=== PATIENT | female | born 1940 | race Caucasian/White ===

== ENCOUNTER 2019-10-10 12:37 | Outpatient (CLI) | payer MEDICARE, OTHER, SELFPAY ==
[2019-10-10 13:31] LABS: Urine Color Yellow (Yellow)
[2019-10-10 13:32] LABS: Bilirubin Urine Neg (NEGATIVE); Blood Urine Neg (Negative); Glucose Urine UA Norm (Normal); Ketones Urine 1+ (Negative); Leukocyte Esterase Urine Negative (Negative); Nitrate Urine Negative (Negative); Protein Urine Neg (Negative); Specific Gravity, Urine 1.015 (1.005-1.030); Urine Appearance SL Hazy (CLEAR); Urobilinogen Urine Norm (Negative); pH Urine 5 (5-7)
[2019-10-10 14:06] LABS: Add Urine Culture? No; Bacteria Urine 1+; Mucus Urine TRACE; Squamous Epithelial Cell Urine 15-25 (0-5)
== END 2019-10-10 12:38 | disposition home or self-care (01) ==
LOC: LAB 12:42
PROVIDERS: Family Provider Family Medicine; PCP Family Medicine; Visit Provider Family Medicine
DX: N39.0 Urinary tract infection, site not specified (principal)
CPT/HCPCS: 81001; 87086

== ENCOUNTER 2019-10-19 14:53 | Outpatient (CLI) | payer MEDICARE, OTHER, SELFPAY ==
[2019-10-19 15:39] LABS: Anion Gap 19.4 (5-19); Blood Urea Nitrogen 17 mg/dL (8-23); Calcium 10.3 mg/Dl (8.8-10.2); Carbon Dioxide 24 mmol/L (22-29); Chloride 98 mmol/L (98-107); Glucose 127 mg/dL (74-106); Potassium 4.4 mmol/L (3.5-5.1); Sodium 137 mmol/L (136-145)
== END 2019-10-19 14:54 | disposition home or self-care (01) ==
LOC: LAB 14:59
PROVIDERS: Family Provider Family Medicine; PCP Family Medicine; Visit Provider Family Medicine
DX: N39.0 Urinary tract infection, site not specified (principal)
CPT/HCPCS: 36415; 80048

== ENCOUNTER 2019-10-25 06:00 | Outpatient (RCR) | payer MEDICARE, OTHER, SELFPAY | END 2019-11-04 23:59 | disposition home or self-care (01) | LOC: MPT 06:00 | PROVIDERS: Family Provider Family Medicine; PCP Family Medicine; Referring Provider Psychiatry & Neurology Neurology; Visit Provider Psychiatry & Neurology Neurology | DX: G20 Parkinson's disease (principal); R32 Unspecified urinary incontinence; R15.9 Full incontinence of feces | CPT/HCPCS: 81001; 87086; 97110; 97140; 97161 ==

== ENCOUNTER 2019-11-07 06:00 | Outpatient (RCR) | payer MEDICARE, OTHER, SELFPAY | END 2019-12-03 23:59 | disposition home or self-care (01) | LOC: MPT 06:00 | PROVIDERS: Family Provider Family Medicine; PCP Family Medicine; Referring Provider Psychiatry & Neurology Neurology; Visit Provider Psychiatry & Neurology Neurology | DX: G20 Parkinson's disease (principal); R32 Unspecified urinary incontinence; R15.9 Full incontinence of feces | CPT/HCPCS: 81001; 87086 ==

== ENCOUNTER 2019-11-11 12:43 | Outpatient (CLI) | payer MEDICARE, OTHER, SELFPAY ==
--- NOTE | 2019-11-11 12:48 | XR_ITS ---
WS: [id number] KUB, 11/11/2019 Clinical Data: RECURRENT UTI Comparison: Acute abdomen series, 11/23/2017. Findings: No abnormal intraabdominal masses or calcifications are seen. There is no dilatated small bowel or ev idence of obstruction. Fecal material obscures detail over both kidneys. There are clips in the right upper quadrant from a cholecystectomy. There is a large amount of fecal material present. XR/XR KUB [id number] Impression: 1. Fecal material obscures detail over the kidneys. 2. Large amount of fecal material throughout the colon.
== END 2019-11-11 12:44 | disposition home or self-care (01) ==
LOC: RAD 12:46
PROVIDERS: Family Provider Family Medicine; PCP Family Medicine; Visit Provider Urology
DX: N39.0 Urinary tract infection, site not specified (principal)
CPT/HCPCS: 74018

== ENCOUNTER 2019-11-11 12:46 | Outpatient (CLI) | payer MEDICARE, OTHER, SELFPAY ==
[2019-11-11 13:21] LABS: Basophils % 0.3 %; Eosinophils # 0.1 10^3/uL (0.0-0.8); Eosinophils % 1.4 %; Hematocrit 44.2 % (37.0-47.0); Hemoglobin 13.9 g/dL (11.5-15.3); Lymphocytes # 1.4 10^3/uL (0.8-4.8); Lymphocytes % 15.1 %; Mean Corpuscular HGB Conc 31.4 g/dL (30.0-36.0); Mean Corpuscular Hemoglobin 25.9 pg (28.0-34.0); Mean Corpuscular Volume 82.3 fL (81-99); Mean Platelet Volume 9.8 fL (7.4-10.4); Monocytes # 0.5 10^3/uL (0.2-0.9); Monocytes % 5.7 %; Neutrophils # 7.1 10^3/uL (1.8-7.7); Neutrophils % 77.1 %; Nucleated Red Blood Cells % 0 %; Platelet Count 248 10^3/cmm (130-400); Red Blood Count 5.37 10^6/uL (4.1-5.3); Red Cell Distribution Width 15.2 % (12.1-15.1); White Blood Count 9.3 10^3/uL (4.0-10.0)
[2019-11-11 13:44] LABS: Estmated Average Glucose 151; Hemoglobin A1C 6.9 % (4.0-6.0)
[2019-11-11 14:05] LABS: Alanine Aminotransferase 16 U/L (0-33); Albumin Level 4.2 g/dL (3.5-5.2); Alkaline Phosphatase 140 IU/L (35-105); Anion Gap 24.1 (5-19); Aspartate Amino Transferase 18 U/L (0-32); Blood Urea Nitrogen 18 mg/dL (8-23); Calcium 10.9 mg/dL (8.5-10.5); Carbon Dioxide 22 mmol/L (22-29); Chloride 90 mmol/L (98-107); Chol HDL Ratio 1.81 mg/dL (0.0-4.40); Cholesterol 105 mg/dL (0-200); Globulin 2.8 g/dL (1.3-4.6); Glucose 224 mg/dL (65-115); HDL Cholesterol 58 mg/dL (60-100); LDL Cholesterol Calculated 32 mg/dL (50-129); LDL HDL Ratio 0.55 RATIO (0.00-3.22); Potassium 4.1 mmol/L (3.5-5.1); Sodium 132 mmol/L (136-145); Total Bilirubin 0.4 mg/dL (0.15-1.2); Triglycerides 77 mg/dL (0-150)
== END 2019-11-11 12:47 | disposition home or self-care (01) ==
LOC: LAB 12:49
PROVIDERS: Family Provider Family Medicine; PCP Family Medicine; Visit Provider Family Medicine
DX: E11.9 Type 2 diabetes mellitus without complications (principal)
CPT/HCPCS: 80053; 80061; 83036; 85025

== ENCOUNTER 2019-11-14 14:44 | Emergency (ER) | payer MEDICARE, OTHER, SELFPAY ==
[2019-11-14 15:23] VITALS: BP 150/80; PULSE 73; RESP 16; TEMP 37.1; O2SAT 97; BMI 21.5
== END 2019-11-14 19:52 | disposition left against medical advice (07) ==
PROVIDERS: Emergency Provider Emergency Medicine; Family Provider Family Medicine; PCP Family Medicine
DX: Z53.21 Procedure and treatment not carried out due to patient leaving prior to being seen by health care provider (principal)
CPT/HCPCS: 99281

== ENCOUNTER → 2019-11-25 13:28 | Outpatient (BNVA) | payer MEDICARE, OTHER, SELFPAY | PROVIDERS: Family Provider Family Medicine; PCP Family Medicine; Visit Provider Family Medicine | DX: E11.9 Type 2 diabetes mellitus without complications (principal); N39.0 Urinary tract infection, site not specified; R44.1 Visual hallucinations | CPT/HCPCS: 80048; 81001; 83735 ==

== ENCOUNTER 2020-01-26 18:15 | Observation (INO) | payer MEDICARE, OTHER, SELFPAY ==
[2020-01-26] VITALS (9 sets, daily range): BP systolic 110–156; BP diastolic 48–81; PULSE 67–88; RESP 14–18; TEMP 36.2–36.5; O2SAT 94–100; BMI 20.7
--- NOTE | 2020-01-26 18:19 | XR_ITS ---
WS: [id number] CHEST XRAY TECHNIQUE: Portable chest. CLINICAL INFORMATION: syncope COMPARISON: September 12, 2019 FINDINGS: Heart: Normal cardiac silhouette.. Aortic calcification. Lungs: Moderate chronic emphysematous changes. No acute pulmonary infiltrates. Bones: Mild thoracic curve convex right. Cholecystectomy clips. Osteopenia. XR/XR chest 1V portable [id number] IMPRESSION: No acute chest findings
--- NOTE | 2020-01-26 18:20 | ECG_ITS ---
Measurements Intervals [place] Rate: 75 P: VA: 0 QRS: 4 QRSD: 88 T: 70 QT: 388 QTc: 435 SINUS RHYTHM WITH OCCASIONAL VENTRICULAR PREMATURE COMPLEXES NONSPECIFIC T-WAVE ABNORMALITY Compared to ECG 09/12/2019 12:31:18 Ventricular premature complex(es) now present T-wave abnormality now present Left ventricular hypertrophy no longer present ST (T wave) deviation no longer present Electronically Signed On 01-27-2020 14:58:46 CDT by Robin Blue M.D. [email or web address]
--- NOTE | 2020-01-26 18:20 | W.ED.SYNCOPE ---
HPI - Syncope General: Chief Complaint: Syncope Stated Complaint: syncopial episode/N/V Time Seen by Provider: 01/26/20 18:18 Source: patient Mode of arrival: ambulatory Limitations: no limitations History of Present Illness: HPI narrative: 79-year-old female who is here by EMS after having a syncopal event. She states she felt lightheaded and then passed out. She was passed out for roughly 30 seconds. Patient states she feels much improved and has no symptoms currently. Patient denies any chest pain or headache before or after. MD complaint: loss of consciousness Onset (ago): hour(s) Prodromal symptoms: lightheaded Witnessed: Yes - by Bystander Context: standing up Associated symptoms: Deny abdominal pain, chest pain, fever(s), headache(s) or nausea Review of Systems Const: Denies: fever, chills, body aches or change in appetite Eyes: Denies: blurry vision or eye discomfort ENMT: Denies: throat pain or dental pain Card: Denies: chest pain Resp: Denies: shortness of breath GI: Denies: abdominal pain, nausea, vomiting or diarrhea : Denies: painful urination Musc: Denies: neck pain or back pain Skin/Breast: Denies: rash Neuro: Denies: headache Psych: Denies: depression Abdiel/Lymph: Denies: easy bruising All/Imm: Denies: hives PFSH ED PFSH: Medical History Anxiety DDD (degenerative disc disease), lumbar Dyslipidemia (high LDL; low HDL) Encounter for counseling for care management of patient with chronic conditions and complex health needs using nurse-based model Essential (primary) hypertension Hx of traumatic brain injury Hyponatremia Lumbar stenosis Memory change Recurrent UTI Syncopal episodes Type 2 diabetes mellitus without complications Urge incontinence Ventricular arrhythmia Surgical History History of loop recorder History of release of tendon (~2010) trigger finger History of tonsillectomy and adenoidectomy younger than age 10 Hx laparoscopic cholecystectomy (~1993) Hx of bilateral cataract extraction (~2007) Hx of brain surgery Epidural Hematoma; emergency Hx of breast biopsy (~2002) right Hx of colonoscopy (~2010) polyps: Hyperplastic Hx of hysterectomy (~1973) Hx of tracheostomy Family History Father , age 58 from [place] CAD (coronary artery disease) Mother , age 76 Cancer melanoma Grandmother Diabetes maternal Social History Smoking and tobacco status: never smoked Alcohol intake: never Caregiver/support person: Yes Lives independently: No Household members: none Housing: House Marital status: / Number of children: 2 Number of grandchildren: 0 Current occupational status: retired History of recent travel: No Current gender identity: Female Physical Exam Const: COMMON NORMALS: no apparent distress, oriented x3 and healthy appearing HENMT: COMMON NORMALS: normocephalic and head/scalp atraumatic HEAD & SCALP: normocephalic and atraumatic Eye: COMMON NORMALS: PERRL and EOMs intact bilaterally PUPIL: Yes PERRL Neck/C-Spine: COMMON NORMALS: full ROM and supple Chest: COMMONS NORMALS: inspection of chest normal and palpation of chest normal Resp: COMMON NORMALS: normal respiratory effort, no retractions, no use of accessory muscles and clear to auscultation bilaterally AUSCULTATION: clear to auscultation bilaterally Cardio: COMMON NORMALS: regular rate, regular rhythm and no murmurs RATE: regular rate RHYTHM: regular rhythm GI: COMMON NORMALS: normal to inspection, nondistended, normoactive bowel sounds, soft to palpation, non-tender and no masses PALPATION: Yes soft Extremity: COMMON NORMALS: normal to inspection and full ROM Neuro: COMMON NORMALS: oriented x3, moves all extremities and no focal motor deficits Psych: COMMON NORMALS: mental status grossly normal, thought process normal and cooperative THOUGHT PROCESS: normal thought process Skin: COMMON NORMALS: no rashes or lesions noted and no wounds GENERAL SKIN EXAM: no rashes or lesions noted Course Vital Signs: Vital signs: Vital Signs Temperature 97.7 F 01/26/20 18:21 Pulse Rate 88 01/26/20 19:30 Respiratory Rate 16 01/26/20 19:30 Blood Pressure 156/56 01/26/20 19:30 Pulse Oximetry 94 01/26/20 19:30 MDM - Syncope MDM Narrative: Medical decision making narrative: Patient presents here with syncopal event. EKG shows either second-degree block or PVC. Looks more like a PVC causing drop beat to me. Patient has felt improved here. We will continue to monitor and get EKGs and spoke to Dr. Soliman who will admit. Patient did not hit her head. Lab Data: Labs: Lab Results 01/26/20 01/26/20 01/26/20 Range/Units 18:10 19:18 19:18 WBC 6.2 (4.0-10.0) 10^3/ uL RBC 5.10 (4.1-5.3) 10^6/u L Hgb 13.5 (11.5-15.3) g/dL Hct 43.2 (37.0-47.0) % MCV 84.7 (81-99) fL MCH 26.5 L (28.0-34.0) pg MCHC 31.3 (30.0-36.0) g/dL RDW 15.4 H (12.1-15.1) % Plt Count 285 (130-400) 10^3/c mm MPV 9.7 (7.4-10.4) fL Neut % (Auto) 50.9 % Lymph % (Auto) 33.5 % [place] % (Auto) 10.4 % Eos % (Auto) 4.2 % Baso % (Auto) 0.7 % Neut # (Auto) 3.1 (1.8-7.7) 10^3/u L Lymph # (Auto) 2.1 (0.8-4.8) 10^3/u L [place] # (Auto) 0.6 (0.2-0.9) 10^3/u L Eos # (Auto) 0.3 (0.0-0.8) 10^3/u L Baso # (Auto) 0.0 (0.0-0.1) 10^3/u L Nucleated RBC % (a uto) 0 % Nucleated RBCs # 0.0 /100WBC Sodium 134 L (136-145) mmol/L Potassium 4.7 (3.5-5.1) mmol/L Chloride 95 L (98-107) mmol/L Carbon Dioxide 23 (22-29) mmol/L Anion Gap 20.7 H (5-19) BUN 15 (8-23) mg/dL Creatinine 0.9 (0.5-0.9) mg/dL Glucose 213 H (65-115) mg/dL Calculated Osmolal ity 281 L (285-295) mOsm/k g Calcium 10.2 (8.5-10.5) mg/dL Total Bilirubin 0.3 (0.15-1.2) mg/dL AST 5 (0-32) U/L ALT < 5 (0-33) U/L Alkaline Phosphata se 106 H (35-105) IU/L Troponin T Baselin e 22 H (0-10) ng/mL Total Protein 6.2 L (6.6-8.7) g/dL Albumin 4.2 (3.5-5.2) g/dL Globulin 2.0 (1.3-4.6) g/dL Imaging Data^: CXR: Attestation: I personally reviewed and interpreted this imaging study as follows: My impression: no acute abnormallity EKG Data^: EKG 1: Attestation: I personally reviewed and interpreted this EKG as follows: EKG interpretation date: 01/26/20 EKG interpretation time: 18:57 Interpretation: sinus rhtythm hr [address] t ave abnormalitieis Discharge Plan Discharge Patient Disposition: Admitted As Inpatient Clinical Impression: Syncopal episodes Qualifiers: Syncope type: unspecified Qualified Code(s): R55 - Syncope and collapse Condition: Stable Referrals: Coral Quiros MD [Primary Care Provider] - Coding Level of Care Code ED Manufacturer'S Representative for Chg Fwd Exam Comprehensive
[2020-01-26 18:37] LABS: Basophils % 0.7 %; Eosinophils # 0.3 10^3/uL (0.0-0.8); Eosinophils % 4.2 %; Hematocrit 43.2 % (37.0-47.0); Hemoglobin 13.5 g/dL (11.5-15.3); Lymphocytes # 2.1 10^3/uL (0.8-4.8); Lymphocytes % 33.5 %; Mean Corpuscular HGB Conc 31.3 g/dL (30.0-36.0); Mean Corpuscular Hemoglobin 26.5 pg (28.0-34.0); Mean Corpuscular Volume 84.7 fL (81-99); Mean Platelet Volume 9.7 fL (7.4-10.4); Monocytes # 0.6 10^3/uL (0.2-0.9); Monocytes % 10.4 %; Neutrophils # 3.1 10^3/uL (1.8-7.7); Neutrophils % 50.9 %; Nucleated Red Blood Cells % 0 %; Platelet Count 285 10^3/cmm (130-400); Red Cell Distribution Width 15.4 % (12.1-15.1); White Blood Count 6.2 10^3/uL (4.0-10.0)
[2020-01-26] MEDS: sodium chloride 0.9% 1,000 ML 999 ML IV (19:04)
[2020-01-26 19:43] LABS: Alanine Aminotransferase < 5 U/L (0-33); Albumin Level 4.2 g/dL (3.5-5.2); Alkaline Phosphatase 106 IU/L (35-105); Anion Gap 20.7 (5-19); Aspartate Amino Transferase 5 U/L (0-32); Blood Urea Nitrogen 15 mg/dL (8-23); Calcium 10.2 mg/dL (8.5-10.5); Carbon Dioxide 23 mmol/L (22-29); Chloride 95 mmol/L (98-107); Glucose 213 mg/dL (65-115); Osmolality Calculated 281 mOsm/kg (285-295); Potassium 4.7 mmol/L (3.5-5.1); Sodium 134 mmol/L (136-145); Total Bilirubin 0.3 mg/dL (0.15-1.2); Total Protein 6.2 g/dL (6.6-8.7)
[2020-01-26 19:44] LABS: Troponin(5th) Baseline 22 ng/mL (0-10)
[2020-01-26 20:42] LABS: Magnesium 1.7 mg/dL (1.7-2.3)
--- NOTE | 2020-01-26 20:42 | PM.HP ---
Providers/Chief Complaint Admitting Physician: Kenna Esposito Primary Care Provider: Coral Quiros MD/Rosy Ponce cardiology Dr Andrea urology Chief Complaint: SYNCOPE History of Present Illness Cathi Nichols is a 79 year old female who presented to the emergency room with chief complaint of syncopal episode. History is obtained from her son Parish. She will share some of the information but is not a reliable historian due to history of traumatic brain injury. She has been having intermittent hallucinations lately. These had recurred this morning. She was a bit tired and slept most of the day. This evening she got up to go to dinner. Afterward a family member took her to the bathroom. While in the bathroom, after having a bowel movement, she leaned over to pick something up off of the floor and subsequently passed out. Her family was with her and she did not have any injury. They reported that she lost consciousness for maybe a minute at most. Ms. Winkler has a history of syncope but has not had an episode for 2 years. She follows with Dr. Ponce from cardiology. She has a history of a ventricular arrhythmia and has an implanted loop monitor. Episode today happened sometime between 5:50 and 6:10 PM according to the son. Patient reports that she may have had some chest discomfort and palpitations plus some nausea. There was no reported vomiting or diarrhea. No reported fevers. No recent change in urination. Will state that patient was treated for urinary tract infection approximately 1 month ago with a 10-day course of Cipro. Cultures were unremarkable. She follows regularly with Dr. Andrea for recurrent UTIs. No fever. No cough or respiratory symptoms otherwise. No known sick contacts. In the emergency room EKG was interpreted by computer as Mobitz type II initially. Looking at it further I think it is interpreting PVCs and do not see persistent type II block on telemetry monitoring. Patient does have a history of some Parkinson's as well as prior traumatic brain injury. She talks about living with her mom and dad and when she is stressed she is a bit more confused. She does not always do well outside of her usual environment. She is very calm and attempts to answer questions but again is not a reliable historian herself. I reviewed available history and medications with her son who confirmed that most recent updates are accurate. She is being admitted for further telemetry monitoring and observation as well as to give us a chance to evaluate her loop recorder given the syncopal episode today occurring for the first time in a couple of years. Of note patient will do better if she is reminded that her son and daughter, Michael will be around and know that she is here. I made arrangements for patient son to see her in the emergency room for reassurance. Review of Systems General: Reports: other (Review of systems is as noted in the history of present illness and unreliable at this time due to patient's chronic cognitive status) Const: Reports: change in sleep pattern (Not consistent lately); Denies: fever, change in appetite or change in weight ENMT: Denies: throat pain or nasal congestion Card: Reports: chest pain, palpitations, edema (Mild per patient) and syncope Resp: Denies: shortness of breath, productive cough or non-productive cough GI: Reports: abdominal pain (Lower per patient, son did not state any recent complaints of) and nausea; Denies: vomiting, diarrhea (Although patient reported) or constipation : Reports: other (Son reported no recent acute change in urine output though not certain) Musc: Denies: neck pain, back pain or extremity pain Skin/Breast: Denies: rash, itching or sores Neuro: Reports: weakness in extremities (General rather than focal, no obvious recent change), confusion (Baseline, maybe a little bit worse), involuntary movements (Chronic) and other (Patient reported a fall but son denied) Psych: Reports: memory loss, visual hallucinations and auditory hallucinations Abdiel/Lymph: Denies: easy bruising or easy bleeding Medications/Allergies Home Medications Medication Instructions Recorded Confirmed Last Taken Type Lacto.acidophilus-Bif.animalis 2.5 1 cap PO DAILY cap 10/11/19 01/26/20 01/26/20 History billion cell capsule amantadine HCl 100 mg tablet 100 mg PO BID 10/11/19 01/26/20 01/26/20 History ascorbate calcium (vitamin C) 500 1 gm PO BID tab 10/11/19 01/26/20 01/26/20 History mg tablet epinephrine 0.3 mg/0.3 mL 0.3 mg IM ONCE PRN 10/11/19 01/26/20 Unknown History injection, auto-injector lisinopril 20 mg tablet 20 mg PO BID 10/11/19 01/26/2001/25/20 History multivitamin 1 tab PO QAM 10/11/19 01/26/20 01/26/20 History aspirin 81 mg tablet,delayed 81 mg PO QDAY 10/25/19 01/26/20 01/26/20 History release cranberry 500 mg capsule 500 mg PO QDAY cap 10/25/19 01/26/20 01/26/20 History carbidopa 25 mg-levodopa 100 mg 1 tab PO TID tab 11/25/19 01/26/20 01/26/20 History tablet lancets 33 gauge #100 each 12/05/19 01/19/20 Unknown Rx metformin 500 mg tablet 1,000 mg PO BID #120 tab 12/05/19 01/26/20 01/26/20 Rx blood sugar diagnostic #10 each 01/10/20 01/19/20 Unknown Rx blood-glucose meter #1 each 01/10/20 01/19/20 Unknown Rx aripiprazole 2 mg tablet 2 mg PO TID tab 01/19/20 01/26/20 01/26/20 History carvedilol 25 mg tablet 12.5 mg PO BID tab 01/19/20 01/26/20 01/26/20 History methenamine hippurate 1 gram tablet 1 gm PO BID #60 tab 01/19/20 01/26/20 01/26/20 Rx atorvastatin 10 mg PO BEDTIME 01/26/20 01/26/20 01/25/20 History Allergies Allergy/AdvReac Type Severity Reaction Status Date / Time furosemide [From Lasix] Allergy Unknown UNKNOWN Verified 11/25/19 09:12 codeine Allergy Unknown Verified 11/25/19 09:12 PFSH Acute PFSH: Medical History Anxiety DDD (degenerative disc disease), lumbar Dyslipidemia (high LDL; low HDL) Essential (primary) hypertension Hx of traumatic brain injury associated with some degree of confusion, occasional hallucinations, states she lives with mom and dad at baseline when stressed Hyponatremia chronic mild in low mid 130s at baseline Lumbar stenosis Memory change Parkinsons On Sinemet Recurrent UTI follows with Dr Andrea Syncopal episodes Longstanding but last episode of actual syncope was approximately 2 years ago. Etiology uncertain at this point in time. Has implanted loop recorder. Type 2 diabetes mellitus without complications non insulin requiring, on metformin Urge incontinence Ventricular arrhythmia Surgical History History of loop recorder Follows with Dr. Ponce History of release of tendon (~2010) trigger finger History of tonsillectomy and adenoidectomy younger than age 10 Hx laparoscopic cholecystectomy (~1993) Hx of bilateral cataract extraction (~2007) Hx of brain surgery Epidural Hematoma; emergency Hx of breast biopsy (~2002) right Hx of colonoscopy (~2010) polyps: Hyperplastic Hx of hysterectomy (~1973) Hx of tracheostomy Family History Father , age 58 from [place] CAD (coronary artery disease) Mother , age 76 Cancer melanoma Grandmother Diabetes maternal Social History Smoking and tobacco status: never smoked Alcohol intake: never Caregiver/support person: Yes Lives independently: No Household members: none Housing: House Marital status: / Number of children: 2 Number of grandchildren: 0 Current occupational status: retired History of recent travel: No Current gender identity: Female Vitals/I&O/Wt Last Vital Signs Temp 97.7 F 01/26/20 18:21 Pulse 83 01/26/20 20:30 Resp 14 01/26/20 20:30 BP 121/59 01/26/20 20:30 Pulse Ox 100 01/26/20 20:30 Weight last 48 hrs Weight 49.895 kg Physical Exam Const: COMMON NORMALS: alert ORIENTATION/CONSCIOUSNESS: Yes oriented to person and Yes confused; not oriented to place, not oriented to time and not lethargic HENMT: COMMON NORMALS: normocephalic, head/scalp atraumatic and moist oral mucous membranes Eye: COMMON NORMALS: PERRL and EOMs intact bilaterally Neck/C-Spine: COMMON NORMALS: supple Resp: COMMON NORMALS: normal respiratory effort, no use of accessory muscles and clear to auscultation bilaterally Cardio: COMMON NORMALS: regular rate, regular rhythm, no gallops, no murmurs and no rub GI: COMMON NORMALS: normal to inspection, nondistended, normoactive bowel sounds, soft to palpation and non-tender AUSCULTATION: Yes normoactive bowel sounds PALPATION: Yes soft Extremity: COMMON NORMALS: normal capillary refill and no calf tenderness GENERAL: No clubbing, No cyanosis and Yes edema (trace) Neuro: COMMON NORMALS: moves all extremities SENSORIUM/ORIENTATION: Yes alert SPEECH: speech normal (though confused) GAIT: Yes unable to assess gait MOTOR EXAM: tremor other (pill rolling mild both hands) and other (Handgrip is equal bilaterally but has some muscle wasting noted) Psych: COMMON NORMALS: cooperative Skin: NARRATIVE SKIN EXAM: Patient has a couple of bruises on her hands and hands are both puffy but no acute sores or rashes otherwise noted. Data : 01/26/20 18:10 01/26/20 19:18 A&P Assessment and plan (1) Syncopal episodes: Event today sounds vasovagal given that patient had just had a bowel movement and was bending over at the time. That being said she does have a history of these types of episodes for a while. Additionally twelve-lead EKG done in the emergency room was interpreted by machine as type II Mobitz block. I do not see this myself on telemetry monitoring on review of the EKG looks like it may be interpreting PVCs as such. This would be new finding for her if true however. She appears slightly dry and is slightly more confused with increased frequency of hallucinations compared to what has been baseline lately. No evidence of an acute infection currently as a contributing calls. No known sick contacts. No acute ST segment changes. Chronically on beta-blockade due to ventricular arrhythmia history details of which I do not have. Status: Acute Qualifiers: Syncope type: unspecified Qualified Code(s): R55 - Syncope and collapse (2) History of loop recorder: Follows with Dr. Ponce. Loop recorder still in place. Was put in place because of a history of recurrent syncope Status: Chronic (3) Dehydration: Mild, evidenced by trace ketones, slightly decreased skin turgor on examination and review of labs. May be a contributing factor to his syncope. Status: Acute (4) Type 2 diabetes mellitus without complications: Chronically on metformin Status: Chronic Qualifiers: Diabetes mellitus fpc insulin use: without superintendent container terminal use Qualified Code(s): E11.9 - Type 2 diabetes mellitus without complications (5) Hx of traumatic brain injury: With some degree of baseline confusion and intermittent hallucinations Status: Chronic (6) Recurrent UTI: Followed closely by Dr. Andrea. Most recent course of antibiotics was approximately 1 month ago, a 10-day course of Cipro twice daily. Cultures showed mixed denisse in December and January as recently as 2 weeks ago. Urine today not indicative of active infection. On chronic methenamine and vitamin C along with cranberry for urinary symptoms. Status: Chronic (7) Essential (primary) hypertension: Currently controlled on lisinopril in addition to beta-blockade Status: Chronic (8) Dyslipidemia (high LDL; low HDL): Chronically on statin therapy Status: Chronic (9) Parkinsons: Chronically on Sinemet Status: Acute Additional A&P Information Observation admission Telemetry monitoring In the morning we will see if we can get in touch with Dr. Ponce and make arrangements to evaluate the loop recorder for the time frame from approximately 5:45 PM to 6:15 PM this evening to see if there was any arrhythmia behind the episode of syncope Initiate some IV fluids Monitor serial cardiac enzymes Continue home medications per usual dosing for now Add low-dose sliding scale insulin in case needed No evidence of acute urinary tract infection currently One-to-one sitter given high fall risk and baseline cognitive functioning Supportive care otherwise Currently low risk for VTE but if converts to inpatient will need to address further Anticipate discharge home back with family CODE STATUS was discussed with patient's son and she is presently full code Reviewed findings of no urinary tract infection, initial concern for possibility of a heart block that I think is probably misinterpreted in the setting of some PVCs at the moment and plans to watch patient overnight as well as try to get information from her loop recorder tomorrow. Patient's son was given an opportunity to ask questions which were answered. I also made arrangements for him to come in and talk with her briefly in the emergency room to reassure her that they were aware of the plans of care. She does get anxious when not in her usual environment. Attestations Medical Necessity Statement*: Currently anticipated stay less than 2 midnights in this patient presenting with a syncopal episode that actually sounds vasovagal in nature but with history as indicated. She has not had a syncopal episode in 2 years and lost consciousness with this event. Plans are as indicated. Coding Level of Care Code Acute Permit Technician for [facility] Fwd Exam Comprehensive Diagnoses Syncopal episodes R55 Syncope type: unspecified History of loop recorder Z98.890 Dehydration E86.0 Type 2 diabetes mellitus without complications E11.9 Diabetes mellitus superintendent container terminal insulin use: without fpc use Hx of traumatic brain injury Z87.820 Recurrent UTI N39.0 Essential (primary) hypertension I10 Dyslipidemia (high LDL; low HDL) E78.5 Parkinsons G20
[2020-01-26 21:34] LABS: Troponin 5 2HR 20.31 ng/mL (0-10)
[2020-01-26 21:36] LABS: Troponin 5 2HR Delta -1.69 ABS# (0-10)
--- NOTE | 2020-01-26 23:09 | CTR_ITS ---
PROCEDURE INFORMATION: Exam: CT Head Without Contrast Exam date and time: 01/26/2020 11:10 PM Age: 79 years old Clinical indication: Syncope and collapse TECHNIQUE: Imaging protocol: Computed tomography of the head without contrast. Total DLP: 813.6 mGy-cm Radiation optimization: All CT scans at this facility use at least one of these dose optimization techniques: automated exposure control; mA and/or kV adjustment per patient size (includes targeted exams where dose is matched to clinical indication); or iterative reconstruction. COMPARISON: CT head wo con* [id number] 09/07/2019 2:50 PM FINDINGS: Brain: There is diffuse cerebral atrophy and chronic microvascular white matter disease. Stable focal encephalomalacia in the superior right temporal lobe. There is no significant mass effect or midline shift. There is no acute intracranial hemorrhage. Ventricles: There is moderate ex vacuo dilation of the lateral ventricles. Basal cisterns are unremarkable. Bones/joints: There is subtle dural thickening underlying a healed right craniotomy. Stable right craniotomy with intact repair. Sinuses: The paranasal sinuses are clear. Mastoid air cells: The mastoid air cells are clear. Soft tissues: The visible extracranial soft tissues are unremarkable. CT/CT head wo con* [id number] IMPRESSION: 1. No acute findings. 2. Incidental findings above. Radiation Dose CTDIVOL = (mGy): DLP = 813.6 (mGy-cm)
[2020-01-27] VITALS: BP 151/81; PULSE 83; RESP 17; TEMP 36.2; O2SAT 95
[2020-01-27] MEDS: sodium chloride 0.9% 1,000 ML 75 ML IV (00:27)
[2020-01-27 01:17] LABS: Troponin 5 6HR 21.98 ng/mL (0-10)
[2020-01-27 01:26] LABS: Troponin 5 6HR Delta -0.02 ng/L (0-12)
[2020-01-27 04:00] VITALS: BP 151/81; BP 153/67; PULSE 79; PULSE 83; RESP 16; RESP 17; TEMP 36.2; TEMP 36.9; O2SAT 97
[2020-01-27 06:02] LABS: Blood Urea Nitrogen 13 mg/dL (8-23); Calcium 9.2 mg/dL (8.5-10.5); Carbon Dioxide 19 mmol/L (22-29); Chloride 101 mmol/L (98-107); Glucose 140 mg/dL (65-115); Osmolality Calculated 276 mOsm/kg (285-295); Sodium 134 mmol/L (136-145)
[2020-01-27 07:01] LABS: Glucose Point of Care 150 mg/dL (70-110)
[2020-01-27 08:05] VITALS: BP 117/70; PULSE 71; RESP 18; TEMP 36.3; O2SAT 97
[2020-01-27 10:47] LABS: Glucose Point of Care 149 mg/dL (70-110)
[2020-01-27 11:14] VITALS: BP 177/70; PULSE 81; RESP 20; TEMP 37; O2SAT 93
--- NOTE | 2020-01-27 11:16 | PC.CHAP ---
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 gun repairer visit [] Patient/Family/Request visit [] Outpatient visit [] Follow-up visit [] Physician referral [] Code/Alert [x] Routine visit [] Staff referral [] Actively dying [x] Patient sleeping [] Family support [] [] Out of room [] Palliative care [] [x] Receiving care in room [] Pre-surgical visit [] Trauma [] Long length of stay [] ICU visit [] Other: Relational/Emotional Strength [] Patient feels connected with others/family/visitors/staff [] Distress [] Loneliness/isolation [] Abandonment Spirituality of Patient [] Person of Agnieszka [] Attends Sikh of their Agnieszka [] Believes in Prayer [] Reads Bible or Hindu materials [] There are Spiritual issues to be addressed Stakeholder Manager Interventions [] Prayer [] Active listening [] Non-anxious presence [] Spiritual/emotional support [] Crisis/trauma care [] Spiritual counseling [] Bereavement support [] Provided bereavement packet [] Provided Bible/devotional materials [] Provided toy/stuffed animal, coloring book to patient or family member [] Provided Communion [] Anointing/[place] [] Salvation [x] Completed spiritual assessment [] Other: Impact on Illness or Injury [] Angry [] Fearful [] Anxious [] Often cries [] Exhaustion [] Unable to work [] Unable to attend confucianist [] Unable to walk/stand [] Unable to read [] Unable to drive [] Unable to eat/drink [] Unable to sleep [] Unable to be with family [] Patient intubated [] Other: Summary nurse setting in room Time spent with patient
--- NOTE | 2020-01-27 13:07 | PM.DCS ---
Discharge Providers Date of Admission: 01/26/20 20:24 Date of Discharge: January 27, 2020 Attending Provider at Admission: Kenna Esposito MD Attending Provider at Discharge: Brittni Coronado MD Primary Care Provider: Coral Quiros MD Diagnoses at Discharge Discharge Diagnosis (1) Syncopal episodes: Status: Acute Problem details: -Longstanding but last episode of actual syncope was approximately 2 years ago. Etiology uncertain at this point in time. Has implanted loop recorder. -from hx, appears to be vasovagal syncope -no events reported on review of implanted loop recorder -VSS, in fact has been hypertensive since oral antihypertensives held. Resumed this AM. -no events on telemetry review -has had extensive cardiac w/u done by cardiology including Echo (EF=60%, G1DD, mild pulmonary HTN) -continue to f/u with Dr. Ponce -troponins noted with no significant delta Qualifiers: Syncope type: unspecified Qualified Code(s): R55 - Syncope and collapse (2) History of loop recorder: Status: Chronic Problem details: -Follows with Dr. Ponce (3) Dehydration: Status: Acute Problem details: -received gentle IVF hydration -good oral intake this AM (4) Type 2 diabetes mellitus without complications: Status: Chronic Problem details: -non insulin requiring, on metformin -A1c-6.9 Qualifiers: Diabetes mellitus ferry terminal agent insulin use: without penitentiary use Qualified Code(s): E11.9 - Type 2 diabetes mellitus without complications (5) Hx of traumatic brain injury: Status: Chronic Problem details: -associated with some degree of confusion, occasional hallucinations, states she lives with mom and dad at baseline when stressed. Actually lives with her son and daughter who are with her 27/04 (6) Recurrent UTI: Status: Chronic Problem details: -follows up with Dr Andrea -UA here not indicative of infection (7) Essential (primary) hypertension: Status: Chronic Problem details: -hypertensive this AM, oral antihypertensives resumed (8) Dyslipidemia (high LDL; low HDL): Status: Chronic Problem details: -on statin (9) Parkinsons: Status: Acute Problem details: -On Sinemet Other Information Additional DC diagnoses/information: -Advanced age -Chronic diastolic CHF; no acute exacerbation, Echo noted above Reason for Visit Reason for Visit: Reason For Visit: SYNCOPE Hospital Course Hospital Course: Patient was admitted to the medical surgical floor and placed on telemetry monitoring. She had interrogation of her loop recorder which per my discussion with Dr. Ponce whom company called did not have any arrhythmia or remarkable events during the timeline associated with her syncopal episode. She has not had any incidents during her hospital stay. No indication of infection including UTI which she is prone to. She has required one-on-one monitoring secondary to underlying high fall risk and baseline cognitive deficit. She was noted to be hypertensive secondary to holding her oral antihypertensives due to presentation with syncope. I have resumed her oral antihypertensive regimen which she will continue on discharge. There was mention of possible arrhythmia, specifically Mobitz type II which is likely PVCs rather than true arrhythmia particularly with no correlating events on loop recorder. She will need to continue to follow-up with Dr. Ponce as well as her primary care provider and with Dr. Andrea secondary to a history of recurrent UTIs. Her symptoms are likely secondary to vasovagal syncope. I did call and speak to patient's daughter Charlene Nichols ([phone]) to make sure to address any concerns and any questions prior to d/c, and to ensure family can continue to provide full-time care which they are. Discharge Summary: -Patient to follow-up with primary care provider within 1 week -Patient to continue to follow-up with Dr. Ponce -Patient to continue to follow-up with Dr. Andrea Physical Exam Const: COMMON NORMALS: no apparent distress and oriented x3 GENERAL APPEARANCE: cooperative and comfortable NUTRITIONAL APPEARANCE: thin ORIENTATION/CONSCIOUSNESS: Yes awake HENMT: COMMON NORMALS: normocephalic, head/scalp atraumatic, hearing grossly normal bilaterally and moist oral mucous membranes HEAD & SCALP: normocephalic and atraumatic Eye: COMMON NORMALS: PERRL, EOMs intact bilaterally and conjunctivae normal CONJUNCTIVA: Yes conjunctivae normal PUPIL: Yes PERRL Neck/C-Spine: COMMON NORMALS: full ROM GENERAL: Yes normal visual inspection and Yes trachea midline Resp: COMMON NORMALS: normal respiratory effort, no retractions, no use of accessory muscles and clear to auscultation bilaterally EFFORT & INSPECTION: Yes able to speak in complete sentences, Yes symmetric chest movement and No tachypneic AUSCULTATION: clear to auscultation bilaterally Cardio: COMMON NORMALS: regular rate, regular rhythm, S1 normal heart sound, S2 normal heart sound and no murmurs RATE: regular rate RHYTHM: regular rhythm HEART SOUNDS: S1 normal and S2 normal GI: COMMON NORMALS: normal to inspection, nondistended, normoactive bowel sounds, soft to palpation and non-tender PALPATION: Yes soft Extremity: COMMON NORMALS: normal to inspection, full ROM, no clubbing, cyanosis or edema and no pedal edema Neuro: COMMON NORMALS: oriented x3, moves all extremities, no focal motor deficits and no sensory deficits noted OTHER: -bradykinesia, masked facies Psych: COMMON NORMALS: mental status grossly normal, thought process normal, cooperative and affect normal SPEECH: Yes slow THOUGHT PROCESS: normal thought process MEMORY/COGNITION: Yes cognition grossly impaired Skin: COMMON NORMALS: no rashes or lesions noted, no jaundice, no petechiae and no mottling GENERAL SKIN EXAM: no rashes or lesions noted Discharge Data Data Completed and Pending: Completed Studies During Hospitalization Category Date Time Status CT head wo con* 7 [id number] Urgent Cat Scan 01/26/20 23:09 Completed XR chest 1V marsha ble [id number] Urgent Exams 01/26/20 18:19 Completed Labs from last 24 hours 01/27/20 01/27/20 01/27/20 10:38 06:25 05:15 WBC RBC Hgb Hct MCV MCH MCHC RDW Plt Count MPV Neut % (Auto) Lymph % (Auto) [place] % (Auto) Eos % (Auto) Baso % (Auto) Neut # (Auto) Lymph # (Auto) [place] # (Auto) Eos # (Auto) Baso # (Auto) Nucleated RBC % (a uto) Nucleated RBCs # Sodium 134 L Potassium 4.0 Chloride 101 Carbon Dioxide 19 L Anion Gap 18.0 BUN 13 Creatinine 0.7 Glucose 140 H POC Glucose 149 150 Calculated Osmolal ity 276 L Calcium 9.2 Magnesium Total Bilirubin AST ALT Alkaline Phosphata se Troponin I 6 Hour Troponin I Hi Sens Del Troponin T Baselin e Troponin T 120 Min [place] Troponin T Total Protein Albumin Globulin 01/27/20 01/26/20 01/26/20 00:55 21:16 19:18 WBC RBC Hgb Hct MCV MCH MCHC RDW Plt Count MPV Neut % (Auto) Lymph % (Auto) [place] % (Auto) Eos % (Auto) Baso % (Auto) Neut # (Auto) Lymph # (Auto) [place] # (Auto) Eos # (Auto) Baso # (Auto) Nucleated RBC % (a uto) Nucleated RBCs # Sodium Potassium Chloride Carbon Dioxide Anion Gap BUN Creatinine Glucose POC Glucose Calculated Osmolal ity Calcium Magnesium 1.7 Total Bilirubin AST ALT Alkaline Phosphata se Troponin I 6 Hour 21.98 H Troponin I Hi Sens Del -0.02 L Troponin T Baselin e Troponin T 120 Min [place] 20.31 H Delta Troponin T -1.69 L Total Protein Albumin Globulin 01/26/20 01/26/20 01/26/20 19:18 19:18 18:10 WBC 6.2 RBC 5.10 Hgb 13.5 Hct 43.2 MCV 84.7 MCH 26.5 L MCHC 31.3 RDW 15.4 H Plt Count 285 MPV 9.7 Neut % (Auto) 50.9 Lymph % (Auto) 33.5 [place] % (Auto) 10.4 Eos % (Auto) 4.2 Baso % (Auto) 0.7 Neut # (Auto) 3.1 Lymph # (Auto) 2.1 [place] # (Auto) 0.6 Eos # (Auto) 0.3 Baso # (Auto) 0.0 Nucleated RBC % (a uto) 0 Nucleated RBCs # 0.0 Sodium 134 L Potassium 4.7 Chloride 95 L Carbon Dioxide 23 Anion Gap 20.7 H BUN 15 Creatinine 0.9 Glucose 213 H POC Glucose Calculated Osmolal ity 281 L Calcium 10.2 Magnesium Total Bilirubin 0.3 AST 5 ALT < 5 Alkaline Phosphata se 106 H Troponin I 6 Hour Troponin I Hi Sens Del Troponin T Baselin e 22 H Troponin T 120 Min [place] Troponin T Total Protein 6.2 L Albumin 4.2 Globulin 2.0 Vitals: Last Vital Signs Temp 98.6 F 01/27/20 11:14 Pulse 81 01/27/20 11:14 Resp 20 H 01/27/20 11:14 BP 177/70 01/27/20 11:14 Pulse Ox 93 01/27/20 11:14 Discharge Plan Discharge Patient Disposition: Home, Self-Care Condition: Stable Prescriptions: Continued cranberry 500 mg capsule 500 mg PO QDAY RF: 0 aspirin [Lo-Dose Aspirin] 81 mg tablet,delayed release (DR/EC) 81 mg PO QDAY RF: 0 carvedilol 25 mg tablet 12.5 mg PO BID RF: 0 methenamine hippurate 1 gram tablet 1 gm PO BID Qty: 60 RF: 12 epinephrine [EpiPen 2-Dickson] 0.3 mg/0.3 mL auto-injector 0.3 mg IM ONCE PRN (Reason: Anaphylaxis) RF: 0 lisinopril 20 mg tablet 20 mg PO BID RF: 0 amantadine HCl 100 mg tablet 100 mg PO BID RF: 0 Daily Probiotic 2.5 billion cell capsule 1 cap PO DAILY RF: 0 ascorbate calcium (vitamin C) 500 mg tablet 1 gm PO BID RF: 0 multivitamin [Daily Multi-Vitamin] Tablet 1 tab PO QAM RF: 0 carbidopa-levodopa 25-100 mg tablet 1 tab PO TID RF: 0 aripiprazole 2 mg tablet 2 mg PO TID RF: 0 metformin 500 mg tablet 1,000 mg PO BID Qty: 120 RF: 5 (DME) lancets [OneTouch Delica Lancets] 33 gauge misc See Rx Instructions .ROUTE .MEDSUPPLY Qty: 100 RF: 3 (DME) blood-glucose meter [Accu-Chek Zhanna Plus Meter] Misc See Rx Instructions .ROUTE .MEDSUPPLY Qty: 1 RF: 0 (DME) Accu-Chek Zhanna Plus test strp Strip See Rx Instructions .ROUTE .MEDSUPPLY Qty: 10 RF: 0 atorvastatin 10 mg tablet 10 mg PO BEDTIME RF: 0 Discharge Orders: Discharge Order (Routine); Ordered 01/27/20 Ordered By: Brittni Coronado Referrals: Mikayla Ponce MD [Physician] - 1 month (Please contact [facility] services to make an appointment to be seen within one month. ) Coral Quiros MD [Primary Care Provider] - 4-7 days (Post hospital discharge follow up) Scott Andrea MD [Physician] - 3 months (Continued follow up for recurrent UTI) Discharge Diet: Cardiac and Diabetic Discharge Activity: Resume usual activity Patient Instructions: Syncope Discharge Attestations Time Spent in Discharge Care*: greater than 30 min Specific Discharge Activities: Specific discharge activities: educating patient, educating and/or supporting family/caregiver, discussing with pillowcase maker/social workers/dc planners, documenting/other paperwork and evaluating patient/reviewing data Status at Discharge: Cognitive status at discharge: moderately impaired cognition (at baseline), Behavioral status at discharge: cooperative, Functional status at discharge: other assisted ambulation Overall status at discharge: patient is back to baseline Quality Metrics Clinical Quality Measures During this hospital stay, did patient experience: None Coding Level of Care Code Acute Regulatory Manager for Chg Fwd Diagnoses Syncopal episodes R55 Syncope type: unspecified History of loop recorder Z98.890 Dehydration E86.0 Type 2 diabetes mellitus without complications E11.9 Diabetes mellitus ferry terminal agent insulin use: without penitentiary use Hx of traumatic brain injury Z87.820 Recurrent UTI N39.0 Essential (primary) hypertension I10 Dyslipidemia (high LDL; low HDL) E78.5 Parkinsons G20
[2020-01-27] MEDS: lisinopril 20 mg Tablet PO (13:12)
[2020-01-27] MEDS: ARIPiprazole 2 mg Tablet PO (13:12)
[2020-01-27] MEDS: aspirin 81 mg EC Tablet PO (13:12)
[2020-01-27 13:24] VITALS: BP 177/70; PULSE 81; RESP 20; TEMP 37; O2SAT 93
== END 2020-01-27 14:45 | disposition home or self-care (01) ==
LOC: ER 20:33 → MEDSURG 21:18
PROVIDERS: Admitting Provider Hospitalist; Emergency Provider Emergency Medicine; Family Provider Family Medicine; PCP Family Medicine; Visit Provider Family Medicine
DX: R55 Syncope and collapse (principal); E86.0 Dehydration; E11.9 Type 2 diabetes mellitus without complications; Z87.820 Personal history of traumatic brain injury; N39.0 Urinary tract infection, site not specified; I10 Essential (primary) hypertension; E78.5 Hyperlipidemia, unspecified; G20 Parkinson's disease; Z98.890 Other specified postprocedural states
CPT/HCPCS: 12345; 36415; 36416; 70450; 71045; 80048; 80053; 82962; 83735; 84484; 85025; 93005; 96360; 96372; 99283; 99285; G0378; J1815; J7030

== ENCOUNTER 2020-03-16 12:54 | Outpatient (CLI) | payer MEDICARE, OTHER, SELFPAY ==
--- NOTE | 2020-03-16 13:06 | XR_ITS ---
WS: [id number] PROCEDURE: XR chest 2V* [id number] CLINICAL INFORMATION: HYPONTREMIA, MENTAL CONFUSION, LETHARGY COMPARISON: January 26, 2020 FINDINGS: Heart: Cardiomegaly. Aortic calcification. Lungs: Lungs are clear. No consolidation or pleural fluid. Mild chronic emphysematous changes. Bones: Mild lumbar curve convex right. Hypertrophic changes thoracic spine. Cholecystectomy clips. XR/XR chest 2V* [id number] IMPRESSION: Mild chronic emphysematous changes. No acute chest findings.
== END 2020-03-16 12:55 | disposition home or self-care (01) ==
LOC: RADWPI 13:00
PROVIDERS: Family Provider Family Medicine; PCP Nurse Practitioner Family; Visit Provider Nurse Practitioner Family
DX: E87.1 Hypo-osmolality and hyponatremia (principal); R41.0 Disorientation, unspecified; R53.83 Other fatigue
CPT/HCPCS: 71046

== ENCOUNTER 2020-04-20 14:42 | Outpatient (CLI) | payer MEDICARE, OTHER, SELFPAY ==
--- NOTE | 2020-04-20 14:49 | CT_ITS ---
WS: [id number] CT scan of the head, 04/20/2020 Clinical Data: [place] Comparison: CT head, 01/27/2020. DLP: 992.[address] scans at [facility] use at least one of these dose optimization techniques: automat ed exposure control; mA and/or kV adjustment per patient size (includes targeted exams where dose is matched to clinical indication); or iterative reconstruction. Findings: The ventricular system is enlarged without shift. No recent infarct or hemorrhage is seen. There are no abnormal intracerebral masses. The cerebellum and brainstem are not remarkable. Bony windows of the skull and skull base show the right frontal temporal parietal craniotomy.. The ma stoid air cells, internal auditory canals, sella turcica, intraorbital contents, and paranasal sinuse s are unremarkable. CT/CT head wo con* [id number] Impression: 1. No change in moderate cerebral atrophy. 2. No change in right craniotomy.
== END 2020-04-20 14:43 | disposition home or self-care (01) ==
LOC: RADWPI 14:45
PROVIDERS: Family Provider Nurse Practitioner Family; PCP Nurse Practitioner Family; Visit Provider Psychiatry & Neurology Neurology
DX: G20 Parkinson's disease (principal)
CPT/HCPCS: 70450

== ENCOUNTER → 2020-10-17 14:00 | Outpatient (BNVA) | payer MEDICARE, OTHER, SELFPAY | PROVIDERS: Family Provider Nurse Practitioner Family; PCP Nurse Practitioner Family; Visit Provider Urology | DX: N39.0 Urinary tract infection, site not specified (principal) | CPT/HCPCS: 81003 ==

== ENCOUNTER 2020-11-27 13:29 | Emergency (ER) | payer MEDICARE, OTHER, SELFPAY ==
[2020-11-27 13:37] VITALS: BP 169/84; PULSE 78; RESP 18; TEMP 36.7; O2SAT 98; BMI 21.5
[2020-11-27 13:39] VITALS: BP 169/84; PULSE 79; RESP 18; O2SAT 100
--- NOTE | 2020-11-27 13:39 | XR_ITS ---
WS: [id number] Exam: XR chest 1V portable [id number] Date/Time of Exam: 11/27/2020 1:45 PM Reason For Exam: chest pain Comparison 03/16/2020. The lungs are clear and fully inflated. Normal cardiomediastinal structures and bony elements. Small battery pack superimposes the left heart. Cholecystectomy clips in the upper right abdomen. Calcification of the mitral valve annulus. XR/XR chest 1V portable [id number] IMPRESSION: 1. No acute cardiopulmonary finding. No change.
--- NOTE | 2020-11-27 13:39 | ECG_ITS ---
[facility] Test Date: 2020-11-27 Pat Name: Cathi Nichols Department: Room: Gender: Female Electroencephalographic Technologist: : 1940 Requested By: Milena Cristobal Order Number: [id number] Ryan MD: Jerry Mauricio M.D. Measurements Intervals [place] Rate: 76 P: 56 VA: 191 QRS: 14 QRSD: 74 T: 58 QT: 376 QTc: 424 Interpretive Statements SINUS RHYTHM POSSIBLE ANTERIOR MYOCARDIAL INFARCTION , OF INDETERMINATE AGE [30 ms Q WAVE IN V3/V4, OR R < 0.2 mV IN V4] Compared to ECG 01/26/2020 19:19:55 Myocardial infarct finding now present Ventricular premature complex(es) no longer present T-wave abnormality no longer present Electronically Signed On 11-27-2020 17:32:30 FOREST OFFICER by Jerry Mauricio M.D. [email or web address]
--- NOTE | 2020-11-27 13:57 | ED_ITS ---
Documented by User: SWATHI Thakur 11/28/20 07:21 HPI - Chest Pain General: Chief Complaint: Chest Pain Stated Complaint: Chest pain Time Seen by Provider: 11/27/20 13:39 Source: patient and family Mode of arrival: wheelchair Limitations: no limitations History of Present Illness: HPI narrative: Patient is a very nice 80-year-old female who presents to ED today along with her son for an evaluation for chest pain. Patient herself tells me she does not have any physical complaints currently however patient's son tells me she has suffered a TBI and is often times not a good historian. Entire history is provided from the son. He tells me this morning patient began complaining of a ache in her chest. He asked patient how bad she was hurting on a scale from 1-10 and she answered an 8. Reported pain was intermittent. Son states patient has no known cardiac disease. He does states she has some type of arrhythmia. She currently has a loop recorder (placed 3 years ago per son). Her university demonstrator is Dr. Ponce. Son thinks patient has had a stress test and/or echocardiogram within the last year but is not certain (only one I can find in chart is from 02/2018 which showed EF at 60%). PMH is significant for TBI, HTN, hyperlipidemia, and DM. MD complaint: chest pain Onset (ago): hour(s) Timing of current episode: episodic Onset: during rest Pain location: substernal Pain radiation: none Severity: moderate Quality: aching Relieving factors: nothing Exacerbating factors: nothing Associated symptoms: Reports no associated symptoms; Deny abdominal pain, dyspnea, fever(s), nausea, palpitations, syncope or vomiting Treatment prior to arrival: none Review of Systems General: Reports: 10 or more systems reviewed and unremarkable except in HPI and below Const: Denies: fever(s), chills, body aches, change in appetite, change in weight, fatigue or malaise Eyes: Denies: change in vision, blurry vision, photophobia, floaters or seeing flashes Card: Reports: chest pain (pt does not currently complain of pain); Denies: palpitations, irregular heart rhythm, edema, swelling of feet/ankles, lightheadedness, syncope, pre-syncope, dyspnea on exertion or acrocyanosis Resp: Denies: dyspnea GI: Denies: abdominal pain, nausea, vomiting or diarrhea Musc: Denies: neck pain or back pain Neuro: Denies: headache(s), numbness in extremities, weakness in extremities or sensory changes PFSH ED PFSH: Medical History Anxiety DDD (degenerative disc disease), lumbar Dyslipidemia (high LDL; low HDL) -on statin Encounter for loop recorder check Essential (primary) hypertension Hx of traumatic brain injury -associated with some degree of confusion, occasional hallucinations, states she lives with mom and dad at baseline when stressed. Actually lives with her son and daughter who are with her 27/04 Hyponatremia chronic mild in low mid 130s at baseline Leg swelling Lumbar stenosis Memory change Parkinsons -On Sinemet Recurrent UTI Syncopal episodes Type 2 diabetes mellitus without complications -non insulin requiring, on metformin -A1c-6.9 Urge incontinence Ventricular arrhythmia Surgical History History of loop recorder -Follows with Dr. Ponce History of release of tendon (~2010) trigger finger History of tonsillectomy and adenoidectomy younger than age 10 Hx laparoscopic cholecystectomy (~1993) Hx of bilateral cataract extraction (~2007) Hx of brain surgery Epidural Hematoma; emergency Hx of breast biopsy (~2002) right Hx of colonoscopy (~2010) polyps: Hyperplastic Hx of hysterectomy (~1973) Hx of tracheostomy Family History Father , age 58 from [place] CAD (coronary artery disease) Mother , age 76 Cancer melanoma Grandmother Diabetes maternal Social History Smoking and tobacco status: never smoked Alcohol intake: never Caregiver/support person: Yes Lives independently: No Household members: none Housing: House Marital status: / Number of children: 2 Number of grandchildren: 0 Current occupational status: retired History of recent travel: No Current gender identity: Female Physical Exam Const: COMMON NORMALS: no acute distress, average body habitus, patient oriented x3, no limitations, healthy appearing, alert and well nourished GENERAL APPEARANCE: cooperative ORIENTATION/CONSCIOUSNESS: Yes awake, Yes oriented to person, Yes oriented to place and Yes oriented to time HENMT: COMMON NORMALS: normocephalic and atraumatic HEAD & SCALP: normocephalic and atraumatic Resp: COMMON NORMALS: normal respiratory effort and clear to auscultation bilaterally AUSCULTATION: clear to auscultation bilaterally Cardio: COMMON NORMALS: regular rate and regular rhythm RATE: regular rate RHYTHM: regular rhythm GI: COMMON NORMALS: Normal to inspection, nondistended, normoactive bowel sounds present, Soft to palpation, non-tender, No hepatosplenomegaly present and no masses PALPATION: Yes Soft to palpation and Yes No hepatosplenomegaly present Neuro: ROSA ISELA COMA SCALE: document GCS findings Rosa Isela coma scale eye opening: Spontaneous Zullinger coma scale verbal response: Orientated Zullinger coma scale motor response: Obey commands Rosa Isela coma scale total score: 15 COMMON NORMALS: patient oriented x3 SENSORIUM/ORIENTATION: Yes alert, Yes oriented to person, Yes oriented to place and Yes oriented to time Skin: COMMON NORMALS: no rashes or lesions noted GENERAL SKIN EXAM: no rashes or lesions noted Course Consultations: Consultation #1: Dr. Hernandez/hospitalist-seeing that troponins are declining she didn't feel patient needed to be admitted at this time; she requests that I speak to patient's university demonstrator Dr. Ponce and if he felt she needed to come in then she graciously would accept her and do whatever form of testing/work up he felt was indicated for her Consultation #2: Dr. Ponce/cardiology-stated that patient does need a repeat stress test however previously she has declined an angiogram; he stated there would be no need to bring patient into the hospital emergently to perform stress test if she was going to then decline an angiogram if it was needed; he stated if she is still declining then he recommends discharge and he will see in office this week Vital Signs: Vital signs: Vital Signs Temperature 97.9 F 11/27/20 17:14 Pulse Rate 82 11/27/20 17:14 Respiratory Rate 16 11/27/20 17:14 Blood Pressure 183/90 11/27/20 17:14 Pulse Oximetry 99 11/27/20 17:14 MDM - Chest Pain MDM Narrative: Medical decision making narrative: Patient is a nice 80-year-old female with a history of DM, TBI, HTN, hyperlipidemia, and ventricular arrhythmia here with her son for complaints of an episode of chest pain that began this morning. Upon arrival patient herself has absolutely no symptoms. She continued to be completely asymptomatic throughout her stay however the son tells me with her history of a TBI, she is not always the best historian. Patient's work-up here is benign. Her CXR is normal. Her baseline troponin was 36. This has been elevated previously. Repeat 2-hour troponin is 31. Initial EKG showing no ischemic findings. Repeat EKG shows no changes. Her vital signs have been stable throughout her stay. Son tells me she has chronic hypertension. Patient has a heart score of 7. Her last stress test was performed in 2018 which showed an EF of 60%. I spoke to hospitalist for admission however she feels patient most likely does not warrant admission at this time as her troponins are declining. She asked that I speak to patient's university demonstrator Dr. Ponce. He stated that patient had previously declined an angiogram procedure. He tells me there is no need to bring patient into the hospital emergently for repeat stress test if she is going to decline the angiogram if indicated. I spoke to the patient and son extensively regarding their options at this time and they both agree that they wish to go home and see Dr. Ponce this week. I think this is an acceptable plan for patient. Strict return to ED precautions given. Lab Data: Labs: Lab Results 11/27/20 11/27/20 11/27/20 Range/Units 14:05 14:05 14:05 WBC 7.7 (4.0-10.0) 10^3/ uL RBC 5.26 (4.1-5.3) 10^6/u L Hgb 14.7 (11.5-15.3) g/dL Hct 46.2 (37.0-47.0) % MCV 87.8 (81-99) fL MCH 27.9 L (28.0-34.0) pg MCHC 31.8 (30.0-36.0) g/dL RDW 14.1 (12.1-15.1) % Plt Count 261 (130-400) 10^3/c mm MPV 10.4 (7.4-10.4) fL Neut % (Auto) 63.8 % Lymph % (Auto) 20.8 % Bath % (Auto) 8.9 % Eos % (Auto) 5.6 % Baso % (Auto) 0.6 % Neut # (Auto) 4.92 (1.8-7.7) 10^3/u L Lymph # (Auto) 1.6 (0.8-4.8) 10^3/u L Bath # (Auto) 0.7 (0.2-0.9) 10^3/u L Eos # (Auto) 0.4 (0.0-0.8) 10^3/u L Baso # (Auto) 0.1 (0.0-0.1) 10^3/u L Nucleated RBC % (a uto) 0 % Nucleated RBCs # 0.0 /100WBC Sodium 143 (136-145) mmol/L Potassium 4.3 (3.5-5.1) mmol/L Chloride 104 (98-107) mmol/L Carbon Dioxide 25 (22-29) mmol/L Anion Gap 18.3 (5-19) BUN 18 (8-23) mg/dL Creatinine 0.8 (0.5-0.9) mg/dL GFR Calculation Not Reportable Glucose 119 H (65-115) mg/dL Calculated Osmolal ity 299 H (285-295) mOsm/k g Calcium 9.9 (8.5-10.5) mg/dL Total Bilirubin 0.4 (0.15-1.2) mg/dL AST 22 (0-32) U/L ALT 14 (0-33) U/L Alkaline Phosphata se 132 H (35-105) IU/L Troponin T Baselin e 36 H (0-10) ng/L Troponin T 120 Min [place] (0-10) ng/L Delta Troponin T (0-10) ABS# Total Protein 7.0 (6.6-8.7) g/dL Albumin 4.5 (3.5-5.2) g/dL Globulin 2.5 (1.3-4.6) g/dL 11/27/20 Range/Units 15:44 WBC (4.0-10.0) 10^3/ uL RBC (4.1-5.3) 10^6/u L Hgb (11.5-15.3) g/dL Hct (37.0-47.0) % MCV (81-99) fL MCH (28.0-34.0) pg MCHC (30.0-36.0) g/dL RDW (12.1-15.1) % Plt Count (130-400) 10^3/c mm MPV (7.4-10.4) fL Neut % (Auto) % Lymph % (Auto) % Bath % (Auto) % Eos % (Auto) % Baso % (Auto) % Neut # (Auto) (1.8-7.7) 10^3/u L Lymph # (Auto) (0.8-4.8) 10^3/u L Bath # (Auto) (0.2-0.9) 10^3/u L Eos # (Auto) (0.0-0.8) 10^3/u L Baso # (Auto) (0.0-0.1) 10^3/u L Nucleated RBC % (a uto) % Nucleated RBCs # /100WBC Sodium (136-145) mmol/L Potassium (3.5-5.1) mmol/L Chloride (98-107) mmol/L Carbon Dioxide (22-29) mmol/L Anion Gap (5-19) BUN (8-23) mg/dL Creatinine (0.5-0.9) mg/dL GFR Calculation Glucose (65-115) mg/dL Calculated Osmolal ity (285-295) mOsm/k g Calcium (8.5-10.5) mg/dL Total Bilirubin (0.15-1.2) mg/dL AST (0-32) U/L ALT (0-33) U/L Alkaline Phosphata se (35-105) IU/L Troponin T Baselin e (0-10) ng/L Troponin T 120 Min [place] 31.23 H (0-10) ng/L Delta Troponin T -4.77 L (0-10) ABS# Total Protein (6.6-8.7) g/dL Albumin (3.5-5.2) g/dL Globulin (1.3-4.6) g/dL Imaging Data^: CXR: Radiologist's impression: [address] [address] XRay Report Signed Patient: Cathi Nichols Unit #: [id number] : 1940 Age/Sex: 80 / F ADM Date: 11/27/20 Loc: ER Room/Bed: Attending Dr: Ordering Provider/Ordering MD: Milena Cristobal Date of Service: 11/27/20 Procedure(s): XR chest 1V portable [id number] Accession Number(s): [id number] Report Number: [id number] WS: [id number] Exam: XR chest 1V portable [id number] Date/Time of Exam: 11/27/2020 1:45 PM Reason For Exam: chest pain Comparison 03/16/2020. The lungs are clear and fully inflated. Normal cardiomediastinal structures and bony elements. Small battery pack superimposes the left heart. Cholecystectomy clips in the upper right abdomen. Calcification of the mitral valve annulus. XR/XR chest 1V portable [id number] IMPRESSION: 1. No acute cardiopulmonary finding. No change. Dictated By: Kris Mckeon DO Signed By: Kris Mckeon DO Signed Date/Time: 11/27/201416 DD/ 15 EKG Data^: EKG 1: EKG interpretation date: 11/27/20 EKG interpretation time: 13:48 Interpretation: Sinus rhythm Rate [address] elevation or depression changes noted Also reviewed with Dr. Barnett EKG 2: EKG interpretation date: 11/27/20 EKG interpretation time: 15:55 Prior EKG tracings: available for review (from this visit) Interpretation: Sinus rhythm Rate [address] elevation or depression changes noted No acute changes from EKG performed earlier on same visit Discharge Plan Discharge Patient Disposition: Home Clinical Impression: Chest pain Qualifiers: Chest pain type: unspecified Qualified Code(s): R07.9 - Chest pain, unspecified Condition: Stable Prescriptions: No Action cranberry 500 mg capsule 500 mg PO DAILY@0800 RF: 0 epinephrine [EpiPen 2-Dickson] 0.3 mg/0.3 mL auto-injector 0.3 mg IM ONCE PRN (Reason: Anaphylaxis) RF: 0 Daily Probiotic 2.5 billion cell capsule 1 cap PO DAILY@0800 RF: 0 multivitamin [Daily Multi-Vitamin] Tablet 1 tab PO DAILY@0800 RF: 0 carbidopa-levodopa 25-100 mg tablet 2 tab PO TID@0800,1200,1700 RF: 0 risperidone [Risperdal] 0.5 mg tablet 0.25 mg PO DAILY@0800 RF: 0 alprazolam 0.25 mg tablet 0.125 mg PO TID RF: 0 amantadine HCl 100 mg tablet 100 mg PO BID@0800,1700 RF: 0 (DME) lancets [OneTouch Delica Lancets] 33 gauge misc See Rx Instructions .ROUTE .MEDSUPPLY Qty: 100 RF: 3 (DME) blood-glucose meter [Accu-Chek Zhanna Plus Meter] Misc See Rx Instructions .ROUTE .MEDSUPPLY Qty: 1 RF: 0 (DME) Accu-Chek Zhanna Plus test strp Strip See Rx Instructions .ROUTE .MEDSUPPLY Qty: 10 RF: 0 metformin 500 mg tablet 500 mg PO BID@0800,1700 RF: 0 carvedilol 25 mg tablet 25 mg PO DAILY@0800,1700 RF: 0 lisinopril 20 mg tablet 20 mg PO BID@0800,1700 RF: 0 atorvastatin 10 mg tablet 10 mg PO BEDTIME@1700 RF: 0 Discharge Orders: Discharge ED (Routine); Ordered 11/27/20 Ordered By: Milena Cristobal Referrals: Rosy Montelongo FNP [Primary Care Provider] - Patient Instructions: Opioid Safety Activity Restrictions/Additional Instructions: [facility] is committed to fighting the nationwide opiate epidemic. We are providing ALL patients with information regarding opiate safety. If you received opiate pain medication during your stay or if you received a prescription for opiate pain medication-please review this handout. If not, you may disregard. Thank you. As we discussed case management should contact you tomorrow to set you up with your appointment with Dr. Ponce this week. Please return to the emergency department for worsening chest pain, shortness of breath, difficulty breathing, palpitations, or any other concerns you may have. Coding Level of Care Code ED Export Agent for Robin 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 Documented by User: Edin Barnett MD 11/28/20 11:08 HPI - Chest Pain General: Chief Complaint: Chest Pain Stated Complaint: Chest pain Time Seen by Provider: 11/27/20 13:39 PFS ED PFSH: Medical History Anxiety DDD (degenerative disc disease), lumbar Dyslipidemia (high LDL; low HDL) -on statin Encounter for loop recorder check Essential (primary) hypertension Hx of traumatic brain injury -associated with some degree of confusion, occasional hallucinations, states she lives with mom and dad at baseline when stressed. Actually lives with her son and daughter who are with her 27/04 Hyponatremia chronic mild in low mid 130s at baseline Leg swelling Lumbar stenosis Memory change Parkinsons -On Sinemet Recurrent UTI Syncopal episodes Type 2 diabetes mellitus without complications -non insulin requiring, on metformin -A1c-6.9 Urge incontinence Ventricular arrhythmia Surgical History History of loop recorder -Follows with Dr. Ponce History of release of tendon (~2010) trigger finger History of tonsillectomy and adenoidectomy younger than age 10 Hx laparoscopic cholecystectomy (~1993) Hx of bilateral cataract extraction (~2007) Hx of brain surgery Epidural Hematoma; emergency Hx of breast biopsy (~2002) right Hx of colonoscopy (~2010) polyps: Hyperplastic Hx of hysterectomy (~1973) Hx of tracheostomy Family History Father , age 58 from [place] CAD (coronary artery disease) Mother , age 76 Cancer melanoma Grandmother Diabetes maternal Social History Smoking and tobacco status: never smoked Alcohol intake: never Caregiver/support person: Yes Lives independently: No Household members: none Housing: House Marital status: / Number of children: 2 Number of grandchildren: 0 Current occupational status: retired History of recent travel: No Current gender identity: Female Course Vital Signs: Vital signs: Vital Signs Temperature 97.9 F 11/27/20 17:14 Pulse Rate 82 11/27/20 17:14 Respiratory Rate 16 11/27/20 17:14 Blood Pressure 183/90 11/27/20 17:14 Pulse Oximetry 99 11/27/20 17:14 MDM - Chest Pain Lab Data: Labs: Lab Results 11/27/20 11/27/20 11/27/20 Range/Units 14:05 14:05 14:05 WBC 7.7 (4.0-10.0) 10^3/ uL RBC 5.26 (4.1-5.3) 10^6/u L Hgb 14.7 (11.5-15.3) g/dL Hct 46.2 (37.0-47.0) % MCV 87.8 (81-99) fL MCH 27.9 L (28.0-34.0) pg MCHC 31.8 (30.0-36.0) g/dL RDW 14.1 (12.1-15.1) % Plt Count 261 (130-400) 10^3/c mm MPV 10.4 (7.4-10.4) fL Neut % (Auto) 63.8 % Lymph % (Auto) 20.8 % Bath % (Auto) 8.9 % Eos % (Auto) 5.6 % Baso % (Auto) 0.6 % Neut # (Auto) 4.92 (1.8-7.7) 10^3/u L Lymph # (Auto) 1.6 (0.8-4.8) 10^3/u L Bath # (Auto) 0.7 (0.2-0.9) 10^3/u L Eos # (Auto) 0.4 (0.0-0.8) 10^3/u L Baso # (Auto) 0.1 (0.0-0.1) 10^3/u L Nucleated RBC % (a uto) 0 % Nucleated RBCs # 0.0 /100WBC Sodium 143 (136-145) mmol/L Potassium 4.3 (3.5-5.1) mmol/L Chloride 104 (98-107) mmol/L Carbon Dioxide 25 (22-29) mmol/L Anion Gap 18.3 (5-19) BUN 18 (8-23) mg/dL Creatinine 0.8 (0.5-0.9) mg/dL GFR Calculation Not Reportable Glucose 119 H (65-115) mg/dL Calculated Osmolal ity 299 H (285-295) mOsm/k g Calcium 9.9 (8.5-10.5) mg/dL Total Bilirubin 0.4 (0.15-1.2) mg/dL AST 22 (0-32) U/L ALT 14 (0-33) U/L Alkaline Phosphata se 132 H (35-105) IU/L Troponin T Baselin e 36 H (0-10) ng/L Troponin T 120 Min [place] (0-10) ng/L Delta Troponin T (0-10) ABS# Total Protein 7.0 (6.6-8.7) g/dL Albumin 4.5 (3.5-5.2) g/dL Globulin 2.5 (1.3-4.6) g/dL 11/27/20 Range/Units 15:44 WBC (4.0-10.0) 10^3/ uL RBC (4.1-5.3) 10^6/u L Hgb (11.5-15.3) g/dL Hct (37.0-47.0) % MCV (81-99) fL MCH (28.0-34.0) pg MCHC (30.0-36.0) g/dL RDW (12.1-15.1) % Plt Count (130-400) 10^3/c mm MPV (7.4-10.4) fL Neut % (Auto) % Lymph % (Auto) % Bath % (Auto) % Eos % (Auto) % Baso % (Auto) % Neut # (Auto) (1.8-7.7) 10^3/u L Lymph # (Auto) (0.8-4.8) 10^3/u L Bath # (Auto) (0.2-0.9) 10^3/u L Eos # (Auto) (0.0-0.8) 10^3/u L Baso # (Auto) (0.0-0.1) 10^3/u L Nucleated RBC % (a uto) % Nucleated RBCs # /100WBC Sodium (136-145) mmol/L Potassium (3.5-5.1) mmol/L Chloride (98-107) mmol/L Carbon Dioxide (22-29) mmol/L Anion Gap (5-19) BUN (8-23) mg/dL Creatinine (0.5-0.9) mg/dL GFR Calculation Glucose (65-115) mg/dL Calculated Osmolal ity (285-295) mOsm/k g Calcium (8.5-10.5) mg/dL Total Bilirubin (0.15-1.2) mg/dL AST (0-32) U/L ALT (0-33) U/L Alkaline Phosphata se (35-105) IU/L Troponin T Baselin e (0-10) ng/L Troponin T 120 Min [place] 31.23 H (0-10) ng/L Delta Troponin T -4.77 L (0-10) ABS# Total Protein (6.6-8.7) g/dL Albumin (3.5-5.2) g/dL Globulin (1.3-4.6) g/dL Discharge Plan Discharge Patient Disposition: Home Clinical Impression: Chest pain Qualifiers: Chest pain type: unspecified Qualified Code(s): R07.9 - Chest pain, unspecified Condition: Stable Prescriptions: No Action cranberry 500 mg capsule 500 mg PO DAILY@0800 RF: 0 epinephrine [EpiPen 2-Dickson] 0.3 mg/0.3 mL auto-injector 0.3 mg IM ONCE PRN (Reason: Anaphylaxis) RF: 0 Daily Probiotic 2.5 billion cell capsule 1 cap PO DAILY@0800 RF: 0 multivitamin [Daily Multi-Vitamin] Tablet 1 tab PO DAILY@0800 RF: 0 carbidopa-levodopa 25-100 mg tablet 2 tab PO TID@0800,1200,1700 RF: 0 risperidone [Risperdal] 0.5 mg tablet 0.25 mg PO DAILY@0800 RF: 0 alprazolam 0.25 mg tablet 0.125 mg PO TID RF: 0 amantadine HCl 100 mg tablet 100 mg PO BID@0800,1700 RF: 0 (DME) lancets [OneTouch Delica Lancets] 33 gauge misc See Rx Instructions .ROUTE .MEDSUPPLY Qty: 100 RF: 3 (DME) blood-glucose meter [Accu-Chek Zhanna Plus Meter] Misc See Rx Instructions .ROUTE .MEDSUPPLY Qty: 1 RF: 0 (DME) Accu-Chek Zhanna Plus test strp Strip See Rx Instructions .ROUTE .MEDSUPPLY Qty: 10 RF: 0 metformin 500 mg tablet 500 mg PO BID@0800,1700 RF: 0 carvedilol 25 mg tablet 25 mg PO DAILY@0800,1700 RF: 0 lisinopril 20 mg tablet 20 mg PO BID@0800,1700 RF: 0 atorvastatin 10 mg tablet 10 mg PO BEDTIME@1700 RF: 0 Discharge Orders: Discharge ED (Routine); Ordered 11/27/20 Ordered By: Milena Cristobal Referrals: Rosy Montelongo FNP [Primary Care Provider] - Patient Instructions: Opioid Safety Activity Restrictions/Additional Instructions: [facility] is committed to fighting the nationwide opiate epidemic. We are providing ALL patients with information regarding opiate safety. If you received opiate pain medication during your stay or if you received a prescription for opiate pain medication-please review this handout. If not, you may disregard. Thank you. As we discussed case management should contact you tomorrow to set you up with your appointment with Dr. Ponce this week. Please return to the emergency department for worsening chest pain, shortness of breath, difficulty breathing, palpitations, or any other concerns you may have. Coding Level of Care Code ED Export Agent for Robin Mccauley Exam Detailed
[2020-11-27 14:07] VITALS: BP 179/84; PULSE 79; RESP 21; O2SAT 99
[2020-11-27 14:43] LABS: Basophils # 0.1 10^3/uL (0.0-0.1); Basophils % 0.6 %; Eosinophils # 0.4 10^3/uL (0.0-0.8); Eosinophils % 5.6 %; Hematocrit 46.2 % (37.0-47.0); Hemoglobin 14.7 g/dL (11.5-15.3); Lymphocytes # 1.6 10^3/uL (0.8-4.8); Lymphocytes % 20.8 %; Mean Corpuscular HGB Conc 31.8 g/dL (30.0-36.0); Mean Corpuscular Hemoglobin 27.9 pg (28.0-34.0); Mean Corpuscular Volume 87.8 fL (81-99); Mean Platelet Volume 10.4 fL (7.4-10.4); Monocytes # 0.7 10^3/uL (0.2-0.9); Monocytes % 8.9 %; Neutrophils # 4.92 10^3/uL (1.8-7.7); Neutrophils % 63.8 %; Nucleated Red Blood Cells % 0 %; Platelet Count 261 10^3/cmm (130-400); Red Blood Count 5.26 10^6/uL (4.1-5.3); Red Cell Distribution Width 14.1 % (12.1-15.1); White Blood Count 7.7 10^3/uL (4.0-10.0)
[2020-11-27 14:59] LABS: Troponin(5th) Baseline 36 ng/L (0-10)
[2020-11-27 15:01] LABS: Alanine Aminotransferase 14 U/L (0-33); Albumin Level 4.5 g/dL (3.5-5.2); Alkaline Phosphatase 132 IU/L (35-105); Aspartate Amino Transferase 22 U/L (0-32); Blood Urea Nitrogen 18 mg/dL (8-23); Calcium 9.9 mg/dL (8.5-10.5); Carbon Dioxide 25 mmol/L (22-29); Globulin 2.5 g/dL (1.3-4.6); Glucose 119 mg/dL (65-115); Total Bilirubin 0.4 mg/dL (0.15-1.2)
[2020-11-27 15:07] LABS: Anion Gap 18.3 (5-19); Chloride 104 mmol/L (98-107); Osmolality Calculated 299 mOsm/kg (285-295); Potassium 4.3 mmol/L (3.5-5.1); Sodium 143 mmol/L (136-145)
--- NOTE | 2020-11-27 15:39 | ECG_ITS ---
[facility] Test Date: 2020-11-27 Pat Name: Cathi Nichols Department: Room: Gender: Female Referral Specialist: : 1940 Requested By: Milena Cristobal Order Number: [id number] Ryan MD: Jerry Mauricio M.D. Measurements Intervals [place] Rate: 81 P: 47 AL: 191 QRS: 3 QRSD: 78 T: 54 QT: 375 QTc: 436 Interpretive Statements SINUS RHYTHM POSSIBLE LEFT ATRIAL ENLARGEMENT [-0.1mV P WAVE IN V1/V2] POSSIBLE LEFT VENTRICULAR HYPERTROPHY [VOLTAGE CRITERIA PLUS LAE OR QRS WIDENING] POSSIBLE ANTERIOR MYOCARDIAL INFARCTION , OF INDETERMINATE AGE [30 ms Q WAVE IN V3/V4, OR R < 0.2 mV IN V4] Compared to ECG 11/27/2020 13:48:05 No significant changes Electronically Signed On 11-27-2020 17:43:18 BLAST FURNACE BLOWER by Jerry Mauricio M.D. [id number]
[2020-11-27 16:07] VITALS: BP 186/85; PULSE 81; RESP 19; O2SAT 98
[2020-11-27 16:26] LABS: Troponin 5 2HR 31.23 ng/L (0-10)
[2020-11-27 16:28] LABS: Troponin 5 2HR Delta -4.77 ABS# (0-10)
[2020-11-27 17:14] VITALS: BP 183/90; PULSE 82; RESP 16; TEMP 36.6; O2SAT 99
--- NOTE | 2020-11-28 11:40 | DCPLANNER ---
quality improvement manager had message to schedule a follow up appointment for patient with [facility]. quality improvement manager called [facility], spoke with Deborah, gave clinic patients information. A follow up appointment was scheduled for , November 29, 2020 at- 3:[address] Ponce. quality improvement manager called patient at phone number [phone], spoke with patients son Parish, gave him the appointment information.
--- NOTE | 2020-12-26 11:26 | DCPLANNER ---
Patient had a follow up appointment scheduled for 11.29.[address] Ponce at [facility] - patient did attend appointment.
== END 2020-11-27 17:18 | disposition home or self-care (01) ==
PROVIDERS: Emergency Provider Physician Assistant; PCP Nurse Practitioner Family
DX: R07.9 Chest pain, unspecified (principal); Z79.84 Long term (current) use of oral hypoglycemic drugs; E78.5 Hyperlipidemia, unspecified; I10 Essential (primary) hypertension; G20 Parkinson's disease; E11.9 Type 2 diabetes mellitus without complications
CPT/HCPCS: 36415; 71045; 80053; 84484; 85025; 93005; 99283

== ENCOUNTER 2021-02-15 20:51 | Observation (INO) | payer MEDICARE, OTHER, SELFPAY ==
[2021-02-15 20:52] VITALS: BP 152/78; PULSE 73; RESP 13; TEMP 36.4; O2SAT 98; BMI 28.3
--- NOTE | 2021-02-15 21:07 | XRR_ITS ---
PROCEDURE INFORMATION: Exam: XR Chest Exam date and time: 02/15/2021 9:09 PM Age: 80 years old Clinical indication: Prior surgery; Surgery date: 6+ months; Surgery type: Brain surgery. Loop recorder; Patient HX: C/O weakness TECHNIQUE: Imaging protocol: XR of the chest. Views: 1 view. Total images: 1 COMPARISON: CR XR chest 1V portable [id number] 11/27/2020 1:44 PM FINDINGS: Tubes, catheters and devices: Cardiac loop recorder. Lungs: No visible active interstitial or alveolar airspace disease. Pleural spaces: Unremarkable. No pleural effusion. No pneumothorax. Heart/Mediastinum: Cardiac structures and configuration with arteriosclerosis. Bones/joints: Unremarkable for age. Organs: Status post cholecystectomy. XR/XR chest 1V portable [id number] IMPRESSION: Nonacute.
--- NOTE | 2021-02-15 21:19 | ECG_ITS ---
[facility] Test Date: 2021-02-15 Pat Name: Cathi Nichols Department: Room: Gender: Female Pai Gow Manager: : 1940 Requested By: Estiven Willis I Order Number: [id number] Ryan MD: Mikayla Ponce M.D. Measurements Intervals [place] Rate: 76 P: 63 ME: 194 QRS: -8 QRSD: 78 T: 54 QT: 379 QTc: 427 Interpretive Statements SINUS RHYTHM VOLTAGE CRITERIA FOR LVH [MEETS CRITERIA IN ONE OF: R(aVL), S(V1), R(V5), R(V5/V6)+S(V1)] POSSIBLE ANTERIOR MYOCARDIAL INFARCTION , PROBABLY OLD [30 ms Q WAVE IN V3/V4, OR R < 0.2 mV IN V4] INFERIOR MYOCARDIAL INFARCTION , PROBABLY OLD [40+ ms Q WAVE AND/OR ST/T ABNORMALITY IN II/aVF] Compared to ECG 11/27/2020 15:55:46 No significant changes Electronically Signed On 02-16-2021 14:47:21 CDT by Mikayla Ponce M.D. [id number]
[2021-02-15 21:41] LABS: Basophils # 0.1 10^3/uL (0.0-0.1); Basophils % 0.8 %; Eosinophils # 0.4 10^3/uL (0.0-0.8); Eosinophils % 4.7 %; Hematocrit 47.9 % (37.0-47.0); Hemoglobin 14.9 g/dL (11.5-15.3); Lymphocytes # 1.5 10^3/uL (0.8-4.8); Mean Corpuscular HGB Conc 31.1 g/dL (30.0-36.0); Mean Corpuscular Hemoglobin 27.3 pg (28.0-34.0); Mean Corpuscular Volume 87.7 fL (81-99); Mean Platelet Volume 10.3 fL (7.4-10.4); Monocytes # 0.8 10^3/uL (0.2-0.9); Monocytes % 9.5 %; Neutrophils # 5.69 10^3/uL (1.8-7.7); Neutrophils % 66.6 %; Nucleated Red Blood Cells % 0 %; Platelet Count 254 10^3/cmm (130-400); Red Blood Count 5.46 10^6/uL (4.1-5.3); Red Cell Distribution Width 15.3 % (12.1-15.1); White Blood Count 8.5 10^3/uL (4.0-10.0)
[2021-02-15 21:45] VITALS: BP 152/80; PULSE 78; RESP 16; TEMP 36.6; O2SAT 99
[2021-02-15 21:50] LABS: Add Urine Microscopic? NO; Charge for UA Resulting for Rev
[2021-02-15 21:52] LABS: Bilirubin Urine Neg (Negative); Blood Urine Neg (Negative); Glucose Urine UA Norm (Normal); Ketones Urine Negative (Negative); Leukocyte Esterase Urine Negative (Negative); Nitrate Urine Negative (Negative); Protein Urine Neg (Negative); Specific Gravity, Urine 1.015 (1.005-1.030); Urine Appearance Clear (CLEAR); Urine Color Yellow (Yellow); Urobilinogen Urine Norm (Negative); pH Urine 5 (5-7)
[2021-02-15 22:05] LABS: Troponin(5th) Baseline 39 ng/L (0-10)
[2021-02-15 22:08] LABS: Lactate (Lactic Acid level) 6.4 mmol/L (0.5-2.2)
[2021-02-15 22:14] LABS: Procalcitonin 0.06 ng/mL (0-0.5)
[2021-02-15 22:26] LABS: Alanine Aminotransferase 27 U/L (0-33); Albumin Level 4.4 g/dL (3.5-5.2); Alkaline Phosphatase 127 IU/L (35-105); Blood Urea Nitrogen 20 mg/dL (8-23); C Reactive Protein 0.3 mg/L (0.0-4.9); Calcium 9.4 mg/dL (8.5-10.5); Carbon Dioxide 20 mmol/L (22-29); Chloride 100 mmol/L (98-107); Globulin 2.2 g/dL (1.3-4.6); Glucose 193 mg/dL (65-115); Osmolality Calculated 300 mOsm/kg (285-295); Sodium 141 mmol/L (136-145); Total Bilirubin 0.3 mg/dL (0.15-1.2); Total Protein 6.6 g/dL (6.6-8.7)
[2021-02-15 22:27] LABS: Anion Gap 25.7 (5-19); Aspartate Amino Transferase 37 U/L (0-32); Potassium 4.7 mmol/L (3.5-5.1)
[2021-02-15 22:52] LABS: Lactate (Lactic Acid level) 5.7 mmol/L (0.5-2.2)
--- NOTE | 2021-02-15 22:55 | CTR_ITS ---
PROCEDURE INFORMATION: Exam: CT Abdomen And Pelvis Without Contrast Exam date and time: 02/15/2021 11:34 PM Age: 80 years old Clinical indication: Other: N/a; Prior surgery; Surgery type: Loop recorder. Gb. Hyst. ; Patient HX: General weakness. Septic. TECHNIQUE: Imaging protocol: Computed tomography of the abdomen and pelvis without contrast. Radiation optimization: All CT scans at this facility use at least one of these dose optimization techniques: automated exposure control; mA and/or kV adjustment per patient size (includes targeted exams where dose is matched to clinical indication); or iterative reconstruction. COMPARISON: No relevant prior studies available. RADIATION DOSE METRICS: Total DLP (mGy-cm): 1274.02 FINDINGS: Liver: Normal. No mass. Gallbladder and bile ducts: See Stomach and bowel finding. Pancreas: Normal. No ductal dilation. Spleen: Normal. No splenomegaly. Adrenal glands: Normal. No mass. Kidneys and ureters: Normal. No hydronephrosis. Stomach and bowel: Moderate stool is present within the colon and rectal vault. Diverticula are present on the sigmoid colon. There are no inflammatory changes seen to suggest cholecystitis. Appendix: No evidence of appendicitis. Intraperitoneal space: Unremarkable. No free air. No significant fluid collection. Vasculature: Calcifications are seen within the abdominal aorta, iliac arteries bilaterally. Lymph nodes: Unremarkable. No enlarged lymph nodes. Urinary bladder: Unremarkable as visualized. Reproductive: Status post hysterectomy. Bones/joints: Severe loss of disc height and vacuum disc phenomenon is seen L4-S1. There is mild anterior wedge deformity of the superior endplate of L1 vertebral body. Soft tissues: Unremarkable. CT/CT chest abd pel wo con IMPRESSION: 1. There are no acute abdominal findings. 2. Moderate stool present within the colon and rectal vault. 3. Diverticulosis of the sigmoid colon Radiation Dose CTDIVOL = (mGy): DLP = 1274.02 (mGy-cm)
--- NOTE | 2021-02-15 23:01 | ED_ITS ---
HPI - Syncope General: Chief Complaint: Syncope Stated Complaint: WEAKNESS Time Seen by Provider: 02/15/21 20:59 Source: patient and family (son) Mode of arrival: EMS Limitations: no limitations History of Present Illness: HPI narrative: Patient is an 80-year-old female was brought in by EMS after a pre-syncopal episode. Patient is a poor historian due to dementia but according to her son she was brushing her teeth when she felt like she was going on pass out. She says she needed to sit down and they were able to get her to see them. She did not have a syncopal episode. She has been treated for UTI in the last week. They have not noticed any fever, no nausea or vomiting. Patient's son thinks she may be dehydrated as she has not been drinking much. complaint: almost passed out Prodromal symptoms: none Witnessed: Yes - by Bystander (son) Context: standing up Injuries sustained associated with event: none Associated symptoms: Deny abdominal pain, chest pain, fever(s), headache(s), lightheadedness, nausea, short of breath, vertigo or weakness Treatments prior to arrival: none Review of Systems General: Reports: 10 or more systems reviewed and unremarkable except in HPI and below Const: Denies: fever(s) Card: Denies: chest pain or lightheadedness GI: Denies: abdominal pain or nausea Neuro: Denies: headache(s) or vertigo PENDING SALE TO [facility] ED PFSH: Medical History (Reviewed 02/15/21 @ 23:07 by Estiven Willis MD, [facility]) Anxiety DDD (degenerative disc disease), lumbar Dyslipidemia (high LDL; low HDL) -on statin Encounter for loop recorder check Essential (primary) hypertension Hx of traumatic brain injury -associated with some degree of confusion, occasional hallucinations, states she lives with mom and dad at baseline when stressed. Actually lives with her son and daughter who are with her 27/04 Hyponatremia chronic mild in low mid 130s at baseline Leg swelling Lumbar stenosis Memory change Parkinsons -On Sinemet Recurrent UTI Syncopal episodes Type 2 diabetes mellitus without complications -non insulin requiring, on metformin -A1c-6.9 Urge incontinence Ventricular arrhythmia Surgical History (Reviewed 02/15/21 @ 23:07 by Estiven Willis MD, [facility] [place]) History of loop recorder -Follows with Dr. Ponce History of release of tendon (~2010) trigger finger History of tonsillectomy and adenoidectomy younger than age 10 Hx laparoscopic cholecystectomy (~1993) Hx of bilateral cataract extraction (~2007) Hx of brain surgery Epidural Hematoma; emergency Hx of breast biopsy (~2002) right Hx of colonoscopy (~2010) polyps: Hyperplastic Hx of hysterectomy (~1973) Hx of tracheostomy Family History Father , age 58 from [place] CAD (coronary artery disease) Mother , age 76 Cancer melanoma Grandmother Diabetes maternal Social History Smoking and tobacco status: never smoked Alcohol intake: never Caregiver/support person: Yes Lives independently: No Household members: none Housing: House Marital status: / Number of children: 2 Number of grandchildren: 0 Current occupational status: retired History of recent travel: No Current gender identity: Female Physical Exam Const: COMMON NORMALS: no acute distress, average body habitus, patient oriented x3, no limitations, healthy appearing, alert and well nourished HENMT: COMMON NORMALS: normocephalic, atraumatic and moist oral mucous membranes HEAD & SCALP: normocephalic and atraumatic Neck/C-Spine: COMMON NORMALS: no meningeal signs and no JVD Resp: COMMON NORMALS: normal respiratory effort, No retractions, No use of accessory muscles, clear to auscultation bilaterally and percussion normal AUSCULTATION: clear to auscultation bilaterally PERCUSSION: percussion normal Cardio: COMMON NORMALS: no JVD, regular rate, regular rhythm, S1 normal heart sound present, S2 normal heart sound present, No gallops present (Cardio), No clicks present (Cardio), No murmurs present (Cardio), No rub (Cardio) and Peripheral pulses 2+ throughout RATE: regular rate RHYTHM: regular rhythm HEART SOUNDS: S1 normal heart sound present and S2 normal heart sound present PERIPHERAL PULSES: Peripheral pulses 2+ throughout GI: COMMON NORMALS: Normal to inspection, nondistended, normoactive bowel sounds present, Soft to palpation, non-tender, No hepatosplenomegaly present, no masses and no bruits PALPATION: Yes Soft to palpation and Yes No hepatos plenomegaly present Extremity: COMMON NORMALS: normal to inspection, full ROM, capillary refill normal, no calf tenderness and no pedal edema Neuro: COMMON NORMALS: patient oriented x3 SENSORIUM/ORIENTATION: Yes alert MENINGEAL SIGNS: Yes no meningeal signs Skin: COMMON NORMALS: no rashes or lesions noted, no wounds, turgor normal, no jaundice, no petechiae and no mottling GENERAL SKIN EXAM: no rashes or lesions noted and turgor normal Course Reevaluation(s): Reevaluation #1: Discussed her lab and imaging findings with the patient and her son. Advised that her lactic acid was significantly el evated but cannot find a focus of infection. Lactic acidosis is likely secondary to dehydration and she will be admitted overnight for fluid hydration. Son voiced understanding and is in agreement with the plan. Time: 00:49 Consultations: Consultation #1: Discussed the patient with charles Rajanpitalsami and he kindly accepted the patient to his service for an overnight admission for fluid hydration. Time: 00:43 Vital Signs: Vital signs: Vital Signs Temperature 98 F 02/15/21 21:45 Pulse Rate 78 02/15/21 21:45 Respiratory Rate 16 02/15/21 21:45 Blood Pressure 152/80 02/15/21 21:45 Pulse Oximetry 99 02/15/21 21:45 MDM - Syncope MDM Narrative: Medical decision making narrative: 80-year-old female patient who presented to the emergency department with a presyncopal event. Evaluation in the emergency department showed lactic acidosis but no signs of infection. White cell count is normal, hemoglobin is however elevated which also suggest dehydration. BUN/creatinine ratio is 20 also leaning towards dehydration. CT scan of her chest abdomen and pelvis did not show any infection. UA was negative for infection. She will be admitted overnight for fluid hydration and further management. Medical Records: Attestation: I reviewed the patient's medical records. Lab Data: Attestation: I reviewed the patient's lab results. Labs: Lab Results 02/15/21 02/15/21 02/15/21 Range/Units 21:35 21:35 21:35 WBC 8.5 (4.0-10.0) 10^3/ uL RBC 5.46 H (4.1-5.3) 10^6/u L Hgb 14.9 (11.5-15.3) g/dL Hct 47.9 H (37.0-47.0) % MCV 87.7 (81-99) fL MCH 27.3 L (28.0-34.0) pg MCHC 31.1 (30.0-36.0) g/dL RDW 15.3 H (12.1-15.1) % Plt Count 254 (130-400) 10^3/c mm MPV 10.3 (7.4-10.4) fL Neut % (Auto) 66.6 % Lymph % (Auto) 18.0 % [place] % (Auto) 9.5 % Eos % (Auto) 4.7 % Baso % (Auto) 0.8 % Neut # (Auto) 5.69 (1.8-7.7) 10^3/u L Lymph # (Auto) 1.5 (0.8-4.8) 10^3/u L [place] # (Auto) 0.8 (0.2-0.9) 10^3/u L Eos # (Auto) 0.4 (0.0-0.8) 10^3/u L Baso # (Auto) 0.1 (0.0-0.1) 10^3/u L Nucleated RBC % (a uto) 0 % Nucleated RBCs # 0.0 /100WBC Sodium 141 (136-145) mmol/L Potassium 4.7 (3.5-5.1) mmol/L Chloride 100 (98-107) mmol/L Carbon Dioxide 20 L (22-29) mmol/L Anion Gap 25.7 H (5-19) BUN 20 (8-23) mg/dL Creatinine 1.0 H (0.5-0.9) mg/dL GFR Calculation Not Reportable Glucose 193 H (65-115) mg/dL Calculated Osmolal ity 300 H (285-295) mOsm/k g Lactate 6.4 H* (0.5-2.2) mmol/L Calcium 9.4 (8.5-10.5) mg/dL Total Bilirubin 0.3 (0.15-1.2) mg/dL AST 37 H (0-32) U/L ALT 27 (0-33) U/L Alkaline Phosphata se 127 H (35-105) IU/L Troponin T Baselin e (0-10) ng/L Troponin T 120 Min [place] (0-10) ng/L Delta Troponin T (0-10) ABS# C-Reactive Protein 0.3 (0.0-4.9) mg/L Total Protein 6.6 (6.6-8.7) g/dL Albumin 4.4 (3.5-5.2) g/dL Globulin 2.2 (1.3-4.6) g/dL Procalcitonin 0.06 (0-0.5) ng/mL Urine Color (Yellow) Urine Appearance (CLEAR) Urine pH (5-7) Ur Specific Gravit y (1.005-1.030) Urine Protein (Negative) Urine Glucose (UA) (Normal) Urine Ketones (Negative) Urine Blood (Negative) Urine Nitrate (Negative) Urine Bilirubin (Negative) Urine Urobilinogen (Negative) mg/dL Ur Leukocyte Polly ase (Negative) 02/15/21 02/15/21 02/15/21 Range/Units 21:35 21:35 22:25 WBC (4.0-10.0) 10^3/ uL RBC (4.1-5.3) 10^6/u L Hgb (11.5-15.3) g/dL Hct (37.0-47.0) % MCV (81-99) fL MCH (28.0-34.0) pg MCHC (30.0-36.0) g/dL RDW (12.1-15.1) % Plt Count (130-400) 10^3/c mm MPV (7.4-10.4) fL Neut % (Auto) % Lymph % (Auto) % [place] % (Auto) % Eos % (Auto) % Baso % (Auto) % Neut # (Auto) (1.8-7.7) 10^3/u L Lymph # (Auto) (0.8-4.8) 10^3/u L [place] # (Auto) (0.2-0.9) 10^3/u L Eos # (Auto) (0.0-0.8) 10^3/u L Baso # (Auto) (0.0-0.1) 10^3/u L Nucleated RBC % (a uto) % Nucleated RBCs # /100WBC Sodium (136-145) mmol/L Potassium (3.5-5.1) mmol/L Chloride (98-107) mmol/L Carbon Dioxide (22-29) mmol/L Anion Gap (5-19) BUN (8-23) mg/dL Creatinine (0.5-0.9) mg/dL GFR Calculation Glucose (65-115) mg/dL Calculated Osmolal ity (285-295) mOsm/k g Lactate 5.7 H* (0.5-2.2) mmol/L Calcium (8.5-10.5) mg/dL Total Bilirubin (0.15-1.2) mg/dL AST (0-32) U/L ALT (0-33) U/L Alkaline Phosphata se (35-105) IU/L Troponin T Baselin e 39 H (0-10) ng/L Troponin T 120 Min [place] (0-10) ng/L Delta Troponin T (0-10) ABS# C-Reactive Protein (0.0-4.9) mg/L Total Protein (6.6-8.7) g/dL Albumin (3.5-5.2) g/dL Globulin (1.3-4.6) g/dL Procalcitonin (0-0.5) ng/mL Urine Color Yellow (Yellow) Urine Appearance Clear (CLEAR) Urine pH 5 (5-7) Ur Specific Gravit y 1.015 (1.005-1.030) Urine Protein Neg (Negative) Urine Glucose (UA) Norm (Normal) Urine Ketones Negative (Negative) Urine Blood Neg (Negative) Urine Nitrate Negative (Negative) Urine Bilirubin Neg (Negative) Urine Urobilinogen Norm (Negative) mg/dL Ur Leukocyte Polly ase Negative (Negative) 02/15/21 Range/Units 23:55 WBC (4.0-10.0) 10^3/ uL RBC (4.1-5.3) 10^6/u L Hgb (11.5-15.3) g/dL Hct (37.0-47.0) % MCV (81-99) fL MCH (28.0-34.0) pg MCHC (30.0-36.0) g/dL RDW (12.1-15.1) % Plt Count (130-400) 10^3/c mm MPV (7.4-10.4) fL Neut % (Auto) % Lymph % (Auto) % [place] % (Auto) % Eos % (Auto) % Baso % (Auto) % Neut # (Auto) (1.8-7.7) 10^3/u L Lymph # (Auto) (0.8-4.8) 10^3/u L [place] # (Auto) (0.2-0.9) 10^3/u L Eos # (Auto) (0.0-0.8) 10^3/u L Baso # (Auto) (0.0-0.1) 10^3/u L Nucleated RBC % (a uto) % Nucleated RBCs # /100WBC Sodium (136-145) mmol/L Potassium (3.5-5.1) mmol/L Chloride (98-107) mmol/L Carbon Dioxide (22-29) mmol/L Anion Gap (5-19) BUN (8-23) mg/dL Creatinine (0.5-0.9) mg/dL GFR Calculation Glucose (65-115) mg/dL Calculated Osmolal ity (285-295) mOsm/k g Lactate (0.5-2.2) mmol/L Calcium (8.5-10.5) mg/dL Total Bilirubin (0.15-1.2) mg/dL AST (0-32) U/L ALT (0-33) U/L Alkaline Phosphata se (35-105) IU/L Troponin T Baselin e (0-10) ng/L Troponin T 120 Min [place] 33.57 H (0-10) ng/L Delta Troponin T -5.43 L (0-10) ABS# C-Reactive Protein (0.0-4.9) mg/L Total Protein (6.6-8.7) g/dL Albumin (3.5-5.2) g/dL Globulin (1.3-4.6) g/dL Procalcitonin (0-0.5) ng/mL Urine Color (Yellow) Urine Appearance (CLEAR) Urine pH (5-7) Ur Specific Gravit y (1.005-1.030) Urine Protein (Negative) Urine Glucose (UA) (Normal) Urine Ketones (Negative) Urine Blood (Negative) Urine Nitrate (Negative) Urine Bilirubin (Negative) Urine Urobilinogen (Negative) mg/dL Ur Leukocyte Polly ase (Negative) Imaging Data^: CXR: Attestation: I personally reviewed and interpreted this imaging study as follows: Radiologist's impression: [place] [address], [place] [address]SOln ReportSigned Patient: Cathi Nichols #: [id number]: 1940cct#:[id number]/Sex: 80 / FADM Date: 02/15/21Loc: ERRoom/Bed:Attending Dr: Ordering Provider/Ordering MD: Estiven Willis MD, [facility] [place] Date of Service: 02/15/21 Procedure(s): XR chest 1V portable [id number] Accession Number(s): [id number] Report Number: [id number] PROCEDURE INFORMATION: Exam: XR Chest Exam date and time: 02/15/2021 9:09 PM Age: 80 years old Clinical indication: Prior surgery; Surgery date: 6+ months; Surgery type: Brain surgery. Loop recorder; Patient HX: C/O weakness TECHNIQUE: Imaging protocol: XR of the chest. Views: 1 view. Total images: 1 COMPARISON: CR XR chest 1V portable [id number] 11/27/2020 1:44 PM FINDINGS: Tubes, catheters and devices: Cardiac loop recorder. Lungs: No visible active interstitial or alveolar airspace disease. Pleural spaces: Unremarkable. No pleural effusion. No pneumothorax. Heart/Mediastinum: Cardiac structures and configuration with arteriosclerosis. Bones/joints: Unremarkable for age. Organs: Status post cholecystectomy. XR/XR chest 1V portable [id number] IMPRESSION: Nonacute. Dictated By:Jose Manuel Spencer By:Jose Manuel Spencer Date/Time:02/15/21D/ [address]: Attestation: I personally reviewed and interpreted this imaging study as follows: Radiologist's impression: [place] [id number] [facility] Hospitalgenna [place], [place] [address]NI Scan ReportSigned Patient: Cathi Nichols #: [id number]: 1940cct#:[id number]/Sex: 80 / FADM Date: 02/15/21Loc: ERRoom/Bed:Attending Dr: Ordering Provider/Ordering MD: Estiven Willis MD, NINA Date of Service: 02/15/21 Procedure(s): CT chest abd pel wo con Accession Number(s): [id number] Report Number: [id number] PROCEDURE INFORMATION: Exam: CT Abdomen And Pelvis Without Contrast Exam date and time: 02/15/2021 11:34 PM Age: 80 years old Clinical indication: Other: N/a; Prior surgery; Surgery type: Loop recorder. Gb. Hyst. ; Patient HX: General weakness. Septic. TECHNIQUE: Imaging protocol: Computed tomography of the abdomen and pelvis without contrast. Radiation optimization: All CT scans at this facility use at least one of these dose optimization techniques: automated exposure control; mA and/or kV adjustment per patient size (includes targeted exams where dose is matched to clinical indication); or iterative reconstruction. COMPARISON: No relevant prior studies available. RADIATION DOSE METRICS: Total DLP (mGy-cm): 1274.02 FINDINGS: Liver: Normal. No mass. Gallbladder and bile ducts: See Stomach and bowel finding. Pancreas: Normal. No ductal dilation. Spleen: Normal. No splenomegaly. Adrenal glands: Normal. No mass. Kidneys and ureters: Normal. No hydronephrosis. Stomach and bowel: Moderate stool is present within the colon and rectal vault. Diverticula are present on the sigmoid colon. There are no inflammatory changes seen to suggest cholecystitis. Appendix: No evidence of appendicitis. Intraperitoneal space: Unremarkable. No free air. No significant fluid collection. Vasculature: Calcifications are seen within the abdominal aorta, iliac arteries bilaterally. Lymph nodes: Unremarkable. No enlarged lymph nodes. Urinary bladder: Unremarkable as visualized. Reproductive: Status post hysterectomy. Bones/joints: Severe loss of disc height and vacuum disc phenomenon is seen L4-S1. There is mild anterior wedge deformity of the superior endplate of L1 vertebral body. Soft tissues: Unremarkable. CT/CT chest abd pel wo con IMPRESSION: 1. There are no acute abdominal findings. 2. Moderate stool present within the colon and rectal vault. 3. Diverticulosis of the sigmoid colon Radiation Dose CTDIVOL = (mGy): DLP = 1274.02 (mGy-cm) Dictated By:Sean Aguilera MDSigned By:Sean Aguilera MDSigned Date/Time:02/16/21 0042DD/ EKG Data^: EKG 1: Attestation: I personally reviewed and interpreted this EKG as follows: EKG interpretation date: 02/15/21 EKG interpretation time: 21:25 Prior EKG tracings: not available for review Interpretation: Sinus rhythm. Heart rate 74 bpm. LVH. Q wave in leads III and aVF. No ST changes. Discharge Plan Discharge Patient Disposition: Placed in Observation Clinical Impression: Acidosis, lactic, Acute dehydration Constipation Qualifiers: Constipation type: unspecified constipation type Qualified Code(s): K59.00 - Constipation, unspecified Coding Level of Care Code ED Therapeutic Recreation Assistant for g Parisa
[2021-02-15] MEDS: sodium chloride 0.9% 1,000 ML 999 ML IV (23:23)
[2021-02-16] VITALS (8 sets, daily range): BP systolic 132–167; BP diastolic 70–83; PULSE 78–88; RESP 16–20; TEMP 36.1–36.8; O2SAT 95–99
[2021-02-16 00:39] LABS: Troponin 5 2HR 33.57 ng/L (0-10)
[2021-02-16 00:41] LABS: Troponin 5 2HR Delta -5.43 ABS# (0-10)
--- NOTE | 2021-02-16 02:05 | PM.HP ---
Providers/Chief Complaint Admitting Physician: Sarah Kelly MD Primary Care Provider: BRAN Tavarez Chief Complaint: WEAKNESS History of Present Illness Cathi Nichols is a 80 year old female with pmh of dementia, htn presented to ER with a presyncopal episode this evening while she was brushing her teeth. reports that she recently has not been drinking as much fluids as she should . She took cipro for suspected UTI. also has issues with constipation at times. in the last month she has started Amlodipine and Buspirone. Review of Systems Const: Denies: fever(s) or chills Eyes: Denies: change in vision ENMT: Denies: throat pain Card: Denies: chest pain or palpitations Resp: Denies: dyspnea or productive cough GI: Denies: abdominal pain or nausea : Denies: flank pain or difficulty voiding Musc: Denies: back pain or extremity pain Skin/Breast: Denies: rash or pruritus Medications/Allergies Home Medications Medication Instructions Recorded Confirmed Last Taken Type Lactobacillus 1 cap PO DAILY@0800 cap 10/11/19 02/12/21 11/27/20 History acidophilus-Bifidobac.animalis 2.5 billion cell capsule epinephrine 0.3 mg/0.3 mL 0.3 mg IM ONCE PRN 10/11/19 02/12/21 Unknown History injection, auto-injector multivitamin 1 tab PO DAILY@0800 10/11/19 02/12/21 11/27/20 History cranberry 500 mg capsule 500 mg PO DAILY@0800 cap 10/25/19 02/12/21 11/27/20 History lancets 33 gauge #100 each 12/05/19 02/13/21 Unknown Rx blood sugar diagnostic #10 each 01/10/20 02/13/21 Unknown Rx blood-glucose meter #1 each 01/10/20 02/13/21 Unknown Rx atorvastatin 10 mg PO BEDTIME@1700 01/26/20 02/12/21 11/26/20 History amantadine HCl 100 mg tablet 100 mg PO BID@0800,1700 10/29/20 02/12/21 11/27/20 History carvedilol 25 mg PO DAILY@0800,1700 11/27/20 02/12/21 11/27/20 History lisinopril 20 mg PO BID@0800,1700 11/27/20 02/12/21 11/27/20 History amlodipine 2.5 mg tablet 2.5 mg PO DAILY 30 Days #30 tab 11/29/20 02/12/21 Unknown Rx buspirone 5 mg tablet 2.5 mg PO BID tab 02/12/21 02/12/21 Unknown History carbidopa 25 mg-levodopa 100 mg 1 tab PO TID@0800,1200,1700 tab 02/12/21 02/12/21 Unknown History tablet metformin 500 mg tablet 1,000 mg PO BID@0800,1700 tab 02/12/21 02/12/21 Unknown History risperidone 0.5 mg tablet 0.25 mg PO .bedtime tab 02/12/21 02/12/21 Unknown History Allergies Allergy/AdvReac Type Severity Reaction Status Date / Time furosemide [From Lasix] Allergy Unknown UNKNOWN Verified 02/12/21 08:25 codeine Allergy Unknown Verified 02/12/21 08:25 PFSH Acute PFSH: Medical History (Reviewed 02/15/21 @ 23:07 by Estiven Willis MD, [facility] [place]) Anxiety DDD (degenerative disc disease), lumbar Dyslipidemia (high LDL; low HDL) -on statin Encounter for loop recorder check Essential (primary) hypertension Hx of traumatic brain injury -associated with some degree of confusion, occasional hallucinations, states she lives with mom and dad at baseline when stressed. Actually lives with her son and daughter who are with her 27/04 Hyponatremia chronic mild in low mid 130s at baseline Leg swelling Lumbar stenosis Memory change Parkinsons -On Sinemet Recurrent UTI Syncopal episodes Type 2 diabetes mellitus without complications -non insulin requiring, on metformin -A1c-6.9 Urge incontinence Ventricular arrhythmia Surgical History (Reviewed 02/15/21 @ 23:07 by Estiven Willis MD, [facility] [place]) History of loop recorder -Follows with Dr. Ponce History of release of tendon (~2010) trigger finger History of tonsillectomy and adenoidectomy younger than age 10 Hx laparoscopic cholecystectomy (~1993) Hx of bilateral cataract extraction (~2007) Hx of brain surgery Epidural Hematoma; emergency Hx of breast biopsy (~2002) right Hx of colonoscopy (~2010) polyps: Hyperplastic Hx of hysterectomy (~1973) Hx of tracheostomy Family History (Reviewed 02/15/21 @ 23:07 by Estiven Willis MD, [facility] [place]) Father , age 58 from [place] CAD (coronary artery disease) Mother , age 76 Cancer melanoma Grandmother Diabetes maternal Social History (Reviewed 02/15/21 @ 23:07 by Estiven Willis MD, [facility] [place]) Smoking and tobacco status: never smoked Alcohol intake: never Caregiver/support person: Yes Lives independently: No Household members: none Housing: House Marital status: / Number of children: 2 Number of grandchildren: 0 Current occupational status: retired History of recent travel: No Current gender identity: Female Vitals/I&O/Wt Last Vital Signs Temp 98 F 02/15/21 21:45 Pulse 78 02/15/21 21:45 Resp 16 02/15/21 21:45 BP 152/80 02/15/21 21:45 Pulse Ox 99 02/15/21 21:45 Weight last 48 hrs Weight 150 lb Physical Exam Const: COMMON NORMALS: no acute distress Chest: COMMONS NORMALS: normal inspection of the chest Resp: COMMON NORMALS: normal respiratory effort and No retractions Cardio: COMMON NORMALS: no JVD, regular rate and regular rhythm GI: COMMON NORMALS: Soft to palpation and non-tender Extremity: COMMON NORMALS: normal to inspection and full ROM Neuro: RAMON COMA SCALE: document GCS findings Data : 02/15/21 21:35 02/15/21 21:35 A&P Assessment and plan (1) Acute dehydration: IVF recheck labs Status: Acute (2) Constipation: add Colace Status: Acute Qualifiers: Constipation type: unspecified constipation type Qualified Code(s): K59.00 - Constipation, unspecified (3) Syncopal episodes: could 2/2 dehydration telemetry IVF PT check ECHO, carotid US Status: Acute Qualifiers: Syncope type: unspecified Qualified Code(s): R55 - Syncope and collapse (4) Essential (primary) hypertension: hold antihypertensive for now Status: Acute (5) Recurrent UTI: hold cipro Status: Chronic Attestations Medical Necessity Statement*: Cathi Nichols is being changed to inpatient status as stay will now exceed 2 midnights. Ongoing hospital care is necessary for syncope Coding Level of Care Code Acute Piano Technician for [facility] Fwd Diagnoses Acute dehydration E86.0 Constipation K59.00 Constipation type: unspecified constipation type Syncopal episodes R55 Syncope type: unspecified Essential (primary) hypertension I10 Recurrent UTI N39.0
--- NOTE | 2021-02-16 02:42 | USCV_ITS ---
Cathi Nichols Age: 80 Gender: F : 1940 Exam Date: 02/16/2021 14:59 Ordering Phys: Sarah Kelly MD Technologist: Betzy Tineo Exam Location: [facility] [place] Indication: Syncope BP: 153 / 79 HR: 73 Rhythm: Sinus Technical Quality: Adequate MEASUREMENTS (Male / Female) Normal Values 2D ECHO LV Diastolic Diameter PLAX 3.0 cm 4.2 - 5.9 / 3.9 - 5.3 cm LV Systolic Diameter PLAX 2.1 cm LV Chamber Size 3.5 cm IVS Diastolic Thickness 1.8 cm 0.6 - 1.0 / 0.6 - 0.9 cm IVS Systolic Thickness 1.9 cm LVPW Diastolic Thickness 0.9 cm 0.6 - 1.0 / 0.6 - 0.9 cm LVPW Systolic Thickness 1.2 cm RV Chamber Size 2.5 cm LVOT Diameter 1.8 cm LV Ejection Fraction 2D Teich 60.8 % LV Ejection Fraction MOD 2C 70.8 % LV Ejection Fraction 2C AL 74.8 % LA Diameter 3.0 cm LA Width 2.7 cm LA Height 3.9 cm RA Width 1.8 cm RA Height 3.3 cm Aorta at Sinotubular Diameter 2.0 cm M-MODE LV Diastolic Diameter MM 4.1 cm 4.2 - 5.9 / 3.9 - 5.3 cm LV Systolic Diameter MM 2.6 cm LV Ejection Fraction MM Teich 67.2 % IVS Diastolic Thickness MM 1.3 cm 0.6 - 1.0 / 0.6 - 0.9 cm IVS Systolic Thickness MM 1.3 cm LVPW Diastolic Thickness MM 1.3 cm 0.6 - 1.0 / 0.6 - 0.9 cm LVPW Systolic Thickness MM 1.2 cm Aortic Annulus Diameter 2.4 cm LA Ao Ratio MM 1.5 MV E Point Septal Separation 0.4 cm DOPPLER AV Peak Velocity 118.0 cm/s LVOT Peak Velocity 78.0 cm/s AV Area Cont Eq vti 1.7 cm squared AV Area Cont Eq pk 1.7 cm squared MV Area PHT 4.6 cm squared Mitral E to A Ratio 0.6 MV E' Velocity 45.0 cm/s Mitral E to MV E' Ratio 12.4 Mitral E to LV E' Lateral Ratio 12.4 Mitral E to LV E' Septal Ratio 12.6 TR Peak Velocity 239.3 cm/s TR Peak Gradient 22.9 mmHg TR Mean Velocity 201.2 cm/s TR Mean Gradient 16.5 mmHg TR Velocity Time Integral 72.1 cm TV Peak E Velocity 37.0 cm/s Right Atrial Pressure 3.0 mmHg Pulmonary Artery Systolic Pressu 25.9 mmHg PV Peak Velocity 78.0 cm/s RV Acceleration Time 0.1 s RV Ejection Time 0.3 s RV AcT/ET 0.4 FINDINGS Left Ventricle Normal left ventricular size and systolic function, EF 68 %. Mild left ventricular hypertrophy. No regional wall motion abnormalities. Grade I/IV diastolic dysfunction (abnormal relaxation filling pattern), normal to mildly elevated filling pressures. Right Ventricle Normal right ventricular size and systolic function. Right Atrium The right atrium is normal in size. Left Atrium The left atrium is normal in size. Mitral Valve Thickened mitral valve. Moderate mitral annular calcification. Mild mitral valve regurgitation. Aortic Valve Thickened aortic valve. Tricuspid Valve Trace tricuspid valve regurgitation. Estimated pulmonary artery peak systolic pressure 26 mmHg Pulmonic Valve Structurally normal pulmonic valve without significant stenosis. Pericardium Normal pericardium without effusion. Aorta Normal ascending aorta dimension. CONCLUSIONS Normal left ventricular size and systolic function, EF 68 %. Mild left ventricular hypertrophy. No regional wall motion abnormalities. Grade 1 left ventricular diastolic dysfunction Thickened mitral valve. Moderate mitral annular calcification. Mild mitral valve regurgitation. Trace tricuspid valve regurgitation. Estimated pulmonary artery peak systolic pressure 26 mmHg. There is no pericardial effusion. There are no intracardiac masses. Compared to the previous study from 02/07/2018, there may not be a significant change. The pulmonary artery pressure appears to be in the normal range in the current study Dr Mikayla Ponce MD [facility] (Electronically Signed) Final Date: 17 Feb 2021 09:38 S
[2021-02-16] MEDS: dextrose 5%-sod chloride 0.45% 1,000 ML 100 ML IV ×2 (02:50→15:29)
--- NOTE | 2021-02-16 03:14 | PC.NURSE ---
ADMIT NOTE Pt received to room from ER at 0240 via wheelchair. Son with pt and will be staying with rest of the night. Pt with history of TBI and has some confusion and tries to get up. Son reports a history of sycopy and thought that is what happened this time. Says she stayed in bed all day yesterday and did not eat or drink much. Is alert. Answers most questions appropriately. Incont of large amt urine on admission. Brief changed. [place] applied to ted redness. Son says incont is ususal for pt. IV to left ac leaking with flush prior to start of fluids. Was loose but [facility] and changing Venagard having a difficult time with positional IV. Unable to keep fluids running. VS check done and RN completing admission assessment
--- NOTE | 2021-02-16 03:19 | ECG_ITS ---
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 Measurements Intervals [place] Rate: 79 P: 41 FL: 184 QRS: -14 QRSD: 85 T: 46 QT: 378 QTc: 433 Interpretive Statements SINUS RHYTHM VOLTAGE CRITERIA FOR LVH INFERIOR MYOCARDIAL INFARCTION, PROBABLY OLD Compared to ECG 02/16/2021 03:26:27 Left ventricular hypertrophy now present Myocardial infarct finding now present Sinus bradycardia no longer present T-wave abnormality no longer present Possible ischemia no longer present Electronically Signed On 02-20-2021 7:10:52 CDT by Sophia Dent M.D. [id number]
[2021-02-16 05:24] LABS: Troponin 5 6HR 28.24 ng/L (0-10)
[2021-02-16 05:31] LABS: Troponin 5 6HR Delta -10.76 ng/L (0-12)
[2021-02-16 15:16] LABS: Lactate (Lactic Acid level) 2.9 mmol/L (0.5-2.2)
[2021-02-16] MEDS: atorvastatin 40 mg Tablet 20 MG PO (18:22)
[2021-02-16] MEDS: carbidopa-levodopa 25-100mg Tablet 1 EACH PO (18:23)
[2021-02-16] MEDS: carvedilol 12.5 mg Tablet PO (18:23)
[2021-02-16] MEDS: lisinopril 10 mg Tablet PO (18:23)
--- NOTE | 2021-02-16 19:17 | PM.PN ---
Subjective Subjective: Interval history: Patient without further events during the day today. She is tolerated IV fluids. She is not been taking as much by mouth. Her hypertensives and multiple other medications were held. Has been done but results are pending. Mrs. Nichols herself think she is at the hospital to have a baby. Vitals/I&O/Wt Last Vital Signs Temp 97.8 F 02/16/21 16:00 Pulse 88 02/16/21 12:00 Resp 18 02/16/21 16:00 BP 138/78 02/16/21 16:00 Pulse Ox 97 02/16/21 12:00 02/16/21 02/16/21 02/16/21 06:59 14:59 22:59 Intake Total 1050 / 1050 1350 / 1350 240 / 1590 Balance 1050 / 1050 1350 / 1350 240 / 1590 Weight last 48 hrs Weight 68.039 kg Physical Exam Narrative: EXAM NARRATIVE: Constitutional: Pleasant, oriented to person and to the fact that she is in the hospital but thinks she is here to have a baby HEENT: Extraocular movements intact Respiratory: Clear bilaterally Cardiovascular: Regular rhythm Abdomen: Soft, nontender Extremities: No edema Neuro: Strength equal at both hands and both feet Data : 02/15/21 21:35 02/15/21 21:35 Other Labs: Laboratory Tests 02/16/21 14:46 Lactate 2.9 H A&P Assessment and plan (1) Syncopal episodes: Status: Acute Qualifiers: Syncope type: unspecified Qualified Code(s): R55 - Syncope and collapse (2) Acidosis, lactic: Status: Acute (3) Acute dehydration: Status: Acute (4) Constipation: Status: Acute Qualifiers: Constipation type: unspecified constipation type Qualified Code(s): K59.00 - Constipation, unspecified (5) Essential (primary) hypertension: Status: Chronic (6) Type 2 diabetes mellitus without complications: Status: Chronic Qualifiers: Diabetes mellitus terminal make up operator insulin use: without fpc use Qualified Code(s): E11.9 - Type 2 diabetes mellitus without complications (7) Recurrent UTI: Status: Chronic (8) Hx of traumatic brain injury: Status: Chronic Additional A&P Information Decrease IV fluids Recheck electrolytes in the morning Resume a lower dose of carvedilol and lisinopril Continue to hold amlodipine Follow-up pending echo report Resume other home medications including Sinemet, BuSpar, Risperdal I have continued simvastatin Amantadine is nonformulary Sliding scale insulin currently for diabetes, Metformin is held Laxative therapy Resume cipro which patient is on for UTI, recurrent, but decrease to 250 bid UA is unremarkable but need to finish course of treatment previously prescribed, urine could be contaminated specimen Family to stay with patient for safety Supportive care otherwise Anticipate DC home in morning if no changes Low risk presently for VTE Discussed with patient daughter in the room Attestations Medical Necessity Statement*: Requires observation stay for continued fluids and reintroduction of usual antihypertensive and other medications that might contribute to a presyncopal state Coding Level of Care Code Acute Manager In Home for [facility] Fwd Diagnoses Syncopal episodes R55 Syncope type: unspecified Acidosis, lactic E87.2 Acute dehydration E86.0 Constipation K59.00 Constipation type: unspecified constipation type Essential (primary) hypertension I10 Type 2 diabetes mellitus without complications E11.9 Diabetes mellitus fpc insulin use: without fpc use Recurrent UTI N39.0 Hx of traumatic brain injury Z87.820
[2021-02-16 20:17] LABS: Glucose Point of Care 345 mg/dL (70-110)
[2021-02-16] MEDS: ciprofloxacin 500 mg Tablet 250 MG PO (21:25)
[2021-02-16] MEDS: risperiDONE 0.25 mg Tablet PO (21:25)
[2021-02-17] VITALS: BP 135/77; PULSE 85; RESP 16; TEMP 36.8; O2SAT 96
[2021-02-17] MEDS: dextrose 5%-sod chloride 0.45% 1,000 ML 50 ML IV (01:29)
[2021-02-17 04:00] VITALS: BP 167/82; PULSE 69; RESP 16; TEMP 36.8; O2SAT 94
[2021-02-17 04:56] LABS: Basophils # 0.1 10^3/uL (0.0-0.1); Basophils % 0.9 %; Eosinophils # 0.5 10^3/uL (0.0-0.8); Eosinophils % 9.2 %; Hematocrit 44.7 % (37.0-47.0); Hemoglobin 14.1 g/dL (11.5-15.3); Lymphocytes # 1.6 10^3/uL (0.8-4.8); Lymphocytes % 26.9 %; Mean Corpuscular HGB Conc 31.5 g/dL (30.0-36.0); Mean Corpuscular Hemoglobin 27.2 pg (28.0-34.0); Mean Corpuscular Volume 86.3 fL (81-99); Mean Platelet Volume 10.1 fL (7.4-10.4); Monocytes # 0.7 10^3/uL (0.2-0.9); Monocytes % 11.7 %; Neutrophils # 2.95 10^3/uL (1.8-7.7); Nucleated Red Blood Cells % 0 %; Platelet Count 220 10^3/cmm (130-400); Red Blood Count 5.18 10^6/uL (4.1-5.3); Red Cell Distribution Width 14.8 % (12.1-15.1); White Blood Count 5.8 10^3/uL (4.0-10.0)
[2021-02-17 05:12] LABS: Alanine Aminotransferase 10 U/L (0-33); Albumin Level 4.1 g/dL (3.5-5.2); Alkaline Phosphatase 184 IU/L (35-105); Anion Gap 16.6 (5-19); Aspartate Amino Transferase 23 U/L (0-32); Blood Urea Nitrogen 21 mg/dL (8-23); Calcium 8.7 mg/dL (8.5-10.5); Carbon Dioxide 23 mmol/L (22-29); Chloride 103 mmol/L (98-107); Globulin 2.4 g/dL (1.3-4.6); Glucose 213 mg/dL (65-115); Osmolality Calculated 297 mOsm/kg (285-295); Potassium 3.6 mmol/L (3.5-5.1); Sodium 139 mmol/L (136-145); Total Bilirubin 0.4 mg/dL (0.15-1.2); Total Protein 6.5 g/dL (6.6-8.7)
[2021-02-17 05:57] LABS: Lactate (Lactic Acid level) 1.9 mmol/L (0.5-2.2)
[2021-02-17 06:50] LABS: Glucose Point of Care 225 mg/dL (70-110)
[2021-02-17 08:00] VITALS: BP 123/72; PULSE 71; RESP 18; TEMP 36.8
[2021-02-17] MEDS: sennosides-docusate Tablet 1 TAB PO (08:24)
[2021-02-17] MEDS: carvedilol 12.5 mg Tablet PO (08:24)
[2021-02-17] MEDS: BuSPIRONE 10 mg Tablet 5 MG PO (08:24)
[2021-02-17] MEDS: carbidopa-levodopa 25-100mg Tablet 1 EACH PO ×2 (08:25→11:39)
[2021-02-17] MEDS: lisinopril 10 mg Tablet PO (08:25)
[2021-02-17] MEDS: ciprofloxacin 500 mg Tablet 250 MG PO (08:25)
[2021-02-17 11:33] LABS: Glucose Point of Care 315 mg/dL (70-110)
--- NOTE | 2021-02-17 11:35 | PM.DCS ---
Discharge Providers Date of Admission: 02/16/21 00:47 Date of Discharge: February 17, 2021 Attending Provider at Admission: Sarah Kelly MD Attending Provider at Discharge: Kenna Esposito MD Primary Care Provider: BRAN Tavarez Diagnoses at Discharge Discharge Diagnosis (1) Syncopal episodes: Status: Acute Qualifiers: Syncope type: unspecified Qualified Code(s): R55 - Syncope and collapse (2) Acidosis, lactic: Status: Acute (3) Acute dehydration: Status: Acute (4) Constipation: Status: Acute Qualifiers: Constipation type: unspecified constipation type Qualified Code(s): K59.00 - Constipation, unspecified (5) Essential (primary) hypertension: Status: Chronic (6) Type 2 diabetes mellitus without complications: Status: Chronic Permanent problem details: non insulin requiring, on metformin, A1c-6.9 Qualifiers: Diabetes mellitus intermediate card tender insulin use: without intermediate card tender use Qualified Code(s): E11.9 - Type 2 diabetes mellitus without complications (7) Recurrent UTI: Status: Chronic (8) Hx of traumatic brain injury: Status: Chronic Permanent problem details: associated with some degree of confusion, occasional hallucinations, states she lives with mom and dad at baseline when stressed. Actually lives with her son and daughter who are with her 27/04 Reason for Visit Reason for Visit: WEAKNESS Hospital Course Hospital Course Ms. Nichols presented with syncopal or rather presyncopal episode at home. Work-up in the emergency room revealed lactic acidosis at 5.7. Serial cardiac enzymes were done. Baseline troponin was 39. 6-hour troponin was 28. Both values are within range previous troponins. There were no acute S T-segment changes noted on EKG. An echocardiogram was done that did not show significant change from 2018. Urinalysis was negative. There was some thought that she may be developing a urinary tract infection which she is quite prone to in the outpatient setting and she had had 1 dose of Cipro. White count was normal. Cannot completely rule out an infection partially treated and recommended completion of a short course. Patient's usual antihypertensive agents consisting of carvedilol, lisinopril and amlodipine were held at admission. Carvedilol and lisinopril were resumed at half dose the following day. I think she will be able to go back up to full dose in the next day or so. It was reported that amlodipine was most recently initiated medication. She is taking it at 2.5 mg p.o. daily. I have gone on and held this until follow-up with primary care provider/cardiology. BuSpar was resumed and she seemed to tolerate this. With hydration, laboratory studies normalized. Patient did have recent blood sugars while here but she had been treated with fluids with dextrose. Expect sugars were normalized without this. She will be discharged on her usual Metformin in that regard. On the day of discharge patient was without complaint. She was tolerating diet. She stated she felt better. Lungs were clear. She had a regular rhythm. She had some edema in her lower extremities given the hydration she received. Discussed plan of care with patient's son. He was given an opportunity to ask questions. She will be discharged home today. Can follow-up with primary care provider for blood pressure check in the next couple of days, cardiology in a couple of weeks and urology as previously scheduled unless further symptoms develop. Discharge Data Data Completed and Pending: Completed Studies During Hospitalization Category Date Time Status CT chest abd pel wo con Urgent Cat Scan 02/15/21 22:55 Completed XR chest 1V marsha ble [id number] Urgent Exams 02/15/21 21:07 Completed CV echo complete* [id number] Routine Ultrasound 02/16/21 02:42 Completed Laboratory Results WBC 5.8 10^3/uL (4.0- 10.0) 02/17/21 04:46 RBC 5.18 10^6/uL (4.1 -5.3) 02/17/21 04:46 Hgb 14.1 g/dL (11.5-1 5.3) 02/17/21 04:46 Hct 44.7 % (37.0-47.0 ) 02/17/21 04:46 MCV 86.3 fL (81-99) 02/17/21 04:46 MCH 27.2 pg (28.0-34. 0) L 02/17/21 04:46 MCHC 31.5 g/dL (30.0-3 6.0) 02/17/21 04:46 RDW 14.8 % (12.1-15.1 ) 02/17/21 04:46 Plt Count 220 10^3/cmm (130 -400) 02/17/21 04:46 MPV 10.1 fL (7.4-10.4 ) 02/17/21 04:46 Neut % (Auto) 51.0 % 02/17/21 04:46 Lymph % (Auto) 26.9 % 02/17/21 04:46 [place] % (Auto) 11.7 % 02/17/21 04:46 Eos % (Auto) 9.2 % 02/17/21 04:46 Baso % (Auto) 0.9 % 02/17/21 04:46 Neut # (Auto) 2.95 10^3/uL (1.8 -7.7) 02/17/21 04:46 Lymph # (Auto) 1.6 10^3/uL (0.8- 4.8) 02/17/21 04:46 [place] # (Auto) 0.7 10^3/uL (0.2- 0.9) 02/17/21 04:46 Eos # (Auto) 0.5 10^3/uL (0.0- 0.8) 02/17/21 04:46 Baso # (Auto) 0.1 10^3/uL (0.0- 0.1) 02/17/21 04:46 Nucleated RBC % (a uto) 0 % 02/17/21 04:46 Nucleated RBCs # 0.0 /100WBC 02/17/21 04:46 Sodium 139 mmol/L (136-1 45) 02/17/21 04:46 Potassium 3.6 mmol/L (3.5-5 .1) 02/17/21 04:46 Chloride 103 mmol/L (98-10 7) 02/17/21 04:46 Carbon Dioxide 23 mmol/L (22-29) 02/17/21 04:46 Anion Gap 16.6 (5-19) 02/17/21 04:46 BUN 21 mg/dL (8-23) 02/17/21 04:46 Creatinine 0.9 mg/dL (0.5-0. 9) 02/17/21 04:46 GFR Calculation Not Reportable 02/17/21 04:46 Glucose 213 mg/dL (65-115 ) H 02/17/21 04:46 POC Glucose 315 mg/dL (70-110 ) H 02/17/21 11:29 Calculated Osmolal ity 297 mOsm/kg (285- 295) H 02/17/21 04:46 Lactate 1.9 mmol/L (0.5-2 .2) 02/17/21 04:46 Calcium 8.7 mg/dL (8.5-10 .5) 02/17/21 04:46 Magnesium 2.0 mg/dL (1.7-2. 3) 02/17/21 04:46 Total Bilirubin 0.4 mg/dL (0.15-1 .2) 02/17/21 04:46 AST 23 U/L (0-32) 02/17/21 04:46 ALT 10 U/L (0-33) 02/17/21 04:46 Alkaline Phosphata se 184 IU/L (35-105) H 02/17/21 04:46 Troponin T Baselin e 39 ng/L (0-10) H 02/15/21 21:35 Troponin T 120 Min ewiiaapaayp 33.57 ng/L (0-10) H 02/15/21 23:55 Delta Troponin T -5.43 ABS# (0-10) L 02/15/21 23:55 Troponin T Hi Sens 6Hr 28.24 ng/L (0-10) H 02/16/21 04:10 Troponin T Hi Sens 6Hr Delta -10.76 ng/L (0-12 ) L 02/16/21 04:10 C-Reactive Protein 0.3 mg/L (0.0-4.9 ) 02/15/21 21:35 Total Protein 6.5 g/dL (6.6-8.7 ) L 02/17/21 04:46 Albumin 4.1 g/dL (3.5-5.2 ) 02/17/21 04:46 Globulin 2.4 g/dL (1.3-4.6 ) 02/17/21 04:46 Procalcitonin 0.06 ng/mL (0-0.5 ) 02/15/21 21:35 Urine Color Yellow (Yellow) 02/15/21 21:35 Urine Appearance Clear (CLEAR) 02/15/21 21:35 Urine pH 5 (5-7) 02/15/21 21:35 Ur Specific Gravit y 1.015 (1.005-1.0 30) 02/15/21 21:35 Urine Protein Neg (Negative) 02/15/21 21:35 Urine Glucose (UA) Norm (Normal) 02/15/21 21:35 Urine Ketones Negative (Negati ve) 02/15/21 21:35 Urine Blood Neg (Negative) 02/15/21 21:35 Urine Nitrate Negative (Negati ve) 02/15/21 21:35 Urine Bilirubin Neg (Negative) 02/15/21 21:35 Urine Urobilinogen Norm mg/dL (Negat thierry) 02/15/21 21:35 Ur Leukocyte Polly ase Negative (Negati ve) 02/15/21 21:35 Impressions Chest X-Ray 02/15/21 21:07 IMPRESSION: Nonacute. Chest/Abdomen/Pelvis CT 02/15/21 22:55 IMPRESSION: 1. There are no acute abdominal findings. 2. Moderate stool present within the colon and rectal vault. 3. Diverticulosis of the sigmoid colon Radiation Dose CTDIVOL = (mGy): DLP = 1274.02 (mGy-cm) Vitals: Last Vital Signs Temp 98.2 F 02/17/21 08:00 Pulse 71 02/17/21 08:00 Resp 18 02/17/21 08:00 BP 123/72 02/17/21 08:00 Pulse Ox 94 02/17/21 04:00 Discharge Plan Discharge Patient Disposition: Home Condition: Stable Prescriptions: New sennosides-docusate sodium [Stool Softener-Laxative] 8.6-50 mg Tablet 1 tab PO BID Qty: 0 RF: 0 Continued cranberry 500 mg capsule 500 mg PO DAILY@0800 RF: 0 buspirone 5 mg tablet 5 mg PO BID RF: 0 epinephrine [EpiPen 2-Dickson] 0.3 mg/0.3 mL auto-injector 0.3 mg IM ONCE PRN (Reason: Anaphylaxis) RF: 0 Daily Probiotic 2.5 billion cell capsule 1 cap PO DAILY@0800 RF: 0 multivitamin [Daily Multi-Vitamin] Tablet 1 tab PO DAILY@0800 RF: 0 carbidopa-levodopa 25-100 mg tablet 1 tab PO TID@0800,1200,1700 RF: 0 risperidone [Risperdal] 0.5 mg tablet 0.25 mg PO .bedtime RF: 0 amantadine HCl 100 mg tablet 100 mg PO BID@0800,1700 RF: 0 (DME) lancets [OneTouch Delica Lancets] 33 gauge misc See Rx Instructions .ROUTE .MEDSUPPLY Qty: 100 RF: 3 (DME) blood-glucose meter [Accu-Chek Zhanna Plus Meter] Misc See Rx Instructions .ROUTE .MEDSUPPLY Qty: 1 RF: 0 (DME) Accu-Chek Zhanna Plus test strp Strip See Rx Instructions .ROUTE .MEDSUPPLY Qty: 10 RF: 0 metformin 500 mg tablet 1,000 mg PO BID@0800,1700 RF: 0 atorvastatin 10 mg tablet 10 mg PO BEDTIME@1700 RF: 0 carvedilol 25 mg tablet 25 mg PO DAILY@0800,1700 Qty: 0 RF: 0 lisinopril 20 mg tablet 20 mg PO BID@0800,1700 Qty: 0 RF: 0 ciprofloxacin HCl 500 mg Tablet 500 mg PO BID 3 Days Qty: 0 RF: 0 Discontinued amlodipine 2.5 mg tablet 2.5 mg PO DAILY 30 Days Qty: 30 RF: 5 Discharge Orders: Discharge Order (Routine); Ordered 02/17/21 Ordered By: Kenna Esposito Referrals: Mikayla Ponce MD [Physician] - 2 weeks (hospital follow up) Rosy Montelongo FNP [Primary Care Provider] - 1-3 days (blood pressure check, hospital follow up) Discharge Diet: Advance as tolerated Discharge Activity: Resume usual activity Patient Instructions: Opioid Safety Activity Restrictions/Additional Instructions: You presented to the emergency room with the presyncopal episode, feeling dizzy while you were brushing her teeth. Your son and your daughter thought that you might be dehydrated or getting a urinary tract infection. You had started Cipro at home. Work-up in the emergency room here did show clinical findings suspicious for dehydration. Also identified was an elevated lactic acid. Blood pressures were lower range of normal. Initially your antihypertensive medications were held as was BuSpar which it was reported you had recently started. You were given IV fluids. CT of the abdomen and pelvis did not show any acute abnormalities, beyond evidence of constipation. Chest x-ray was unremarkable. An echocardiogram was done and did not show significant change from prior study in 2018. Half of your usual carvedilol and lisinopril were resumed with your blood pressures maintaining in an acceptable range. You were also restarted on BuSpar and monitored. Your laboratory studies normalized. Blood pressure was running 120-150/70-80 on the half dose regimens. Tonight, the evening of February 17 take 12.5 mg of carvedilol or half of the 25 mg tablet. You can increase carvedilol back to 25 mg twice a day starting the morning of February 18 as long as her blood pressure is greater than 110/60 and your heart rate is not less than 60. For your lisinopril, take 10 mg or half of your 20 mg tablet the evening of February 17 and twice on February 18. If your blood pressures remain greater than 120/80 resume 20 mg twice a day on February 19. If your blood pressure when checked is greater than 160/90, you can resume both medications at previous doses. I have currently held the low-dose amlodipine that was most recently initiated. Your urinalysis here was clear but that is after you had started antibiotics. Recommend continuing 3-day course of Cipro. See your primary care provider in the next few days to recheck blood pressure and facilitate medication management. Also recommend seeing Dr. Ponce or Janice Jacobs in the next couple of weeks, particularly if you have any recurrent issues with blood pressures and presyncopal symptoms. Discharge Attestations Time Spent in Discharge Care*: greater than 30 min Specific Discharge Activities: educating and/or supporting family/caregiver, documenting/other paperwork and evaluating patient/reviewing data Status at Discharge: Cognitive status at discharge: moderately impaired cognition (at baseline), Behavioral status at discharge: cooperative, Quality Metrics Clinical Quality Measures During this hospital stay, did patient experience: None Coding Level of Care Code Acute g [facility] note Diagnoses Syncopal episodes R55 Syncope type: unspecified Acidosis, lactic E87.2 Acute dehydration E86.0 Constipation K59.00 Constipation type: unspecified constipation type Essential (primary) hypertension I10 Type 2 diabetes mellitus without complications E11.9 Diabetes mellitus usp insulin use: without intermediate card tender use Recurrent UTI N39.0 Hx of traumatic brain injury Z87.820
[2021-02-17 12:00] VITALS: BP 130/73; PULSE 82; RESP 18; TEMP 36.9
--- NOTE | 2021-02-17 14:33 | PC.NURSE ---
Discharge instructions went over with Patient and son at bedside. Discharge medications and appointments went over as well. Patient's son stated he understood the new dosing of the blood pressure medications and understood to call tomorrow to make follow up appointments. Instructed patient and son to monitor blood pressures and write them down to take to her primary care provider at their follow up. Both verbalized understanding.
[2021-02-17 14:36] VITALS: BP 130/73; PULSE 82; RESP 18; TEMP 36.9
== END 2021-02-17 14:37 | disposition home or self-care (01) ==
LOC: ER 02-16 00:52 → MEDSURG 02-16 01:11
PROVIDERS: Admitting Provider Internal Medicine; Emergency Provider Family Medicine; PCP Nurse Practitioner Family; Visit Provider Hospitalist
DX: E86.0 Dehydration (principal); R55 Syncope and collapse; E87.2 Acidosis; K59.00 Constipation, unspecified; I10 Essential (primary) hypertension; E11.9 Type 2 diabetes mellitus without complications; N39.0 Urinary tract infection, site not specified; Z87.820 Personal history of traumatic brain injury; F41.9 Anxiety disorder, unspecified; Z79.4 Long term (current) use of insulin; G20 Parkinson's disease; Z82.49 Family history of ischemic heart disease and other diseases of the circulatory system
CPT/HCPCS: 36415; 36416; 71045; 71250; 74176; 80053; 81003; 82962; 83605; 83735; 84145; 84484; 85025; 86140; 93005; 93306; 96360; 96361; 96372; 97161; 99285; G0378; J1815; J7030; J7799

== ENCOUNTER 2021-03-18 11:57 | Outpatient (RCR) | payer MEDICARE, OTHER, SELFPAY | END 2021-04-03 23:59 | disposition home or self-care (01) | LOC: SPT 11:57 | PROVIDERS: PCP Nurse Practitioner Family; Referring Provider Psychiatry & Neurology Neurology; Visit Provider Psychiatry & Neurology Neurology | DX: G20 Parkinson's disease (principal); R53.1 Weakness; R26.9 Unspecified abnormalities of gait and mobility | CPT/HCPCS: 97162 ==

== ENCOUNTER 2021-04-04 06:00 | Outpatient (RCR) | payer MEDICARE, OTHER, SELFPAY | END 2021-05-04 23:59 | disposition home or self-care (01) | LOC: SPT 06:00 | PROVIDERS: PCP Nurse Practitioner Family; Referring Provider Psychiatry & Neurology Neurology; Visit Provider Psychiatry & Neurology Neurology | DX: G20 Parkinson's disease (principal); R53.1 Weakness; R26.9 Unspecified abnormalities of gait and mobility | CPT/HCPCS: 97110; 97116 ==

== ENCOUNTER 2021-05-27 19:01 | Emergency (ER) | payer MEDICARE, OTHER, SELFPAY ==
[2021-05-27 19:04] VITALS: BP 142/42; PULSE 70; RESP 18; TEMP 36.7; O2SAT 95; BMI 19.8
--- NOTE | 2021-05-27 19:09 | ECG_ITS ---
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 Measurements Intervals Freedom Rate: 74 P: 71 AR: 176 QRS: 4 QRSD: 85 T: 71 QT: 395 QTc: 440 Interpretive Statements SINUS RHYTHM POSSIBLE INFERIOR MYOCARDIAL INFARCTION , PROBABLY OLD [30 ms Q WAVE IN II/aVF] Compared to ECG 02/16/2021 04:06:03 Left ventricular hypertrophy no longer present Myocardial infarct finding still present Electronically Signed On 05-27-2021 20:00:23 CDT by Sophia Dent M.D. [email or web address] [id number]
--- NOTE | 2021-05-27 19:09 | XRR_ITS ---
PROCEDURE INFORMATION: Exam: XR Chest Exam date and time: 05/27/2021 7:09 PM Age: 80 years old Clinical indication: Other: Syncope; Prior surgery; Surgery type: Loop recorder TECHNIQUE: Imaging protocol: XR of the chest. Views: 1 view. Total images: 1 COMPARISON: CT chest abd pel wo con 02/15/2021 11:34 PM FINDINGS: Tubes, catheters and devices: Cardiac loop recorder. Lungs: No visible active interstitial or alveolar airspace disease. Pleural spaces: Unremarkable. No pleural effusion. No pneumothorax. Heart/Mediastinum: Cardiac structures and configuration with arteriosclerosis. Calcified mitral annulus. Coronary artery disease. Bones/joints: Unremarkable for age. Organs: Status post cholecystectomy. XR/XR chest 1V portable [id number] IMPRESSION: Nonacute.
[2021-05-27 19:26] LABS: Basophils # 0.1 10^3/uL (0.0-0.1); Basophils % 1.2 %; Eosinophils # 0.6 10^3/uL (0.0-0.8); Eosinophils % 8.2 %; Hematocrit 42.8 % (37.0-47.0); Hemoglobin 13.5 g/dL (11.5-15.3); Lymphocytes # 1.3 10^3/uL (0.8-4.8); Lymphocytes % 17.6 %; Mean Corpuscular HGB Conc 31.5 g/dL (30.0-36.0); Mean Corpuscular Hemoglobin 27.7 pg (28.0-34.0); Mean Corpuscular Volume 87.9 fl (81-99); Mean Platelet Volume 10.2 fL (7.4-10.4); Monocytes # 0.7 10^3/uL (0.2-0.9); Neutrophils % 63.6 %; Nucleated Red Blood Cells % 0 %; Platelet Count 235 10^3/cmm (130-400); Red Blood Count 4.87 10^6/uL (4.1-5.3); Red Cell Distribution Width 14.9 % (12.1-15.1); White Blood Count 7.6 10^3/uL (4.0-10.0)
--- NOTE | 2021-05-27 19:32 | W.ED.SYNCOPE ---
HPI - Syncope General: Chief Complaint: Syncope Stated Complaint: SYNCOPAL EPISODE Time Seen by Provider: 05/27/21 19:25 Source: patient and EMS Mode of arrival: EMS Limitations: altered mental status History of Present Illness: HPI narrative: Patient is an 80-year-old female who presents to ED today via EMS with a report of a syncopal episode while having a bowel movement. Patient herself has chronic dementia and is a very poor historian. I have seen patient previously and she seems to be at her baseline. She tells me she lives with her parents who are in their 80s and age of herself is 40 something . When I have seen her previously she usually has her son accompanying her who provides further history. Patient does not have any physical complaints currently. Looking at previous records has seen Dr. Ponce for syncopal episodes. She currently has an implantable loop recorder. On her last visit with him her loop recorder was interrogated and did not show any significant tacky or bradyarrhythmias. MD complaint: loss of consciousness Onset (ago): minute(s) Duration of episode: 5 Context: other (while having BM) Treatments prior to arrival: none Review of Systems General: Reports: ROS unobtainable due to mental status [facility] ED PFSH: Medical History Anxiety DDD (degenerative disc disease), lumbar Dyslipidemia (high LDL; low HDL) Encounter for loop recorder check Essential (primary) hypertension 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 Actually lives with her son and daughter who are with her 27/04 Hyponatremia chronic mild in low mid 130s at baseline Leg swelling Lumbar stenosis Memory change Parkinsons On Sinemet Recurrent UTI Syncopal episodes Type 2 diabetes mellitus without complications non insulin requiring, on metformin, A1c-6.9 Urge incontinence Ventricular arrhythmia Surgical History History of loop recorder -Follows with Dr. Ponce History of release of tendon (~2010) trigger finger History of tonsillectomy and adenoidectomy younger than age 10 Hx laparoscopic cholecystectomy (~1993) Hx of bilateral cataract extraction (~2007) Hx of brain surgery Epidural Hematoma; emergency Hx of breast biopsy (~2002) right Hx of colonoscopy (~2010) polyps: Hyperplastic Hx of hysterectomy (~1973) Hx of tracheostomy Family History Father , age 58 from [place] CAD (coronary artery disease) Mother , age 76 Cancer melanoma Grandmother Diabetes maternal Social History Smoking and tobacco status: never smoked Alcohol intake: never Caregiver/support person: Yes Lives independently: No Household members: none Housing: House Marital status: / Number of children: 2 Number of grandchildren: 0 Current occupational status: retired History of recent travel: No Current gender identity: Female Physical Exam Const: COMMON NORMALS: no acute distress, average body habitus, alert and well nourished EXAM LIMITATIONS: altered mental status GENERAL APPEARANCE: cooperative ORIENTATION/CONSCIOUSNESS: Yes awake and Yes oriented to person OTHER: patient tells me she lives with her parents who are in their 80s and her age is 38 something HENMT: COMMON NORMALS: normocephalic and atraumatic HEAD & SCALP: normocephalic and atraumatic Resp: COMMON NORMALS: normal respiratory effort and clear to auscultation bilaterally AUSCULTATION: clear to auscultation bilaterally Cardio: COMMON NORMALS: regular rate and regular rhythm RATE: regular rate RHYTHM: regular rhythm GI: COMMON NORMALS: Normal to inspection, nondistended, normoactive bowel sounds present, Soft to palpation, non-tender, No hepatosplenomegaly present and no masses PALPATION: Yes Soft to palpation and Yes No hepatosplenomegaly present Back/Pelvis: COMMON NORMALS: thoracic and lumbar spine normal to inspection, no thoracic nor lumbar tenderness and thoraco-lumbar ROM normal Extremity: COMMON NORMALS: normal to inspection, full ROM, capillary refill normal, no clubbing, cyanosis or edema, no calf tenderness and no pedal edema Neuro: ROSA ISELA COMA SCALE: document GCS findings Rosa Isela coma scale eye opening: Spontaneous [place] coma scale verbal response: Orientated [place] coma scale motor response: Obey commands Rosa Isela coma scale total score: 15 COMMON NORMALS: CN's II-XII intact bilaterally, moves all extremities, no focal motor deficits and no sensory deficits noted SENSORIUM/ORIENTATION: Yes alert and Yes oriented to person OTHER: chronic dementia Skin: COMMON NORMALS: no rashes or lesions noted GENERAL SKIN EXAM: no rashes or lesions noted TRAUMA: no lacerations or abrasions Course ED course: Son now present in the room to provide better history. Son states he resides with his mother. He states she ate dinner and then subsequently needed to have a bowel movement so went to the bathroom. He states about 5 minutes later he checked on her and she was passed out on the toilet. Patient did not fall from the toilet (CT head/neck was initially ordered as son was not here to provide history and I was under the impression she had fallen off the toilet). Son states he gently aroused her and she was able to wake up . Patient has been at her mental baseline since. Consultations: Consultation #1: Dr. Cat-recommends follow up with cardiology this week and hold her carvedilol at this time Vital Signs: Vital signs: Vital Signs Temperature 98.0 F 05/27/21 19:04 Pulse Rate 79 05/27/21 21:37 Respiratory Rate 18 05/27/21 19:04 Blood Pressure 126/61 05/27/21 21:37 Pulse Oximetry 95 05/27/21 19:04 MDM - Syncope MDM Narrative: Medical decision making narrative: Patient here along with her son for complaints of a syncopal episode that occurred while she was having a bowel movement this evening. Patient has been normal sinus rhythm with stable vital signs throughout her stay. She does not complain of lightheadedness or dizziness. Her EKG is normal. Her loop recorder was interrogated which showed 6 episodes of bradycardia from the time of 7715-7185 which son states correlates with the time she was on the toilet. Patient became bradycardic in the 30s-40s. I spoke to cardiology Dr. Cat [place] coroner. He felt because bradycardia was only present over those 4 minutes and corresponded to her most likely bearing-down/vasovagal and the fact that she has been normal sinus here-he felt like she was stable to go home with cardiology follow up this week. Trop was mildly elevated here at 34 which is close to her previous. Delta was non-significant. Dr. Cat recommended holding her beta damien until seen by cardiology. Strict return to ED precautions given. Lab Data: Labs: Lab Results 05/27/21 05/27/21 05/27/21 Range/Units 19:15 19:18 19:18 WBC 7.6 (4.0-10.0) 10^3/ uL RBC 4.87 (4.1-5.3) 10^6/u L Hgb 13.5 (11.5-15.3) g/dL Hct 42.8 (37.0-47.0) % MCV 87.9 (81-99) fl MCH 27.7 L (28.0-34.0) pg MCHC 31.5 (30.0-36.0) g/dL RDW 14.9 (12.1-15.1) % Plt Count 235 (130-400) 10^3/c mm MPV 10.2 (7.4-10.4) fL Neut % (Auto) 63.6 % Lymph % (Auto) 17.6 % Roosevelt % (Auto) 9.0 % Eos % (Auto) 8.2 % Baso % (Auto) 1.2 % Neut # (Auto) 4.80 (1.8-7.7) 10^3/u L Lymph # (Auto) 1.3 (0.8-4.8) 10^3/u L Roosevelt # (Auto) 0.7 (0.2-0.9) 10^3/u L Eos # (Auto) 0.6 (0.0-0.8) 10^3/u L Baso # (Auto) 0.1 (0.0-0.1) 10^3/u L Nucleated RBC % (a uto) 0 % Nucleated RBCs # 0.0 /100WBC Sodium 144 (136-145) mmol/L Potassium 4.1 (3.5-5.1) mmol/L Chloride 106 (98-107) mmol/L Carbon Dioxide 20 L (22-29) mmol/L Anion Gap 22.1 H (5-19) BUN 19 (8-23) mg/dL Creatinine 0.9 (0.5-0.9) mg/dL GFR Calculation Not Reportable Glucose 236 H (65-115) mg/dL Calculated Osmolal ity 308 H (285-295) mOsm/k g Calcium 8.8 (8.5-10.5) mg/dL Total Bilirubin 0.4 (0.15-1.2) mg/dL AST 27 (0-32) U/L ALT 18 (0-33) U/L Alkaline Phosphata se 119 H (35-105) IU/L Creatine Kinase 33 (26-192) U/L Troponin T Baselin e 34 H (0-10) ng/L Troponin T 120 Min match-e-be-nash-she[place]wish band (0-10) ng/L Delta Troponin T (0-10) ABS# Total Protein 6.4 L (6.6-8.7) g/dL Albumin 4.2 (3.5-5.2) g/dL Globulin 2.2 (1.3-4.6) g/dL Urine Color (Yellow) Urine Appearance (CLEAR) Urine pH (5-7) Ur Specific Gravit y (1.005-1.030) Urine Protein (Negative) Urine Glucose (UA) (Normal) Urine Ketones (Negative) Urine Blood (Negative) Urine Nitrate (Negative) Urine Bilirubin (Negative) Urine Urobilinogen (Negative) mg/dL Ur Leukocyte Polly ase (Negative) 05/27/21 05/27/21 Range/Units 20:30 21:10 WBC (4.0-10.0) 10^3/ uL RBC (4.1-5.3) 10^6/u L Hgb (11.5-15.3) g/dL Hct (37.0-47.0) % MCV (81-99) fl MCH (28.0-34.0) pg MCHC (30.0-36.0) g/dL RDW (12.1-15.1) % Plt Count (130-400) 10^3/c mm MPV (7.4-10.4) fL Neut % (Auto) % Lymph % (Auto) % Roosevelt % (Auto) % Eos % (Auto) % Baso % (Auto) % Neut # (Auto) (1.8-7.7) 10^3/u L Lymph # (Auto) (0.8-4.8) 10^3/u L Roosevelt # (Auto) (0.2-0.9) 10^3/u L Eos # (Auto) (0.0-0.8) 10^3/u L Baso # (Auto) (0.0-0.1) 10^3/u L Nucleated RBC % (a uto) % Nucleated RBCs # /100WBC Sodium (136-145) mmol/L Potassium (3.5-5.1) mmol/L Chloride (98-107) mmol/L Carbon Dioxide (22-29) mmol/L Anion Gap (5-19) BUN (8-23) mg/dL Creatinine (0.5-0.9) mg/dL GFR Calculation Glucose (65-115) mg/dL Calculated Osmolal ity (285-295) mOsm/k g Calcium (8.5-10.5) mg/dL Total Bilirubin (0.15-1.2) mg/dL AST (0-32) U/L ALT (0-33) U/L Alkaline Phosphata se (35-105) IU/L Creatine Kinase (26-192) U/L Troponin T Baselin e (0-10) ng/L Troponin T 120 Min match-[place] 34.61 H (0-10) ng/L Delta Troponin T 0.61 (0-10) ABS# Total Protein (6.6-8.7) g/dL Albumin (3.5-5.2) g/dL Globulin (1.3-4.6) g/dL Urine Color Yellow (Yellow) Urine Appearance Clear (CLEAR) Urine pH 7 (5-7) Ur Specific Gravit y 1.010 (1.005-1.030) Urine Protein Neg (Negative) Urine Glucose (UA) Norm (Normal) Urine Ketones Negative (Negative) Urine Blood Neg (Negative) Urine Nitrate Negative (Negative) Urine Bilirubin Neg (Negative) Urine Urobilinogen Norm (Negative) mg/dL Ur Leukocyte Polly ase Negative (Negative) Imaging Data^: CXR: Radiologist's impression: [address] [id number] ReportSigned Patient: Cathi Nichols #: [id number]: [id number]#:[id number]/Sex: 80 / FADM Date: 05/27/21Loc: ERRoom/Bed:Attending Dr: Ordering Provider/Ordering MD: Milena Cristobal Date of Service: 05/27/21 Procedure(s): XR chest 1V portable [id number] Accession Number(s): [id number] Report Number: [id number] PROCEDURE INFORMATION: Exam: XR Chest Exam date and time: 05/27/2021 7:09 PM Age: 80 years old Clinical indication: Other: Syncope; Prior surgery; Surgery type: Loop recorder TECHNIQUE: Imaging protocol: XR of the chest. Views: 1 view. Total images: 1 COMPARISON: CT chest abd pel wo con 02/15/2021 11:34 PM FINDINGS: Tubes, catheters and devices: Cardiac loop recorder. Lungs: No visible active interstitial or alveolar airspace disease. Pleural spaces: Unremarkable. No pleural effusion. No pneumothorax. Heart/Mediastinum: Cardiac structures and configuration with arteriosclerosis. Calcified mitral annulus. Coronary artery disease. Bones/joints: Unremarkable for age. Organs: Status post cholecystectomy. XR/XR chest 1V portable [id number] IMPRESSION: Nonacute. Dictated By:Jose Manuel Spencer By:Jose Manuel Spencer Date/Time:05/27/21D/ 48 CT cervical: Radiologist's impression: [address] [id number] Scan ReportSigned Patient: Cathi Nichols #: [id number]: 1938cct#:[id number]/Sex: 80 / FADM Date: 05/27/21Loc: ERRoom/Bed:Attending Dr: Ordering Provider/Ordering MD: Milena Cristobal Date of Service: 05/27/21 Procedure(s): CT cervical spin wo con* [id number] Accession Number(s): [id number] Report Number: [id number] PROCEDURE INFORMATION: Exam: CT Cervical Spine Without Contrast Exam date and time: 05/27/2021 7:31 PM Age: 80 years old Clinical indication: Injury or trauma; Blunt trauma; 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 Denies any pain; Additional info: Fall, trauma TECHNIQUE: Imaging protocol: Computed tomography images of the cervical spine without contrast. Total images: 295 Radiation optimization: All CT scans at this facility use at least one of these dose optimization techniques: automated exposure control; mA and/or kV adjustment per patient size (includes targeted exams where dose is matched to clinical indication); or iterative reconstruction. COMPARISON: CT head wo con* [id number] 05/27/2021 7:36 PM RADIATION DOSE METRICS: Total DLP (mGy-cm): 724 FINDINGS: Bones/joints: No acute fracture. Normal alignment. Degenerative disease with moderate spondylosis deformans C5 and C6. Mild left-sided facet arthrosis. Mild degenerative disease of the joints of [place] primarily C5/C6 on the left. Discs/Spinal canal/Neural foramina: No visible significant disc protrusion. No visible severe spinal canal stenosis. No significant neural foraminal narrowing. Lungs: Lung apices are normal. Soft tissues: Unremarkable. CT/CT cervical spin wo con* [id number] IMPRESSION: No acute findings. Radiation Dose CTDIVOL = (mGy): DLP = 724 (mGy-cm) Dictated By:Jose Manuel Spencer By:Jose Manuel Spencer Date/Time:05/27/212008DD/ 06 CT Head: Radiologist's impression: [address] [id number] Scan ReportSigned Patient: Cathi Nichols #: [id number]: [id number]#:[id number]/Sex: 80 / FADM Date: 05/27/21Loc: ERRoom/Bed:Attending Dr: Ordering Provider/Ordering MD: Milena Cristobal Date of Service: 05/27/21 Procedure(s): CT head wo con* [id number] Accession Number(s): [id number] Report Number: [id number] PROCEDURE INFORMATION: Exam: CT Head Without Contrast Exam date and time: 05/27/2021 7:31 PM Age: 80 years old Clinical indication: Injury or trauma; Blunt trauma (contusions or hematomas); Injury details: Fall denies pain; Additional info: Syncope/fall TECHNIQUE: Imaging protocol: Computed tomography of the head without contrast. Total images: 186 Radiation optimization: All CT scans at this facility use at least one of these dose optimization techniques: automated exposure control; mA and/or kV adjustment per patient size (includes targeted exams where dose is matched to clinical indication); or iterative reconstruction. COMPARISON: CT head wo con* [id number] 04/20/2020 2:56 PM RADIATION DOSE METRICS: Total DLP (mGy-cm): 242.09 FINDINGS: Brain: No evidence of active or acute intracranial pathologic process, hemorrhage, or trauma. Advanced small vessel ischemic disease with senile periventricular leukomalacia. No mass effect. No midline shift. No hyperdense MCA or insular ribbon sign. Cerebral and cerebellar atrophy with ventricular dilatation greater than that anticipated for patient's chronological age. Focal right temporoparietal encephalomalacia and gliosis stable. Cerebral ventricles: No ventriculomegaly. Paranasal sinuses: Visualized sinuses are unremarkable. No fluid levels. Mastoid air cells: Visualized mastoid air cells are well aerated. Bones/joints: Old large right craniotomy defect Soft tissues: Unremarkable. CT/CT head wo con* [id number] IMPRESSION: No evidence of active or acute intracranial pathologic process, hemorrhage, or trauma. Radiation Dose CTDIVOL = (mGy): DLP = 242.09 (mGy-cm) Dictated By:Jose Manuel Spencer By:Jose Manuel Spencer Date/Time:05/27/212012DD/ 10 EKG Data^: EKG 1: EKG interpretation date: 05/27/21 EKG interpretation time: 19:54 Interpretation: Sinus rhythm Rate [address] elevation or depression changes noted No significant changes when compared to EKG performed on 02/15/2021 Discharge Plan Discharge Patient Disposition: Home Clinical Impression: Vasovagal syncope, Bradycardia Condition: Stable Prescriptions: Held carvedilol 25 mg tablet 25 mg PO DAILY@0800,1700 Qty: 0 RF: 0 Hold Instructions: until seen by cardiology No Action cranberry 500 mg capsule 500 mg PO DAILY@0800 RF: 0 carbidopa-levodopa 50-200 mg tablet extended release 1 tab PO TID@08,12,17 RF: 0 buspirone 5 mg tablet 2.5 mg PO BID@0800,1700 RF: 0 epinephrine [EpiPen 2-Dickson] 0.3 mg/0.3 mL auto-injector 0.3 mg IM ONCE PRN (Reason: Anaphylaxis) RF: 0 Daily Probiotic 2.5 billion cell capsule 1 cap PO DAILY@0800 RF: 0 multivitamin [Daily Multi-Vitamin] Tablet 1 tab PO DAILY@0800 RF: 0 risperidone [Risperdal] 0.5 mg tablet 0.25 mg PO BEDTIME RF: 0 amantadine HCl 100 mg tablet 100 mg PO BID@0800,1700 RF: 0 (DME) lancets [OneTouch Delica Lancets] 33 gauge misc See Rx Instructions .ROUTE .MEDSUPPLY Qty: 100 RF: 3 (DME) blood-glucose meter [Accu-Chek Zhanna Plus Meter] Misc See Rx Instructions .ROUTE .MEDSUPPLY Qty: 1 RF: 0 (DME) Accu-Chek Zhanna Plus test strp Strip See Rx Instructions .ROUTE .MEDSUPPLY Qty: 10 RF: 0 metformin 500 mg tablet 1,000 mg PO BID@0800,1700 RF: 0 atorvastatin 10 mg tablet 10 mg PO BEDTIME@1700 RF: 0 lisinopril 20 mg tablet 20 mg PO BID@0800,1700 Qty: 0 RF: 0 Metamucil Fiber Thin 2 gram Wafer 1 - 2 wafer PO DAILY RF: 0 amlodipine 2.5 mg tablet 2.5 mg PO DAILY RF: 0 Discharge Orders: Discharge ED (Routine); Ordered 05/27/21 Ordered By: Milena Cristobal Referrals: Mikayla Ponce MD [Physician] - Rosy Montelongo FNP [Primary Care Provider] - Activity Restrictions/Additional Instructions: As we discussed case management will work on getting her a cardiology appointment this week for further follow-up. You need to return to the emergency department for any further passing out episodes, lightheadedness, dizziness, chest pain, shortness of breath, difficulty breathing, or any other concerns you may have. Coding Level of Care Code ED Hardboard Press Operator for Chg Fwd Exam Comprehensive
[2021-05-27 20:52] LABS: Troponin(5th) Baseline 34 ng/L (0-10)
[2021-05-27 20:54] LABS: Alanine Aminotransferase 18 U/L (0-33); Albumin Level 4.2 g/dL (3.5-5.2); Alkaline Phosphatase 119 IU/L (35-105); Anion Gap 22.1 (5-19); Aspartate Amino Transferase 27 U/L (0-32); Blood Urea Nitrogen 19 mg/dL (8-23); Calcium 8.8 mg/dL (8.5-10.5); Carbon Dioxide 20 mmol/L (22-29); Chloride 106 mmol/L (98-107); Creatine Phosphokinase 33 U/L (26-192); Globulin 2.2 g/dL (1.3-4.6); Glucose 236 mg/dL (65-115); Osmolality Calculated 308 mOsm/kg (285-295); Potassium 4.1 mmol/L (3.5-5.1); Sodium 144 mmol/L (136-145); Total Bilirubin 0.4 mg/dL (0.15-1.2); Total Protein 6.4 g/dL (6.6-8.7)
[2021-05-27 21:09] LABS: Troponin 5 2HR 34.61 ng/L (0-10); Troponin 5 2HR Delta 0.61 ABS# (0-10)
[2021-05-27 21:16] LABS: Add Urine Microscopic? NO; Charge for UA Resulting for Rev
[2021-05-27 21:19] LABS: Bilirubin Urine Neg (Negative); Blood Urine Neg (Negative); Glucose Urine UA Norm (Normal); Ketones Urine Negative (Negative); Leukocyte Esterase Urine Negative (Negative); Nitrate Urine Negative (Negative); Protein Urine Neg (Negative); Urine Appearance Clear (CLEAR); Urine Color Yellow (Yellow); Urobilinogen Urine Norm (Negative); pH Urine 7 (5-7)
[2021-05-27 21:37] VITALS: BP 126/61; PULSE 79
[2021-05-27] MEDS: sodium chloride 0.9% 1,000 ML 999 ML IV (22:18)
[2021-05-27 22:50] VITALS: BP 159/65; PULSE 78; RESP 20; O2SAT 99
--- NOTE | 2021-05-28 14:06 | DCPLANNER ---
diversity manager had message to schedule a follow up appointment for patient with [facility]. diversity manager called [facility], spoke with Annika, gave clinic patients information. A follow up appointment was scheduled for Thursday, May 29, 2021 at 1:15 with QUALITY TECHNICIAN [employer], Janice. diversity manager called patients son, and gave him the appointment information.
--- NOTE | 2021-05-30 14:05 | DCPLANNER ---
Patient had a follow up appointment scheduled for 05.29.21 with [facility] - patient did attend appointment.
== END 2021-05-27 22:52 | disposition home or self-care (01) ==
PROVIDERS: Emergency Provider Physician Assistant; PCP Nurse Practitioner Family
DX: R55 Syncope and collapse (principal); R00.1 Bradycardia, unspecified; E11.9 Type 2 diabetes mellitus without complications; I10 Essential (primary) hypertension; E78.5 Hyperlipidemia, unspecified; G20 Parkinson's disease; F02.80 Dementia in other diseases classified elsewhere, unspecified severity, without behavioral disturbance, psychotic disturbance, mood disturbance, and anxiety; Z79.84 Long term (current) use of oral hypoglycemic drugs
CPT/HCPCS: 70450; 71045; 72125; 80053; 81003; 82550; 84484; 85025; 93005; 96360; 99284; J7030

== ENCOUNTER 2021-09-12 09:07 | Outpatient (CLI) | payer MEDICARE, OTHER, SELFPAY ==
--- NOTE | 2021-09-12 09:13 | XR_ITS ---
WS: [id number] PROCEDURE: XR chest 2V* [id number] CLINICAL INFORMATION: COUGH COMPARISON: May 27, 2021 FINDINGS: Heart: Cardiomegaly. Prominent left ventricle. Aortic calcification. Lungs: Hyperinflation. Mild chronic emphysematous changes. No acute pulmonary infiltrates. Bones: Normal visualized bony structures. Cholecystectomy clips. XR/XR chest 2V* [id number] IMPRESSION: 1. No acute chest findings 2. Stable cardiomegaly.
== END 2021-09-12 09:08 | disposition home or self-care (01) ==
PROVIDERS: PCP Nurse Practitioner Family; Visit Provider Clinical Nurse Specialist Adult Health
DX: R05.9 Cough, unspecified (principal); I51.7 Cardiomegaly
CPT/HCPCS: 71046

== ENCOUNTER → 2021-10-17 14:40 | Outpatient (BNVA) | payer MEDICARE, OTHER, SELFPAY | PROVIDERS: PCP Nurse Practitioner Family; Visit Provider Nurse Practitioner Family | DX: N39.0 Urinary tract infection, site not specified (principal) | CPT/HCPCS: 81003; 87086 ==

== ENCOUNTER → 2021-10-31 11:26 | Outpatient (BNVA) | payer MEDICARE, OTHER, SELFPAY | PROVIDERS: PCP Nurse Practitioner Family; Visit Provider Urology | DX: N39.0 Urinary tract infection, site not specified (principal) | CPT/HCPCS: 81003; 87077; 87086; 87184 ==

== ENCOUNTER → 2021-11-25 14:34 | Outpatient (BNVA) | payer MEDICARE, OTHER, SELFPAY | PROVIDERS: PCP Nurse Practitioner Family; Visit Provider Urology | DX: N39.0 Urinary tract infection, site not specified (principal) | CPT/HCPCS: 81003; 87086 ==

== ENCOUNTER 2022-01-03 06:00 | Outpatient (RCR) | payer MEDICARE, OTHER, SELFPAY | END 2022-02-01 23:59 | disposition home or self-care (01) | LOC: SPT 06:00 | PROVIDERS: PCP Nurse Practitioner Family; Referring Provider Nurse Practitioner Family; Visit Provider Nurse Practitioner Family | DX: M54.50 Low back pain, unspecified (principal); R53.1 Weakness; Z91.81 History of falling | CPT/HCPCS: 97162 ==

== ENCOUNTER 2022-01-14 13:34 | Emergency (ER) | payer MEDICARE, OTHER, SELFPAY ==
[2022-01-14 13:35] VITALS: BP 132/79; PULSE 76; RESP 14; O2SAT 100
--- NOTE | 2022-01-14 13:41 | CT_ITS ---
WS: [email or web address] CT LUMBAR SPINE, noncontrast. HISTORY: fall TECHNIQUE: Contiguous 2.5 mm axial imaging are performed. Sagittal and coronal reformats are submitte d and reviewed. All CT scans at [facility] use at least one of these dose optimization techni ques: automated exposure control; mA and/or kV adjustment per patient size (includes targeted exams w here dose is matched to clinical indication); or iterative reconstruction. IV contrast: None DLP: 862.69 mGy.cm COMPARISON: 02/15/2021 Osteopenia. Posterior lumbar alignment is normal. Vacuum disc phenomenon and severe disc space narrow ing at L4-5 and L5-S1. Anterior wedging of L1 is similar to the prior study of 02/15/2021. No vertebra l body acute fracture or spinous process or transverse process fractures are identified. The visualiz ed sacrum is negative for fracture. Degenerative changes at the SI joints. Moderate atherosclerotic changes within the abdominal aorta. Calcifications continue into the renal a rteries. L1-2: Normal. L2-3: Asymmetric disc bulging without stenosis. L3-4: Moderate asymmetric disc bulging with ligamentum flavum hypertrophy. Mild central and subarticu lar recess stenosis. L4-5: Marked annular disc bulging with severe facet and ligamentum flavum arthritis. Severe central, bilateral subarticular recess and proximal foraminal stenosis. L5-S1: Annular disc bulging and osteophytic ridging and facet arthritis. Moderate to severe central a nd bilateral subarticular recess stenosis, RIGHT greater than LEFT. Mild foraminal stenosis. CT/CT lumbar spine wo con* [id number] IMPRESSION: 1. No acute lumbar spine fracture. 2. Remote L1 anterior compression fracture with no change. 3. Severe central, bilateral subarticular recess and foraminal stenosis at L4- 5. 4. Moderate to severe central and bilateral subarticular recess stenosis at L5 -S1.
--- NOTE | 2022-01-14 13:41 | CT_ITS ---
WS: [email or web address] CT THORACIC SPINE HISTORY: fall TECHNIQUE: Contiguous 2.5 mm axial images are reviewed to thoracic spine. Images are reformatted in s agittal and coronal planes. All CT scans at [facility] use at least one of these dose optimiz ation techniques: automated exposure control; mA and/or kV adjustment per patient size (includes targ eted exams where dose is matched to clinical indication); or iterative reconstruction. DLP: 866.67 mGy.cm COMPARISON: None available. Diffuse osteopenia. Posterior thoracic alignment is normal. No acute thoracic spine fracture is ident ified. No transverse process fracture appreciated. No adjacent rib fracture. Lungs are clear. Atheros clerotic plaque continues throughout the thoracic aorta. Heart is enlarged. CT/CT thoracic spin wo con* [id number] IMPRESSION: 1. No acute thoracic spine fracture. 2. Moderate calcification and ectasia thoracic aorta.
--- NOTE | 2022-01-14 13:41 | CT_ITS ---
WS: [email or web address] CT CERVICAL SPINE HISTORY: fall TECHNIQUE: Contiguous 2.5 mm axial imaging performed through the entire cervical spine. Sagittal and coronal reformats also performed. All CT scans at [facility] use at least one of these dose o ptimization techniques: automated exposure control; mA and/or kV adjustment per patient size (include s targeted exams where dose is matched to clinical indication); or iterative reconstruction. DLP: 230.02 mGy.cm COMPARISON: 05/27/2021 Patient's head is markedly tilted to the LEFT. RIGHT curvature of the cervical spine. Posterior align ment is normal. Disc spaces are mildly narrowed with small osteophytes. Facet joints are normally ali gned. Craniocervical junction is normal. The odontoid is intact. No acute cervical spine fractures. L gil apices are clear. CT/CT cervical spin wo con* [id number] IMPRESSION: No cervical spine fracture. Significant tilting of the patient's head to the LE FT similar to the prior study.
--- NOTE | 2022-01-14 13:41 | CT_ITS ---
WS: [email or web address] CT FACIAL BONES HISTORY: fall TECHNIQUE: Images obtained from the supraorbital location through the mandible. Soft tissue and bone windows are reviewed. Coronal and sagittal reformats have also been submitted. DLP: 663.[address] scans at [facility] use at least one of these dose optimization techniques: automated e xposure control; mA and/or kV adjustment per patient size (includes targeted exams where dose is matc hed to clinical indication); or iterative reconstruction. COMPARISON: 06/20/2019 No acute facial bone fractures. Patient is significantly rotated but this is probably due to cervical scoliosis. Artifact from the patient's dental amalgam obscuring soft tissue and bone detail. Postope rative craniotomy site in the RIGHT temporal bone is identified. Nasal bones are intact. No blood flu id levels in the sinuses. No fracture or of the orbits. CT/CT facial bones wo con* [id number] IMPRESSION: No facial bone fracture.
--- NOTE | 2022-01-14 13:41 | CT_ITS ---
WS: [id number] CT HEAD NONCONTRAST HISTORY: fall TECHNIQUE: Contiguous axial imaging performed through the brain in 2.5 mm imaging. Bone and soft tiss ue windows. Sagittal and coronal reformats reviewed. All CT scans at [facility] use at least one of these dose optimization techniques: automated exposure control; mA and/or kV adjustment per pa tient size (includes targeted exams where dose is matched to clinical indication); or iterative recon struction. DLP: 770.59 mGy.cm COMPARISON: 05/27/2021 Mild thickening and increased density along the RIGHT temporoparietal lobes. This was also present on prior examinations from 04/20/2020 and 05/27/2021. Not acute blood products. Corresponds to the area o f a prior craniotomy. This may be mesh from the craniotomy. No new subdural densities are identified. Extensive atrophy and severe chronic microvascular ischemic changes. 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 Ventricles: Ventricles are mildly prominent on the basis of atrophy. No inferior displacement of cerebellar tonsils. Paranasal sinuses: As visualized are clear. Mastoid air cells: Well pneumatized. Calvarium and scalp: Prior large RIGHT frontotemporal and parietal craniotomy sites. Small scalp hematoma centered over the RIGHT frontal bone.0 CT/CT head wo con* [id number] IMPRESSION: 1. No acute intracranial hemorrhage. Prior RIGHT frontal, temporal and parieta l craniotomy sites. 2. Increased subdural density adjacent to the RIGHT parietal lobe has been pre sent on prior studies probably related to the surgery or mass effect placement. 3. Atrophy and ventriculomegaly on the basis of the atrophy.
--- NOTE | 2022-01-14 13:44 | ED_ITS ---
HPI - General Adult General: Chief complaint: Fall Stated complaint: FALL,NECK PAIN Time Seen by Provider: 01/14/22 13:40 History of Present Illness: Patient is an 81-year-old female with a history of anxiety, Parkinson's disease presenting to the emergency room for episode of fall. Patient was walking near the [address] when she had an unwitnessed episode of fall. Patient fell forward. Patient complains of headache and neck pain. Patient does not remember whether she passed out. Patient does not remember whether she had any sensation of chest pain, shortness of palpitation, and lightheadedness prior to the episode of fall. Patient denies any anticoagulation use. No other complaints of pain elsewhere. Onset: 30 minutes ago Duration:once Location:home Severity:moderate Associated symptoms: Reports headache(s); Deny chest pain, dyspnea, nausea, rash, palpitations or vomiting Review of Systems Const: Denies: fever(s) or chills Eyes: Denies: change in vision ENMT: Denies: mouth pain Card: Denies: chest pain or palpitations Resp: Denies: dyspnea or non-productive cough GI: Denies: abdominal pain, nausea, vomiting or diarrhea : Denies: dysuria Musc: Reports: neck pain; Denies: extremity pain Skin/Breast: Denies: rash or new lesions Neuro: Reports: headache(s); Denies: weakness in extremities Psych: Reports: other (Normal mood) Abdiel/Lymph: Denies: easy bruising PFS ED PFSH: Medical History Anxiety DDD (degenerative disc disease), lumbar Dyslipidemia (high LDL; low HDL) Encounter for loop recorder check Essential (primary) hypertension 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 Actually lives with her son and daughter who are with her / Hyponatremia chronic mild in low mid 130s at baseline Leg swelling Lumbar stenosis Memory change Parkinsons On Sinemet Recurrent UTI Syncopal episodes Type 2 diabetes mellitus without complications non insulin requiring, on metformin, A1c-6.9 Urge incontinence Ventricular arrhythmia Surgical History History of loop recorder -Follows with Dr. Ponce History of release of tendon (~2010) trigger finger History of tonsillectomy and adenoidectomy younger than age 10 Hx laparoscopic cholecystectomy (~1993) Hx of bilateral cataract extraction (~2007) Hx of brain surgery Epidural Hematoma; emergency Hx of breast biopsy (~2002) right Hx of colonoscopy (~2010) polyps: Hyperplastic Hx of hysterectomy (~1973) Hx of tracheostomy Family History Father , age 58 from [place] CAD (coronary artery disease) Mother , age 76 Cancer melanoma Grandmother Diabetes maternal Social History Smoking and tobacco status: never smoked Alcohol intake: never Caregiver/support person: Yes Lives independently: No Household members: none Housing: House Marital status: / Number of children: 2 Number of grandchildren: 0 Current occupational status: retired History of recent travel: No Current gender identity: Female Physical Exam Const: COMMON NORMALS: alert HENMT: COMMON NORMALS: atraumatic HEAD & SCALP: atraumatic MOUTH: moist mucous membranes not abnormal Eye: COMMON NORMALS: EOMs intact bilaterally and conjunctivae normal CONJ UNCTIVA: Yes conjunctivae normal Neck/C-Spine: COMMON NORMALS: full ROM and supple OTHER: +parasinal cervical tenderness Resp: COMMON NORMALS: normal respiratory effort and clear to auscultation bilaterally AUSCULTATION: clear to auscultation bilaterally Cardio: COMMON NORMALS: regular rate RATE: regular rate GI: COMMON NORMALS: Soft to palpation and non-tender PALPATION: Yes Soft to palpation Back/Pelvis: OTHER: +mild paraspinal lumbar and thoracic spine tenderness to palpation Extremity: COMMON NORMALS: full ROM Neuro: SENSORIUM/ORIENTATION: Yes alert MOTOR EXAM: No Abnormal motor strength present and Other motor observations present (no focal motor deficits) Psych: COMMON NORMALS: speech normal SPEECH: Yes normal speech MOOD & AFFECT: Yes euthymic mood Skin: NARRATIVE SKIN EXAM: +R frontal scalp hematoma Course Vital Signs: Vital signs: Vital Signs Temperature 98.1 F 01/14/22 14:52 Pulse Rate 80 01/14/22 16:21 Respiratory Rate 18 01/14/22 16:21 Blood Pressure 166/69 01/14/22 16:21 Pulse Oximetry 99 01/14/22 16:21 MDM - General Adult Medical Decision Making 81-year-old female with a history of Parkinson's disease presenting to the emergency after some fall. Unclear if this is mechanical versus other causes for the fall. Patient complains of paraspinal neck pain back pain as well as headache. Patient has a right frontal hematoma. CT images negative for any acute findings. C-collar was removed. Patient received Tylenol and lidocaine patch with significant provement in pain. Work- up included troponin x2 with delta less than 5, EKG is nonischemic. Do not suspect other causes of fall including ACS Rx: Tylenol, lidocaine patch, and menthol PRN pain Disposition: Discharge. Patient counseled regarding diagnostic impression, treatment plan. Patient given ED strict return precautions to return for continuation, worsening, or development of new symptoms. Instructed to f/u w/ PCP regarding symptoms today. Patient verbalized understanding. Lab Data : 01/14/22 14:00 01/14/22 14:00 Radiology Impressions Cervical Spine CT 01/14/22 13:41 IMPRESSION: No cervical spine fracture. Significant tilting of the patient's head to the LEFT similar to the prior study. Face CT 01/14/22 13:41 IMPRESSION: No facial bone fracture. Head CT 01/14/22 13:41 IMPRESSION: 1. No acute intracranial hemorrhage. Prior RIGHT frontal, temporal and parietal craniotomy sites. 2. Increased subdural density adjacent to the RIGHT parietal lobe has been present on prior studies probably related to the surgery or mass effect placement. 3. Atrophy and ventriculomegaly on the basis of the atrophy. Lumbar Spine CT 01/14/22 13:41 IMPRESSION: 1. No acute lumbar spine fracture. 2. Remote L1 anterior compression fracture with no change. 3. Severe central, bilateral subarticular recess and foraminal stenosis at L4- 5. 4. Moderate to severe central and bilateral subarticular recess stenosis at L5- S1. Thoracic Spine CT 01/14/22 13:41 IMPRESSION: 1. No acute thoracic spine fracture. 2. Moderate calcification and ectasia thoracic aorta. Laboratory Results WBC 7.5 10^3/uL (4.0-10.0) 01/14/22 14:00 RBC 4.93 10^6/uL (4.1-5.3) 01/14/22 14:00 Hgb 14.0 g/dL (11.5-15.3) 01/14/22 14:00 Hct 44.6 % (37.0-47.0) 01/14/22 14:00 MCV 90.5 fl (81-99) 01/14/22 14:00 MCH 28.4 pg (28.0-34.0) 01/14/22 14:00 MCHC 31.4 g/dL (30.0-36.0) 01/14/22 14:00 RDW 17.6 % (12.1-15.1) H 01/14/22 14:00 Plt Count 210 10^3/cmm (130-400) 01/14/22 14:00 MPV 11.7 fL (7.4-10.4) H 01/14/22 14:00 Neut % (Auto) 63.6 % 01/14/22 14:00 Lymph % (Auto) 21.8 % 01/14/22 14:00 Harris % (Auto) 7.8 % 01/14/22 14:00 Eos % (Auto) 5.9 % 01/14/22 14:00 Baso % (Auto) 0.5 % 01/14/22 14:00 Neut # (Auto) 4.75 10^3/uL (1.8-7.7) 01/14/22 14:00 Lymph # (Auto) 1.6 10^3/uL (0.8-4.8) 01/14/22 14:00 Harris # (Auto) 0.6 10^3/uL (0.2-0.9) 01/14/22 14:00 Eos # (Auto) 0.4 10^3/uL (0.0-0.8) 01/14/22 14:00 Baso # (Auto) 0.0 10^3/uL (0.0-0.1) 01/14/22 14:00 Nucleated RBC % (auto) 0 % 01/14/22 14:00 Nucleated RBCs # 0.0 /100WBC 01/14/22 14:00 Sodium 139 mmol/L (136-145) 01/14/22 14:00 Potassium 5.0 mmol/L (3.5-5.1) 01/14/22 14:00 Chloride 101 mmol/L (98-107) 01/14/22 14:00 Carbon Dioxide 20 mmol/L (22-29) L 01/14/22 14:00 Anion Gap 23.0 (5-19) H 01/14/22 14:00 BUN 22 mg/dL (8-23) 01/14/22 14:00 Creatinine 0.7 mg/dL (0.5-0.9) 01/14/22 14:00 GFR Calculation Not Reportable 01/14/22 14:00 Glucose 176 mg/dL (65-115) H 01/14/22 14:00 Calculated Osmolality 296 mOsm/kg (285-295) H 01/14/22 14:00 Calcium 11.1 mg/dL (8.5-10.5) H 01/14/22 14:00 Troponin T Baseline 35 ng/L (0-10) H 01/14/22 14:00 Troponin T 120 Minute 30.35 ng/L (0-10) H 01/14/22 15:55 Delta Troponin T -4.65 ABS# (0-10) L 01/14/22 15:55 Imaging Data Other Imaging: Radiologist's impression: [employer] [address] [address] Scan Report Signed Patient: Cathi Nichols Unit #: [id number] : 1940 Age/Sex: 81 / F ADM Date: 01/14/22 Loc: ER Room/Bed: Attending Dr: Ordering Provider/Ordering MD: Fang Lechuga MD Date of Service: 01/14/22 Procedure(s): CT thoracic spin wo con* [id number] Accession Number(s): [id number] Report Number: [id number] WS: [id number] CT THORACIC SPINE HISTORY: fall TECHNIQUE: Contiguous 2.5 mm axial images are reviewed to thoracic spine. Images are reformatted in sagittal and coronal planes.? [facility] one of these dose optimization techniques: automated exposure control; mA and/or kV adjustment per patient size (includes targeted exams where dose is matched to clinical indication); or iterative reconstruction. DLP: 866.67 mGy.cm COMPARISON: None available. Diffuse osteopenia. Posterior thoracic alignment is normal. No acute thoracic spine fracture is identified. No transverse process fracture appreciated. No adjacent rib fracture. Lungs are clear. Atherosclerotic plaque continues throughout the thoracic aorta. Heart is enlarged. CT/CT thoracic spin wo con* [id number] IMPRESSION: ? 1.? No acute thoracic spine fracture. 2.? Moderate calcification and ectasia thoracic aorta. ? ? ? Dictated By: Kathi Cadet DO Signed By: Kathi Cadet DO Signed Date/Time: 01/14/221442 DD/ 144 [facility] [address] [place] [address] CT Scan Report Signed Patient: Cathi Nichols Unit #: [id number] : 1940 Age/Sex: 81 / F ADM Date: 01/14/22 Loc: ER Room/Bed: Attending Dr: Ordering Provider/Ordering MD: Fang Lechuga MD Date of Service: 01/14/22 Procedure(s): CT lumbar spine wo con* [id number] Accession Number(s): [id number] Report Number: [id number] WS: [email or web address] CT LUMBAR SPINE, noncontrast. HISTORY: fall TECHNIQUE: Contiguous 2.5 mm axial imaging are performed. Sagittal and coronal reformats are submitted and reviewed.? All CT scans at [facility] use at least one of these dose optimization techniques: automated exposure control; mA and/or kV adjustment per patient size (includes targeted exams where dose is matched to clinical indication); or iterative reconstruction. IV contrast: None DLP: 862.69 mGy.cm COMPARISON: 02/15/2021 Osteopenia. Posterior lumbar alignment is normal. Vacuum disc phenomenon and severe disc space narrowing at L4-5 and L5-S1. Anterior wedging of L1 is similar to the prior study of 02/15/2021. No vertebral body acute fracture or spinous process or transverse process fractures are identified. The visualized sacrum is negative for fracture. Degenerative changes at the SI joints. Moderate atherosclerotic changes within the abdominal aorta. Calcifications continue into the renal arteries. L1-2: Normal. L2-3: Asymmetric disc bulging without stenosis. L3-4: Moderate asymmetric disc bulging with ligamentum flavum hypertrophy. Mild central and subarticular recess stenosis. L4-5: Marked annular disc bulging with severe facet and ligamentum flavum arthritis. Severe central, bilateral subarticular recess and proximal foraminal stenosis. L5-S1: Annular disc bulging and osteophytic ridging and facet arthritis. Moderate to severe central and bilateral subarticular recess stenosis, RIGHT greater than LEFT. Mild foraminal stenosis. CT/CT lumbar spine wo con* [id number] IMPRESSION: ? 1.? No acute lumbar spine fracture. 2.? Remote L1 anterior compression fracture with no change. 3.? Severe central, bilateral subarticular recess and foraminal stenosis at L4- 5. 4.? Moderate to severe central and bilateral subarticular recess stenosis at L5- S1. ? Dictated By: Kathi Cadet DO Signed By: Kathi Cadet DO Signed Date/Time: 01/14/22 1441 DD/ [address] [address] [address] Scan Report Signed Patient: Cathi Nichols Unit #: [id number] : 1940 Age/Sex: 81 / F ADM Date: 01/14/22 Loc: ER Room/Bed: Attending Dr: Ordering Provider/Ordering MD: Fang Lechuga MD Date of Service: 01/14/22 Procedure(s): CT head wo con* [id number] Accession Number(s): [id number] Report Number: [id number] WS: [id number] CT HEAD NONCONTRAST HISTORY: fall TECHNIQUE: Contiguous axial imaging performed through the brain in 2.5 mm imagi ng. Bone and soft tissue windows. Sagittal and coronal reformats reviewed.? All CT scans at [facility] use at least one of these dose optimization techniques: automated exposure control; mA and/or kV adjustment per patient size (includes targeted exams where dose is matched to clinical indication); or iterative reconstruction. DLP: 770.59 mGy.cm COMPARISON: 05/27/2021 Mild thickening and increased density along the RIGHT temporoparietal lobes. This was also present on prior examinations from 04/20/2020 and 05/27/2021. Not acute blood products. Corresponds to the area of a prior craniotomy. This may be mesh from the craniotomy. No new subdural densities are identified. Extensive atrophy and severe chronic microvascular ischemic changes. 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 Ventricles:? Ventricles are mildly prominent on the basis of atrophy. No inferior displacement of cerebellar tonsils. Paranasal sinuses: As visualized are clear. Mastoid air cells: Well pneumatized. Calvarium and scalp: Prior large RIGHT frontotemporal and parietal craniotomy sites. Small scalp hematoma centered over the RIGHT frontal bone.0 CT/CT head wo con* [id number] IMPRESSION: ? 1.? No acute intracranial hemorrhage. Prior RIGHT frontal, temporal and parietal craniotomy sites. 2.? Increased subdural density adjacent to the RIGHT parietal lobe has been pres ent on prior studies probably related to the surgery or mass effect placement. 3.? Atrophy and ventriculomegaly on the basis of the atrophy. ? Dictated By: Kathi Cadet DO Signed By: Kathi Cadet DO Signed Date/Time: 01/14/221427 DD/ [address] [address] [address] Scan Report Signed Patient: Cathi Nichols Unit #: [id number] : 1940 Age/Sex: 81 / F ADM Date: 01/14/22 Loc: ER Room/Bed: Attending Dr: Ordering Provider/Ordering MD: Fang Lechuga MD Date of Service: 01/14/22 Procedure(s): CT head wo con* [id number] Accession Number(s): [id number] Report Number: [id number] WS: [email or web address] CT HEAD NONCONTRAST HISTORY: fall TECHNIQUE: Contiguous axial imaging performed through the brain in 2.5 mm imaging. Bone and soft tissue windows. Sagittal and coronal reformats reviewed.? All CT scans at [facility] use at least one of these dose optimization techniques: automated exposure control; mA and/or kV adjustment per patient size (includes targeted exams where dose is matched to clinical indication); or iterative reconstruction. DLP: 770.59 mGy.cm COMPARISON: 05/27/2021 Mild thickening and increased density along the RIGHT temporoparietal lobes. This was also present on prior examinations from 04/20/2020 and 05/27/2021. Not acute blood products. Corresponds to the area of a prior craniotomy. This may be mesh from the craniotomy. No new subdural densities are identified. Extensive atrophy and severe chronic microvascular ischemic changes. 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 Ventricles:? Ventricles are mildly prominent on the basis of atrophy. No inferior displacement of cerebellar tonsils. Paranasal sinuses: As visualized are clear. Mastoid air cells: Well pneumatized. Calvarium and scalp: Prior large RIGHT frontotemporal and parietal craniotomy sites. Small scalp hematoma centered over the RIGHT frontal bone.0 CT/CT head wo con* [id number] IMPRESSION: ? 1.? No acute intracranial hemorrhage. Prior RIGHT frontal, temporal and parietal craniotomy sites. 2.? Increased subdural density adjacent to the RIGHT parietal lobe has been present on prior studies probably related to the surgery or mass effect placement. 3.? Atrophy and ventriculomegaly on the basis of the atrophy. ? Dictated By: Kathi Cadet DO Signed By: Kathi Cadet DO Signed Date/Time: 01/14/221427 DD/ [address] [place] [address] CT Scan Report Signed Patient: Cathi Nichols Unit #: [id number] : 1940 Age/Sex: 81 / F ADM Date: 01/14/22 Loc: ER Room/Bed: Attending Dr: Ordering Provider/Ordering MD: Fang Lechuga MD Date of Service: 01/14/22 Procedure(s): CT cervical spin wo con* [id number] Accession Number(s): [id number] Report Number: [id number] WS: [email or web address] CT CERVICAL SPINE HISTORY: fall TECHNIQUE: Contiguous 2.5 mm axial imaging performed through the entire cervical spine. Sagittal and coronal reformats also performed.? All CT scans at [facility] use at least one of these dose optimization techniques: automated exposure control; mA and/or kV adjustment per patient size (includes targeted exams where dose is matched to clinical indication); or iterative reconstruction. DLP: 230.02 mGy.cm COMPARISON: 05/27/2021 Patient's head is markedly tilted to the LEFT. RIGHT curvature of the cervical spine. Posterior alignment is normal. Disc spaces are mildly narrowed with small osteophytes. Facet joints are normally aligned. Craniocervical junction is normal. The odontoid is intact. No acute cervical spine fractures. Lung apices are clear. CT/CT cervical spin wo con* [id number] IMPRESSION: ? No cervical spine fracture. Significant tilting of the patient's head to the LEFT similar to the prior study. ? Dictated By: Kathi Cadet DO Signed By: Kathi Cadet DO Signed Date/Time: 01/14/22 143 DD/ 143 Discharge Plan Discharge Patient Disposition: Home Clinical Impression: Fall, Facial hematoma, Neck pain Condition: Stable Prescriptions: New acetaminophen 500 mg tablet 500 mg PO Q6H PRN (Reason: pain) 5 Days Qty: 20 0RF lidocaine 5 % adhesive patch,medicated 1 patch topical DAILY PRN (Reason: pain) 30 Days Qty: 30 0RF Rx Instructions: leave on most painful area for up to 12 hrs Biofreeze (menthol) 5 % gel 1 ea topical BID PRN (Reason: pain) 10 Days Qty: 1 0RF No Action cranberry 500 mg capsule 500 mg PO DAILY@0800 0RF REIMMUNE See Rx Instructions .ROUTE .COMPLEX 0RF Rx Instructions: as directed every other day carbidopa-levodopa 50-200 mg tablet extended release 1 tab PO TID@08,12,17 0RF buspirone 5 mg tablet See Rx Instructions .ROUTE .COMPLEX 0RF Rx Instructions: 2.5 mg by mouth daily and 5 mg by mouth evening epinephrine [EpiPen 2-Dickson] 0.3 mg/0.3 mL auto-injector 0.3 mg IM ONCE PRN (Reason: Anaphylaxis) 0RF multivitamin [Daily Multi-Vitamin] Tablet 1 tab PO DAILY@0800 0RF Daily Probiotic 2.5 billion cell capsule 1 cap PO BID 0RF risperidone [Risperdal] 0.5 mg tablet 1 mg PO BEDTIME 0RF amantadine HCl 100 mg tablet 100 mg PO BID@0800,1700 0RF (DME) lancets [OneTouch Delica Lancets] 33 gauge misc See Rx Instructions .ROUTE .MEDSUPPLY Qty: 100 3RF Rx Instructions: one daily for blood sugar (DME) blood-glucose meter [Accu-Chek Zhanna Plus Meter] Misc See Rx Instructions .ROUTE .MEDSUPPLY Qty: 1 0RF Rx Instructions: check blood sugar daily (DME) Accu-Chek Zhanna Plus test strp Strip See Rx Instructions .ROUTE .MEDSUPPLY Qty: 10 0RF Rx Instructions: check blood sugar 1 time daily metoprolol tartrate 25 mg tablet 25 mg PO BID Qty: 180 3RF lisinopril 20 mg tablet 20 mg PO BID@0800,1700 Qty: 180 3RF metformin 500 mg tablet 1,000 mg PO BID@0800,1700 0RF atorvastatin 10 mg tablet 10 mg PO BEDTIME@1700 0RF amlodipine 2.5 mg tablet 2.5 mg PO DAILY 0RF Discharge Orders: Discharge ED (Routine); Ordered 01/14/22 Ordered By: Fang Lechuga Referrals: Rosy Montelongo, [employer] [Primary Care Provider] - Discharge Diet: Advance as tolerated Discharge Activity: Increase activity as tolerated Patient Instructions: Concussion (ED), Fall Prevention (ED) Activity Restrictions/Additional Instructions: Come back to the emergency room have any new or concerning complaints. Please follow-up with your primary care provider to be cleared from a concussion standpoint. Coding Level of Care Code ED Needlemaker for Robin Mccauley Exam Comprehensive
[2022-01-14] MEDS: acetaminophen 500 mg Tablet PO (14:32)
[2022-01-14] MEDS: lidocaine 5% Patch 1 PATCH TOPICAL (14:33)
[2022-01-14 14:52] VITALS: BP 132/79; PULSE 80; RESP 18; TEMP 36.7; O2SAT 96
--- NOTE | 2022-01-14 15:13 | ECG_ITS ---
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 Measurements Intervals [place] Rate: 77 P: 74 IL: 182 QRS: 43 QRSD: 79 T: 72 QT: 360 QTc: 408 Interpretive Statements SINUS RHYTHM SEPTAL MYOCARDIAL INFARCTION , PROBABLY OLD [40+ ms Q WAVE IN V1/V2] Compared to ECG 05/27/2021 19:54:39 No significant changes Electronically Signed On 01-14-2022 18:37:03 CDT by Sophia Dent M.D. [id number]
[2022-01-14 15:25] LABS: Basophils % 0.5 %; Eosinophils # 0.4 10^3/uL (0.0-0.8); Eosinophils % 5.9 %; Hematocrit 44.6 % (37.0-47.0); Lymphocytes # 1.6 10^3/uL (0.8-4.8); Lymphocytes % 21.8 %; Mean Corpuscular HGB Conc 31.4 g/dL (30.0-36.0); Mean Corpuscular Hemoglobin 28.4 pg (28.0-34.0); Mean Corpuscular Volume 90.5 fl (81-99); Mean Platelet Volume 11.7 fL (7.4-10.4); Monocytes # 0.6 10^3/uL (0.2-0.9); Monocytes % 7.8 %; Neutrophils # 4.75 10^3/uL (1.8-7.7); Neutrophils % 63.6 %; Nucleated Red Blood Cells % 0 %; Platelet Count 210 10^3/cmm (130-400); Red Blood Count 4.93 10^6/uL (4.1-5.3); Red Cell Distribution Width 17.6 % (12.1-15.1); White Blood Count 7.5 10^3/uL (4.0-10.0)
[2022-01-14 15:57] LABS: Troponin(5th) Baseline 35 ng/L (0-10)
[2022-01-14 15:59] LABS: Blood Urea Nitrogen 22 mg/dL (8-23); Calcium 11.1 mg/dL (8.5-10.5); Carbon Dioxide 20 mmol/L (22-29); Chloride 101 mmol/L (98-107); Glucose 176 mg/dL (65-115); Osmolality Calculated 296 mOsm/kg (285-295); Sodium 139 mmol/L (136-145)
[2022-01-14 16:21] VITALS: BP 166/69; PULSE 80; RESP 18; O2SAT 99
[2022-01-14 16:25] LABS: Troponin 5 2HR 30.35 ng/L (0-10)
[2022-01-14 16:26] LABS: Troponin 5 2HR Delta -4.65 ABS# (0-10)
--- NOTE | 2022-01-14 17:13 | ECG_ITS ---
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 Measurements Intervals [place] Rate: 74 P: 79 MA: 176 QRS: 38 QRSD: 79 T: 69 QT: 370 QTc: 411 Interpretive Statements SINUS RHYTHM Compared to ECG 01/14/2022 15:42:20 Myocardial infarct finding no longer present Electronically Signed On 01-14-2022 18:39:16 CDT by Sophia Dent M.D. [id number]
== END 2022-01-14 17:43 | disposition home or self-care (01) ==
PROVIDERS: Emergency Provider Emergency Medicine; PCP Nurse Practitioner Family
DX: S00.03XA Contusion of scalp, initial encounter (principal); W19.XXXA Unspecified fall, initial encounter; M54.2 Cervicalgia; E11.9 Type 2 diabetes mellitus without complications; I10 Essential (primary) hypertension; E78.5 Hyperlipidemia, unspecified
CPT/HCPCS: 70450; 70486; 72125; 72128; 72131; 80048; 84484; 85025; 93005; 99283

== ENCOUNTER → 2022-01-17 11:19 | Outpatient (BNVA) | payer MEDICARE, OTHER, SELFPAY | PROVIDERS: PCP Nurse Practitioner Family; Visit Provider Internal Medicine Cardiovascular Disease | DX: Z53.9 Procedure and treatment not carried out, unspecified reason (principal) ==

== ENCOUNTER 2022-02-02 06:00 | Outpatient (RCR) | payer MEDICARE, OTHER, SELFPAY | END 2022-02-21 15:41 | disposition home or self-care (01) | LOC: SPT 06:00 | PROVIDERS: PCP Nurse Practitioner Family; Referring Provider Nurse Practitioner Family; Visit Provider Nurse Practitioner Family | DX: M54.50 Low back pain, unspecified (principal); R53.1 Weakness; Z91.81 History of falling | CPT/HCPCS: 97110; 97530 ==

== ENCOUNTER → 2022-02-24 13:34 | Outpatient (BNVA) | payer MEDICARE, OTHER, SELFPAY | PROVIDERS: PCP Nurse Practitioner Family; Visit Provider Internal Medicine Cardiovascular Disease | DX: I10 Essential (primary) hypertension (principal); I49.8 Other specified cardiac arrhythmias; E78.5 Hyperlipidemia, unspecified; E11.9 Type 2 diabetes mellitus without complications; R55 Syncope and collapse; Z79.84 Long term (current) use of oral hypoglycemic drugs | CPT/HCPCS: 99214 ==

== ENCOUNTER → 2022-04-11 10:17 | Outpatient (BNVA) | payer MEDICARE, OTHER, SELFPAY | PROVIDERS: PCP Nurse Practitioner Family; Visit Provider Nurse Practitioner Family | DX: N39.0 Urinary tract infection, site not specified (principal); K52.9 Noninfective gastroenteritis and colitis, unspecified | CPT/HCPCS: 99213 ==

== ENCOUNTER → 2022-04-21 09:58 | Outpatient (BNVA) | payer MEDICARE, OTHER, SELFPAY | PROVIDERS: PCP Nurse Practitioner Family; Visit Provider Clinical Nurse Specialist Adult Health | DX: K52.9 Noninfective gastroenteritis and colitis, unspecified (principal) | CPT/HCPCS: 83630; 87177; 87209; 87493; 87506 ==

== ENCOUNTER → 2022-06-11 14:03 | Outpatient (BNVA) | payer MEDICARE, OTHER, SELFPAY | PROVIDERS: PCP Nurse Practitioner Family; Visit Provider Nurse Practitioner Family | DX: K52.9 Noninfective gastroenteritis and colitis, unspecified (principal) | CPT/HCPCS: 87177; 87209 ==

== ENCOUNTER → 2022-06-20 10:20 | Outpatient (BNVA) | payer MEDICARE, OTHER, SELFPAY | PROVIDERS: PCP Nurse Practitioner Family; Visit Provider Family Medicine | DX: N39.0 Urinary tract infection, site not specified (principal); R19.7 Diarrhea, unspecified | CPT/HCPCS: 81000; 87077; 87086; 87184; 87493 ==

== ENCOUNTER → 2022-07-07 10:51 | Outpatient (BNVA) | payer MEDICARE, OTHER, SELFPAY | PROVIDERS: PCP Nurse Practitioner Family; Visit Provider Nurse Practitioner Family | DX: N39.0 Urinary tract infection, site not specified (principal) | CPT/HCPCS: 81000; 87086 ==

== ENCOUNTER → 2022-08-06 15:11 | Outpatient (BNVA) | payer MEDICARE, OTHER, SELFPAY | PROVIDERS: PCP Nurse Practitioner Family; Visit Provider Clinical Nurse Specialist Adult Health | DX: N39.0 Urinary tract infection, site not specified (principal); E11.9 Type 2 diabetes mellitus without complications; R41.82 Altered mental status, unspecified; F03.90 Unspecified dementia, unspecified severity, without behavioral disturbance, psychotic disturbance, mood disturbance, and anxiety | CPT/HCPCS: 80053; 81000; 85025; 87086 ==

== ENCOUNTER 2022-09-20 15:05 | Outpatient (CLI) | payer MEDICARE, OTHER, SELFPAY ==
[2022-09-20 15:49] LABS: Add Urine Microscopic? YES; Bilirubin Urine Neg (Negative); Blood Urine Neg (Negative); Glucose Urine UA Norm (Normal); Ketones Urine Negative (Negative); Leukocyte Esterase Urine Trace (Negative); Nitrate Urine Negative (Negative); Protein Urine Neg (Negative); Specific Gravity, Urine 1.005 (1.005-1.030); Urine Appearance SL Hazy (CLEAR); Urine Color Yellow (Yellow); Urobilinogen Urine Norm (Negative); pH Urine 7 (5-7)
[2022-09-20 15:50] LABS: Add Urine Culture? No; Amorphous Sediment Urine 1+ /hpf; Bacteria Urine 1+ /hpf
== END 2022-09-20 15:06 | disposition home or self-care (01) ==
PROVIDERS: PCP Nurse Practitioner Family; Visit Provider Nurse Practitioner Family
DX: N39.0 Urinary tract infection, site not specified (principal)
CPT/HCPCS: 81001; 87086

== ENCOUNTER 2022-09-22 13:36 | Inpatient (IN) | payer MEDICARE, OTHER, SELFPAY ==
[2022-09-22] VITALS (25 sets, daily range): BP systolic 151–191; BP diastolic 67–97; PULSE 83–99; RESP 13–29; TEMP 36.6–36.7; O2SAT 95–100
--- NOTE | 2022-09-22 | CTR_ITS ---
PROCEDURE INFORMATION: Exam: CTA Head With Contrast, Arteriography Exam date and time: 09/22/2022 1:41 PM Age: 81 years old Clinical indication: Weakness; Prior surgery; Additional info: Stroke like symptoms, RT arm weakness TECHNIQUE: Imaging protocol: Computed tomographic angiography of the head with contrast. Exam focused on the arteries. 3D rendering (Not supervised by radiologist): MIP and/or 3D reconstructed images were created by the technologist. Radiation optimization: All CT scans at this facility use at least one of these dose optimization techniques: automated exposure control; mA and/or kV adjustment per patient size (includes targeted exams where dose is matched to clinical indication); or iterative reconstruction. Contrast material: OMNI 350; Contrast volume: 100 ml; Contrast route: INTRAVENOUS (IV); COMPARISON: CT head thrombolytic [id number] 09/22/2022 1:37 PM RADIATION DOSE METRICS: Total DLP (mGy-cm): 360.54 FINDINGS: ANTERIOR CIRCULATION: Right internal carotid artery: Intracranial segment is patent with no significant stenosis. No aneurysm. Right middle cerebral artery: No occlusion or significant stenosis. No aneurysm. Right anterior cerebral artery: No occlusion or significant stenosis. No aneurysm. Left internal carotid artery: The left carotid siphon is calcified with mild stenosis. Left middle cerebral artery: No occlusion or significant stenosis. No aneurysm. Left anterior cerebral artery: No occlusion or significant stenosis. No aneurysm. POSTERIOR CIRCULATION: Right vertebral artery: No occlusion or significant stenosis. No aneurysm. Left vertebral artery: No occlusion or significant stenosis. No aneurysm. Basilar artery: No occlusion or significant stenosis. No aneurysm. Right posterior cerebral artery: No occlusion or significant stenosis. No aneurysm. Left posterior cerebral artery: No occlusion or significant stenosis. No aneurysm. Brain: No definite mass, mass effect, or midline shift. Cerebral ventricles: No ventriculomegaly. Bones/joints: Status post old right craniotomy. Soft tissues: Unremarkable. PROCEDURE INFORMATION: Exam: CTA Neck With Contrast Exam date and time: 09/22/2022 1:41 PM Age: 81 years old Clinical indication: Weakness; Prior surgery; Additional info: Stroke like symptoms, RT arm weakness TECHNIQUE: Imaging protocol: Computed tomographic angiography of the neck with contrast. 3D rendering (Not supervised by radiologist): MIP and/or 3D reconstructed images were created by the technologist. Radiation optimization: All CT scans at this facility use at least one of these dose optimization techniques: automated exposure control; mA and/or kV adjustment per patient size (includes targeted exams where dose is matched to clinical indication); or iterative reconstruction. Contrast material: OMNI 350; Contrast volume: 100 ml; Contrast route: INTRAVENOUS (IV); COMPARISON: CT cervical spin wo con* [id number] 05/27/2021 7:38 PM RADIATION DOSE METRICS: Total DLP (mGy-cm): 360.54 FINDINGS: Right common carotid artery: No stenosis. No dissection or occlusion. Right internal carotid artery: The origin of the right internal carotid artery is calcified with no significant stenosis. Right external carotid artery: No occlusion or stenosis of the origin. Left common carotid artery: No stenosis. No dissection or occlusion. Left internal carotid artery: The origin of the left internal carotid artery is calcified with mild stenosis. Left external carotid artery: No occlusion or stenosis of the origin. Right vertebral artery: No stenosis. No dissection or occlusion. Left vertebral artery: No stenosis. No dissection or occlusion. Soft tissues: Normal. No significant soft tissue swelling. Bones/joints: No acute fracture. CT/CT angio headneck* [id number] IMPRESSION: No significant intracranial stenosis or occlusion. IMPRESSION: Mild stenosis at the origin of the left internal carotid artery. No hemodynamically significant stenoses are seen in the neck. REFERENCES: NASCET CRITERIA. The degree of stenosis in the cervical segment of the internal carotid artery is based on NASCET criteria. Normal is no stenosis. Mild is less than 50% stenosis. Moderate is 50-69% stenosis. Severe is 70% to 99% stenosis. Total occlusion is no detectable patent lumen.
--- NOTE | 2022-09-22 | CTR_ITS ---
PROCEDURE INFORMATION: Exam: CT Head Without Contrast Exam date and time: 09/22/2022 1:37 PM Age: 81 years old Clinical indication: Stroke-like symptoms; Left facial droop; RT upper extremity weakness; Additional info: Stroke symptoms TECHNIQUE: Imaging protocol: Computed tomography of the head without contrast. Radiation optimization: All CT scans at this facility use at least one of these dose optimization techniques: automated exposure control; mA and/or kV adjustment per patient size (includes targeted exams where dose is matched to clinical indication); or iterative reconstruction. Other technique: STROKE PROTOCOL was implemented. COMPARISON: CT head wo con* [id number] 01/14/2022 2:08 PM RADIATION DOSE METRICS: Total DLP (mGy-cm): 996.89 FINDINGS: Brain: No intracranial hemorrhage, edema or other acute abnormality is seen in the brain. There is generalized chronic atrophy with prominence of the ventricles and sulci. There is decreased white matter density which is consistent with chronic small vessel white matter ischemia. There is no mass effect or midline shift. Cerebral ventricles: The ventricles are prominent consistent with chronic atrophy. Paranasal sinuses: Visualized sinuses are unremarkable. No fluid levels. Mastoid air cells: Visualized mastoid air cells are well aerated. Bones/joints: Unremarkable. No acute fracture. Soft tissues: Unremarkable. CT/CT head thrombolytic [id number] IMPRESSION: No acute intracranial abnormality. ASSESSMENT: ASPECTS (Kelly Stroke Program Early CT Score) is 10.
--- NOTE | 2022-09-22 13:48 | ECG_ITS ---
[facility] Test Date: 2022-09-22 Pat Name: Cathi Nichols Department: Room: Gender: Female Weathercaster: : 1940 Requested By: Yoandy Dove Order Number: [id number] Ryan MD: Jerry Mauricio M.D. Measurements Intervals [place] Rate: 91 P: 89 LA: 195 QRS: 64 QRSD: 88 T: 75 QT: 370 QTc: 455 Interpretive Statements SINUS RHYTHM Compared to ECG 01/14/2022 17:25:51 No significant changes Electronically Signed On 09-22-2022 19:46:59 HATCHERY HELPER by Jerry Mauricio M.D. [id number]
[2022-09-22] MEDS: iohexol 350 mg/mL 500 mL Btl (per mL) IV (13:50)
--- NOTE | 2022-09-22 13:51 | W.ED.NEUROSD ---
HPI - Neuro Symptoms/Deficit General: Chief Complaint: Neuro Symptoms/Deficit Stated Complaint: STROKE ALERT Time Seen by Provider: 09/22/22 13:48 Source: patient Mode of arrival: ambulatory History of Present Illness: 81-year-old female presents emergency room 4 hours and 15 minutes after last known well. His last known well at 9 AM she presents here at 1350. She has slurring of her speech and weakness. They had thought she had some right-sided weakness earlier as well as some right-sided facial droop that is mostly resolved by the time she arrived here but she does now have persistent slurring of her speech per the family. She has known history of Parkinson's when she gets very tired she gets confused sometimes a little bit argumentative and she has been known to slur her speech with that. There is been no recent changes in her Sinemet. No recent illness fever sweats or chills. No previous history of stroke. Family also mention she has not been sleeping well lately additionally they thought she might of had a bladder infection and had a UA done yesterday, they have not heard results Onset (ago): hour(s) (4.5) Time: 13:50 Last Observed Normal: 09:00 Timing confirmed by: family member Location: speech, right face, right arm and right leg History of same: No Severity: moderate Quality: weak Relieving factors: none Exacerbating factors: none Associated symptoms: Deny chest pain, cough, diaphoresis, fevers/chills, headache(s), anorexia, malaise, nausea, seizures, short of breath, syncope, tingling, vertigo, vomiting or weakness Review of Systems Const: Denies: fever(s), chills, fatigue, malaise or diaphoresis ENMT: Denies: throat pain, ear or mastoid pain, nasal discharge or nasal congestion Card: Denies: chest pain or syncope Resp: Denies: dyspnea, productive cough or non-productive cough GI: Denies: abdominal pain, nausea or vomiting : Denies: flank pain, difficulty voiding, dysuria, urinary frequency or urinary urgency Skin/Breast: Denies: rash or pruritus Neuro: Denies: headache(s) or vertigo PFS ED PFSH: Medical History Anxiety DDD (degenerative disc disease), lumbar Dementia Dyslipidemia (high LDL; low HDL) Encounter for loop recorder check Essential (primary) hypertension 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 Actually lives with her son and daughter who are with her 27/04 Hyponatremia chronic mild in low mid 130s at baseline Leg swelling Lumbar stenosis Memory change Parkinsons On Sinemet Recurrent UTI Syncopal episodes Type 2 diabetes mellitus without complications non insulin requiring, on metformin, A1c-6.9 Urge incontinence Ventricular arrhythmia Surgical History History of loop recorder -Follows with Dr. Ponce History of release of tendon (~2010) trigger finger History of tonsillectomy and adenoidectomy younger than age 10 Hx laparoscopic cholecystectomy (~1993) Hx of bilateral cataract extraction (~2007) Hx of brain surgery Epidural Hematoma; emergency Hx of breast biopsy (~2002) right Hx of colonoscopy (~2010) polyps: Hyperplastic Hx of hysterectomy (~1973) Hx of tracheostomy Family History Father , age 58 from [place] CAD (coronary artery disease) Mother , age 76 Cancer melanoma Grandmother Diabetes maternal Social History Smoking and tobacco status: never smoked Alcohol intake: never Caregiver/support person: Yes Lives independently: No Household members: none Housing: House Marital status: / Number of children: 2 Number of grandchildren: 0 Current occupational status: retired History of recent travel: No Current gender identity: Female NIH stroke score NIHSS: Level Of Consciousness - 1a: 1 Level Of Consciousness Questions - 1b: Both Correct Level Of Consciousness Commands - 1c: Both Correct Best Gaze - 2: Normal Visual Santos - 3: No Visual Loss Facial Palsy - 4: Minor Paralysis Motor Arm Right - 5: No Drift Motor Arm Left - 5: No Drift Motor Leg Right - 6: No Drift Motor Leg Left - 6: No Drift Limb Ataxia - 7: Absent Sensory - 8: Normal Best Language - 9: No Aphasia Dysarthia - 10: Mild/Moderate Dysarthia Extinction And Inattention - 11: 0 Score: Total Score: 3 Physical Exam Const: GENERAL APPEARANCE: cooperative and comfortable ORIENTATION/CONSCIOUSNESS: Yes awake, Yes oriented to person, Yes oriented to place and Yes oriented to time HENMT: COMMON NORMALS: normocephalic, atraumatic and hearing grossly normal bilaterally HEAD & SCALP: normocephalic and atraumatic Resp: COMMON NORMALS: normal respiratory effort, No retractions, No use of accessory muscles and clear to auscultation bilaterally AUSCULTATION: clear to auscultation bilaterally Cardio: COMMON NORMALS: regular rate, regular rhythm and No murmurs present (Cardio) RATE: regular rate RHYTHM: regular rhythm GI: COMMON NORMALS: Soft to palpation and No hepatosplenomegaly present AUSCULTATION: Yes normoactive bowel sounds PALPATION: Yes Soft to palpation, No Tenderness to palpation present (GI), No Guarding due to palpation present (GI) and Yes No hepatosplenomegaly present Extremity: COMMON NORMALS: normal to inspection, capillary refill normal, no clubbing, cyanosis or edema, no calf tenderness and no pedal edema Neuro: SENSORIUM/ORIENTATION: Yes oriented to person, Yes oriented to place and Yes oriented to time Skin: COMMON NORMALS: no rashes or lesions noted GENERAL SKIN EXAM: no rashes or lesions noted Course Vital Signs: Vital signs: Vital Signs Temperature 97.8 F 09/22/22 13:50 Pulse Rate 95 09/22/22 16:45 Respiratory Rate 17 09/22/22 16:45 Blood Pressure 178/77 09/22/22 16:45 Pulse Oximetry 99 09/22/22 16:45 Oxygen Delivery Me thod 09/22/22 15:00 MDM - Neuro Symptoms/Deficit Medical Decision Making Family is concerned that some of this may be from lack of sleep and worsening of her Parkinson's. When EMS describes her symptoms and the feel that she would have gotten about a 6 or a 7 on a stroke scale she is approximately 3 when she arrived here she is outside the timeframe window for thrombolytic intervention. Her stroke score is not high enough to warrant embolectomy and her CTA of her head and neck are negative. Family is also concerned she might have a bladder infection although the UA done here today does not appear to be the case. They had done one as an outpatient they had not heard the results. Given the concern of a new CVA when she still has some evidence of an complicating appearance of her potential worsening of her Parkinson's we will put her on observation discussed with hospitalist orders. Medical Records I reviewed the patient's medical records. Lab Data I reviewed the patient's lab results. 09/22/22 13:18 09/22/22 13:[address] 09/22/22 00:00 IMPRESSION: No acute intracranial abnormality. ASSESSMENT: ASPECTS (Kelly Stroke Program Early CT Score) is 10. Head/Neck CTA 09/22/22 00:00 IMPRESSION: No significant intracranial stenosis or occlusion. IMPRESSION: Mild stenosis at the origin of the left internal carotid artery. No hemodynamically significant stenoses are seen in the neck. REFERENCES: NASCET CRITERIA. The degree of stenosis in the cervical segment of the internal carotid artery is based on NASCET criteria. Normal is no stenosis. Mild is less than 50% stenosis. Moderate is 50-69% stenosis. Severe is 70% to 99% stenosis. Total occlusion is no detectable patent lumen. Laboratory Results WBC 7.4 10^3/uL (4.0-10.0) 09/22/22 13:18 RBC 4.93 10^6/uL (4.1-5.3) 09/22/22 13:18 Hgb 13.7 g/dL (11.5-15.3) 09/22/22 13:18 Hct 42.6 % (37.0-47.0) 09/22/22 13:18 MCV 86.4 fl (81-99) 09/22/22 13:18 MCH 27.8 pg (28.0-34.0) L 09/22/22 13:18 MCHC 32.2 g/dL (30.0-36.0) 09/22/22 13:18 RDW 15.4 % (12.1-15.1) H 09/22/22 13:18 Plt Count 248 10^3/cmm (130-400) 09/22/22 13:18 MPV 10.1 fL (7.4-10.4) 09/22/22 13:18 Neut % (Auto) 64.6 % 09/22/22 13:18 Lymph % (Auto) 24.2 % 09/22/22 13:18 Butler % (Auto) 7.8 % 09/22/22 13:18 Eos % (Auto) 2.7 % 09/22/22 13:18 Baso % (Auto) 0.3 % 09/22/22 13:18 Neut # (Auto) 4.77 10^3/uL (1.8-7.7) 09/22/22 13:18 Lymph # (Auto) 1.8 10^3/uL (0.8-4.8) 09/22/22 13:18 Butler # (Auto) 0.6 10^3/uL (0.2-0.9) 09/22/22 13:18 Eos # (Auto) 0.2 10^3/uL (0.0-0.8) 09/22/22 13:18 Baso # (Auto) 0.0 10^3/uL (0.0-0.1) 09/22/22 13:18 Nucleated RBC % (auto) 0 % 09/22/22 13:18 Nucleated RBCs # 0.0 /100WBC 09/22/22 13:18 PT 13.60 SECONDS (12.1-14.9) 09/22/22 13:18 INR 1.01 (0.8-1.2) 09/22/22 13:18 APTT 25.8 SECONDS (23.9-36.7) 09/22/22 13:18 Sodium 139 mmol/L (136-145) 09/22/22 13:18 Potassium 4.2 mmol/L (3.5-5.1) 09/22/22 13:18 Chloride 99 mmol/L (98-107) 09/22/22 13:18 Carbon Dioxide 21 mmol/L (22-29) L 09/22/22 13:18 Anion Gap 23.2 (5-19) H 09/22/22 13:18 BUN 26 mg/dL (8-23) H 09/22/22 13:18 Creatinine 0.9 mg/dL (0.5-0.9) 09/22/22 13:18 GFR Calculation Not Reportable 09/22/22 13:18 Glucose 206 mg/dL (65-115) H 09/22/22 13:18 Calculated Osmolality 299 mOsm/kg (285-295) H 09/22/22 13:18 Calcium 10.5 mg/dL (8.5-10.5) 09/22/22 13:18 Total Bilirubin 0.4 mg/dL (0.15-1.2) 09/22/22 13:18 AST 24 U/L (0-32) 09/22/22 13:18 ALT 8 U/L (0-33) 09/22/22 13:18 Alkaline Phosphatase 196 U/L (35-105) H 09/22/22 13:18 Total Protein 7.4 g/dL (6.6-8.7) 09/22/22 13:18 Albumin 4.3 g/dL (3.5-5.2) 09/22/22 13:18 Globulin 3.1 g/dL (1.3-4.6) 09/22/22 13:18 Discharge Plan Discharge Patient Disposition: Placed in Observation Admit Provider: Aditya Palomino Clinical Impression: Acute cerebrovascular accident (CVA), Dementia Coding Level of Care Code 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
[2022-09-22 14:02] LABS: Basophils % 0.3 %; Eosinophils # 0.2 10^3/uL (0.0-0.8); Eosinophils % 2.7 %; Hematocrit 42.6 % (37.0-47.0); Hemoglobin 13.7 g/dL (11.5-15.3); Lymphocytes # 1.8 10^3/uL (0.8-4.8); Lymphocytes % 24.2 %; Mean Corpuscular HGB Conc 32.2 g/dL (30.0-36.0); Mean Corpuscular Hemoglobin 27.8 pg (28.0-34.0); Mean Corpuscular Volume 86.4 fl (81-99); Mean Platelet Volume 10.1 fL (7.4-10.4); Monocytes # 0.6 10^3/uL (0.2-0.9); Monocytes % 7.8 %; Neutrophils # 4.77 10^3/uL (1.8-7.7); Neutrophils % 64.6 %; Nucleated Red Blood Cells % 0 %; Platelet Count 248 10^3/cmm (130-400); Red Blood Count 4.93 10^6/uL (4.1-5.3); Red Cell Distribution Width 15.4 % (12.1-15.1); White Blood Count 7.4 10^3/uL (4.0-10.0)
[2022-09-22 14:22] LABS: Alanine Aminotransferase 8 U/L (0-33); Albumin Level 4.3 g/dL (3.5-5.2); Alkaline Phosphatase 196 U/L (35-105); Anion Gap 23.2 (5-19); Aspartate Amino Transferase 24 U/L (0-32); Blood Urea Nitrogen 26 mg/dL (8-23); Calcium 10.5 mg/dL (8.5-10.5); Carbon Dioxide 21 mmol/L (22-29); Chloride 99 mmol/L (98-107); Creatinine Clr Calc Pharmacy 35.1451; Globulin 3.1 g/dL (1.3-4.6); Glucose 206 mg/dL (65-115); Osmolality Calculated 299 mOsm/kg (285-295); Potassium 4.2 mmol/L (3.5-5.1); Sodium 139 mmol/L (136-145); Total Bilirubin 0.4 mg/dL (0.15-1.2); Total Protein 7.4 g/dL (6.6-8.7)
[2022-09-22 14:31] LABS: INR 1.01 (0.8-1.2)
[2022-09-22 14:32] LABS: Partial Thromboplastin Time 25.8 SECONDS (23.9-36.7)
--- NOTE | 2022-09-22 17:40 | P.HP_ITS ---
Providers/Chief Complaint Admitting Physician: Aditya Palomino MD Primary Care Provider: BRAN Tavarez Chief Complaint: STROKE ALERT History of Present Illness Cathi Nichols is a 81 year old female with past medical history of diabetes hypertension, dementia, TBI, Parkinson's, was brought in today by the family with chief complaint of acute onset of slurred speech, right-sided weakness, right-sided facial droop, last known well was at 9 AM, arrived at ER at around 1:50 PM, by the time she had arrived in the ER right-sided weakness facial droop as well as speech was improved, she was out of tPA window, not a candidate for thrombectomy. CT head without contrast done in the ER showed: No acute intracranial pathology. CTA head and neck: No flow-limiting stenosis. EKG: Sinus rhythm, heart rate 91, Pertinent labs: WBC 7.4, H&H 13/42 , PLT : 248 , serum sodium 139, serum potassium 4.2, BUN serum creatinine: Review of Systems General: Reports: 10 or more systems reviewed and unremarkable except in HPI and below Const: Denies: fever(s) or chills Card: Denies: palpitations Resp: Denies: dyspnea or productive cough GI: Denies: abdominal pain or nausea Neuro: Denies: headache(s) Medications/Allergies Home Medications Medication Instructions Recorded Confirmed Last Taken Type epinephrine 0.3 mg/0.3 mL 0.3 mg IM ONCE PRN Anaphylaxis 10/11/19 09/22/22 Unknown History injection, auto-injector (EpiPen 2-Dickson) multivitamin (Daily Multi-Vitamin 1 tab PO DAILY@0800 10/11/19 09/22/22 09/21/22 History tablet) cranberry 500 mg capsule 500 mg PO DAILY@0800 10/25/19 09/22/22 09/21/22 History lancets 33 gauge (OneTouch Delica #100 ea 12/05/19 09/22/22 Unknown Rx Lancets) blood sugar diagnostic (Accu-Chek #10 ea 01/10/20 09/22/22 Unknown Rx Zhanna Plus test strips) blood-glucose meter (Accu-Chek #1 ea 01/10/20 09/22/22 Unknown Rx Zhanna Plus Meter) atorvastatin 10 mg tablet 10 mg PO BEDTIME@1700 01/26/20 09/22/2222 History amantadine HCl 100 mg tablet 100 mg PO BID@0800,1700 10/29/20 09/22/22 09/21/22 History buspirone 5 mg tablet See Rx Instructions .Route .COMPLEX 02/12/21 09/22/22 01/14/22 History carbidopa ER 50 mg-levodopa 200 mg 1 tab PO TID@08,12,17 03/20/21 09/22/22 09/21/22 History tablet,extended release metoprolol tartrate 25 mg tablet 25 mg PO BID #180 tabs 07/11/21 09/22/22 09/21/22 Rx risperidone 0.5 mg tablet 1 mg PO BEDTIME 08/15/21 09/22/22 09/21/22 History (Risperdal) Lactobacillus 1 cap PO BID 10/17/21 09/22/22 09/21/22 History acidophilus-Bifidobac.animalis 2.5 billion cell capsule (Daily Probiotic) REIMMUNE 1 tab PO EVERY OTHER DAY 10/17/21 09/22/22 01/14/22 History amlodipine 2.5 mg tablet 2.5 mg PO DAILY #90 tabs 05/12/22 09/22/22 09/21/22 Rx lisinopril 20 mg tablet 20 mg PO BID@0800,1700 #180 tabs 07/01/22 09/22/22 09/21/22 Rx levofloxacin 250 mg tablet 250 mg PO DAILY 3 days #3 tabs 09/19/22 09/22/22 09/21/22 Rx final dose complete metformin 500 mg tablet 1,000 mg PO BID 09/22/22 09/22/22 09/21/22 History Allergies Allergy/AdvReac Type Severity Reaction Status Date / Time furosemide [From Lasix] Allergy Unknown UNKNOWN Verified 08/06/22 13:11 codeine Allergy Unknown Verified 08/06/22 13:11 Sulfa (Sulfonamide Allergy Unknown Verified 08/06/22 13:11 Antibiotics) PFSH Acute PFSH: Medical History Anxiety DDD (degenerative disc disease), lumbar Dementia Dyslipidemia (high LDL; low HDL) Encounter for loop recorder check Essential (primary) hypertension 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 Actually lives with her son and daughter who are with her 27/04 Hyponatremia chronic mild in low mid 130s at baseline Leg swelling Lumbar stenosis Memory change Parkinsons On Sinemet Recurrent UTI Syncopal episodes Type 2 diabetes mellitus without complications non insulin requiring, on metformin, A1c-6.9 Urge incontinence Ventricular arrhythmia Surgical History History of loop recorder -Follows with Dr. Ponce History of release of tendon (~2010) trigger finger History of tonsillectomy and adenoidectomy younger than age 10 Hx laparoscopic cholecystectomy (~1993) Hx of bilateral cataract extraction (~2007) Hx of brain surgery Epidural Hematoma; emergency Hx of breast biopsy (~2002) right Hx of colonoscopy (~2010) polyps: Hyperplastic Hx of hysterectomy (~1973) Hx of tracheostomy Family History Father , age 58 from [place] CAD (coronary artery disease) Mother , age 76 Cancer melanoma Grandmother Diabetes maternal Social History Smoking and tobacco status: never smoked Alcohol intake: never Caregiver/support person: Yes Lives independently: No Household members: none Housing: House Marital status: / Number of children: 2 Number of grandchildren: 0 Current occupational status: retired History of recent travel: No Current gender identity: Female Vitals/I&O/Wt Last Vital Signs Temp 97.8 F 09/22/22 13:50 Pulse 95 09/22/22 16:45 Resp 17 09/22/22 16:45 BP 178/77 09/22/22 16:45 Pulse Ox 99 09/22/22 16:45 O2 Del Method 09/22/22 15:00 Weight last 48 hrs Weight 68.039 kg Weight 45.813 kg Physical Exam Narrative: Alert,awake ,not in acute distress Resp: COMMON NORMALS: clear to auscultation bilaterally EFFORT & INSPECTION: Yes symmetric chest movement AUSCULTATION: clear to auscultation bilaterally Cardio: COMMON NORMALS: regular rate, regular rhythm, S1 normal heart sound present, S2 normal heart sound present, No gallops present (Cardio), No murmurs present (Cardio), No rub (Cardio) and Peripheral pulses 2+ throughout RATE: regular rate RHYTHM: regular rhythm HEART SOUNDS: S1 normal heart sound present and S2 normal heart sound present PERIPHERAL PULSES: Peripheral pulses 2+ throughout GI: COMMON NORMALS: Normal to inspection, nondistended, normoactive bowel sounds present, Soft to palpation, non-tender, No hepatosplenomegaly present and no masses AUSCULTATION: Yes normoactive bowel sounds PALPATION: Yes Soft to palpation and Yes No hepatosplenomegaly present RECTAL EXAM: deferred Extremity: NARRATIVE EXTREMITY EXAM: 1+ B/L PITTING EDEMA Data 09/22/22 13:18 09/22/22 13:18 A&P Assessment and plan (1) Acute cerebrovascular accident (CVA): (2) Dementia: (3) Type 2 diabetes mellitus without complications: Qualifiers: Diabetes mellitus residential insulin use: without residential use Qualified Code(s): E11.9 - Type 2 diabetes mellitus without complications (4) Essential (primary) hypertension: (5) Urge incontinence: (6) Hx of traumatic brain injury: Plan Cathi Nichols is a 81 year old female with past medical history of diabetes hypertension, dementia, TBI, Parkinson's, was brought in today by the family with chief complaint of acute onset of slurred speech, right-sided weakness, right-sided facial droop, last known well was at 9 AM, arrived at ER at around 1:50 PM, by the time she had arrived in the ER right-sided weakness facial droop as well as speech was improved, she was out of tPA window, not a candidate for thrombectomy. Assessment: Acute CVA, with right-sided weakness History of hypertension History of diabetes History of parkinsonism History of recurrent UTI History of dementia Plan: CT head without contrast done in the ER showed: No acute intracranial pathology. CTA head and neck: No flow-limiting stenosis. Most recent UA: Done on 09/20: Is clean Will give aspirin 300 prerectal one-time dose. Continue telemetry monitoring Permissive hypertension for next 24 hours We will resume aspirin and statin SSI, monitor fingerstick glucose Currently n.p.o. PT OT evaluation Speech evaluation CODE STATUS: Full code DVT prophylaxis: On SCD Attestations Medical Necessity Statement*: Patient is to be in hospital for management of acute CVA. 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
--- NOTE | 2022-09-22 18:48 | USCV_ITS ---
Cathi Nichols Age: 81 Gender: F : 1940 Exam Date: 09/22/2022 21:50 Ordering Phys: Aditya Palomino MD Technologist: ERMELINDA Exam Location: [facility] – [place] Indication: cva; prior echo 02/16/21. patient is unresponsive BP: 187 / 95 HR: 107 Rhythm: Sinus Technical Quality: Adequate MEASUREMENTS (Male / Female) Normal Values 2D ECHO LV Diastolic Diameter PLAX 3.4 cm 4.2 - 5.9 / 3.9 - 5.3 cm LV Systolic Diameter PLAX 2.1 cm IVS Diastolic Thickness 1.3 cm 0.6 - 1.0 / 0.6 - 0.9 cm IVS Systolic Thickness 2.1 cm LVPW Diastolic Thickness 1.1 cm 0.6 - 1.0 / 0.6 - 0.9 cm LVPW Systolic Thickness 1.2 cm LVOT Diameter 1.8 cm LV Ejection Fraction 2D Teich 68.2 % LV Ejection Fraction MOD 2C 61.0 % LV Ejection Fraction 2C AL 65.0 % LA Diameter 2.7 cm LA Width 3.4 cm LA Height 4.2 cm RA Width 2.8 cm RA Height 3.2 cm Aorta at Sinotubular Diameter 2.4 cm IVC Diameter 1.0 cm M-MODE Aortic Annulus Diameter 2.2 cm LA Ao Ratio MM 1.1 MV E Point Septal Separation 0.2 cm DOPPLER AV Peak Velocity 127.0 cm/s LVOT Peak Velocity 84.0 cm/s AV Area Cont Eq vti 1.8 cm squared AV Area Cont Eq pk 1.8 cm squared MV Peak Velocity 179.0 cm/s MV Area PHT 5.0 cm squared Mitral E to A Ratio 0.7 MV E' Velocity 50.0 cm/s Mitral E to MV E' Ratio 10.0 Mitral E to LV E' Lateral Ratio 8.8 Mitral E to LV E' Septal Ratio 11.5 TR Peak Velocity 189.7 cm/s TR Peak Gradient 14.4 mmHg TV Peak E Velocity 43.0 cm/s Right Atrial Pressure 5.0 mmHg Pulmonary Artery Systolic Pressu 19.4 mmHg PV Peak Velocity 198.0 cm/s RV Acceleration Time 0.1 s RV Ejection Time 0.3 s RV AcT/ET 0.4 FINDINGS Left Ventricle Left ventricle is normal in size. LV systolic function is normal with EF of 55 to 60%. No regional wall motion abnormalities are seen. Grade 1 diastolic dysfunction. Right Ventricle Normal in size and function Right Atrium Normal in size Left Atrium Normal in size Mitral Valve Moderate mitral annular calcification is seen. Mild mitral regurgitation. Aortic Valve Grossly normal. No significant stenosis or regurgitation. Tricuspid Valve Mild tricuspid regurgitation. Pulmonary artery systolic pressure is normal. Pulmonic Valve Not well visualized Pericardium Normal Aorta Normal in size IVC Appears to be normal CONCLUSIONS LV systolic function is normal with EF of 55-60% Grade 1 diastolic dysfunction Moderate mitral annular calcification. Mild mitral regurgitation Mild tricuspid regurgitation Compared to prior echocardiogram from 02/16/2021, no changes are seen Jerry Mauricio MD (Electronically Signed) Final Date: 23 September 2022 11:20 S
[2022-09-22] MEDS: aspirin 300 mg Supp PR (19:49)
[2022-09-22 22:11] LABS: Glucose Point of Care 190 mg/dL (70-110)
[2022-09-23] VITALS (9 sets, daily range): BP systolic 132–196; BP diastolic 69–93; PULSE 100–133; RESP 14–17; TEMP 36.5–37.3; O2SAT 96–97
--- NOTE | 2022-09-23 01:17 | PC.NURSE ---
patient resting quietly, turned and repositoned, incont of urine, cleaned and dried. patient is alert to person, speech is mumbled, but when asked a yes or no question, easily understood, when informing patient of turning, changing, etc, patient responds with a slight nod and uh huh, this last change, patient responded with a clear okay when funeral director informed her of checking her bp.
[2022-09-23 05:22] LABS: Basophils % 0.4 %; Eosinophils # 0.2 10^3/uL (0.0-0.8); Eosinophils % 2.8 %; Hematocrit 39.7 % (37.0-47.0); Lymphocytes # 1.6 10^3/uL (0.8-4.8); Mean Corpuscular HGB Conc 32.7 g/dL (30.0-36.0); Mean Corpuscular Hemoglobin 27.9 pg (28.0-34.0); Mean Corpuscular Volume 85.2 fl (81-99); Mean Platelet Volume 10.4 fL (7.4-10.4); Monocytes # 0.8 10^3/uL (0.2-0.9); Monocytes % 10.3 %; Neutrophils # 4.87 10^3/uL (1.8-7.7); Neutrophils % 65.1 %; Nucleated Red Blood Cells % 0 %; Platelet Count 255 10^3/cmm (130-400); Red Blood Count 4.66 10^6/uL (4.1-5.3); Red Cell Distribution Width 15.7 % (12.1-15.1); White Blood Count 7.5 10^3/uL (4.0-10.0)
--- NOTE | 2022-09-23 05:49 | PC.NURSE ---
patient heartrate in mid 120's to 132, Dr. Santamaria notified, new order recieved for lab-D Dimer.
[2022-09-23 05:51] LABS: Chol HDL Ratio 1.85 mg/dL (0.0-4.40); Cholesterol 109 mg/dL (0-200); HDL Cholesterol 59 mg/dL (60-100); LDL Cholesterol Calculated 38 mg/dL (50-129); LDL HDL Ratio 0.64 RATIO (0.00-3.22); Triglycerides 61 mg/dL (0-150)
[2022-09-23 05:52] LABS: Anion Gap 18.4 (5-19); Blood Urea Nitrogen 26 mg/dL (8-23); Calcium 10.2 mg/dL (8.5-10.5); Carbon Dioxide 24 mmol/L (22-29); Chloride 103 mmol/L (98-107); Glucose 196 mg/dL (65-115); Osmolality Calculated 302 mOsm/kg (285-295); Potassium 4.4 mmol/L (3.5-5.1); Sodium 141 mmol/L (136-145); Thyroid Stimulating Hormone 1.71 uIU/mL (0.27-4.20)
[2022-09-23 06:43] LABS: D Dimer 0.28 ug/mIFEU (0-0.59)
[2022-09-23 07:45] LABS: Glucose Point of Care 265 mg/dL (70-110)
[2022-09-23] MEDS: insulin lispro 100 unit/1 mL SUBCUT ×2 (08:16→18:27)
--- NOTE | 2022-09-23 09:07 | PC.NURSE ---
PT FAILED SWALLOW TEST, AM PO MEDS HELD, DR BARBOSA NOTIFIED AND OKAYED.
--- NOTE | 2022-09-23 09:58 | PC.CHAP ---
Pastoral Care Encounter/Spiritual Assessment Type of Contact [] Declined dial buffer visit [] Patient/Family/Request visit [] Outpatient visit [] Follow-up visit [] Physician referral [] Code/Alert [x] Routine visit [] Staff referral [] Actively dying [] Patient sleeping [] Family support [] [] Out of room [] Palliative care [] [] Receiving care in room [] Pre-surgical visit [] Trauma [] Long length of stay [] ICU visit [] Other: Relational/Emotional Strength [] Patient feels connected with others/family/visitors/staff [] Distress [] Loneliness/isolation [] Abandonment Spirituality of Patient [] Person of Agnieszka [] Attends Restorationist of their Agnieszka [x] Believes in Prayer [] Reads Bible or Holiness materials [] There are Spiritual issues to be addressed Multimedia Specialist Interventions [xx] Prayer [x] Active listening [] Non-anxious presence [] Spiritual/emotional support [] Crisis/trauma care [] Spiritual counseling [] Bereavement support [] Provided bereavement packet [] Provided Bible/devotional materials [] Provided toy/stuffed animal, coloring book to patient or family member [] Provided Communion [] Anointing/Ivins [] Salvation [x] Completed spiritual assessment [] Other: Impact on Illness or Injury [] Angry [] Fearful [] Anxious [] Often cries [] Exhaustion [] Unable to work [] Unable to attend hinduism [] Unable to walk/stand [] Unable to read [] Unable to drive [] Unable to eat/drink [] Unable to sleep [] Unable to be with family [] Patient intubated [] Other: Summary Time spent with patient 10 min
[2022-09-23 12:03] LABS: Glucose Point of Care 106 mg/dL (70-110)
[2022-09-23] MEDS: cefTRIAXone 1,000 MG in sodium chloride 0.9% (plus) 50 ML 100 MG IV (14:58)
--- NOTE | 2022-09-23 15:16 | XR_ITS ---
WS: [id number] Exam: XR chest 1V portable [id number] Date/Time of Exam: 09/23/2022 3:39 PM Reason For Exam: AMS Comparison 09/12/2021. The lungs are fully expanded and clear. Normal cardiomediastinal silhouette. Calcification of the madi ral valve annulus. No pleural effusions. Regional bony elements are intact. Monitoring leads superimp ose the chest. XR/XR chest 1V portable [id number] IMPRESSION: 1. No acute cardiopulmonary finding.
[2022-09-23] MEDS: labetalol 5 mg/mL SDV 20mL IVP (15:48)
[2022-09-23 17:34] LABS: Glucose Point of Care 223 mg/dL (70-110)
--- NOTE | 2022-09-23 21:37 | PM.PN ---
Subjective Subjective: was seen this morning, extremely drowsy, not good currently to take any po medications.She has been in Sinus tachy[place]ia Medications: Medication Review Details: Generic Name Dose Route Start Last Admin Trade Name Parisa PRN Reason Stop Dose Admin Amlodipine Besylat e 2.5 mg 09/23/22 09:00 09/23/22 09:07 Amlodipine 5 Mg Tablet PO Not Given DAILY [facility] Aspirin 162 mg 09/22/22 18:00 09/23/22 09:07 Aspirin 81 Mg Ec Tablet PO Not Given DAILY [facility] Aspirin 300 mg 09/23/22 11:30 09/23/22 17:24 Aspirin 300 Mg S upp TN Not Given DAILY [facility] Atorvastatin Calci um 40 mg 09/22/22 21:00 09/22/22 20:28 Atorvastatin 40 Mg Tablet PO Not Given BEDTIME [facility] Ceftriaxone Sodium 1,000 mg/ 50 mls @ 100 mls/ hr 09/23/22 11:00 09/23/22 15:39 Sodium Chloride IV Infused Q24H [facility] Infusion Protocol Insulin Human Lisp ro 0 unit 09/23/22 08:00 09/23/22 18:27 Insulin Lispro 1 00 Unit/1 Ml SUBCUT 6 unit TIDWM [facility] Administration Protocol Risperidone 1 mg 09/22/22 21:00 09/22/22 20:28 Risperidone 1 Mg Tablet PO Not Given BEDTIME [facility] Vitals/I&O/Wt Last Vital Signs Temp 98.2 F 09/23/22 15:12 Pulse 118 H 09/23/22 15:12 Resp 14 09/23/22 15:12 BP 182/93 09/23/22 15:12 Pulse Ox 96 09/23/22 15:12 O2 Del Method 09/23/22 15:12 09/23/22 09/23/22 09/23/22 06:59 14:59 22:59 Intake Total 170 / 170 Balance 170 / 170 Weight last 48 hrs Weight 47.99 kg Weight 68.039 kg Weight 45.813 kg Physical Exam Narrative: NAD Resp: COMMON NORMALS: clear to auscultation bilaterally EFFORT & INSPECTION: Yes symmetric chest movement AUSCULTATION: clear to auscultation bilaterally Cardio: COMMON NORMALS: regular rate, regular rhythm, S1 normal heart sound present, S2 normal heart sound present, No gallops present (Cardio), No murmurs present (Cardio), No rub (Cardio) and Peripheral pulses 2+ throughout RATE: regular rate RHYTHM: regular rhythm HEART SOUNDS: S1 normal heart sound present and S2 normal heart sound present PERIPHERAL PULSES: Peripheral pulses 2+ throughout GI: COMMON NORMALS: Normal to inspection, nondistended, normoactive bowel sounds present, Soft to palpation, non-tender, No hepatosplenomegaly present and no masses AUSCULTATION: Yes normoactive bowel sounds PALPATION: Yes Soft to palpation and Yes No hepatosplenomegaly present RECTAL EXAM: deferred Extremity: NARRATIVE EXTREMITY EXAM: 1+ B/L PITTING EDEMA Data 09/23/22 04:32 09/23/22 04:32 A&P Assessment and plan (1) Acute cerebrovascular accident (CVA): (2) Dementia: (3) Type 2 diabetes mellitus without complications: Qualifiers: Diabetes mellitus terminal operations supervisor insulin use: without terminal operations supervisor use Qualified Code(s): E11.9 - Type 2 diabetes mellitus without complications (4) Essential (primary) hypertension: (5) Urge incontinence: (6) Hx of traumatic brain injury: (7) Altered mental status: Plan Ctahi Nichols is a 81 year old female with past medical history of diabetes hypertension, dementia, TBI, Parkinson's, was brought in today by the family with chief complaint of acute onset of slurred speech, right-sided weakness, right-sided facial droop, last known well was at 9 AM, arrived at ER at around 1:50 PM, by the time she had arrived in the ER right-sided weakness facial droop as well as speech was improved, she was out of tPA window, not a candidate for thrombectomy. Assessment: Acute CVA, with right-sided weakness AMS lIKELY 2/2 CVA. History of hypertension History of diabetes History of parkinsonism History of recurrent UTI History of dementia Plan: CT head without contrast done in the ER showed: No acute intracranial pathology. CTA head and neck: No flow-limiting stenosis. MRI Brain without contrast : 2D Echo: LV systolic function is normal with EF of 55-60% Grade 1 diastolic dysfunction Moderate mitral annular calcification. Mild mitral regurgitation Mild tricuspid regurgitation.No significant change from prior echo Xray chest : WNL Most recent UA: Done on 09/20: Is clean D- DIMER : Normal Will give aspirin 300 prerectal daily, continue statin. Continue telemetry monitoring Permissive hypertension for next 24 hours We will resume aspirin and statin SSI, monitor fingerstick glucose Empirically on rocephin, Currently n.p.o. PT OT evaluation Speech evaluation CODE STATUS: Full code DVT prophylaxis: On SCD Attestations Medical Necessity Statement*: patient needs to be in hospital for the management of cva. Coding Level of Care Code Acute Groundskeeping Maintenance for [facility] Fwd Diagnoses Acute cerebrovascular accident (CVA) I63.9 Dementia F03.90 Type 2 diabetes mellitus without complications E11.9 Diabetes mellitus terminal operations supervisor insulin use: without intermediate use Essential (primary) hypertension I10 Urge incontinence N39.41 Hx of traumatic brain injury Z87.820 Altered mental status R41.82
[2022-09-23 22:56] LABS: Glucose Point of Care 132 mg/dL (70-110)
[2022-09-24] VITALS (7 sets, daily range): BP systolic 132–173; BP diastolic 54–78; PULSE 98–133; RESP 16–23; TEMP 36.5–37.3; O2SAT 94–98
[2022-09-24 04:25] LABS: Basophils # 0.1 10^3/uL (0.0-0.1); Basophils % 0.8 %; Eosinophils # 0.4 10^3/uL (0.0-0.8); Eosinophils % 5.3 %; Hematocrit 38.5 % (37.0-47.0); Hemoglobin 12.5 g/dL (11.5-15.3); Lymphocytes # 1.9 10^3/uL (0.8-4.8); Lymphocytes % 29.1 %; Mean Corpuscular HGB Conc 32.5 g/dL (30.0-36.0); Mean Corpuscular Hemoglobin 27.6 pg (28.0-34.0); Mean Platelet Volume 10.3 fL (7.4-10.4); Monocytes # 0.8 10^3/uL (0.2-0.9); Neutrophils # 3.45 10^3/uL (1.8-7.7); Neutrophils % 52.5 %; Nucleated Red Blood Cells % 0 %; Platelet Count 235 10^3/cmm (130-400); Red Blood Count 4.53 10^6/uL (4.1-5.3); Red Cell Distribution Width 15.8 % (12.1-15.1); White Blood Count 6.6 10^3/uL (4.0-10.0)
[2022-09-24 04:29] LABS: D Dimer 0.45 ug/mIFEU (0-0.59)
[2022-09-24 04:42] LABS: Anion Gap 18.4 (5-19); Blood Urea Nitrogen 34 mg/dL (8-23); Calcium 9.7 mg/dL (8.5-10.5); Carbon Dioxide 23 mmol/L (22-29); Chloride 101 mmol/L (98-107); Glucose 181 mg/dL (65-115); Osmolality Calculated 298 mOsm/kg (285-295); Potassium 4.4 mmol/L (3.5-5.1); Sodium 138 mmol/L (136-145)
[2022-09-24 04:49] LABS: Procalcitonin 0.08 ng/mL (0-0.5)
[2022-09-24 06:57] LABS: Glucose Point of Care 193 mg/dL (70-110)
[2022-09-24] MEDS: insulin lispro 100 unit/1 mL SUBCUT ×3 (08:57→17:47)
--- NOTE | 2022-09-24 10:55 | MR_ITS ---
WS: [id number] MRI HEAD WITHOUT CONTRAST TECHNIQUE: Sagittal T1, T2 axial, T2 axial FLAIR, axial and coronal T1 images, axial susceptibility w eighted imaging, axial diffusion weighted images, and coronal T2 images were obtained. CLINICAL INFORMATION: CVA COMPARISON: CT head and CTA 09.22.22 FINDINGS: No evidence of restricted diffusion to suggest acute ischemia. Ventricular system and basal cisterns are patent. Moderate to advanced small vessel changes. Moderate parenchymal volume loss. Chronic ence phalomalacia and gliosis in the RIGHT superior temporal and frontal parietal junction. This likely du e to prior TBI with craniotomy. Additional small areas of encephalomalacia and gliosis in the LEFT an terior temporal lobe and LEFT frontal parietal junction likely due to prior infarct or trauma. Small vessel changes in the adam. Chronic lacunar infarcts in the LEFT cerebellum. Normal vascular flow voids at the skull base. No ext ra-axial fluid collections. No evidence of mass or mass effect. Paranasal sinuses and mastoid air carol ls are well aerated. Normal posterior nasopharynx. Normal parapharyngeal fat. A few scattered foci of hemosiderin on susceptibly weighted images. Normal optic chiasm and pituitary infundibulum. Advanced symmetric atrophy temporal lobes and hippocampal formations. Normal cavernous sinuses and Meckel's cave. MR/MR head wo con* [id number] IMPRESSION: 1. No evidence of restricted diffusion to suggest acute ischemia. 2. Prior postoperative changes RIGHT frontal parietal craniotomy with underlyi ng encephalomalacia in the RIGHT frontal parietal junction/superior temporal lo be. 3. Moderate to advanced small vessel changes with moderate parenchymal volume loss. Small vessel changes in the adam. 4. Advanced symmetric atrophy temporal lobes and hippocampal formations. 5. Small scattered foci of hemosiderin on susceptibly weighted images. 6. A few tiny chronic lacunar infarcts LEFT cerebellum. 7. No other acute findings.
[2022-09-24 11:36] LABS: Glucose Point of Care 279 mg/dL (70-110)
[2022-09-24] MEDS: cefTRIAXone 1,000 MG in sodium chloride 0.9% (plus) 50 ML 100 MG IV (12:13)
[2022-09-24] MEDS: sodium chloride 0.9% 1,000 ML 50 ML IV (12:21)
--- NOTE | 2022-09-24 14:31 | P.PN_ITS ---
Subjective Subjective: was seen this morning, much more alert awake oriented today, she had had breakfast, MRI head awaited, working with physical therapy. Medications: Medication Review Details: Generic Name Dose Route Start Last Admin Trade Name Parisa PRN Reason Stop Dose Admin Ceftriaxone Sodium 1,000 mg/ 50 mls @ 100 mls/ hr 09/23/22 11:00 09/24/22 12:13 Sodium Chloride IV 100 mls/hr Q24H GURU Administration Protocol Sodium Chloride 1,000 mls @ 50 ml s/hr 09/24/22 08:15 09/24/22 12:21 Sodium Chloride 0.9% IV 50 mls/hr .Q20H GURU Administration Insulin Human Lisp ro 0 unit 09/23/22 08:00 09/24/22 12:21 Insulin Lispro 1 00 Unit/1 Ml SUBCUT 8 unit TIDWM GURU Administration Protocol Risperidone 1 mg 09/22/22 21:00 09/22/22 20:28 Risperidone 1 Mg Tablet PO Not Given BEDTIME GURU Vitals/I&O/Wt Last Vital Signs Temp 97.7 F 09/24/22 12:00 Pulse 116 H 09/24/22 12:00 Resp 16 09/24/22 12:00 BP 132/78 09/24/22 12:00 Pulse Ox 98 09/24/22 12:00 O2 Del Method 09/24/22 04:00 09/23/22 09/24/22 09/24/22 22:59 06:59 14:59 Intake Total 170 / 170 0 / 170 360 / 360 Balance 170 / 170 0 / 170 360 / 360 Weight last 48 hrs Weight 47.99 kg Physical Exam Narrative: NAD Resp: COMMON NORMALS: clear to auscultation bilaterally EFFORT & INSPECTION: Yes symmetric chest movement AUSCULTATION: clear to auscultation bilaterally Cardio: COMMON NORMALS: regular rate, regular rhythm, S1 normal heart sound present, S2 normal heart sound present, No gallops present (Cardio), No murmurs present (Cardio), No rub (Cardio) and Peripheral pulses 2+ throughout RATE: regular rate RHYTHM: regular rhythm HEART SOUNDS: S1 normal heart sound present and S2 normal heart sound present PERIPHERAL PULSES: Peripheral pulses 2+ throughout GI: COMMON NORMALS: Normal to inspection, nondistended, normoactive bowel sounds present, Soft to palpation, non-tender, No hepatosplenomegaly present and no masses AUSCULTATION: Yes normoactive bowel sounds PALPATION: Yes Soft to palpation and Yes No hepatosplenomegaly present RECTAL EXAM: deferred Extremity: NARRATIVE EXTREMITY EXAM: 1+ B/L PITTING EDEMA Data 09/24/22 03:37 09/24/22 03:37 Micro: Microbiology 09/24/22 03:37 Blood Culture - Preliminary Blood SPECIMEN COLLECTED 09/24/22 03:37 Blood Culture - Preliminary Blood SPECIMEN COLLECTED A&P Assessment and plan (1) Acute cerebrovascular accident (CVA): (2) Dementia: (3) Type 2 diabetes mellitus without complications: Qualifiers: Diabetes mellitus exterminator helper termite insulin use: without longterm use Qualified Code(s): E11.9 - Type 2 diabetes mellitus without complications (4) Essential (primary) hypertension: (5) Urge incontinence: (6) Hx of traumatic brain injury: (7) Altered mental status: Plan Cathi Nichols is a 81 year old female with past medical history of diabetes hypertension, dementia, TBI, Parkinson's, was brought in today by the family with chief complaint of acute onset of slurred speech, right-sided weakness, right-sided facial droop, last known well was at 9 AM, arrived at ER at around 1:50 PM, by the time she had arrived in the ER right-sided weakness facial droop as well as speech was improved, she was out of tPA window, not a candidate for thrombectomy. Assessment: Acute CVA, with right-sided weakness AMS lIKELY 2/2 CVA. History of hypertension History of diabetes History of parkinsonism History of recurrent UTI History of dementia Plan: CT head without contrast done in the ER showed: No acute intracranial pathology. CTA head and neck: No flow-limiting stenosis. MRI Brain without contrast : 2D Echo: LV systolic function is normal with EF of 55-60% Grade 1 diastolic dysfunction Moderate mitral annular calcification. Mild mitral regurgitation Mild tricuspid regurgitation.No significant change from prior echo Xray chest : WNL Most recent UA: Done on 09/20: Is clean D- DIMER : Normal Blood culture: On aspirin and statin Resume amlodipine We will initiate gentle IV hydration as serum creatinine is slightly trended up. 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
[2022-09-24] MEDS: amlodipine 5 mg Tablet 2.5 MG PO (14:41)
[2022-09-24 17:16] LABS: Glucose Point of Care 374 mg/dL (70-110)
[2022-09-24] MEDS: enoxaparin 30 mg/0.3 mL Syringe SUBCUT (17:51)
[2022-09-24] MEDS: labetalol 5 mg/mL SDV 20mL 10 MG IVP (20:08)
[2022-09-24] MEDS: atorvastatin 40 mg Tablet PO (20:08)
[2022-09-24] MEDS: BuSPIRONE 10 mg Tablet 5 MG PO (21:09)
[2022-09-24 21:39] LABS: Glucose Point of Care 255 mg/dL (70-110)
[2022-09-25] VITALS (12 sets, daily range): BP systolic 134–193; BP diastolic 48–83; PULSE 92–110; RESP 16–20; TEMP 36.6–37.1; O2SAT 94–98
[2022-09-25] MEDS: labetalol 5 mg/mL SDV 20mL 10 MG IVP ×2 (03:47→20:03)
[2022-09-25 06:05] LABS: Basophils % 0.7 %; Eosinophils # 0.4 10^3/uL (0.0-0.8); Eosinophils % 8.1 %; Hematocrit 37.4 % (37.0-47.0); Hemoglobin 11.9 g/dL (11.5-15.3); Lymphocytes # 1.6 10^3/uL (0.8-4.8); Mean Corpuscular HGB Conc 31.8 g/dL (30.0-36.0); Mean Corpuscular Hemoglobin 27.3 pg (28.0-34.0); Mean Corpuscular Volume 85.8 fl (81-99); Mean Platelet Volume 9.8 fL (7.4-10.4); Monocytes # 0.7 10^3/uL (0.2-0.9); Monocytes % 12.5 %; Neutrophils # 2.64 10^3/uL (1.8-7.7); Neutrophils % 48.3 %; Nucleated Red Blood Cells % 0 %; Platelet Count 215 10^3/cmm (130-400); Red Blood Count 4.36 10^6/uL (4.1-5.3); Red Cell Distribution Width 15.5 % (12.1-15.1); White Blood Count 5.5 10^3/uL (4.0-10.0)
[2022-09-25 06:30] LABS: Glucose Point of Care 233 mg/dL (70-110)
[2022-09-25 06:33] LABS: Blood Urea Nitrogen 37 mg/dL (8-23); Calcium 9.5 mg/dL (8.5-10.5); Carbon Dioxide 23 mmol/L (22-29); Chloride 104 mmol/L (98-107); Glucose 266 mg/dL (65-115); Osmolality Calculated 304 mOsm/kg (285-295); Sodium 138 mmol/L (136-145)
[2022-09-25] MEDS: aspirin 81 mg EC Tablet 162 MG PO (08:23)
[2022-09-25] MEDS: amlodipine 5 mg Tablet 2.5 MG PO (08:24)
[2022-09-25] MEDS: insulin lispro 100 unit/1 mL SUBCUT ×3 (08:26→18:34)
--- NOTE | 2022-09-25 09:24 | PC.NURSE ---
Dr. Palomino gave vebal order to discontinue fluids
[2022-09-25] MEDS: cefTRIAXone 1,000 MG in sodium chloride 0.9% (plus) 50 ML 100 MG IV (11:41)
[2022-09-25 12:31] LABS: Glucose Point of Care 274 mg/dL (70-110)
--- NOTE | 2022-09-25 14:51 | PC.OT ---
OT tx attempted - Patient asleep at time of contact, unable to perform tx on this day.
--- NOTE | 2022-09-25 15:00 | P.PN_ITS ---
Subjective Subjective: was seen this morning.no acute events overnight, working with P/T. Medications: Medication Review Details: Generic Name Dose Route Start Last Admin Trade Name Parisa PRN Reason Stop Dose Admin Ceftriaxone Sodium 1,000 mg/ 50 mls @ 100 mls/ hr 09/23/22 11:00 09/24/22 12:13 Sodium Chloride IV 100 mls/hr Q24H GURU Administration Protocol Sodium Chloride 1,000 mls @ 50 ml s/hr 09/24/22 08:15 09/24/22 12:21 Sodium Chloride 0.9% IV 50 mls/hr .Q20H GURU Administration Insulin Human Lisp ro 0 unit 09/23/22 08:00 09/24/22 12:21 Insulin Lispro 1 00 Unit/1 Ml SUBCUT 8 unit TIDWM GURU Administration Protocol Risperidone 1 mg 09/22/22 21:00 09/22/22 20:28 Risperidone 1 Mg Tablet PO Not Given BEDTIME GURU Vitals/I&O/Wt Last Vital Signs Temp 98 F 09/25/22 14:00 Pulse 94 09/25/22 14:00 Resp 17 09/25/22 14:00 BP 165/72 09/25/22 14:00 Pulse Ox 95 09/25/22 12:00 O2 Del Method 09/25/22 03:31 09/25/22 09/25/22 09/25/22 06:59 14:59 22:59 Intake Total 0 / 970 200 / 200 Balance 0 / 970 200 / 200 Physical Exam Narrative: NAD Resp: COMMON NORMALS: clear to auscultation bilaterally EFFORT & INSPECTION: Yes symmetric chest movement AUSCULTATION: clear to auscultation bilaterally Cardio: COMMON NORMALS: regular rate, regular rhythm, S1 normal heart sound present, S2 normal heart sound present, No gallops present (Cardio), No murmurs present (Cardio), No rub (Cardio) and Peripheral pulses 2+ throughout RATE: regular rate RHYTHM: regular rhythm HEART SOUNDS: S1 normal heart sound present and S2 normal heart sound present PERIPHERAL PULSES: Peripheral pulses 2+ throughout GI: COMMON NORMALS: Normal to inspection, nondistended, normoactive bowel sounds present, Soft to palpation, non-tender, No hepatosplenomegaly present and no masses AUSCULTATION: Yes normoactive bowel sounds PALPATION: Yes Soft to palpation and Yes No hepatosplenomegaly present RECTAL EXAM: deferred Extremity: NARRATIVE EXTREMITY EXAM: 1+ B/L PITTING EDEMA Data 09/25/22 05:46 09/25/22 05:46 Micro: Microbiology 09/24/22 03:37 Blood Culture - Preliminary Blood NEGATIVE TO DATE 09/24/22 03:37 Blood Culture - Preliminary Blood NEGATIVE TO DATE A&P Assessment and plan (1) Acute cerebrovascular accident (CVA): (2) Dementia: (3) Type 2 diabetes mellitus without complications: Qualifiers: Diabetes mellitus care home insulin use: without care home use Qualified Code(s): E11.9 - Type 2 diabetes mellitus without complications (4) Essential (primary) hypertension: (5) Urge incontinence: (6) Hx of traumatic brain injury: (7) Altered mental status: Plan Cathi Nichols is a 81 year old female with past medical history of diabetes hypertension, dementia, TBI, Parkinson's, was brought in today by the family with chief complaint of acute onset of slurred speech, right-sided weakness, right-sided facial droop, last known well was at 9 AM, arrived at ER at around 1:50 PM, by the time she had arrived in the ER right-sided weakness facial droop as well as speech was improved, she was out of tPA window, not a candidate for thrombectomy. Assessment: Acute CVA, with right-sided weakness AMS lIKELY 2/2 CVA. History of hypertension History of diabetes History of parkinsonism History of recurrent UTI History of dementia Plan: CT head without contrast done in the ER showed: No acute intracranial pathology. CTA head and neck: No flow-limiting stenosis. MRI Brain without contrast : No significant acute abnormality noted. 2D Echo: LV systolic function is normal with EF of 55-60% Grade 1 diastolic dysfunction Moderate mitral annular calcification. Mild mitral regurgitation Mild tricuspid regurgitation.No significant change from prior echo Xray chest : WNL Most recent UA: Done on 09/20: Is clean D- DIMER : Normal Blood culture:NTD On aspirin and statin On Amlodipine Was on gentle IV hydration for poor oral intake and uptrending SCR has been discontinued. Currently adequate oral intake. Continue telemetry monitoring SSI, monitor fingerstick glucose Empirically on rocephin, PT OT evaluation Speech evaluation CODE STATUS: Full code DVT prophylaxis: On Lovenox Disposition :Currently awaiting penitentiary placement for rehab. Attestations Medical Necessity Statement*: Awaiting penitentiary placement for rehab Coding Level of Care Code Acute Bobbin Marker for Chg Fwd Exam Expanded Problem Focused Diagnoses Acute cerebrovascular accident (CVA) I63.9 Dementia F03.90 Type 2 diabetes mellitus without complications E11.9 Diabetes mellitus care home insulin use: without care home use Essential (primary) hypertension I10 Urge incontinence N39.41 Hx of traumatic brain injury Z87.820 Altered mental status R41.82
[2022-09-25 17:06] LABS: Glucose Point of Care 176 mg/dL (70-110)
[2022-09-25] MEDS: enoxaparin 30 mg/0.3 mL Syringe SUBCUT (18:34)
[2022-09-25] MEDS: atorvastatin 40 mg Tablet PO (20:03)
[2022-09-25 21:27] LABS: Glucose Point of Care 271 mg/dL (70-110)
[2022-09-26] VITALS (18 sets, daily range): BP systolic 146–221; BP diastolic 53–98; PULSE 87–127; RESP 15–23; TEMP 36.4–37.3; O2SAT 95–98
[2022-09-26] MEDS: labetalol 5 mg/mL SDV 20mL 10 MG IVP ×2 (00:50→03:52)
[2022-09-26] MEDS: hyDRALAzine 20 mg/mL INJ 1 mL 10 MG IVP (05:01)
[2022-09-26 06:43] LABS: Glucose Point of Care 266 mg/dL (70-110)
[2022-09-26] MEDS: aspirin 81 mg EC Tablet 162 MG PO (09:02)
[2022-09-26] MEDS: insulin lispro 100 unit/1 mL SUBCUT ×3 (09:03→18:10)
[2022-09-26] MEDS: amlodipine 5 mg Tablet 2.5 MG PO (09:03)
[2022-09-26] MEDS: cefTRIAXone 1,000 MG in sodium chloride 0.9% (plus) 50 ML 100 MG IV (11:52)
[2022-09-26] MEDS: lisinopril 20 mg Tablet PO ×2 (11:52→18:10)
[2022-09-26 12:40] LABS: Glucose Point of Care 220 mg/dL (70-110)
--- NOTE | 2022-09-26 15:45 | PC.OT ---
OT tx attempted - Treatment attempted 3x on this day, 1x this morning and 2x this afternoon. Patient asleep all times, son asked for patient not to be woken up secondary to her not sleeping well at night.
--- NOTE | 2022-09-26 17:13 | P.PN_ITS ---
Subjective Subjective: was seen this morning. hypertensive overnight, received labetalol as well as hydralazine. Will resume home lisinopril 20 p.o. twice daily from today. Medications: Medication Review Details: Generic Name Dose Route Start Last Admin Trade Name Freq PRN Reason Stop Dose Admin Amlodipine Besylat e 2.5 mg 09/24/22 12:05 09/26/22 09:03 Amlodipine 5 Mg Tablet PO 2.5 mg DAILY GURU Administration Aspirin 162 mg 09/25/22 09:00 09/26/22 09:02 Aspirin 81 Mg Ec Tablet PO 162 mg DAILY GURU Administration Atorvastatin Calci um 40 mg 09/24/22 21:00 09/25/22 20:03 Atorvastatin 40 Mg Tablet PO 40 mg BEDTIME GURU Administration Enoxaparin Sodium 30 mg 09/24/22 18:00 09/25/22 18:34 Enoxaparin 30 Mg /0.3 Ml Syringe SUBCUT 30 mg Q24H GURU Administration Ceftriaxone Sodium 1,000 mg/ 50 mls @ 100 mls/ hr 09/23/22 11:00 09/26/22 11:52 Sodium Chloride IV 100 mls/hr Q24H GURU Administration Protocol Insulin Human Lisp ro 0 unit 09/23/22 08:00 09/26/22 13:14 Insulin Lispro 1 00 Unit/1 Ml SUBCUT 4 unit TIDWM GURU Administration Protocol Labetalol HCl 10 mg 09/23/22 19:00 09/26/22 00:50 Labetalol 5 Mg/M l Sdv 20ml IVP 10 mg Q4H PRN Administration HYPERTENSION Lisinopril 20 mg 09/26/22 10:35 09/26/22 11:52 Lisinopril 20 Mg Tablet PO 20 mg BID@0800,1700 GURU Administration Risperidone 1 mg 09/22/22 21:00 09/22/22 20:28 Risperidone 1 Mg Tablet PO Not Given BEDTIME GURU Vitals/I&O/Wt Last Vital Signs Temp 98 F 09/26/22 14:00 Pulse 88 09/26/22 14:00 Resp 18 09/26/22 14:00 BP 146/73 09/26/22 14:00 Pulse Ox 96 09/26/22 12:00 O2 Del Method 09/26/22 04:30 09/26/22 09/26/22 09/26/22 06:59 14:59 22:59 Intake Total 100 / 840 390 / 390 Balance 100 / 840 390 / 390 Physical Exam Narrative: NAD Resp: COMMON NORMALS: clear to auscultation bilaterally EFFORT & INS PECTION: Yes symmetric chest movement AUSCULTATION: clear to auscultation bilaterally Cardio: COMMON NORMALS: regular rate, regular rhythm, S1 normal heart sound present, S2 normal heart sound present, No gallops present (Cardio), No murmurs present (Cardio), No rub (Cardio) and Peripheral pulses 2+ throughout RATE: regular rate RHYTHM: regular rhythm HEART SOUNDS: S1 normal heart sound present and S2 normal heart sound present PERIPHERAL PULSES: Peripheral pulses 2+ throughout GI: COMMON NORMALS: Normal to inspection, nondistended, normoactive bowel sounds present, Soft to palpation, non-tender, No hepatosplenomegaly present and no masses AUSCULTATION: Yes normoactive bowel sounds PALPATION: Yes Soft to palpation and Yes No hepatosplenomegaly present RECTAL EXAM: deferred Extremity: NARRATIVE EXTREMITY EXAM: 1+ B/L PITTING EDEMA Data 09/25/22 05:46 09/25/22 05:46 A&P Assessment and plan (1) Acute cerebrovascular accident (CVA): (2) Dementia: (3) Type 2 diabetes mellitus without complications: Qualifiers: Diabetes mellitus continuous churn buttermaker insulin use: without continuous churn buttermaker use Qualified Code(s): E11.9 - Type 2 diabetes mellitus without complications (4) Essential (primary) hypertension: (5) Urge incontinence: (6) Hx of traumatic brain injury: (7) Altered mental status: Plan Cathi Nichols is a 81 year old female with past medical history of diabetes hypertension, dementia, TBI, Parkinson's, was brought in today by the family with chief complaint of acute onset of slurred speech, right-sided weakness, right-sided facial droop, last known well was at 9 AM, arrived at ER at around 1:50 PM, by the time she had arrived in the ER right-sided weakness facial droop as well as speech was improved, she was out of tPA window, not a candidate for thrombectomy. Assessment: Likely acute CVA/TIA, with right-sided weakness AMS lIKELY 2/2 CVA. History of hypertension History of diabetes History of parkinsonism History of recurrent UTI History of dementia Plan: CT head without contrast done in the ER showed: No acute intracranial pathology. CTA head and neck: No flow-limiting stenosis. MRI Brain without contrast : No significant acute abnormality noted. 2D Echo: LV systolic function is normal with EF of 55-60% Grade 1 diastolic dysfunction Moderate mitral annular calcification. Mild mitral regurgitation Mild tricuspid regurgitation.No significant change from prior echo Xray chest : WNL Most recent UA: Done on 09/20: Is clean D- DIMER : Normal Blood culture:NTD On aspirin and statin On Amlodipine Was on gentle IV hydration for poor oral intake and uptrending SCR has been discontinued. Currently adequate oral intake. Continue telemetry monitoring SSI, monitor fingerstick glucose Empirically on rocephin, PT OT evaluation Speech evaluation CODE STATUS: Full code DVT prophylaxis: On Lovenox Disposition :Currently awaiting group home placement for rehab. Attestations Medical Necessity Statement*: Patient is currently awaiting group home placement. Coding Level of Care Code Acute Privacy Compliance Manager for [facility] Diagnoses Acute cerebrovascular accident (CVA) I63.9 Dementia F03.90 Type 2 diabetes mellitus without complications E11.9 Diabetes mellitus detention insulin use: without detention use Essential (primary) hypertension I10 Urge incontinence N39.41 Hx of traumatic brain injury Z87.820 Altered mental status R41.82
[2022-09-26 17:41] LABS: Glucose Point of Care 227 mg/dL (70-110)
[2022-09-26] MEDS: enoxaparin 30 mg/0.3 mL Syringe SUBCUT (18:10)
[2022-09-26 21:38] LABS: Glucose Point of Care 174 mg/dL (70-110)
[2022-09-26] MEDS: atorvastatin 40 mg Tablet PO (22:57)
[2022-09-27] VITALS (9 sets, daily range): BP systolic 139–195; BP diastolic 64–89; PULSE 93–133; RESP 16; TEMP 36.7–37.4; O2SAT 96–98
[2022-09-27 07:31] LABS: Glucose Point of Care 240 mg/dL (70-110)
[2022-09-27] MEDS: aspirin 81 mg EC Tablet 162 MG PO (08:00)
[2022-09-27] MEDS: amlodipine 5 mg Tablet 2.5 MG PO (08:00)
[2022-09-27] MEDS: lisinopril 20 mg Tablet PO ×2 (08:01→17:41)
[2022-09-27] MEDS: insulin lispro 100 unit/1 mL SUBCUT ×3 (08:01→17:41)
--- NOTE | 2022-09-27 09:03 | PC.SOCIAL ---
IMM update Imm updated at bedside with patient and son. Copy of page 2 provided. Patient and son verbalized understanding. Copy in chart initialed, dated and timed.
[2022-09-27 11:01] LABS: Glucose Point of Care 274 mg/dL (70-110)
[2022-09-27] MEDS: cefTRIAXone 1,000 MG in sodium chloride 0.9% (plus) 50 ML 100 MG IV (11:53)
--- NOTE | 2022-09-27 13:48 | PC.PT ---
Attempted to see for 4th attempt today. Patient was not cognitivelya ctive enough to participate adn then they requested afternoon visit. I came to see patient but patients refused therapy. He states that his has some naseua and he doesnt think she needs to be doing therapy. He asked that therapy staff come back by late afternoon after 5. I educated that staff will likely not be there and since this is [facility] 4th refusal that she may not be seen. He stated that he would rather the doctor get to the bottom of her newly devloped naseua, that she had a good therapy session on 09/26/2022, and she wasnt doing therapy until late afternoon.
--- NOTE | 2022-09-27 16:35 | PM.PN ---
Subjective Subjective: was seen this morning. Blood pressure control has improved after addition of home lisinopril. Medications: Medication Review Details: Generic Name Dose Route Start Last Admin Trade Name Parisa PRN Reason Stop Dose Admin Amlodipine Besylat e 2.5 mg 09/24/22 12:05 09/27/22 08:00 Amlodipine 5 Mg Tablet PO 2.5 mg DAILY GURU Administration Aspirin 162 mg 09/25/22 09:00 09/27/22 08:00 Aspirin 81 Mg Ec Tablet PO 162 mg DAILY GURU Administration Atorvastatin Calci um 40 mg 09/24/22 21:00 09/26/22 22:57 Atorvastatin 40 Mg Tablet PO 40 mg BEDTIME GURU Administration Enoxaparin Sodium 30 mg 09/24/22 18:00 09/26/22 18:10 Enoxaparin 30 Mg /0.3 Ml Syringe SUBCUT 30 mg Q24H GURU Administration Ceftriaxone Sodium 1,000 mg/ 50 mls @ 100 mls/ hr 09/23/22 11:00 09/27/22 13:50 Sodium Chloride IV Infused Q24H GURU Infusion Protocol Insulin Human Lisp ro 0 unit 09/23/22 08:00 09/27/22 11:53 Insulin Lispro 1 00 Unit/1 Ml SUBCUT 8 unit TIDWM GURU Administration Protocol Labetalol HCl 10 mg 09/23/22 19:00 09/26/22 00:50 Labetalol 5 Mg/M l Sdv 20ml IVP 10 mg Q4H PRN Administration HYPERTENSION Lisinopril 20 mg 09/26/22 10:35 09/27/22 08:01 Lisinopril 20 Mg Tablet PO 20 mg BID@0800,1700 GURU Administration Risperidone 1 mg 09/22/22 21:00 09/22/22 20:28 Risperidone 1 Mg Tablet PO Not Given BEDTIME [facility] Vitals/I&O/Wt Last Vital Signs Temp 98.5 F 09/27/22 15:21 Pulse 115 H 09/27/22 15:21 Resp 16 09/27/22 15:21 BP 158/64 09/27/22 15:21 Pulse Ox 96 09/27/22 15:21 O2 Del Method 09/27/22 15:21 09/27/22 09/27/22 09/27/22 06:59 14:59 22:59 Intake Total 40 / 720 1530 / 1530 Balance 40 / 720 1530 / 1530 Physical Exam Narrative: NAD Resp: COMMON NORMALS: clear to auscultation bilaterally EFFORT & INSPECTION: Yes symmetric chest movement AUSCULTATION: clear to auscultation bilaterally Cardio: COMMON NORMALS: regular rate, regular rhythm, S1 normal heart sound present, S2 normal heart sound present, No gallops present (Cardio), No murmurs present (Cardio), No rub (Cardio) and Peripheral pulses 2+ throughout RATE: regular rate RHYTHM: regular rhythm HEART SOUNDS: S1 normal heart sound present and S2 normal heart sound present PERIPHERAL PULSES: Peripheral pulses 2+ throughout GI: COMMON NORMALS: Normal to inspection, nondistended, normoactive bowel sounds present, Soft to palpation, non-tender, No hepatosplenomegaly present and no masses AUSCULTATION: Yes normoactive bowel sounds PALPATION: Yes Soft to palpation and Yes No hepatosplenomegaly present RECTAL EXAM: deferred Extremity: NARRATIVE EXTREMITY EXAM: 1+ B/L PITTING EDEMA Data 09/25/22 05:46 09/25/22 05:46 A&P Assessment and plan (1) Acute cerebrovascular accident (CVA): (2) Dementia: (3) Type 2 diabetes mellitus without complications: Qualifiers: Diabetes mellitus mcfp insulin use: without mcfp use Qualified Code(s): E11.9 - Type 2 diabetes mellitus without complications (4) Essential (primary) hypertension: (5) Urge incontinence: (6) Hx of traumatic brain injury: (7) Altered mental status: Plan Cathi Nichols is a 81 year old female with past medical history of diabetes hypertension, dementia, TBI, Parkinson's, was brought in today by the family with chief complaint of acute onset of slurred speech, right-sided weakness, right-sided facial droop, last known well was at 9 AM, arrived at ER at around 1:50 PM, by the time she had arrived in the ER right-sided weakness facial droop as well as speech was improved, she was out of tPA window, not a candidate for thrombectomy. Assessment: Likely acute CVA/TIA, with right-sided weakness AMS lIKELY 2/2 CVA. History of hypertension History of diabetes History of parkinsonism History of recurrent UTI History of dementia Plan: CT head without contrast done in the ER showed: No acute intracranial pathology. CTA head and neck: No flow-limiting stenosis. MRI Brain without contrast : No significant acute abnormality noted. 2D Echo: LV systolic function is normal with EF of 55-60% Grade 1 diastolic dysfunction Moderate mitral annular calcification. Mild mitral regurgitation Mild tricuspid regurgitation.No significant change from prior echo Xray chest : WNL Most recent UA: Done on 09/20: Is clean D- DIMER : Normal Blood culture:NTD On aspirin and statin On Amlodipine Was on gentle IV hydration for poor oral intake and uptrending SCR has been discontinued. Currently adequate oral intake. Continue telemetry monitoring SSI, monitor fingerstick glucose Was Empirically on rocephin, PT OT evaluation Speech evaluation CODE STATUS: Full code DVT prophylaxis: On Lovenox Disposition :Currently awaiting residential placement for rehab. Attestations Medical Necessity Statement*: Awaiting residential placement. 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
[2022-09-27 17:05] LABS: Glucose Point of Care 215 mg/dL (70-110)
[2022-09-27] MEDS: enoxaparin 30 mg/0.3 mL Syringe SUBCUT (17:40)
[2022-09-27] MEDS: labetalol 5 mg/mL SDV 20mL 10 MG IVP (20:14)
[2022-09-27] MEDS: atorvastatin 40 mg Tablet PO (20:50)
[2022-09-27 22:40] LABS: Glucose Point of Care 296 mg/dL (70-110)
[2022-09-28] VITALS (9 sets, daily range): BP systolic 135–216; BP diastolic 68–82; PULSE 86–127; RESP 15–20; TEMP 36.6–37.6; O2SAT 92–98
[2022-09-28] MEDS: labetalol 5 mg/mL SDV 20mL 10 MG IVP ×2 (02:19→21:31)
[2022-09-28 07:45] LABS: Glucose Point of Care 289 mg/dL (70-110)
[2022-09-28] MEDS: aspirin 81 mg EC Tablet 162 MG PO (08:16)
[2022-09-28] MEDS: insulin lispro 100 unit/1 mL SUBCUT ×3 (08:16→17:26)
[2022-09-28] MEDS: amlodipine 5 mg Tablet 2.5 MG PO (08:17)
[2022-09-28] MEDS: lisinopril 20 mg Tablet PO ×2 (08:17→17:26)
[2022-09-28 11:04] LABS: Glucose Point of Care 265 mg/dL (70-110)
--- NOTE | 2022-09-28 15:16 | PM.PN ---
Subjective Subjective: was seen this morning. No acute events. Medications: Medication Review Details: Generic Name Dose Route Start Last Admin Trade Name Freq PRN Reason Stop Dose Admin Amlodipine Besylat e 2.5 mg 09/24/22 12:05 09/28/22 08:17 Amlodipine 5 Mg Tablet PO 2.5 mg DAILY GURU Administration Aspirin 162 mg 09/25/22 09:00 09/28/22 08:16 Aspirin 81 Mg Ec Tablet PO 162 mg DAILY GURU Administration Atorvastatin Calci um 40 mg 09/24/22 21:00 09/27/22 20:50 Atorvastatin 40 Mg Tablet PO 40 mg BEDTIME GURU Administration Enoxaparin Sodium 30 mg 09/24/22 18:00 09/27/22 17:40 Enoxaparin 30 Mg /0.3 Ml Syringe SUBCUT 30 mg Q24H GURU Administration Insulin Human Lisp ro 0 unit 09/23/22 08:00 09/28/22 12:02 Insulin Lispro 1 00 Unit/1 Ml SUBCUT 8 unit TIDWM GURU Administration Protocol Labetalol HCl 10 mg 09/23/22 19:00 09/28/22 02:19 Labetalol 5 Mg/M l Sdv 20ml IVP 10 mg Q4H PRN Administration HYPERTENSION Lisinopril 20 mg 09/26/22 10:35 09/28/22 08:17 Lisinopril 20 Mg Tablet PO 20 mg BID@0800,1700 GURU Administration Risperidone 1 mg 09/22/22 21:00 09/22/22 20:28 Risperidone 1 Mg Tablet PO Not Given BEDTIME [facility] Vitals/I&O/Wt Last Vital Signs Temp 98.5 F 09/28/22 12:00 Pulse 91 09/28/22 12:00 Resp 15 09/28/22 12:00 BP 135/68 09/28/22 12:00 Pulse Ox 97 09/28/22 12:00 O2 Del Method 09/28/22 12:00 09/28/22 09/28/22 09/28/22 06:59 14:59 22:59 Intake Total 120 / 2130 640 / 640 Balance 120 / 2130 640 / 640 Physical Exam Narrative: NAD Resp: COMMON NORMALS: clear to auscultation bilaterally EFFORT & INSPECTION: Yes symmetric chest movement AUSCULTATION: clear to auscultation bilaterally Cardio: COMMON NORMALS: regular rate, regular rhythm, S1 normal heart sound present, S2 normal heart sound present, No gallops present (Cardio), No murmurs present (Cardio), No rub (Cardio) and Peripheral pulses 2+ throughout RATE: regular rate RHYTHM: regular rhythm HEART SOUNDS: S1 normal heart sound present and S2 normal heart sound present PERIPHERAL PULSES: Peripheral pulses 2+ throughout GI: COMMON NORMALS: Normal to inspection, nondistended, normoactive bowel sounds present, Soft to palpation, non-tender, No hepatosplenomegaly present and no masses AUSCULTATION: Yes normoactive bowel sounds PALPATION: Yes Soft to palpation and Yes No hepatosplenomegaly present RECTAL EXAM: deferred Extremity: NARRATIVE EXTREMITY EXAM: 1+ B/L PITTING EDEMA Data 09/25/22 05:46 09/25/22 05:46 A&P Assessment and plan (1) Acute cerebrovascular accident (CVA): (2) Dementia: (3) Type 2 diabetes mellitus without complications: Qualifiers: Diabetes mellitus adjunct faculty for medical terminology insulin use: without fci use Qualified Code(s): E11.9 - Type 2 diabetes mellitus without complications (4) Essential (primary) hypertension: (5) Urge incontinence: (6) Hx of traumatic brain injury: (7) Altered mental status: Plan Cathi Nichols is a 81 year old female with past medical history of diabetes hypertension, dementia, TBI, Parkinson's, was brought in today by the family with chief complaint of acute onset of slurred speech, right-sided weakness, right-sided facial droop, last known well was at 9 AM, arrived at ER at around 1:50 PM, by the time she had arrived in the ER right-sided weakness facial droop as well as speech was improved, she was out of tPA window, not a candidate for thrombectomy. Assessment: Likely acute CVA/TIA, with right-sided weakness AMS lIKELY 2/2 CVA. History of hypertension History of diabetes History of parkinsonism History of recurrent UTI History of dementia Plan: CT head without contrast done in the ER showed: No acute intracranial pathology. CTA head and neck: No flow-limiting stenosis. MRI Brain without contrast : No significant acute abnormality noted. 2D Echo: LV systolic function is normal with EF of 55-60% Grade 1 diastolic dysfunction Moderate mitral annular calcification. Mild mitral regurgitation Mild tricuspid regurgitation.No significant change from prior echo Xray chest : WNL Most recent UA: Done on 09/20: Is clean D- DIMER : Normal Blood culture:NTD On aspirin and statin On Amlodipine Was on gentle IV hydration for poor oral intake and uptrending SCR has been discontinued. Currently adequate oral intake. Continue telemetry monitoring SSI, monitor fingerstick glucose Was Empirically on rocephin, PT OT evaluation Speech evaluation CODE STATUS: Full code DVT prophylaxis: On Lovenox Disposition :Currently [facility]. Attestations Medical Necessity Statement*: Awaiting placement to rehab Coding Level of Care Code Acute Dietary Services Director for g Fwd Diagnoses Acute cerebrovascular accident (CVA) I63.9 Dementia F03.90 Type 2 diabetes mellitus without complications E11.9 Diabetes mellitus adjunct faculty for medical terminology insulin use: without adjunct faculty for medical terminology use Essential (primary) hypertension I10 Urge incontinence N39.41 Hx of traumatic brain injury Z87.820 Altered mental status R41.82
[2022-09-28 16:59] LABS: Glucose Point of Care 287 mg/dL (70-110)
[2022-09-28] MEDS: enoxaparin 30 mg/0.3 mL Syringe SUBCUT (17:26)
[2022-09-28] MEDS: atorvastatin 40 mg Tablet PO (19:53)
[2022-09-28] MEDS: carbidopa-levodopa ER 50-200mg Tablet 1 EACH PO (20:23)
[2022-09-28 21:23] LABS: Glucose Point of Care 285 mg/dL (70-110)
[2022-09-29] VITALS: BP 178/70; PULSE 98; RESP 21; TEMP 37; O2SAT 95
[2022-09-29 04:00] VITALS: BP 201/78; PULSE 97; RESP 26; TEMP 36.7; O2SAT 97
[2022-09-29] MEDS: labetalol 5 mg/mL SDV 20mL 10 MG IVP (04:40)
[2022-09-29 05:44] VITALS: PULSE 81
[2022-09-29 06:30] LABS: Glucose Point of Care 282 mg/dL (70-110)
[2022-09-29 08:00] VITALS: BP 196/78; PULSE 86; RESP 15; TEMP 36.8; O2SAT 97
[2022-09-29] MEDS: amlodipine 5 mg Tablet 2.5 MG PO (08:56)
[2022-09-29] MEDS: carbidopa-levodopa ER 50-200mg Tablet 1 EACH PO (08:56)
[2022-09-29] MEDS: aspirin 81 mg EC Tablet 162 MG PO (08:57)
[2022-09-29] MEDS: lisinopril 20 mg Tablet PO (08:57)
[2022-09-29] MEDS: insulin lispro 100 unit/1 mL SUBCUT ×2 (08:57→13:12)
--- NOTE | 2022-09-29 10:39 | P.DS_ITS ---
Discharge Providers Date of Admission: 09/24/22 14:42 Date of Discharge: September 29, 2022 Attending Provider at Admission: Aditya Palomino MD Attending Provider at Discharge: Leila Lambert MD Primary Care Provider: BRAN Tavarez Diagnoses at Discharge Discharge Diagnosis (1) Acute cerebrovascular accident (CVA): Status: Acute (2) Dementia: Status: Acute (3) Type 2 diabetes mellitus without complications: Status: Chronic Qualifiers: Diabetes mellitus assisted insulin use: without assisted use Qualified Code(s): E11.9 - Type 2 diabetes mellitus without complications Permanent problem details: non insulin requiring, on metformin, A1c-6.9 (4) Essential (primary) hypertension: Status: Chronic (5) Urge incontinence: Status: Chronic (6) Hx of traumatic brain injury: Status: Chronic Permanent problem details: associated with some degree of confusion, occasional hallucinations, states she lives with mom and dad at baseline when stressed. Actually lives with her son and daughter who are with her 27/04 (7) Altered mental status: Status: Acute Reason for Visit Reason for Visit: STROKE ALERT Hospital Course Hospital Course Cathi Nichols is a 81 year old female with past medical history of diabetes hypertension, dementia, TBI, Parkinson's, was brought in today by the family with chief complaint of acute onset of slurred speech, right-sided weakness, right-sided facial droop, last known well was at 9 AM, arrived at ER at around 1:50 PM, by the time she had arrived in the ER right-sided weakness facial droop as well as speech was improved, she was out of tPA window, not a candidate for thrombectomy.?CT head without contrast done in the ER showed: No acute intracranial pathology. CTA head and neck: No flow-limiting stenosis. MRI Brain without contrast : No significant acute abnormality noted. 2D Echo:?LV systolic function is normal with EF of 55-60% Grade 1 diastolic dysfunction Moderate mitral annular calcification. Mild mitral regurgitation Mild tricuspid regurgitation.No significant change from prior echo. No recorded events on telemetry. She underwent PT/OT and speech evaluation in the hospital. Currently tolerating a regular diet, adequate po intake, Mod to max assist with PT, will likely benefit from SNF where she is being discharged. BP raning 190-200 systolic, allowed for permissive HTN in the hospital, now being discharged with increased dsoe of amlosipine 5mg. recommended to keep monitoring during course of the week and titrate up further if needed Physical Exam Narrative: General: No acute distress, AO x3 HEENT: PERRLA, pupils bilaterally equal and reactive, pallors not present Chest: Normal vesicular breath sounds, no added sounds, equal good air entry bilaterally CVS: S1-S2 regular, no murmurs, no tachycardia, no gallops, no rubs Abdomen: Soft, nontender, no organomegaly, bowel sounds present Neuro: rigth sided weakness when compared to left Discharge Data Studies Completed and Pending Completed Studies During Hospitalization Category Date Time Status CT angio headneck* [id number] Stat Cat Scan 09/22/[address] head thrombolytic [id number] Stat Cat Scan 09/22/22 Completed XR chest 1V portable [id number] Routine Exams 09/23/22 15:16 Completed MR head wo con* [id number] Routine MRI 09/24/22 10:55 Completed CV. echo complete* [id number] Routine Ultrasound 09/22/22 18:48 Completed Pending at discharge Category Date Time Status COVID [SARS Covid-2 Antigen] Routine Lab 09/29/22 10:28 Ordered Drug Screen, Urine Stat Lab 09/22/22 13:48 Uncollected Urinalysis Routine Lab 09/22/22 19:00 Uncollected Urinalysis Stat Lab 09/22/22 13:48 Uncollected Radiology Impressions Head CT 09/22/22 00:00 IMPRESSION: No acute intracranial abnormality. ASSESSMENT: ASPECTS ([place] Stroke Program Early CT Score) is 10. Head/Neck CTA 09/22/22 00:00 IMPRESSION: No significant intracranial stenosis or occlusion. IMPRESSION: Mild stenosis at the origin of the left internal carotid artery. No hemodynamically significant stenoses are seen in the neck. REFERENCES: NASCET CRITERIA. The degree of stenosis in the cervical segment of the internal carotid artery is based on NASCET criteria. Normal is no stenosis. Mild is less than 50% stenosis. Moderate is 50-69% stenosis. Severe is 70% to 99% stenosis. Total occlusion is no detectable patent lumen. Chest X-Ray 09/23/22 15:16 IMPRESSION: 1. No acute cardiopulmonary finding. Head MRI 09/24/22 10:55 IMPRESSION: 1. No evidence of restricted diffusion to suggest acute ischemia. 2. Prior postoperative changes RIGHT frontal parietal craniotomy with underlying encephalomalacia in the RIGHT frontal parietal junction/superior temporal lobe. 3. Moderate to advanced small vessel changes with moderate parenchymal volume loss. Small vessel changes in the adam. 4. Advanced symmetric atrophy temporal lobes and hippocampal formations. 5. Small scattered foci of hemosiderin on susceptibly weighted images. 6. A few tiny chronic lacunar infarcts LEFT cerebellum. 7. No other acute findings. Laboratory Results WBC 5.5 10^3/uL (4.0-10.0) 09/25/22 05:46 RBC 4.36 10^6/uL (4.1-5.3) 09/25/22 05:46 Hgb 11.9 g/dL (11.5-15.3) 09/25/22 05:46 Hct 37.4 % (37.0-47.0) 09/25/22 05:46 MCV 85.8 fl (81-99) 09/25/22 05:46 MCH 27.3 pg (28.0-34.0) L 09/25/22 05:46 MCHC 31.8 g/dL (30.0-36.0) 09/25/22 05:46 RDW 15.5 % (12.1-15.1) H 09/25/22 05:46 Plt Count 215 10^3/cmm (130-400) 09/25/22 05:46 MPV 9.8 fL (7.4-10.4) 09/25/22 05:46 Neut % (Auto) 48.3 % 09/25/22 05:46 Lymph % (Auto) 30.0 % 09/25/22 05:46 [place] % (Auto) 12.5 % 09/25/22 05:46 Eos % (Auto) 8.1 % 09/25/22 05:46 Baso % (Auto) 0.7 % 09/25/22 05:46 Neut # (Auto) 2.64 10^3/uL (1.8-7.7) 09/25/22 05:46 Lymph # (Auto) 1.6 10^3/uL (0.8-4.8) 09/25/22 05:46 [place] # (Auto) 0.7 10^3/uL (0.2-0.9) 09/25/22 05:46 Eos # (Auto) 0.4 10^3/uL (0.0-0.8) 09/25/22 05:46 Baso # (Auto) 0.0 10^3/uL (0.0-0.1) 09/25/22 05:46 Nucleated RBC % (auto) 0 % 09/25/22 05:46 Nucleated RBCs # 0.0 /100WBC 09/25/22 05:46 PT 13.60 SECONDS (12.1-14.9) 09/22/22 13:18 INR 1.01 (0.8-1.2) 09/22/22 13:18 APTT 25.8 SECONDS (23.9-36.7) 09/22/22 13:18 D-Dimer 0.45 ug/mIFEU (0-0.59) 09/24/22 03:37 Sodium 138 mmol/L (136-145) 09/25/22 05:46 Potassium 4.0 mmol/L (3.5-5.1) 09/25/22 05:46 Chloride 104 mmol/L (98-107) 09/25/22 05:46 Carbon Dioxide 23 mmol/L (22-29) 09/25/22 05:46 Anion Gap 15.0 (5-19) 09/25/22 05:46 BUN 37 mg/dL (8-23) H 09/25/22 05:46 Creatinine 1.1 mg/dL (0.5-0.9) H 09/25/22 05:46 GFR Calculation Not Reportable 09/25/22 05:46 Glucose 266 mg/dL (65-115) H 09/25/22 05:46 POC Glucose 282 mg/dL (70-110) H 09/29/22 06:09 Calculated Osmolality 304 mOsm/kg (285-295) H 09/25/22 05:46 Lactate 1.0 mmol/L (0.5-2.2) 09/24/22 03:37 Calcium 9.5 mg/dL (8.5-10.5) 09/25/22 05:46 Total Bilirubin 0.4 mg/dL (0.15-1.2) 09/22/22 13:18 AST 24 U/L (0-32) 09/22/22 13:18 ALT 8 U/L (0-33) 09/22/22 13:18 Alkaline Phosphatase 196 U/L (35-105) H 09/22/22 13:18 Total Protein 7.4 g/dL (6.6-8.7) 09/22/22 13:18 Albumin 4.3 g/dL (3.5-5.2) 09/22/22 13:18 Globulin 3.1 g/dL (1.3-4.6) 09/22/22 13:18 Triglycerides 61 mg/dL (0-150) 09/23/22 04:32 Cholesterol 109 mg/dL (0-200) 09/23/22 04:32 LDL Cholesterol, Calc 38 mg/dL (50-129) L 09/23/22 04:32 HDL Cholesterol 59 mg/dL (60-100) L 09/23/22 04:32 LDL/HDL Ratio 0.64 RATIO (0.00-3.22) 09/23/22 04:32 Cholesterol/HDL Ratio 1.85 mg/dL (0.0-4.40) 09/23/22 04:32 Procalcitonin 0.08 ng/mL (0-0.5) 09/24/22 03:37 TSH 1.71 uIU/mL (0.27-4.20) 09/23/22 04:32 Vitals Last Vital Signs Temp 98.3 F 09/29/22 08:00 Pulse 86 09/29/22 08:00 Resp 15 09/29/22 08:00 BP 196/78 09/29/22 08:00 Pulse Ox 97 09/29/22 08:00 O2 Del Method 09/28/22 16:09 Discharge Plan Discharge Patient Disposition: Xfer SNF Condition: Stable Prescriptions: New aspirin 81 mg Tablet,Delayed Release (Dr/Ec) 162 mg PO DAILY 30 Days Qty: 30 0RF Continued cranberry 500 mg capsule 500 mg PO DAILY@0800 REIMMUNE 1 tab PO EVERY OTHER DAY carbidopa-levodopa 50-200 mg tablet extended release 1 tab PO TID@08,12,17 buspirone 5 mg tablet See Rx Instructions .ROUTE .COMPLEX Rx Instructions: 2.5 mg by mouth daily and 5 mg by mouth evening epinephrine [EpiPen 2-Dickson] 0.3 mg/0.3 mL auto-injector 0.3 mg IM ONCE PRN (Reason: Anaphylaxis) multivitamin [Daily Multi-Vitamin] Tablet 1 tab PO DAILY@0800 Daily Probiotic 2.5 billion cell capsule 1 cap PO BID risperidone [Risperdal] 0.5 mg tablet 1 mg PO BEDTIME amantadine HCl 100 mg tablet 100 mg PO BID@0800,1700 (DME) lancets [OneTouch Delica Lancets] 33 gauge misc See Rx Instructions .ROUTE .MEDSUPPLY Qty: 100 3RF Rx Instructions: one daily for blood sugar (DME) blood-glucose meter [Accu-Chek Zhanna Plus Meter] Misc See Rx Instructions .ROUTE .MEDSUPPLY Qty: 1 0RF Rx Instructions: check blood sugar daily (DME) Accu-Chek Zhanna Plus test strp Strip See Rx Instructions .ROUTE .MEDSUPPLY Qty: 10 0RF Rx Instructions: check blood sugar 1 time daily metoprolol tartrate 25 mg tablet 25 mg PO BID Qty: 180 3RF lisinopril 20 mg tablet 20 mg PO BID@0800,1700 Qty: 180 3RF metformin 500 mg tablet 1,000 mg PO BID Changed amlodipine 2.5 mg tablet 5 mg PO DAILY Qty: 90 3RF atorvastatin 10 mg tablet 40 mg PO BEDTIME@1700 Qty: 90 2RF Discontinued levofloxacin 250 mg tablet 250 mg PO DAILY 3 Days Qty: 3 0RF Discharge Orders: Discharge Order (Routine); Ordered 09/29/22 Ordered By: Leila Lambert Referrals: [facility] [Outside] Rosy Montelongo FINANCIAL SERVICES AUDITOR [Primary Care Provider] - Discharge Diet: Usual diet, Cardiac, Low Cholesterol and Low Fat Discharge Activity: As per PT/OT instructions Discharge Attestations Time Spent in Discharge Care*: greater than 30 min Status at Discharge: Cognitive status at discharge: moderately impaired cognition (at baseline) , Behavioral status at discharge: cooperative , Quality Metrics Clinical Quality Measures [ Cerebrovascular Accident { Contraindication to Antithrombotic: None; antithrombotic prescribed; Contraindication to Anticoagulation: Overlap treatment not indicated; Contraindication to Statin: None; Statin prescribed;}] Coding Level of Care Code Acute g [facility] note Diagnoses Acute cerebrovascular accident (CVA) I63.9 Dementia F03.90 Type 2 diabetes mellitus without complications E11.9 Diabetes mellitus assisted insulin use: without assisted use Essential (primary) hypertension I10 Urge incontinence N39.41 Hx of traumatic brain injury Z87.820 Altered mental status R41.82
--- NOTE | 2022-09-29 10:53 | PC.SOCIAL ---
IMM Update pg 2 of IMM updated and reviewed w/ patient's son Parish who is @ bedside. Copy provided and Copy in chart dated and initialed.
[2022-09-29 11:00] VITALS: BP 196/78; PULSE 86; RESP 15; TEMP 36.8
[2022-09-29 11:11] LABS: SARS Covid-2 Antigen negative (Negative)
[2022-09-29 11:48] VITALS: BP 174/71; PULSE 101; RESP 15; TEMP 36.6; O2SAT 97
[2022-09-29 12:44] LABS: Glucose Point of Care 192 mg/dL (70-110)
== END 2022-09-29 14:55 | disposition skilled nursing facility (03) | DRG 65 ==
LOC: ER 17:27 → MEDSURG 17:28
PROVIDERS: Internal Medicine; Admitting Provider Internal Medicine; Emergency Provider Family Medicine; PCP Nurse Practitioner Family; Visit Provider Student in an Organized Health Care Education/Training Program
DX: I63.9 Cerebral infarction, unspecified (principal); G81.91 Hemiplegia, unspecified affecting right dominant side; R47.81 Slurred speech; R29.810 Facial weakness; R41.82 Altered mental status, unspecified; R00.0 Tachycardia, unspecified; R29.703 NIHSS score 3; E11.9 Type 2 diabetes mellitus without complications; N39.41 Urge incontinence; I10 Essential (primary) hypertension; G20 Parkinson's disease; F02.80 Dementia in other diseases classified elsewhere, unspecified severity, without behavioral disturbance, psychotic disturbance, mood disturbance, and anxiety; Z87.820 Personal history of traumatic brain injury; Z79.84 Long term (current) use of oral hypoglycemic drugs; Z87.440 Personal history of urinary (tract) infections; Z75.1 Person awaiting admission to adequate facility elsewhere
CPT/HCPCS: 36415; 36416; 70450; 70496; 70498; 70551; 71045; 80048; 80053; 80061; 82962; 83605; 84145; 84443; 85025; 85378; 85610; 85730; 87040; 87426; 92507; 92523; 92526; 92610; 93005; 93306; 96372; 96374; 97110; 97116; 97161; 97165; 97530; 99285; G0378; J0360; J0696; J1650; J1815; J3490; J7030; Q9967

== ENCOUNTER 2022-10-02 06:30 | Emergency (ER) | payer MEDICARE, OTHER, SELFPAY ==
[2022-10-02] VITALS (12 sets, daily range): BP systolic 141–195; BP diastolic 49–78; PULSE 73–88; RESP 15–20; TEMP 36.3; O2SAT 96–99
--- NOTE | 2022-10-02 06:37 | ECG_ITS ---
[facility] Test Date: 2022-10-02 Pat Name: Cathi Nichols Department: Room: Gender: Female Head Of Loss Prevention: : 1940 Requested By: Yoandy Dove Order Number: [id number] Ryan MD: Mikayla Ponce M.D. Measurements Intervals [place] Rate: 77 P: 80 DE: 169 QRS: -6 QRSD: 77 T: 38 QT: 373 QTc: 424 Interpretive Statements SINUS RHYTHM MODERATE VOLTAGE CRITERIA FOR LVH, CONSIDER NORMAL VARIANT [MEETS CRITERIA IN ONE OF: R(aVL), S(V1), R(V5), R(V5/V6)+S(V1)] Possible old anteroseptal NV INFERIOR MYOCARDIAL INFARCTION , PROBABLY OLD [40+ ms Q WAVE AND/OR ST/T ABNORMALITY IN II/aVF] Compared to ECG 09/22/2022 14:06:09 Myocardial infarct finding now present Electronically Signed On 10-02-2022 21:05:13 CASH RECONCILIATION SPECIALIST by Mikayla Ponce M.D. [email or web address]
--- NOTE | 2022-10-02 06:38 | CTR_ITS ---
PROCEDURE INFORMATION: Exam: CT Head Without Contrast Exam date and time: 10/02/2022 7:12 AM Age: 81 years old Clinical indication: Altered mental status/memory loss; Prior surgery; Additional info: HX cva/ams TECHNIQUE: Imaging protocol: Computed tomography of the head without contrast. Radiation optimization: All CT scans at this facility use at least one of these dose optimization techniques: automated exposure control; mA and/or kV adjustment per patient size (includes targeted exams where dose is matched to clinical indication); or iterative reconstruction. COMPARISON: MR head wo con* [id number] 09/24/2022 1:37 PM RADIATION DOSE METRICS: Total DLP (mGy-cm): 1005.08 FINDINGS: Brain: No hemorrhage. No edema, mass effect or midline shift. Encephalomalacia noted in the right frontal and parietal regions. Periventricular and deep white matter hypodensities compatible with chronic microvascular ischemic changes. Cerebral ventricles: No ventriculomegaly. Paranasal sinuses: Visualized sinuses are unremarkable. No fluid levels. Mastoid air cells: No mastoid effusion. Bones/joints: No acute fracture. Previous right frontal parietal craniotomy. Soft tissues: Unremarkable. CT/CT head wo con* [id number] IMPRESSION: No acute intracranial abnormality.
[2022-10-02 06:48] LABS: Glucose Point of Care 233 mg/dL (70-110)
--- NOTE | 2022-10-02 06:57 | W.ED.AMS ---
HPI - Altered Mental Status General: Chief Complaint: Altered Mental Status Stated Complaint: AMS Time Seen by Provider: 10/02/22 06:32 Source: patient [facility] PFSH: Medical History Anxiety DDD (degenerative disc disease), lumbar Dementia Dyslipidemia (high LDL; low HDL) Encounter for loop recorder check Essential (primary) hypertension 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 Actually lives with her son and daughter who are with her 27/04 Hyponatremia chronic mild in low mid 130s at baseline Leg swelling Lumbar stenosis Memory change Parkinsons On Sinemet Recurrent UTI Syncopal episodes Type 2 diabetes mellitus without complications non insulin requiring, on metformin, A1c-6.9 Urge incontinence Ventricular arrhythmia Surgical History History of loop recorder -Follows with Dr. Ponce History of release of tendon (~2010) trigger finger History of tonsillectomy and adenoidectomy younger than age 10 Hx laparoscopic cholecystectomy (~1993) Hx of bilateral cataract extraction (~2007) Hx of brain surgery Epidural Hematoma; emergency Hx of breast biopsy (~2002) right Hx of colonoscopy (~2010) polyps: Hyperplastic Hx of hysterectomy (~1973) Hx of tracheostomy Family History Father , age 58 from [place] CAD (coronary artery disease) Mother , age 76 Cancer melanoma Grandmother Diabetes maternal Social History Smoking and tobacco status: never smoked Alcohol intake: never Caregiver/support person: Yes Lives independently: No Household members: none Housing: House Marital status: / Number of children: 2 Number of grandchildren: 0 Current occupational status: retired History of recent travel: No Current gender identity: Female Course Vital Signs: Vital signs: Vital Signs Temperature 97.3 F L 10/02/22 06:31 Pulse Rate 80 10/02/22 06:31 Respiratory Rate 18 10/02/22 06:31 Blood Pressure 146/63 10/02/22 06:31 Pulse Oximetry 98 10/02/22 06:31 Oxygen Delivery Me thod 10/02/22 06:31 MDM - Altered Mental Status Lab Data 10/02/22 06:46 10/02/22 06:46 Laboratory Results POC Glucose 233 mg/dL (70-110) H 10/02/22 06:39 Discharge Plan Discharge Condition: Stable Prescriptions: No Action cranberry 500 mg capsule 500 mg PO DAILY@0800 REIMMUNE 1 tab PO EVERY OTHER DAY carbidopa-levodopa 50-200 mg tablet extended release 1 tab PO TID@08,12,17 buspirone 5 mg tablet See Rx Instructions .ROUTE .COMPLEX Rx Instructions: 2.5 mg by mouth daily and 5 mg by mouth evening epinephrine [EpiPen 2-Dickson] 0.3 mg/0.3 mL auto-injector 0.3 mg IM ONCE PRN (Reason: Anaphylaxis) multivitamin [Daily Multi-Vitamin] Tablet 1 tab PO DAILY@0800 Daily Probiotic 2.5 billion cell capsule 1 cap PO BID risperidone [Risperdal] 0.5 mg tablet 1 mg PO BEDTIME amantadine HCl 100 mg tablet 100 mg PO BID@0800,1700 (DME) lancets [OneTouch Delica Lancets] 33 gauge [facility] See Rx Instructions .ROUTE .MEDSUPPLY Qty: 100 3RF Rx Instructions: one daily for blood sugar (DME) blood-glucose meter [Accu-Chek Zhanna Plus Meter] [facility] See Rx Instructions .ROUTE .MEDSUPPLY Qty: 1 0RF Rx Instructions: check blood sugar daily (DME) Accu-Chek Zhanna Plus test strp Strip See Rx Instructions .ROUTE .MEDSUPPLY Qty: 10 0RF Rx Instructions: check blood sugar 1 time daily metoprolol tartrate 25 mg tablet 25 mg PO BID Qty: 180 3RF lisinopril 20 mg tablet 20 mg PO BID@0800,1700 Qty: 180 3RF metformin 500 mg tablet 1,000 mg PO BID aspirin 81 mg Tablet,Delayed Release (Dr/Ec) 162 mg PO DAILY 30 Days Qty: 30 0RF atorvastatin 10 mg tablet 40 mg PO BEDTIME@1700 Qty: 90 2RF amlodipine 2.5 mg tablet 5 mg PO DAILY Qty: 90 3RF Referrals: Rosy Montelongo, HOG SLAUGHTERER [Primary Care Provider] - Coding Level of Care Code ED Optics Technical Officer for Chg [place]a
[2022-10-02 07:01] LABS: Basophils % 0.5 %; Eosinophils # 0.3 10^3/uL (0.0-0.8); Eosinophils % 4.1 %; Hematocrit 42.2 % (37.0-47.0); Hemoglobin 12.6 g/dL (11.5-15.3); Lymphocytes # 1.5 10^3/uL (0.8-4.8); Lymphocytes % 20.1 %; Mean Corpuscular HGB Conc 29.9 g/dL (30.0-36.0); Mean Corpuscular Hemoglobin 27.4 pg (28.0-34.0); Mean Corpuscular Volume 91.7 fl (81-99); Mean Platelet Volume 10.6 fL (7.4-10.4); Monocytes # 0.7 10^3/uL (0.2-0.9); Monocytes % 8.5 %; Neutrophils # 5.06 10^3/uL (1.8-7.7); Neutrophils % 66.5 %; Nucleated Red Blood Cells % 0 %; Platelet Count 238 10^3/cmm (130-400); Red Cell Distribution Width 16.4 % (12.1-15.1); White Blood Count 7.6 10^3/uL (4.0-10.0)
[2022-10-02 07:08] LABS: Glucose Point of Care 232 mg/dL (70-110)
[2022-10-02 07:13] LABS: Alanine Aminotransferase 19 U/L (0-33); Albumin Level 3.9 g/dL (3.5-5.2); Alkaline Phosphatase 196 U/L (35-105); Anion Gap 16.3 (5-19); Aspartate Amino Transferase 18 U/L (0-32); Blood Urea Nitrogen 41 mg/dL (8-23); Calcium 9.9 mg/dL (8.5-10.5); Carbon Dioxide 21 mmol/L (22-29); Chloride 111 mmol/L (98-107); Globulin 2.8 g/dL (1.3-4.6); Glucose 248 mg/dL (65-115); Osmolality Calculated 316 mOsm/kg (285-295); Potassium 4.3 mmol/L (3.5-5.1); Sodium 144 mmol/L (136-145); Total Bilirubin 0.5 mg/dL (0.15-1.2); Total Protein 6.7 g/dL (6.6-8.7)
[2022-10-02 08:07] LABS: Add Urine Microscopic? NO; Charge for UA Resulting for Rev
[2022-10-02 08:35] LABS: Bilirubin Urine Neg (Negative); Blood Urine Neg (Negative); Glucose Urine UA Norm (Normal); Ketones Urine 1+ (Negative); Leukocyte Esterase Urine Negative (Negative); Nitrate Urine Negative (Negative); Protein Urine Neg (Negative); Urine Appearance Clear (CLEAR); Urine Color Yellow (Yellow); Urobilinogen Urine Norm (Negative); pH Urine 5 (5-7)
--- NOTE | 2022-10-03 08:30 | ED_ITS ---
HPI - General Adult General: Chief complaint: Altered Mental Status Stated complaint: AMS Time Seen by Provider: 10/02/22 06:32 Source: patient History of Present Illness: 81-year-old female presents from [facility]. She previously had a CVA about 3 weeks ago. This morning they are reporting that she stayed overnight at 4:00 also a did not have a particular reason why I had done this she opened her eyes and looked at them and then was difficult to arouse at 6 AM. When she arrived here she responds to verbal stimuli she does not appear to have any localizing symptoms. She has a known history of Parkinson's does have parkinsonian's-like features. She has a history of some dementia as well. 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 Actually lives with her son and daughter who are with her / Hyponatremia chronic mild in low mid 130s at baseline Leg swelling Lumbar stenosis Memory change Parkinsons On Sinemet Recurrent UTI Syncopal episodes Type 2 diabetes mellitus without complications non insulin requiring, on metformin, A1c-6.9 Urge incontinence Ventricular arrhythmia Surgical History History of loop recorder -Follows with Dr. Ponce History of release of tendon (~2010) trigger finger History of tonsillectomy and adenoidectomy younger than age 10 Hx laparoscopic cholecystectomy (~1993) Hx of bilateral cataract extraction (~2007) Hx of brain surgery Epidural Hematoma; emergency Hx of breast biopsy (~2002) right Hx of colonoscopy (~2010) polyps: Hyperplastic Hx of hysterectomy (~1973) Hx of tracheostomy Family History Father , age 58 from [place] CAD (coronary artery disease) Mother , age 76 Cancer melanoma Grandmother Diabetes maternal Social History Smoking and tobacco status: never smoked Alcohol intake: never Caregiver/support person: Yes Lives independently: No Household members: none Housing: House Marital status: / Number of children: 2 Number of grandchildren: 0 Current occupational status: retired History of recent travel: No Current gender identity: Female Physical Exam Const: GENERAL APPEARANCE: cooperative and comfortable ORIENTATION/CONSCIOUSNESS: Yes awake HENMT: COMMON NORMALS: normocephalic and atraumatic HEAD & SCALP: normocephalic and atraumatic Eye: COMMON NORMALS: Equal, round and reactive pupils present, EOMs intact bilaterally, conjunctivae normal and no scleral icterus CONJUNCTIVA: Yes conjunctivae normal PUPIL: Yes Equal, round and reactive pupils present Neck/C-Spine: COMMON NORMALS: full ROM, no lymphadenopathy, supple and no JVD Lymph: LYMPHATIC: no lymphadenopathy noted and no lymphedema noted Resp: COMMON NORMALS: normal respiratory effort, No retractions, No use of accessory muscles and clear to auscultation bilaterally AUSCULTATION: clear to auscultation bilaterally Cardio: COMMON NORMALS: no JVD, regular rate, regular rhythm and No murmurs present (Cardio) RATE: regular rate RHYTHM: regular rhythm GI: COMMON NORMALS: Soft to palpation and No hepatosplenomegaly present AUSCULTATION: Yes normoactive bowel sounds PALPATION: Yes Soft to palpation, No Tenderness to palpation present (GI), No Guarding due to palpation present (GI) and Yes No hepatosplenomegaly present Extremity: COMMON NORMALS: normal to inspection, capillary refill normal, no clubbing, cyanosis or edema, no calf tenderness and no pedal edema Skin: COMMON NORMALS: no rashes or lesions noted GENERAL SKIN EXAM: no rashes or lesions noted Course Vital Signs: Vital signs: Vital Signs Temperature 97.3 F L 10/02/22 06:31 Pulse Rate 79 10/02/22 11:30 Respiratory Rate 19 H 10/02/22 11:30 Blood Pressure 155/64 10/02/22 11:30 Pulse Oximetry 98 10/02/22 11:30 Oxygen Delivery Me thod 10/02/22 06:55 MDM - General Adult Medical Decision Making History CVA. No apparent acute ongoing symptoms. Labs imaging and EKG reviewed no acute ST changes on EKG. No acute findings on exam or work-up. [facility] no change in medications. Recommend monitoring at this point. Medical Records I reviewed the patient's medical records. Lab Data I reviewed the patient's lab results. 10/02/22 06:46 10/02/22 06:[address] 10/02/22 06:38 IMPRESSION: No acute intracranial abnormality. Laboratory Results WBC 7.6 10^3/uL (4.0-10.0) 10/02/22 06:46 RBC 4.60 10^6/uL (4.1-5.3) 10/02/22 06:46 Hgb 12.6 g/dL (11.5-15.3) 10/02/22 06:46 Hct 42.2 % (37.0-47.0) 10/02/22 06:46 MCV 91.7 fl (81-99) 10/02/22 06:46 MCH 27.4 pg (28.0-34.0) L 10/02/22 06:46 MCHC 29.9 g/dL (30.0-36.0) L 10/02/22 06:46 RDW 16.4 % (12.1-15.1) H 10/02/22 06:46 Plt Count 238 10^3/cmm (130-400) 10/02/22 06:46 MPV 10.6 fL (7.4-10.4) H 10/02/22 06:46 Neut % (Auto) 66.5 % 10/02/22 06:46 Lymph % (Auto) 20.1 % 10/02/22 06:46 [place] % (Auto) 8.5 % 10/02/22 06:46 Eos % (Auto) 4.1 % 10/02/22 06:46 Baso % (Auto) 0.5 % 10/02/22 06:46 Neut # (Auto) 5.06 10^3/uL (1.8-7.7) 10/02/22 06:46 Lymph # (Auto) 1.5 10^3/uL (0.8-4.8) 10/02/22 06:46 [place] # (Auto) 0.7 10^3/uL (0.2-0.9) 10/02/22 06:46 Eos # (Auto) 0.3 10^3/uL (0.0-0.8) 10/02/22 06:46 Baso # (Auto) 0.0 10^3/uL (0.0-0.1) 10/02/22 06:46 Nucleated RBC % (auto) 0 % 10/02/22 06:46 Nucleated RBCs # 0.0 /100WBC 10/02/22 06:46 Sodium 144 mmol/L (136-145) 10/02/22 06:46 Potassium 4.3 mmol/L (3.5-5.1) 10/02/22 06:46 Chloride 111 mmol/L (98-107) H 10/02/22 06:46 Carbon Dioxide 21 mmol/L (22-29) L 10/02/22 06:46 Anion Gap 16.3 (5-19) 10/02/22 06:46 BUN 41 mg/dL (8-23) H 10/02/22 06:46 Creatinine 0.9 mg/dL (0.5-0.9) 10/02/22 06:46 GFR Calculation Not Reportable 10/02/22 06:46 Glucose 248 mg/dL (65-115) H 10/02/22 06:46 POC Glucose 232 mg/dL (70-110) H 10/02/22 07:04 Calculated Osmolality 316 mOsm/kg (285-295) H 10/02/22 06:46 Calcium 9.9 mg/dL (8.5-10.5) 10/02/22 06:46 Magnesium 2.0 mg/dL (1.7-2.3) 10/02/22 06:46 Total Bilirubin 0.5 mg/dL (0.15-1.2) 10/02/22 06:46 AST 18 U/L (0-32) 10/02/22 06:46 ALT 19 U/L (0-33) 10/02/22 06:46 Alkaline Phosphatase 196 U/L (35-105) H 10/02/22 06:46 Total Protein 6.7 g/dL (6.6-8.7) 10/02/22 06:46 Albumin 3.9 g/dL (3.5-5.2) 10/02/22 06:46 Globulin 2.8 g/dL (1.3-4.6) 10/02/22 06:46 Urine Color Yellow (Yellow) 10/02/22 08:00 Urine Appearance Clear (CLEAR) 10/02/22 08:00 Urine pH 5 (5-7) 10/02/22 08:00 Ur Specific [place] 1.020 (1.005-1.030) 10/02/22 08:00 Urine Protein Neg (Negative) 10/02/22 08:00 Urine Glucose (UA) Norm (Normal) 10/02/22 08:00 Urine Ketones 1+ (Negative) H 10/02/22 08:00 Urine Blood Neg (Negative) 10/02/22 08:00 Urine Nitrate Negative (Negative) 10/02/22 08:00 Urine Bilirubin Neg (Negative) 10/02/22 08:00 Urine Urobilinogen Norm mg/dL (Negative) 10/02/22 08:00 Ur Leukocyte Esterase Negative (Negative) 10/02/22 08:00 Discharge Plan Discharge Patient Disposition: Home Clinical Impression: CVA (cerebrovascular accident) Condition: Stable Prescriptions: No Action cranberry 500 mg capsule 500 mg PO DAILY@0800 carbidopa-levodopa 50-200 mg tablet extended release 1 tab PO TID@08,,17 buspirone 5 mg tablet See Rx Instructions .ROUTE .COMPLEX Rx Instructions: 2.5 mg by mouth daily and 5 mg by mouth evening epinephrine [EpiPen 2-Dickson] 0.3 mg/0.3 mL auto-injector 0.3 mg IM ONCE PRN (Reason: Anaphylaxis) multivitamin [Daily Multi-Vitamin] Tablet 1 tab PO DAILY@0800 Daily Probiotic 2.5 billion cell capsule 1 cap PO BID risperidone [Risperdal] 0.5 mg tablet 1 mg PO BEDTIME amantadine HCl 100 mg tablet 100 mg PO BID@0800,1700 (DME) lancets [OneTouch Delica Lancets] 33 gauge misc See Rx Instructions .ROUTE .MEDSUPPLY Qty: 100 3RF Rx Instructions: one daily for blood sugar (DME) blood-glucose meter [Accu-Chek Zhanna Plus Meter] Misc See Rx Instructions .ROUTE .MEDSUPPLY Qty: 1 0RF Rx Instructions: check blood sugar daily (DME) Accu-Chek Zhanna Plus test strp Strip See Rx Instructions .ROUTE .MEDSUPPLY Qty: 10 0RF Rx Instructions: check blood sugar 1 time daily metoprolol tartrate 25 mg tablet 25 mg PO BID Qty: 180 3RF lisinopril 20 mg tablet 20 mg PO BID@0800,1700 Qty: 180 3RF atorvastatin 40 mg Tablet 40 mg PO DAILY Milk of Magnesia 400 mg/5 mL Suspension 30 ml PO DAILY PRN (Reason: Constipation) Dulcolax (bisacodyl) 10 mg Suppository 10 mg [place] DAILY PRN (Reason: Constipation) Fleet Enema 19-7 gram/118 mL Enema 118 ml [place] DAILY PRN (Reason: Constipation) aspirin 81 mg tablet,delayed release (DR/EC) 81 mg PO DAILY metformin 500 mg tablet 1,000 mg PO BID amlodipine 2.5 mg tablet 5 mg PO DAILY Qty: 90 3RF Discharge Orders: Discharge ED (Routine); Ordered 10/02/22 Ordered By: Yoandy Galvez Referrals: Rosy Montelongo, STITCH BONDING MACHINE TENDER [Primary Care Provider] - Discharge Diet: Usual diet Discharge Activity: Resume usual activity Patient Instructions: Opioid Safety, Pain Management Activity Restrictions/Additional Instructions: Patient evaluated emergency room for acute CVA no evidence of acute CVA. Lab tests unremarkable [facility] to [facility] no changes Coding Level of Care Code ED Group Marketing Vp for Robin Mccauley
== END 2022-10-02 11:57 | disposition home or self-care (01) ==
PROVIDERS: Emergency Provider Family Medicine; PCP Nurse Practitioner Family
DX: I63.9 Cerebral infarction, unspecified (principal); Z79.84 Long term (current) use of oral hypoglycemic drugs; Z79.82 Long term (current) use of aspirin; E78.5 Hyperlipidemia, unspecified; I10 Essential (primary) hypertension; G20 Parkinson's disease; F02.80 Dementia in other diseases classified elsewhere, unspecified severity, without behavioral disturbance, psychotic disturbance, mood disturbance, and anxiety; E11.9 Type 2 diabetes mellitus without complications; Z87.820 Personal history of traumatic brain injury
CPT/HCPCS: 36416; 51701; 70450; 80053; 81003; 82962; 83735; 85025; 93005; 99285

== ENCOUNTER 2022-11-10 20:26 | Emergency (ER) | payer MEDICARE, OTHER, SELFPAY ==
[2022-11-10] VITALS (8 sets, daily range): BP systolic 145–168; BP diastolic 73–89; PULSE 80–89; RESP 14–19; O2SAT 94–99; BMI 20.9
--- NOTE | 2022-11-10 20:27 | ED_ITS ---
HPI - Neuro Symptoms/Deficit General: Chief Complaint: Neuro Symptoms/Deficit Stated Complaint: stroke Time Seen by Provider: 11/10/22 20:27 History of Present Illness: Ms Nichols is an 82-year-old lady with history of TBI with subdural hematoma requiring neurosurgical intervention, Parkinson's, history of stroke, diabetes, hypertension, hyperlipidemia presenting to the emergency department for strokelike symptoms. She family reports onset of symptoms at approximately 7 PM when she slumped over while eating and subsequently had left facial droop and weakness. EMS reports patient minimally responsive upon their arrival however has improved somewhat. Patient has had similar episodes and was hospitalized in September for stroke with right-sided deficits. She has been more sleepy for the past couple days and generally feeling unwell. 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 Actually lives with her son and daughter who are with her 27/04 Hyponatremia chronic mild in low mid 130s at baseline Leg swelling Lumbar stenosis Memory change Parkinsons On Sinemet Recurrent UTI Syncopal episodes Type 2 diabetes mellitus without complications non insulin requiring, on metformin, A1c-6.9 Urge incontinence Ventricular arrhythmia Surgical History History of loop recorder -Follows with Dr. Ponce History of release of tendon (~2010) trigger finger History of tonsillectomy and adenoidectomy younger than age 10 Hx laparoscopic cholecystectomy (~1993) Hx of bilateral cataract extraction (~2007) Hx of brain surgery Epidural Hematoma; emergency Hx of breast biopsy (~2002) right Hx of colonoscopy (~2010) polyps: Hyperplastic Hx of hysterectomy (~1973) Hx of tracheostomy Family History Father , age 58 from [place] CAD (coronary artery disease) Mother , age 76 Cancer melanoma Grandmother Diabetes maternal Social History Smoking and tobacco status: never smoked Alcohol intake: never Caregiver/support person: Yes Lives independently: No Household members: none Housing: House Marital status: / Number of children: 2 Number of grandchildren: 0 Current occupational status: retired History of recent travel: No Current gender identity: Female NIH stroke score NIHSS: Level Of Consciousness - 1a: 2 Facial Palsy - 4: Partial Paralysis Dysarthia - 10: Mild/Moderate Dysarthia Physical Exam Const: COMMON NORMALS: alert GENERAL APPEARANCE: cooperative and well developed HENMT: COMMON NORMALS: normocephalic and atraumatic HEAD & SCALP: normocephalic and atraumatic THROAT: posterior oropharynx normal Eye: COMMON NORMALS: conjunctivae normal CONJUNCTIVA: Yes conjunctivae normal SCLERA: sclerae normal Neck/C-Spine: COMMON NORMALS: supple GENERAL: Yes trachea midline Resp: COMMON NORMALS: normal respiratory effort EFFORT & INSPECTION: Yes able to speak in complete sentences Cardio: COMMON NORMALS: regular rate and regular rhythm RATE: regular rate RHYTHM: regular rhythm GI: COMMON NORMALS: Soft to palpation PALPATION: Yes Soft to palpation and No Tenderness to palpation present (GI) PERCUSSION: normal to percussion Extremity: GENERAL: Yes normal exam except as noted and No edema Neuro: COMMON NORMALS: moves all extremities SENSORIUM/ORIENTATION: Yes alert and Yes fluctuating sensorium Psych: COMMON NORMALS: mental status grossly normal and Normal thought process present THOUGHT PROCESS: Normal thought process present Course Vital Signs: Vital signs: Vital Signs Pulse Rate 88 11/10/22 22:30 Respiratory Rate 19 H 11/10/22 22:30 Blood Pressure 156/77 11/10/22 22:30 Pulse Oximetry 97 11/10/22 22:30 Oxygen Delivery Me thod 11/10/22 20:45 MDM - Neuro Symptoms/Deficit Medical Decision Making 82-year-old lady with history of stroke presenting with strokelike symptoms. Upon arrival symptoms have completely resolved with only mild dysarthria remaining patient is nontoxic. Given improvement and history patient is not a tPA candidate. EKG notable for sinus rhythm with first-degree AV block, nonspecific ST segment abnormalities, normal axis, no STEMI. Labs notable for no significant hematologic or metabolic abnormality to explain symptoms. Urinalysis concerning for urinary tract infection. CT head is negative for acute intracranial pathology. Patient treated with IV fluids and antibiotics and felt markedly improved. Still mild waxing and waning mental status present. Most likely etiology of symptoms is urinary tract infection with recrudescence of neurologic symptoms in the context of prior stroke. I discussed possible disposition options and offered admission which the patient /family declined. The results of ED evaluation were discussed with the patient including prescriptions and/or symptomatic cares (if applicable) including appropriate and responsible use, followup plan, and return precautions. The patient verbalized understanding and felt safe for discharge. Medical Records I reviewed the patient's medical records. Lab Data I reviewed the patient's lab results. 11/10/22 20:39 11/10/22 20:[address] 11/10/22: IMPRESSION: No acute intracranial abnormality. ASSESSMENT: ASPECTS (Kelly Stroke Program Early CT Score) is 10. ADDENDUM: 11/10/222055 THIS REPORT CONTAINS FINDINGS THAT MAY BE CRITICAL TO PATIENT CARE. The findings were verbally communicated via telephone conference with Saman Means at 8:54 PM ASSOCIATE COUNSEL on 11/10/2022. The findings were acknowledged and understood. Laboratory Results WBC 6.7 10^3/uL (4.0-10.0) 11/10/22 20: RBC 4.92 10^6/uL (4.1-5.3) 11/10/22 20: Hgb 13.3 g/dL (11.5-15.3) 11/10/22 20: Hct 42.2 % (37.0-47.0) 11/10/22 20: MCV 85.8 fl (81-99) 11/10/22 20: MCH 27.0 pg (28.0-34.0) L 11/10/22: MCHC 31.5 g/dL (30.0-36.0) 11/10/22 20: RDW 14.9 % (12.1-15.1) 11/10/22 20: Plt Count 277 10^3/cmm (130-400) 11/10/22: MPV 10.2 fL (7.4-10.4) 02/06/23 20:39 Neut % (Auto) 71.3 % 11/10/22 20:39 Lymph % (Auto) 14.6 % 11/10/22 20:39 [place] % (Auto) 8.3 % 11/10/22 20:39 Eos % (Auto) 4.8 % 11/10/22 20:39 Baso % (Auto) 0.7 % 11/10/22 20:39 Neut # (Auto) 4.78 10^3/uL (1.8-7.7) 11/10/22 20:39 Lymph # (Auto) 1.0 10^3/uL (0.8-4.8) 11/10/22 20:39 [place] # (Auto) 0.6 10^3/uL (0.2-0.9) 11/10/22 20:39 Eos # (Auto) 0.3 10^3/uL (0.0-0.8) 11/10/22 20:39 Baso # (Auto) 0.1 10^3/uL (0.0-0.1) 11/10/22 20:39 Nucleated RBC % (auto) 0 % 11/10/22 20:39 Nucleated RBCs # 0.0 /100WBC 11/10/22 20:39 PT 14.10 SECONDS (12.1-14.9) 11/10/22 20:39 INR 1.05 (0.8-1.2) 11/10/22 20:39 APTT 28.5 SECONDS (23.9-36.7) 11/10/22 20:39 Sodium 137 mmol/L (136-145) 11/10/22 20:39 Potassium 3.7 mmol/L (3.5-5.1) 11/10/22 20:39 Chloride 98 mmol/L (98-107) 11/10/22 20:39 Carbon Dioxide 26 mmol/L (22-29) 11/10/22 20:39 Anion Gap 16.7 (5-19) 11/10/22 20:39 BUN 32 mg/dL (8-23) H 11/10/22 20:39 Creatinine 1.0 mg/dL (0.5-0.9) H 11/10/22 20:39 GFR Calculation Not Reportable 11/10/22 20:39 Glucose 288 mg/dL (65-115) H 11/10/22 20:39 POC Glucose 237 mg/dL (70-110) H 11/10/22 20:41 Calculated Osmolality 301 mOsm/kg (285-295) H 11/10/22 20:39 Calcium 9.8 mg/dL (8.5-10.5) 11/10/22 20:39 Total Bilirubin 0.5 mg/dL (0.15-1.2) 11/10/22 20:39 AST 24 U/L (0-32) 11/10/22 20:39 ALT 20 U/L (0-33) 11/10/22 20:39 Alkaline Phosphatase 132 U/L (35-105) H 11/10/22 20:39 Total Protein 6.9 g/dL (6.6-8.7) 11/10/22 20:39 Albumin 4.3 g/dL (3.5-5.2) 11/10/22 20:39 Globulin 2.6 g/dL (1.3-4.6) 11/10/22 20:39 Urine Color Yellow (Yellow) 11/10/22 20:50 Urine Appearance Sl hazy (CLEAR) A 11/10/22 20:50 Urine pH 6 (5-7) 11/10/22 20:50 Ur Specific [place] 1.010 (1.005-1.030) 11/10/22 20:50 Urine Protein Trace (Negative) 11/10/22 20:50 Urine Glucose (UA) Trace (Normal) H 11/10/22 20:50 Urine Ketones 1+ (Negative) H 11/10/22 20:50 Urine Blood 3+ (Negative) H 11/10/22 20:50 Urine Nitrate Negative (Negative) 11/10/22 20:50 Urine Bilirubin Neg (Negative) 11/10/22 20:50 Urine Urobilinogen Norm mg/dL (Negative) 11/10/22 20:50 Ur Leukocyte Esterase 2+ (Negative) H 11/10/22 20:50 Urine RBC Too numerous to cnt /hpf (0-2) H 11/10/22 20:50 Urine WBC Too numerous to cnt /hpf (0-5) H 11/10/22 20:50 Ur Squamous Epith Cells None /hpf (0-5) 11/10/22 20:50 Amorphous Sediment Not Reportable 11/10/22 20:50 Urine Bacteria 2+ /hpf (NONE) H 11/10/22 20:50 Urine Opiates Screen Negative ng/mL (Negative) 11/10/22 20:50 Ur Barbiturates Screen Negative ng/mL (Negative) 11/10/22 20:50 Ur Phencyclidine Scrn Negative ng/mL (Negative) 11/10/22 20:50 Ur Amphetamines Screen Negative ng/mL (Negative) 11/10/22 20:50 U Benzodiazepines Scrn Negative ng/mL (Negative) 11/10/22 20:50 Urine Cocaine Screen Negative ng/mL (Negative) 11/10/22 20:50 U Marijuana (THC) Screen Negative ng/mL (Negative) 11/10/22 20:50 Discharge Plan Discharge Patient Disposition: Home Clinical Impression: Complicated urinary tract infection, Delirium Condition: Stable Prescriptions: No Action cranberry 500 mg capsule 500 mg PO DAILY@0800 multivitamin [Daily Multi-Vitamin] Tablet 1 tab PO DAILY@0800 Daily Probiotic 2.5 billion cell capsule 1 cap PO BID amantadine HCl 100 mg tablet 100 mg PO BID@0800,1700 epinephrine [EpiPen 2-Dickson] 0.3 mg/0.3 mL auto-injector 0.3 mg IM ONCE PRN (Reason: Anaphylaxis) Qty: 2 0RF amlodipine 2.5 mg tablet 5 mg PO DAILY Qty: 180 3RF atorvastatin 40 mg tablet 40 mg PO DAILY Qty: 90 3RF buspirone 5 mg tablet See Rx Instructions .ROUTE .COMPLEX Qty: 135 0RF Rx Instructions: 2.5 mg by mouth daily and 5 mg by mouth evening carbidopa-levodopa 50-200 mg tablet extended release 1 tab PO TID@08,12,17 Qty: 270 3RF metformin 500 mg tablet 1,000 mg PO BID Qty: 360 3RF lisinopril 20 mg tablet 20 mg PO BID@0800,1700 Qty: 180 3RF metoprolol tartrate 25 mg tablet 25 mg PO BID Qty: 180 3RF risperidone [Risperdal] 0.5 mg tablet 1 mg PO BEDTIME Qty: 180 3RF (DME) lancets [OneTouch Delica Lancets] 33 gauge misc See Rx Instructions .ROUTE .MEDSUPPLY Qty: 100 3RF Rx Instructions: one daily for blood sugar (DME) blood-glucose meter [Accu-Chek Zhanna Plus Meter] Misc See Rx Instructions .ROUTE .MEDSUPPLY Qty: 1 0RF Rx Instructions: check blood sugar daily (DME) Accu-Chek Zhanna Plus test strp Strip See Rx Instructions .ROUTE .MEDSUPPLY Qty: 10 0RF Rx Instructions: check blood sugar 1 time daily Milk of Magnesia 400 mg/5 mL Suspension 30 ml PO DAILY PRN (Reason: Constipation) Dulcolax (bisacodyl) 10 mg Suppository 10 mg [place] DAILY PRN (Reason: Constipation) Fleet Enema 19-7 gram/118 mL Enema 118 ml [place] DAILY PRN (Reason: Constipation) aspirin 81 mg tablet,delayed release (DR/EC) 81 mg PO DAILY Discharge Orders: Discharge ED (Routine); Ordered 11/10/22 Ordered By: Saman Mota Referrals: Rosy Montelongo, CLIMATE CHANGE RISK ASSESSOR [Primary Care Provider] - Discharge Diet: Usual diet Discharge Activity: Increase activity as tolerated Activity Restrictions/Additional Instructions: Thank you for visiting the emergency department. You were seen and evaluated for mental status changes and strokelike symptoms. The exact cause of your symptoms is unclear that likely related to urinary tract infection in the context of underlying medical conditions and history of stroke. Given improvement as well as laboratory and vital sign findings I believe that outpatient management is reasonable. I will prescribe antibiotics. Please follow-up with a primary care provider. Return to the emergency department for worsening symptoms, inability to tolerate oral medications or eat/drink, or anything else that you are concerned about and feel needs emergency department evaluation. Coding Level of Care Code ED Bow Maker Machine Tender for Robin Mccauley
--- NOTE | 2022-11-10 20:27 | ECG_ITS ---
[facility] Test Date: 2022-11-10 Pat Name: Cathi Nichols Department: Room: Gender: Female Lead Consultant: : 1940 Requested By: Saman Mota Order Number: [id number] Davis MD: Sophia Dent M.D. Measurements Intervals [place] Rate: 80 P: 78 PA: 218 QRS: 11 QRSD: 69 T: 80 QT: 354 QTc: 409 Interpretive Statements SINUS RHYTHM WITH FIRST DEGREE AV BLOCK LOW QRS VOLTAGE IN PRECORDIAL LEADS [QRS DEFLECTION < 1.0 mV IN CHEST LEADS] SEPTAL MYOCARDIAL INFARCTION , OF INDETERMINATE AGE [40+ ms Q WAVE IN V1/V2] ST DEPRESSION, CONSIDER SUBENDOCARDIAL INJURY [0.1+ mV ST DEPRESSION] Compared to ECG 10/02/2022 06:46:26 First degree AV block now present Low QRS voltage now present ST (T wave) deviation now present Myocardial infarct finding still present Electronically Signed On 11-10-2022 20:47:25 COMPUTER LABORATORY TECHNICIAN by Sophia Dent M.D. [email or web address]
--- NOTE | 2022-11-10 20:27 | CTR_ITS ---
PROCEDURE INFORMATION: Exam: CT Head Without Contrast Exam date and time: 11/10/2022 8:30 PM Age: 82 years old Clinical indication: Stroke-like symptoms; Left facial droop; Additional info: Sudden onset of left facial droop. Last known well at 1900. EMS states PT had TIA 3-5 weeks ago. History of parkinson's. History of brain surgery for epidural hematoma. TECHNIQUE: Imaging protocol: Computed tomography of the head without contrast. Radiation optimization: All CT scans at this facility use at least one of these dose optimization techniques: automated exposure control; mA and/or kV adjustment per patient size (includes targeted exams where dose is matched to clinical indication); or iterative reconstruction. Other protocol: This patient has received 8 known CTs and 0 known cardiac nuclear medicine studies in the 12 months prior to the current study. Other technique: STROKE PROTOCOL was implemented. COMPARISON: CT head wo con* [id number] 10/02/2022 7:12 AM RADIATION DOSE METRICS: Total DLP (mGy-cm): 966.58 FINDINGS: Brain: No acute infarct. No hemorrhage. Stable involutional changes of the brain. No mass effect. 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 Cerebral ventricles: No ventriculomegaly. Paranasal sinuses: Visualized sinuses are unremarkable. No fluid levels. Mastoid air cells: Visualized mastoid air cells are well aerated. Bones/joints: Previous right-sided craniotomy changes are stable. Soft tissues: Unremarkable. CT/CT head thrombolytic [id number] IMPRESSION: No acute intracranial abnormality. ASSESSMENT: ASPECTS ([place] Stroke Program Early CT Score) is 10.
[2022-11-10 20:43] LABS: Glucose Point of Care 237 mg/dL (70-110)
[2022-11-10 20:48] LABS: Basophils # 0.1 10^3/uL (0.0-0.1); Basophils % 0.7 %; Eosinophils # 0.3 10^3/uL (0.0-0.8); Eosinophils % 4.8 %; Hematocrit 42.2 % (37.0-47.0); Hemoglobin 13.3 g/dL (11.5-15.3); Lymphocytes % 14.6 %; Mean Corpuscular HGB Conc 31.5 g/dL (30.0-36.0); Mean Corpuscular Volume 85.8 fl (81-99); Mean Platelet Volume 10.2 fL (7.4-10.4); Monocytes # 0.6 10^3/uL (0.2-0.9); Monocytes % 8.3 %; Neutrophils # 4.78 10^3/uL (1.8-7.7); Neutrophils % 71.3 %; Nucleated Red Blood Cells % 0 %; Platelet Count 277 10^3/cmm (130-400); Red Blood Count 4.92 10^6/uL (4.1-5.3); Red Cell Distribution Width 14.9 % (12.1-15.1); White Blood Count 6.7 10^3/uL (4.0-10.0)
[2022-11-10 21:01] LABS: INR 1.05 (0.8-1.2)
[2022-11-10 21:02] LABS: Partial Thromboplastin Time 28.5 SECONDS (23.9-36.7)
[2022-11-10 21:06] LABS: Amphetamines Screen Urine Negative (Negative); Barbiturates Screen Urine Negative (Negative); Benzodiazepines Screen Urine Negative (Negative); Cocaine Screen Urine Negative (Negative); Opiate Screen Urine Negative (Negative); PCP Screen Urine Negative (Negative); THC Screen Urine Negative (Negative)
[2022-11-10 21:08] LABS: Add Urine Microscopic? YES; Bilirubin Urine Neg (Negative); Blood Urine 3+ (Negative); Glucose Urine UA Trace (Normal); Ketones Urine 1+ (Negative); Leukocyte Esterase Urine 2+ (Negative); Nitrate Urine Negative (Negative); Protein Urine Trace (Negative); Urine Appearance SL Hazy (CLEAR); Urine Color Yellow (Yellow); Urobilinogen Urine Norm (Negative); pH Urine 6 (5-7)
[2022-11-10 21:08] LABS: Alanine Aminotransferase 20 U/L (0-33); Albumin Level 4.3 g/dL (3.5-5.2); Alkaline Phosphatase 132 U/L (35-105); Anion Gap 16.7 (5-19); Aspartate Amino Transferase 24 U/L (0-32); Blood Urea Nitrogen 32 mg/dL (8-23); Calcium 9.8 mg/dL (8.5-10.5); Carbon Dioxide 26 mmol/L (22-29); Chloride 98 mmol/L (98-107); Globulin 2.6 g/dL (1.3-4.6); Glucose 288 mg/dL (65-115); Osmolality Calculated 301 mOsm/kg (285-295); Potassium 3.7 mmol/L (3.5-5.1); Sodium 137 mmol/L (136-145); Total Bilirubin 0.5 mg/dL (0.15-1.2); Total Protein 6.9 g/dL (6.6-8.7)
[2022-11-10 21:09] LABS: Add Urine Culture? Yes; Bacteria Urine 2+ /hpf; RBC Urine TOO NUMEROUS TO CNT /hpf (0-2); WBC Urine TOO NUMEROUS TO CNT /hpf (0-5)
[2022-11-10] MEDS: sodium chloride 0.9% 1,000 ML 999 ML IV (21:45)
[2022-11-10] MEDS: cefTRIAXone 1,000 MG in sodium chloride 0.9% (plus) 50 ML 100 MG IV (21:45)
== END 2022-11-10 23:51 | disposition home or self-care (01) ==
PROVIDERS: Emergency Provider Emergency Medicine; PCP Nurse Practitioner Family
DX: N39.0 Urinary tract infection, site not specified (principal); R41.0 Disorientation, unspecified; Z79.82 Long term (current) use of aspirin; Z79.84 Long term (current) use of oral hypoglycemic drugs; G20 Parkinson's disease; F02.80 Dementia in other diseases classified elsewhere, unspecified severity, without behavioral disturbance, psychotic disturbance, mood disturbance, and anxiety; E78.5 Hyperlipidemia, unspecified; I10 Essential (primary) hypertension; E11.9 Type 2 diabetes mellitus without complications; Z87.440 Personal history of urinary (tract) infections; Z87.820 Personal history of traumatic brain injury
CPT/HCPCS: 36416; 70450; 80053; 80306; 81001; 82962; 85025; 85610; 85730; 87077; 87086; 87186; 93005; 96365; 99285; J0696; J7030

== ENCOUNTER → 2022-11-19 14:35 | Outpatient (BNVA) | payer MEDICARE, OTHER, SELFPAY | PROVIDERS: PCP Clinical Nurse Specialist Adult Health; Visit Provider Clinical Nurse Specialist Adult Health | DX: N39.0 Urinary tract infection, site not specified (principal) | CPT/HCPCS: 81000 ==

== ENCOUNTER → 2023-02-09 15:31 | Outpatient (BNVA) | payer MEDICARE, OTHER, SELFPAY | PROVIDERS: PCP Nurse Practitioner Family; Visit Provider Internal Medicine Cardiovascular Disease | DX: I49.8 Other specified cardiac arrhythmias (principal); E11.9 Type 2 diabetes mellitus without complications; E78.5 Hyperlipidemia, unspecified; I10 Essential (primary) hypertension; G20 Parkinson's disease; R55 Syncope and collapse; Z79.84 Long term (current) use of oral hypoglycemic drugs | CPT/HCPCS: 99214 ==

== ENCOUNTER 2023-02-28 16:11 | Outpatient (CLI) | payer MEDICARE, OTHER, SELFPAY ==
[2023-02-28 16:21] LABS: Bilirubin Urine Neg (Negative); Blood Urine Neg (Negative); Glucose Urine UA 4+ (Normal); Ketones Urine Negative (Negative); Nitrate Urine Negative (Negative); Protein Urine Neg (Negative); Specific Gravity, Urine 1.005 (1.005-1.030); Urine Appearance Cloudy (CLEAR); Urine Color Straw (Yellow); Urobilinogen Urine Norm (Negative); pH Urine 6 (5-7)
[2023-02-28 16:22] LABS: Leukocyte Esterase Urine 2+ (Negative)
[2023-02-28 16:26] LABS: WBC Urine >100 /hpf (0-5)
[2023-02-28 16:27] LABS: Add Urine Culture? Yes; Bacteria Urine 3+ /hpf
== END 2023-02-28 16:12 | disposition home or self-care (01) ==
LOC: LAB 16:12
PROVIDERS: PCP Nurse Practitioner Family; Visit Provider Nurse Practitioner Family
DX: N39.0 Urinary tract infection, site not specified (principal)
CPT/HCPCS: 81001; 87077; 87086; 87186

== ENCOUNTER 2023-05-03 01:28 | Inpatient (IN) | payer MEDICARE, OTHER, SELFPAY ==
[2023-05-03] VITALS (14 sets, daily range): BP systolic 122–184; BP diastolic 61–107; PULSE 68–100; RESP 12–27; TEMP 36.1–37.6; O2SAT 93–98; BMI 22.8
--- NOTE | 2023-05-03 01:31 | ECG_ITS ---
[facility] Test Date: 2023-05-03 Pat Name: Cathi Nichols Department: Room: Gender: Female Slab Stripper: : 1940 Requested By: Partha Ji Order Number: [id number] Ryan MD: Jerry Mauricio M.D. Measurements Intervals [place] Rate: 85 P: 69 MA: 222 QRS: 10 QRSD: 80 T: 88 QT: 368 QTc: 438 Interpretive Statements SINUS RHYTHM WITH FIRST DEGREE AV BLOCK POSSIBLE LEFT ATRIAL ENLARGEMENT [-0.1mV P-WAVE IN V1/V2] NONSPECIFIC ST & T-WAVE ABNORMALITY Compared to ECG 11/10/2022 20:42:54 T-wave abnormality now present Myocardial infarct finding no longer present ST (T wave) deviation no longer present Electronically Signed On 05-04-2023 8:32:27 CDT by Jerry Mauricio M.D. [id number]
--- NOTE | 2023-05-03 01:31 | CTR_ITS ---
PROCEDURE INFORMATION: Exam: CTA Head With Contrast, Arteriography Exam date and time: 05/03/2023 1:39 AM Age: 82 years old Clinical indication: Stroke-like symptoms; Altered mental status/memory loss; Left facial droop; Additional info: AMS TECHNIQUE: Imaging protocol: Computed tomographic angiography of the head with contrast. Exam focused on the arteries. 3D rendering (Not supervised by radiologist): MIP and/or 3D reconstructed images were created by the technologist. Radiation optimization: All CT scans at this facility use at least one of these dose optimization techniques: automated exposure control; mA and/or kV adjustment per patient size (includes targeted exams where dose is matched to clinical indication); or iterative reconstruction. Contrast material: OMNI 350; Contrast volume: 100 ml; Contrast route: INTRAVENOUS (IV); REPORTING DATA: Count of CT and Cardiac NM exams in prior 12 months: This patient has received 4 known CTs and 0 known cardiac nuclear medicine studies in the 12 months prior to the current study. COMPARISON: CT angio headneck* [id number] 09/22/2022 1:41 PM RADIATION DOSE METRICS: Total DLP (mGy-cm): 360.48 FINDINGS: ANTERIOR CIRCULATION: Right internal carotid artery: Intracranial segment is patent with no significant stenosis. No aneurysm. Right middle cerebral artery: No occlusion or significant stenosis. No aneurysm. Right anterior cerebral artery: No occlusion or significant stenosis. No aneurysm. Left internal carotid artery: Intracranial segment is patent with no significant stenosis. No aneurysm. Left middle cerebral artery: No occlusion or significant stenosis. No aneurysm. Left anterior cerebral artery: No occlusion or significant stenosis. No aneurysm. POSTERIOR CIRCULATION: Right vertebral artery: No occlusion or significant stenosis. No aneurysm. Left vertebral artery: No occlusion or significant stenosis. No aneurysm. Basilar artery: No occlusion or significant stenosis. No aneurysm. Right posterior cerebral artery: No occlusion or significant stenosis. No aneurysm. Left posterior cerebral artery: No occlusion or significant stenosis. No aneurysm. Brain: No definite mass, mass effect, or midline shift. Cerebral ventricles: No ventriculomegaly. Bones/joints: Unremarkable. No acute fracture. Right calvarium craniotomy surgical changes are unremarkable. Soft tissues: Unremarkable. PROCEDURE INFORMATION: Exam: CTA Neck With Contrast Exam date and time: 05/03/2023 1:39 AM Age: 82 years old Clinical indication: Stroke-like symptoms; Altered mental status/memory loss; Left facial droop; Additional info: AMS TECHNIQUE: Imaging protocol: Computed tomographic angiography of the neck with contrast. 3D rendering (Not supervised by radiologist): MIP and/or 3D reconstructed images were created by the technologist. Radiation optimization: All CT scans at this facility use at least one of these dose optimization techniques: automated exposure control; mA and/or kV adjustment per patient size (includes targeted exams where dose is matched to clinical indication); or iterative reconstruction. Contrast material: OMNI 350; Contrast volume: 100 ml; Contrast route: INTRAVENOUS (IV); REPORTING DATA: Count of CT and Cardiac NM exams in prior 12 months: This patient has received 4 known CTs and 0 known cardiac nuclear medicine studies in the 12 months prior to the current study. COMPARISON: CT angio headne* [id number] 09/22/2022 1:41 PM RADIATION DOSE METRICS: Total DLP (mGy-cm): 360.48 FINDINGS: Right common carotid artery: No stenosis. No dissection or occlusion. Right internal carotid artery: Circumferential calcified plaque of the right ICA origin. Minimal stenosis. Negative for dissection. Right external carotid artery: No occlusion or stenosis of the origin. Left common carotid artery: No stenosis. No dissection or occlusion. Left internal carotid artery: Focal eccentric plaque posterior wall left ICA origin. Mild stenosis. Negative for dissection. Left external carotid artery: No occlusion or stenosis of the origin. Right vertebral artery: No stenosis. No dissection or occlusion. Left vertebral artery: No stenosis. No dissection or occlusion. Soft tissues: Normal. No significant soft tissue swelling. Bones/joints: No acute fracture. Lungs: Hazy dependent ground-glass attenuation changes in the posterior left upper lobe. CT[facility] [id number] IMPRESSION: No large vessel occlusion. IMPRESSION: 1. Less than 50% artery stenosis. 2. Negative for vascular occlusion in the neck. 3. No significant change from comparison. REFERENCES: NASCET CRITERIA. The degree of stenosis in the cervical segment of the internal carotid artery is based on NASCET criteria. Normal is no stenosis. Mild is less than 50% stenosis. Moderate is 50-69% stenosis. Severe is 70% to 99% stenosis. Total occlusion is no detectable patent lumen.
--- NOTE | 2023-05-03 01:31 | XRR_ITS ---
PROCEDURE INFORMATION: Exam: XR Chest Exam date and time: 05/03/2023 2:28 AM Age: 82 years old Clinical indication: Prior surgery; Surgery date: 6+ months; Surgery type: Loop recorder. Breast biopsy. Patient HX: Arrival via EMS for stroke symptoms. Has fever. ; Additional info: AMS fever TECHNIQUE: Imaging protocol: Radiologic exam of the chest. Views: 1 view. COMPARISON: CR XR chest 1V portable [id number] 09/23/2022 3:45 PM FINDINGS: Tubes, catheters and devices: Implanted left chest loop recorder device redemonstrated. Lungs: Increased interstitial lung markings with prominent vascularity throughout lungs which are increased from comparison. No focal pulmonary consolidation. Pleural spaces: Unremarkable. No pleural effusion. No pneumothorax. Heart/Mediastinum: Unremarkable. No cardiomegaly. Bones/joints: Unremarkable. XR/XR chest 1V portable [id number] IMPRESSION: Prominent bronchovascular markings bilaterally are nonspecific. Consider interstitial edema or atypical pneumonia could appear similar.
--- NOTE | 2023-05-03 01:31 | CTR_ITS ---
PROCEDURE INFORMATION: Exam: CT Head Without Contrast Exam date and time: 05/03/2023 1:34 AM Age: 82 years old Clinical indication: Stroke-like symptoms; Altered mental status/memory loss; Left facial droop; Additional info: Arrival via EMS from [place] for left facial droop and unresponsiveness. Last known well time at 2330 yesterday. TECHNIQUE: Imaging protocol: Computed tomography of the head without contrast. Radiation optimization: All CT scans at this facility use at least one of these dose optimization techniques: automated exposure control; mA and/or kV adjustment per patient size (includes targeted exams where dose is matched to clinical indication); or iterative reconstruction. Other technique: STROKE PROTOCOL was implemented. REPORTING DATA: Count of CT and Cardiac NM exams in prior 12 months: This patient has received 4 known CTs and 0 known cardiac nuclear medicine studies in the 12 months prior to the current study. COMPARISON: CT head thrombolytic [id number] 11/10/2022 8:30 PM RADIATION DOSE METRICS: Total DLP (mGy-cm): 794.45 FINDINGS: Brain: There is moderate cerebral atrophy. There is moderate diffuse heterogeneity of the white matter attenuation, consistent with chronic white matter ischemic changes. Negative for intracranial hemorrhage. Negative for mass effect on the brain. Negative for midline shift of the brain. Negative for space occupying intracranial mass. Small area subcortical white matter gliosis in the superolateral right temporal lobe redemonstrated. Cerebral ventricles: No ventriculomegaly. Paranasal sinuses: Visualized sinuses are unremarkable. No fluid levels. Mastoid air cells: Visualized mastoid air cells are well aerated. Bones/joints: Unremarkable. No acute fracture. Right calvarium craniotomy noted. Soft tissues: Unremarkable. CT/CT head thrombolytic [id number] IMPRESSION: Negative for acute intracranial pathology. ASSESSMENT: ASPECTS ([place] Stroke Program Early CT Score) is 10.
[2023-05-03] MEDS: iohexol 350 mg/mL 500 mL Btl (per mL) IV (01:48)
[2023-05-03] MEDS: sodium chloride 0.9% 1,000 ML 999 ML IV ×2 (01:53→02:48)
[2023-05-03 01:54] LABS: ABG PH Result 7.37 (7.35-7.45); Arterial Blood Gas Hematocrit 32.5 % (37-47); Base Excess ABG -5.2 mmol/L (-2.0-2.0); Blood Gas Allen Test Pos; Blood Gas Sample Type Arterial; HCO3 ABG 19.5 mmol/L (22-26); PO2 ABG 71.8 mmHg (80.0-100.0)
[2023-05-03 01:55] LABS: Blood Gas Sample Site Radial, right
[2023-05-03 02:16] LABS: INR 1.16 (0.8-1.2); Partial Thromboplastin Time 28.3 SECONDS (23.9-36.7)
[2023-05-03 02:24] LABS: Lactic Sepsis W/Reflex 6.8 mmol/L (0.5-2.2)
[2023-05-03 02:31] LABS: Basophils # 0.1 10^3/uL (0.0-0.1); Basophils % 0.9 %; Eosinophils # 0.6 10^3/uL (0.0-0.8); Eosinophils % 10.1 %; Hematocrit 33.6 % (37.0-47.0); Hemoglobin 10.1 g/dL (11.5-15.3); Lymphocytes # 1.2 10^3/uL (0.8-4.8); Lymphocytes % 21.5 %; Mean Corpuscular HGB Conc 30.1 g/dL (30.0-36.0); Mean Corpuscular Hemoglobin 24.6 pg (28.0-34.0); Mean Platelet Volume 9.9 fL (7.4-10.4); Monocytes # 0.7 10^3/uL (0.2-0.9); Monocytes % 12.8 %; Neutrophils # 3.14 10^3/uL (1.8-7.7); Neutrophils % 54.5 %; Nucleated Red Blood Cells % 0 %; Platelet Count 207 10^3/cmm (130-400); Red Cell Distribution Width 18.5 % (12.1-15.1); White Blood Count 5.8 10^3/uL (4.0-10.0)
[2023-05-03 02:45] LABS: Alanine Aminotransferase < 5 U/L (0-33); Albumin Level 3.5 g/dL (3.5-5.2); Alkaline Phosphatase 153 U/L (35-105); Aspartate Amino Transferase 10 U/L (0-32); Blood Urea Nitrogen 23 mg/dL (8-23); Calcium 9.4 mg/dL (8.5-10.5); Carbon Dioxide 18 mmol/L (22-29); Chloride 100 mmol/L (98-107); Globulin 1.9 g/dL (1.3-4.6); Glucose 195 mg/dL (65-115); Osmolality Calculated 291 mOsm/kg (285-295); Sodium 136 mmol/L (136-145); Total Bilirubin 0.2 mg/dL (0.15-1.2); Total Protein 5.4 g/dL (6.6-8.7)
[2023-05-03 02:46] LABS: Troponin(5th) Baseline 33 ng/L (0-10)
[2023-05-03 02:47] LABS: Anion Gap 22.3 (5-19); Potassium 4.3 mmol/L (3.5-5.1)
[2023-05-03 02:52] LABS: Add Urine Microscopic? NO; Charge for UA Resulting for Rev
--- NOTE | 2023-05-03 02:56 | W.ED.NEUROSD ---
HPI - Neuro Symptoms/Deficit General: Chief Complaint: Neuro Symptoms/Deficit Stated Complaint: Stoke Alert Time Seen by Provider: 05/03/23 01:30 Source: patient History of Present Illness: 82-year-old senior care patient with a history of stroke. According to senior care staff, she was able to walk and talk at 11:30 PM. At approximately 1:30 AM, however, she was found unresponsive. There may have been seizure-like activity by their report for a short amount of time. Initially she was unresponsive for EMS, but is now only minimally responsive to noxious stimuli. Concern was for stroke. Onset (ago): hour(s) Timing confirmed by: caregiver Location: other History of same: No Severity: moderate Quality: other Context: other Review of Systems General: Reports: ROS unobtainable due to mental status PFS ED PFSH: Medical History (Updated 05/03/23 @ 06:15 by Partha Jenkins DO) Anxiety Chronic diarrhea DDD (degenerative disc disease), lumbar Dementia Diarrhea Dyslipidemia (high LDL; low HDL) Encounter for counseling for care management of patient with chronic conditions and complex health needs using nurse-based model Encounter for loop recorder check Essential (primary) hypertension 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 Actually lives with her son and daughter who are with her 27/04 Hyponatremia chronic mild in low mid 130s at baseline Leg swelling Lumbar stenosis Memory change Parkinsons On Sinemet Recurrent UTI Syncopal episodes Tachycardia with heart rate 100-120 beats per minute Type 2 diabetes mellitus without complications non insulin requiring, on metformin, A1c-6.9 Urge incontinence Ventricular arrhythmia Surgical History History of loop recorder -Follows with Dr. Ponce History of release of tendon (~2010) trigger finger History of tonsillectomy and adenoidectomy younger than age 10 Hx laparoscopic cholecystectomy (~1993) Hx of bilateral cataract extraction (~2007) Hx of brain surgery Epidural Hematoma; emergency Hx of breast biopsy (~2002) right Hx of colonoscopy (~2010) polyps: Hyperplastic Hx of hysterectomy (~1973) Hx of tracheostomy Family History Father , age 58 from [place] CAD (coronary artery disease) Mother , age 76 Cancer melanoma Grandmother Diabetes maternal Social History Smoking and tobacco status: never smoked Alcohol intake: never Substance/Drug Use: never Caregiver/support person: Yes Lives independently: No Household members: none Housing: House Marital status: / Number of children: 2 Number of grandchildren: 0 Current occupational status: retired Current gender identity: Female Physical Exam Const: GENERAL APPEARANCE: lethargic, ill appearing and frail appearing ORIENTATION/CONSCIOUSNESS: Yes lethargic HENMT: COMMON NORMALS: normocephalic and atraumatic HEAD & SCALP: normocephalic and atraumatic FACE & SINUS: face not symmetric (left droop) Eye: COMMON NORMALS: Equal, round and reactive pupils present and EOMs intact bilaterally PUPIL: Yes Equal, round and reactive pupils present Chest: CHEST: Yes Symmetrical chest wall rise Resp: COMMON NORMALS: normal respiratory effort, No use of accessory muscles and clear to auscultation bilaterally AUSCULTATION: clear to auscultation bilaterally Cardio: COMMON NORMALS: regular rate and regular rhythm RATE: regular rate RHYTHM: regular rhythm GI: COMMON NORMALS: Normal to inspection, nondistended, normoactive bowel sounds present and Soft to palpation PALPATION: Yes Soft to palpation Extremity: COMMON NORMALS: no pedal edema Neuro: ROSA ISELA COMA SCALE: document GCS findings [place] coma scale eye opening: To pressure [place] coma scale verbal response: Sounds [place] coma scale motor response: Localising Rosa Isela coma scale total score: 9 SENSORIUM/ORIENTATION: Yes lethargic CRANIAL NERVES: Yes CN VII (facial) Laterality: left SPEECH: speech normal SENSORY EXAM: Yes extremities (intact) MOTOR EXAM: Normal motor muscle tone present throughout Psych: SPEECH: Yes minimal Skin: COMMON NORMALS: no rashes or lesions noted GENERAL SKIN EXAM: no rashes or lesions noted Course Vital Signs: Vital signs: Vital Signs Temperature 97.0 F L 05/03/23 04:54 Pulse Rate 77 05/03/23 04:54 Respiratory Rate 27 H 05/03/23 04:54 Blood Pressure 124/61 05/03/23 04:54 Pulse Oximetry 96 05/03/23 04:54 Oxygen Delivery Me thod Nasal Cannula 05/03/23 04:54 Oxygen Flow Rate 1.5 05/03/23 04:54 MDM - Neuro Symptoms/Deficit Medical Decision Making On initial evaluation, this patient was found to be responsive only to noxious stimuli. Preparations were made to intubate the patient, but prior to intubation, the patient began to arouse more easily. She now opens eyes, and follows some commands. Later on repeat evaluation, she is responsive to questions to some degree. Movements are symmetrical. She does not appear to have had a acute stroke. She did bite her tongue, which is consistent with potential seizure. She has a temperature of 100.2 on arrival. However, white blood cell count is 5.8. Hemoglobin is 10. Sugar is 195. Bicarbonate level is 18. She has a significant elevation in lactate, 6.8. Blood gas shows a pH of 7.37, bicarbonate of 20. She is now on 2 L of oxygen satting 95%. Other vitals are stable. She is nontachycardic. Lab Data 05/03/23 01:52 05/03/23 01:52 Radiology Impressions Chest X-Ray 05/03/23 01:31 IMPRESSION: Prominent bronchovascular markings bilaterally are nonspecific. Consider interstitial edema or atypical pneumonia could appear similar. Head CT 05/03/23 01:31 IMPRESSION: Negative for acute intracranial pathology. ASSESSMENT: ASPECTS ([place] Stroke Program Early CT Score) is 10. Head/Neck CTA 05/03/23 01:31 IMPRESSION: No large vessel occlusion. IMPRESSION: 1. Less than 50% artery stenosis. 2. Negative for vascular occlusion in the neck. 3. No significant change from comparison. REFERENCES: NASCET CRITERIA. The degree of stenosis in the cervical segment of the internal carotid artery is based on NASCET criteria. Normal is no stenosis. Mild is less than 50% stenosis. Moderate is 50-69% stenosis. Severe is 70% to 99% stenosis. Total occlusion is no detectable patent lumen. Laboratory Results WBC 5.8 10^3/uL (4.0-10.0) 05/03/23 01:52 RBC 4.10 10^6/uL (4.1-5.3) 05/03/23 01:52 Hgb 10.1 g/dL (11.5-15.3) L 05/03/23 01:52 Hct 33.6 % (37.0-47.0) L 05/03/23 01:52 MCV 82.0 fl (81-99) 05/03/23 01:52 MCH 24.6 pg (28.0-34.0) L 05/03/23 01:52 MCHC 30.1 g/dL (30.0-36.0) 05/03/23 01:52 RDW 18.5 % (12.1-15.1) H 05/03/23 01:52 Plt Count 207 10^3/cmm (130-400) 05/03/23 01:52 MPV 9.9 fL (7.4-10.4) 05/03/23 01:52 Neut % (Auto) 54.5 % 05/03/23 01:52 Lymph % (Auto) 21.5 % 05/03/23 01:52 [place] % (Auto) 12.8 % 05/03/23 01:52 Eos % (Auto) 10.1 % 05/03/23 01:52 Baso % (Auto) 0.9 % 05/03/23 01:52 Neut # (Auto) 3.14 10^3/uL (1.8-7.7) 05/03/23 01:52 Lymph # (Auto) 1.2 10^3/uL (0.8-4.8) 05/03/23 01:52 [place] # (Auto) 0.7 10^3/uL (0.2-0.9) 05/03/23 01:52 Eos # (Auto) 0.6 10^3/uL (0.0-0.8) 05/03/23 01:52 Baso # (Auto) 0.1 10^3/uL (0.0-0.1) 05/03/23 01:52 Nucleated RBC % (auto) 0 % 05/03/23 01:52 Nucleated RBCs # 0.0 /100WBC 05/03/23 01:52 PT 15.20 SECONDS (12.1-14.9) H 05/03/23 01:52 INR 1.16 (0.8-1.2) 05/03/23 01:52 APTT 28.3 SECONDS (23.9-36.7) 05/03/23 01:52 Specimen Type Arterial 05/03/23 01:48 Sample Site Radial, right 05/03/23 01:48 ABG pH 7.37 (7.35-7.45) 05/03/23 01:48 ABG pCO2 34.0 mmHg (35-45) L 05/03/23 01:48 ABG pO2 71.8 mmHg (80.0-100.0) L 05/03/23 01:48 ABG HCO3 19.5 mmol/L (22-26) L 05/03/23 01:48 ABG Base Excess -5.2 mmol/L (-2.0-2.0) L 05/03/23 01:48 [place] Test Pos 05/03/23 01:48 Hematocrit 32.5 % (37-47) L 05/03/23 01:48 O2 Delivery Device None 05/03/23 01:48 FiO2 21.0 % 05/03/23 01:48 Registration Clerk ID [email or web address] 05/03/23 01:48 Sodium 136 mmol/L (136-145) 05/03/23 01:52 Potassium 4.3 mmol/L (3.5-5.1) 05/03/23 01:52 Chloride 100 mmol/L (98-107) 05/03/23 01:52 Carbon Dioxide 18 mmol/L (22-29) L 05/03/23 01:52 Anion Gap 22.3 (5-19) H 05/03/23 01:52 BUN 23 mg/dL (8-23) 05/03/23 01:52 Creatinine 1.1 mg/dL (0.5-0.9) H 05/03/23 01:52 GFR Calculation Not Reportable 05/03/23 01:52 Glucose 195 mg/dL (65-115) H 05/03/23 01:52 Calculated Osmolality 291 mOsm/kg (285-295) 05/03/23 01:52 Lactic Acid 6.8 mmol/L (0.5-2.2) H* 05/03/23 01:52 Calcium 9.4 mg/dL (8.5-10.5) 05/03/23 01:52 Total Bilirubin 0.2 mg/dL (0.15-1.2) 05/03/23 01:52 AST 10 U/L (0-32) 05/03/23 01:52 ALT < 5 U/L (0-33) 05/03/23 01:52 Alkaline Phosphatase 153 U/L (35-105) H 05/03/23 01:52 Troponin T Baseline 33 ng/L (0-10) H 05/03/23 01:52 Troponin T 120 Minute 34.64 ng/L (0-10) H 05/03/23 03:42 Delta Troponin T 1.64 ABS# (0-10) 05/03/23 03:42 C-Reactive Protein 3.0 mg/L (0.0-4.9) 05/03/23 03:42 Total Protein 5.4 g/dL (6.6-8.7) L 05/03/23 01:52 Albumin 3.5 g/dL (3.5-5.2) 05/03/23 01:52 Globulin 1.9 g/dL (1.3-4.6) 05/03/23 01:52 Procalcitonin 0.04 ng/mL (0-0.5) 05/03/23 03:42 Urine Color Yellow (Yellow) 05/03/23 02:05 Urine Appearance Clear (CLEAR) 05/03/23 02:05 Urine pH 6.5 (5-7) 05/03/23 02:05 Ur Specific [place] 1.005 (1.005-1.030) 05/03/23 02:05 Urine Protein Neg (Negative) 05/03/23 02:05 Urine Glucose (UA) Norm (Normal) 05/03/23 02:05 Urine Ketones Negative (Negative) 05/03/23 02:05 Urine Blood Neg (Negative) 05/03/23 02:05 Urine Nitrate Negative (Negative) 05/03/23 02:05 Urine Bilirubin Neg (Negative) 05/03/23 02:05 Urine Urobilinogen Norm mg/dL (Negative) 05/03/23 02:05 Ur Leukocyte Esterase Negative (Negative) 05/03/23 02:05 Urine Opiates Screen Negative ng/mL (Negative) 05/03/23 02:05 Ur Barbiturates Screen Negative ng/mL (Negative) 05/03/23 02:05 Ur Phencyclidine Scrn Negative ng/mL (Negative) 05/03/23 02:05 Ur Amphetamines Screen Negative ng/mL (Negative) 05/03/23 02:05 U Benzodiazepines Scrn Negative ng/mL (Negative) 05/03/23 02:05 Urine Cocaine Screen Negative ng/mL (Negative) 05/03/23 02:05 U Marijuana (THC) Screen Negative ng/mL (Negative) 05/03/23 02:05 Discharge Plan Discharge Patient Disposition: Placed in Observation Admit Provider: Garrison Francois Clinical Impression: Altered mental status Coding Level of Care Code ED Manager Of Project Management for Robin Mccauley
[2023-05-03 03:04] LABS: Bilirubin Urine Neg (Negative); Blood Urine Neg (Negative); Glucose Urine UA Norm (Normal); Ketones Urine Negative (Negative); Leukocyte Esterase Urine Negative (Negative); Nitrate Urine Negative (Negative); Protein Urine Neg (Negative); Specific Gravity, Urine 1.005 (1.005-1.030); Urine Appearance Clear (CLEAR); Urine Color Yellow (Yellow); Urobilinogen Urine Norm (Negative); pH Urine 6.5 (5-7)
[2023-05-03 03:06] LABS: Amphetamines Screen Urine Negative (Negative); Barbiturates Screen Urine Negative (Negative); Benzodiazepines Screen Urine Negative (Negative); Cocaine Screen Urine Negative (Negative); Opiate Screen Urine Negative (Negative); PCP Screen Urine Negative (Negative); THC Screen Urine Negative (Negative)
[2023-05-03] MEDS: piperacillin-tazobactam 4.5 GM in sodium chloride 0.9% (plus) 50 ML IV (03:22)
--- NOTE | 2023-05-03 03:45 | PM.HP ---
Providers/Chief Complaint Admitting Physician: Garrison Francois MD Primary Care Provider: BRAN Tavarez Chief Complaint: Stoke Alert History of Present Illness Cathi Nichols is a 82 year old female with a past medical history significant for Parkinson's disease, stroke, dementia, type 2 diabetes mellitus, dyslipidemia, anxiety, hypertension, and traumatic brain injury who presents from the nursing facility with an episode of unresponsiveness. Upon assessment, patient is found to be lethargic and poor historian. Her son is bedside. He helps provide collateral information. Further collateral information also obtained from ED provider. Patient reportedly has not been sleeping for the past 3 days which is typically very hard on her due to her Parkinson's disease. Her son notices that she has been weaker as well for the past several days. Per assisted staff report, she had an episode of unresponsiveness with some possible seizure-like activity for short amount of time. Per ED provider, EMS found patient to be unresponsive and she was minimally responsive upon presentation to the ED. Her mentation did show slight signs of improvement throughout her ED course. Her son denies a known history of seizure disorder. He reports she has been worked up for stroke multiple times before. States that she has had similar episodes of unresponsiveness/seizure-like activity when she had urinary tract infections previously. In the ED, labs revealed a lactic acidosis at 6.8, mildly elevated troponin T at 33 and urinalysis was unremarkable. Chest x-ray showed prominent bronchovascular markings bilaterally possibly consistent with interstitial edema versus atypical pneumonia. Head CT was negative for acute intracranial pathology. Head and neck CT angiogram showed less than 50% arterial stenosis with a negative for evidence of vascular occlusion in the neck. Review of Systems Narrative: A complete review of systems was obtained and is negative except as stated in HPI. Medications/Allergies Home Medications Medication Instructions Recorded Confirmed Last Taken Type multivitamin (Daily Multi-Vitamin 1 tab PO DAILY@79910/11/19 02/09/23 09/21/22 History tablet) cranberry 500 mg capsule 500 mg PO DAILY@79910/25/19 02/09/23 09/21/22 History lancets 33 gauge (OneTouch Delica #100 ea 12/05/19 02/09/23 Unknown Rx Lancets) blood sugar diagnostic (Accu-Chek #10 ea 01/10/20 02/09/23 Unknown Rx Zhanna Plus test strips) blood-glucose meter (Accu-Chek #1 ea 01/10/20 02/09/23 Unknown Rx Zhanna Plus Meter) amantadine HCl 100 mg tablet 100 mg PO BID@0800,1700 10/29/20 02/10/23 09/21/22 History Lactobacillus 1 cap PO BID 10/17/21 02/09/23 09/21/22 History acidophilus-Bifidobac.animalis 2.5 billion cell capsule (Daily Probiotic) aspirin 81 mg tablet,delayed 81 mg PO DAILY 10/02/22 02/09/23 Unknown History release bisacodyl 10 mg rectal suppository 10 mg WV DAILY PRN Constipation 10/02/22 02/09/23 Unknown History (Dulcolax (bisacodyl)) magnesium hydroxide 400 mg/5 mL 30 ml PO DAILY PRN Constipation 10/02/22 02/09/23 Unknown History oral suspension (Milk of Magnesia) sodium phosphates 19 gram-7 118 ml WV DAILY PRN Constipation 10/02/22 02/09/23 Unknown History gram/118 mL enema (Fleet Enema) amlodipine 2.5 mg tablet 5 mg PO DAILY #180 tabs 11/17/22 02/09/23 Unknown Rx atorvastatin 40 mg tablet 40 mg PO DAILY #90 tabs 11/17/22 02/09/23 Unknown Rx buspirone 5 mg tablet See Rx Instructions .Route 11/17/22 02/09/23 Unknown Rx .COMPLEX #135 tabs carbidopa ER 50 mg-levodopa 200 mg 1 tab PO TID@,,17 #270 tabs 11/17/22 02/09/23 Unknown Rx tablet,extended release epinephrine 0.3 mg/0.3 mL 0.3 mg (0.3 mL) IM ONCE PRN 11/17/22 02/09/23 Unknown Rx injection, auto-injector (EpiPen Anaphylaxis #2 ea 2-Dickson) lisinopril 20 mg tablet 20 mg PO BID@0800,1700 #180 tabs 11/17/22 02/09/23 Unknown Rx metformin 500 mg tablet 1,000 mg PO BID #360 tabs 11/17/22 02/09/23 Unknown Rx metoprolol tartrate 25 mg tablet 25 mg PO BID #180 tabs 11/17/22 02/09/23 Unknown Rx risperidone 0.5 mg tablet 1 mg PO BEDTIME #180 tabs 11/17/22 02/09/23 Unknown Rx (Risperdal) Allergies Allergy/AdvReac Type Severity Reaction Status Date / Time furosemide [From Lasix] Allergy Unknown UNKNOWN Verified 02/09/23 12:30 codeine Allergy Unknown Verified 02/09/23 12:30 Sulfa (Sulfonamide Allergy Unknown Verified 02/09/23 12:30 Antibiotics) PFSH Acute PFSH: Medical History (Updated 05/03/23 @ 04:23 by Garrison Francois MD) Anxiety Chronic diarrhea DDD (degenerative disc disease), lumbar Dementia Diarrhea Dyslipidemia (high LDL; low HDL) Encounter for counseling for care management of patient with chronic conditions and complex health needs using nurse-based model Encounter for loop recorder check Essential (primary) hypertension 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 Actually lives with her son and daughter who are with her 27/04 Hyponatremia chronic mild in low mid 130s at baseline Leg swelling Lumbar stenosis Memory change Parkinsons On Sinemet Recurrent UTI Syncopal episodes Tachycardia with heart rate 100-120 beats per minute Type 2 diabetes mellitus without complications non insulin requiring, on metformin, A1c-6.9 Urge incontinence Ventricular arrhythmia Surgical History History of loop recorder -Follows with Dr. Ponce History of release of tendon (~2010) trigger finger History of tonsillectomy and adenoidectomy younger than age 10 Hx laparoscopic cholecystectomy (~1993) Hx of bilateral cataract extraction (~2007) Hx of brain surgery Epidural Hematoma; emergency Hx of breast biopsy (~2002) right Hx of colonoscopy (~2010) polyps: Hyperplastic Hx of hysterectomy (~1973) Hx of tracheostomy Family History Father , age 58 from [place] CAD (coronary artery disease) Mother , age 76 Cancer melanoma Grandmother Diabetes maternal Social History Smoking and tobacco status: never smoked Alcohol intake: never Substance/Drug Use: never Caregiver/support person: Yes Lives independently: No Household members: none Housing: House Marital status: / Number of children: 2 Number of grandchildren: 0 Current occupational status: retired Current gender identity: Female Vitals/I&O/Wt Last Vital Signs Pulse 78 05/03/23 02:32 Resp 12 05/03/23 02:32 BP 146/72 05/03/23 02:32 Pulse Ox 95 05/03/23 02:32 O2 Del Method Nasal Cannula 05/03/23 02:32 O2 Flow Rate 2 05/03/23 02:32 05/02/23 05/02/23 05/03/23 14:59 22:59 06:59 Intake Total 1000 / 1000 Balance 1000 / 1000 Weight last 48 hrs Weight 54.885 kg Physical Exam Narrative: General: Patient is lethargic but does awaken to stimulation. Frail and cachetic appearing. Head: Normocephalic. Atraumatic. EOMI. Poor dentition. Neck: No JVD. Cardiovascular: No gallops. No murmurs. Lungs: Very faint rhonchi bilaterally. No wheezing. No rales. No. Skin: No jaundice. Abdomen: Normal bowel sounds, abdomen soft and nontender. Genito Urinary: Genital exam not performed since complaints not related. Rectal: Rectal exam not performed since no symptoms indicated blood loss. Extremities: No cyanosis or clubbing. Musculoskeletal: No swollen or erythematous joints. Neurological: Moves all 4 extremities. No myoclonus. Lethargic but no focal neurologic deficit noted. Data 05/03/23 01:52 05/03/23 01:52 Micro: Microbiology 05/03/23 01:58 Blood Culture - Preliminary Blood SPECIMEN COLLECTED 05/03/23 01:52 Blood Culture - Preliminary Blood SPECIMEN COLLECTED A&P Assessment and plan (1) Altered mental status: Transient change in mentation with broad differential History of recurrence, previously associated with UTIs Elevated lactate raises suspicion for seizures Lack of focal deficits, makes CVA much less likely Continue to monitor mentation closely CXR concerning for possible atypical pneumonia Procal ordered Status post Zosyn in ED Start emperic ceftriaxone and doxycycline Consider chest CT pending clinical course (2) Near syncope: Head imaging reviewed Telemetry monitoring Serial exams (3) Parkinsons: Continue Sinemet (4) Acute cerebrovascular accident (CVA): Continue aspirin Continue statin Hold antihypertensives for now (5) Essential (primary) hypertension: Holding antihypertensives, plan to restart today pending BP and mentation (6) Type 2 diabetes mellitus without complications: Hold metformin SSI Avoid hypoglycemia Qualifiers: Diabetes mellitus intermediate manager insulin use: without intermediate use Qualified Code(s): E11.9 - Type 2 diabetes mellitus without complications Plan DVT ppx: Lovenox Attestations Medical Necessity Statement*: Patient presents with altered mental status with work up and treated not expected to cross two midnights. Coding Level of Care Code Acute Code for [facility] Fwd Diagnoses Altered mental status R41.82 Near syncope R55 Parkinsons G20 Acute cerebrovascular accident (CVA) I63.9 Essential (primary) hypertension I10 Type 2 diabetes mellitus without complications E11.9 Diabetes mellitus intermediate insulin use: without intermediate manager use
[2023-05-03 03:49] LABS: Reflex Lactate Order REFLEX LACTIC ORDERD
[2023-05-03 04:20] LABS: Troponin 5 2HR 34.64 ng/L (0-10)
[2023-05-03 04:23] LABS: Troponin 5 2HR Delta 1.64 ABS# (0-10)
[2023-05-03 04:28] LABS: Procalcitonin 0.04 ng/mL (0-0.5)
[2023-05-03] MEDS: doxycycline 100 MG in sodium chloride 0.9% (plus) 100 ML IV (04:40)
[2023-05-03] MEDS: enoxaparin 40 mg/0.4 mL Syringe SUBCUT (04:40)
[2023-05-03 05:19] LABS: Lactic Acid level (Lactate) 3.7 mmol/L (0.5-2.2)
[2023-05-03 06:43] LABS: Glucose Point of Care 123 mg/dL (70-110)
[2023-05-03] MEDS: carbidopa-levodopa ER 50-200mg Tablet 1 EACH PO ×3 (08:03→17:06)
[2023-05-03] MEDS: cefTRIAXone 1,000 MG in sodium chloride 0.9% (plus) 50 ML 100 MG IV (08:03)
[2023-05-03 08:15] LABS: Troponin 5 6HR 38.97 ng/L (0-10)
[2023-05-03 08:28] LABS: Adenovirus Not Detected (NOT DETECT); Chlamydia Pneumoniae Not Detected (NOT DETECT); Coronavirus 229E,HKU1,NL63,OC4 Not Detected (NOT DETECT); Human Metapneumovirus Not Detected (NOT DETECT); Human Rhinovirus/Enterovirus Not Detected (NOT DETECT); Influenza A Not Detected (NOT DETECT); Influenza A H1 Not Detected (NOT DETECT); Influenza A H1-2009 Not Detected (NOT DETECT); Influenza A H3 Not Detected (NOT DETECT); Influenza B Not Detected (NOT DETECT); Mycoplasma Pneumoniae Not Detected (NOT DETECT); Parainfluenza Virus Type 1 Not Detected (NOT DETECT); Parainfluenza Virus Type 2 Not Detected (NOT DETECT); Parainfluenza Virus Type 3 Not Detected (NOT DETECT); Parainfluenza Virus Type 4 Not Detected (NOT DETECT); Respiratory Syncytial Virus A Not Detected (NOT DETECT); Respiratory Syncytial Virus B Not Detected (NOT DETECT); SARS-COV-2 Not Detected (NOT DETECT)
[2023-05-03 08:37] LABS: Troponin 5 6HR Delta 5.97 ng/L (0-12)
[2023-05-03] MEDS: aspirin 81 mg EC Tablet PO (11:01)
[2023-05-03] MEDS: atorvastatin 40 mg Tablet PO (11:01)
[2023-05-03 11:25] LABS: Glucose Point of Care 117 mg/dL (70-110)
--- NOTE | 2023-05-03 13:02 | P.MISC_ITS ---
Miscellaneous Note Note: Daughter at the bedside Patient has left-sided facial droop Left-sided weakness She was able to follow commands however then went back to sleep As per the daughter patient remains drowsy for quite some time after her sleep cycle gets changed She has not slept well in the last 3 days Currently she is on 2 L which is new requirement at the long-term she does not use any oxygen Patient has left-sided facial droop Left extremity weakness as well Able to follow commands however extremely drowsy Dry cracked lips Clinically dry We will do speech therapy evaluation MRI tomorrow for diagnostic purposes to rule out stroke Daughter stating that her mother is DNR/DNI but would like to review goals of care with the brother who might have her living well Suspicion for seizure Currently she is being treated for possible UTI and pneumonia CT head and neck unremarkable CT chest reviewed unremarkable Patient has history of Parkinson's I would allow her to eat once she is more awake and alert At baseline she uses a walker and communicates
--- NOTE | 2023-05-03 13:07 | MRR_ITS ---
PROCEDURE INFORMATION: Exam: MR Head Without Contrast Exam date and time: 05/03/2023 3:38 PM Age: 82 years old Clinical indication: Altered mental status/memory loss; Confusion or disorientation; Prior surgery; Surgery date: 6+ months; Surgery type: Brain surgery for subdural and epidural hematoma 2016; Additional info: CVA TECHNIQUE: Imaging protocol: Magnetic resonance imaging of the head without contrast. COMPARISON: CT head thrombolytic [id number] 05/03/2023 1:34 AM FINDINGS: Brain: No acute infarct. No hemorrhage. Advanced diffuse cerebral atrophy and FLAIR T2 hyperintense signal abnormality within the periventricular deep white matter tracts consistent with chronic small vessel ischemic disease. Old infarct noted within the right temporal lobe. No edema. A few scattered areas of punctate susceptibility artifact noted within the cerebral hemispheres suggestive of old areas of microhemorrhage, most likely from hypertensive microangiopathy. Cerebral ventricles: Normal. No ventriculomegaly. Bones/joints: Unremarkable. Paranasal sinuses: Normal as visualized. No acute sinusitis. Mastoid air cells: Normal as visualized. No mastoid effusion. Orbital cavities: Unremarkable. Soft tissues: Unremarkable. MR/MR head wo con* [id number] IMPRESSION: 1. No acute ischemia. 2. Advanced diffuse cerebral atrophy and sequela of chronic small vessel ischemic disease. 3. 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 4. 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
[2023-05-03] MEDS: sodium chloride 0.9% 1,000 ML 75 ML IV (13:39)
[2023-05-03] MEDS: BuSPIRONE 10 mg Tablet 5 MG PO (17:06)
[2023-05-03 17:40] LABS: Glucose Point of Care 174 mg/dL (70-110)
[2023-05-03] MEDS: insulin lispro 100 unit/1 mL SUBCUT ×2 (17:56→20:43)
[2023-05-03] MEDS: risperiDONE 1 mg Tablet PO (20:30)
[2023-05-03 20:47] LABS: Glucose Point of Care 173 mg/dL (70-110)
[2023-05-04] VITALS (9 sets, daily range): BP systolic 141–182; BP diastolic 59–98; PULSE 73–128; RESP 15–18; TEMP 36–37.3; O2SAT 95–98
[2023-05-04 03:27] LABS: Basophils % 0.4 %; Eosinophils # 0.3 10^3/uL (0.0-0.8); Hematocrit 33.6 % (37.0-47.0); Hemoglobin 10.4 g/dL (11.5-15.3); Lymphocytes # 1.2 10^3/uL (0.8-4.8); Lymphocytes % 15.7 %; Mean Corpuscular Volume 80.8 fl (81-99); Mean Platelet Volume 10.2 fL (7.4-10.4); Monocytes # 0.9 10^3/uL (0.2-0.9); Monocytes % 11.8 %; Neutrophils # 5.06 10^3/uL (1.8-7.7); Neutrophils % 67.7 %; Nucleated Red Blood Cells % 0 %; Platelet Count 209 10^3/cmm (130-400); Red Blood Count 4.16 10^6/uL (4.1-5.3); Red Cell Distribution Width 18.5 % (12.1-15.1); White Blood Count 7.5 10^3/uL (4.0-10.0)
[2023-05-04 03:50] LABS: Anion Gap 17.6 (5-19); Blood Urea Nitrogen 12 mg/dL (8-23); Calcium 8.9 mg/dL (8.5-10.5); Carbon Dioxide 22 mmol/L (22-29); Chloride 109 mmol/L (98-107); Glucose 144 mg/dL (65-115); Osmolality Calculated 302 mOsm/kg (285-295); Potassium 3.6 mmol/L (3.5-5.1); Sodium 145 mmol/L (136-145)
[2023-05-04] MEDS: enoxaparin 40 mg/0.4 mL Syringe SUBCUT (05:07)
[2023-05-04 06:24] LABS: Glucose Point of Care 151 mg/dL (70-110)
[2023-05-04] MEDS: insulin lispro 100 unit/1 mL SUBCUT ×2 (08:33→21:34)
[2023-05-04] MEDS: carbidopa-levodopa ER 50-200mg Tablet 1 EACH PO (08:33)
[2023-05-04] MEDS: aspirin 81 mg EC Tablet PO (08:33)
[2023-05-04] MEDS: cefTRIAXone 1,000 MG in sodium chloride 0.9% (plus) 50 ML 100 MG IV (08:33)
[2023-05-04] MEDS: atorvastatin 40 mg Tablet PO (08:33)
--- NOTE | 2023-05-04 09:59 | ECG_ITS ---
[facility] Test Date: 2023-05-04 Pat Name: Cathi Nichols Department: Room: 268 Gender: Female Stone Splitter: : 1940 Requested By: Ramonita Santamaria Order Number: [id number] Ryan MD: Jerry Mauricio M.D. Measurements Intervals [place] Rate: 89 P: 66 ME: 179 QRS: -3 QRSD: 85 T: 36 QT: 363 QTc: 442 Interpretive Statements SINUS RHYTHM WITH MARKED SINUS ARRHYTHMIA INFERIOR MYOCARDIAL INFARCTION , PROBABLY OLD [40+ ms Q WAVE AND/OR ST/T ABNORMALITY IN II/aVF] ANTEROSEPTAL MYOCARDIAL INFARCTION , OF INDETERMINATE AGE [40+ ms Q WAVE IN V1-V4] Compared to ECG 05/03/2023 02:12:32 Myocardial infarct finding now present First degree AV block no longer present T-wave abnormality no longer present Electronically Signed On 05-04-2023 16:15:20 CDT by Jerry Mauricio M.D. [id number]
[2023-05-04 11:02] LABS: Glucose Point of Care 158 mg/dL (70-110)
--- NOTE | 2023-05-04 12:26 | PM.PN ---
Subjective Subjective: Daughter patient was awake last night and able to eat dinner however this morning she is morning not opening eyes As per the daughter she takes about 48 hours to perk up Recently her carbidopa/levodopa dose was increased and she could not sleep for 3 days We did discuss that for now we will watch her mentation for next 24 hours we will not initiate PPN because she just had proper meal last night Vitals/I&O/Wt Last Vital Signs Temp 97.1 F L 05/04/23 11:41 Pulse 97 05/04/23 11:41 Resp 18 05/04/23 11:41 BP 156/78 05/04/23 11:41 Pulse Ox 98 05/04/23 11:41 O2 Del Method Nasal Cannula 05/04/23 11:41 O2 Flow Rate 1 05/04/23 08:00 05/03/23 05/04/23 05/04/23 22:59 06:59 14:59 Intake Total 520 / 520 Output Total 625 / 625 1100 / 1725 Balance -105 / -105 -1100 / -1205 Weight last 48 hrs Weight 54.885 kg Physical Exam Narrative: Patient is moaning in pain Keeping her eyes closed She moves her extremities but not able to follow directions Clinically looks dehydrated Abdomen soft Wills catheter in place Neuro exam is limited Daughter is at the bedside Currently she is on 2 L nasal cannula Urinary Catheter Management: Wills: Cath Placed During This Visit: yes Reason for Continuing Indwelling Catheter: Other Urinary Catheter Date of Insertion: 05/03/23 Urinary Catheter Time of Insertion: 02:15 Data 05/04/23 02:37 05/04/23 02:37 Micro: Microbiology 05/03/23 01:58 Blood Culture - Preliminary Blood NEGATIVE TO DATE 05/03/23 01:52 Blood Culture - Preliminary Blood NEGATIVE TO DATE A&P Assessment and plan (1) Parkinsons: (2) Altered mental status: (3) Dementia: Qualifiers: Dementia behavioral or psychological symptom: with anxiety Dementia severity: moderate Dementia type: unspecified type Qualified Code(s): F03.B4 - Unspecified dementia, moderate, with anxiety (4) Urge incontinence: (5) Type 2 diabetes mellitus without complications: Qualifiers: Diabetes mellitus ad terminal makeup operator insulin use: without chcf use Qualified Code(s): E11.9 - Type 2 diabetes mellitus without complications (6) Recurrent UTI: (7) Hx of traumatic brain injury: (8) Essential (primary) hypertension: Plan Acute delirium with underlying dementia Related to dehydration and UTI Recently her Parkinson's medications dose was increased and patient became psychotic was not able to sleep for 3 days I will add low-dose Seroquel for tonight Patient ate dinner yesterday apparently, I will not start PPN today Continue IV fluids and antibiotics Watch mentation for next 24 hours As per the daughter patient should be DNR/DNI she will bring paperwork who is medical DPOA DNR/DNI Resume diet once she is awake Guarded prognosis if she is not able to eat Family does not want to pursue palliative care at this point however it may be needed in the future Attestations Medical Necessity Statement*: Continue medical management Diagnoses Parkinsons G20 Altered mental status R41.82 Dementia F03.B4 Dementia behavioral or psychological symptom: with anxiety Dementia severity: moderate Dementia type: unspecified type Urge incontinence N39.41 Type 2 diabetes mellitus without complications E11.9 Diabetes mellitus chcf insulin use: without ad terminal makeup operator use Recurrent UTI N39.0 Hx of traumatic brain injury Z87.820 Essential (primary) hypertension I10
[2023-05-04] MEDS: sodium chloride 0.9% 1,000 ML 75 ML IV ×2 (12:53→23:50)
[2023-05-04 16:51] LABS: Glucose Point of Care 132 mg/dL (70-110)
[2023-05-04 20:29] LABS: Glucose Point of Care 250 mg/dL (70-110)
--- NOTE | 2023-05-05 01:48 | PC.NURSE ---
patient resting quietly at present, resp wnl's. patient has episodes where she is very alert, answers questions approp, verbalized that she was cold, requested extra blanket, made conversation in regards to her son and daughter, other times during rounds patient is very difficult to wake up, offering no conversation.
[2023-05-05] MEDS: enoxaparin 40 mg/0.4 mL Syringe SUBCUT (03:43)
[2023-05-05 03:50] VITALS: BP 151/84; PULSE 100; RESP 16; TEMP 36.9; O2SAT 96
[2023-05-05 05:00] LABS: Basophils % 0.7 %; Eosinophils % 6.1 %; Hematocrit 39.8 % (37.0-47.0); Hemoglobin 12.5 g/dL (11.5-15.3); Lymphocytes % 24.4 %; Mean Corpuscular HGB Conc 31.4 g/dL (30.0-36.0); Mean Corpuscular Hemoglobin 24.9 pg (28.0-34.0); Mean Corpuscular Volume 79.3 fl (81-99); Mean Platelet Volume 9.3 fL (7.4-10.4); Monocytes % 11.1 %; Neutrophils % 57.2 %; Platelet Count 220 10^3/cmm (130-400); Red Blood Count 5.02 10^6/uL (4.1-5.3); Red Cell Distribution Width 19.1 % (12.1-15.1); White Blood Count 5.8 10^3/uL (4.0-10.0)
[2023-05-05 05:01] LABS: Eosinophils # 0.4 10^3/uL (0.0-0.8); Lymphocytes # 1.4 10^3/uL (0.8-4.8); Monocytes # 0.6 10^3/uL (0.2-0.9); Nucleated Red Blood Cells % 0 %
[2023-05-05 05:23] LABS: Anion Gap 16.8 (5-19); Blood Urea Nitrogen 10 mg/dL (8-23); Calcium 9.4 mg/dL (8.5-10.5); Carbon Dioxide 23 mmol/L (22-29); Chloride 110 mmol/L (98-107); Glucose 152 mg/dL (65-115); Osmolality Calculated 304 mOsm/kg (285-295); Potassium 3.8 mmol/L (3.5-5.1); Sodium 146 mmol/L (136-145)
[2023-05-05 06:37] LABS: Glucose Point of Care 170 mg/dL (70-110)
[2023-05-05 08:00] VITALS: BP 178/97; PULSE 117; PULSE 96; RESP 18; TEMP 36.7; O2SAT 96; O2SAT 98
[2023-05-05] MEDS: insulin lispro 100 unit/1 mL SUBCUT ×2 (08:04→11:39)
[2023-05-05] MEDS: atorvastatin 40 mg Tablet PO (08:07)
[2023-05-05] MEDS: cefTRIAXone 1,000 MG in sodium chloride 0.9% (plus) 50 ML 100 MG IV (08:22)
--- NOTE | 2023-05-05 09:43 | PC.CHAP ---
Pastoral Care Encounter/Spiritual Assessment Type of Contact [] Declined forensic ballistics expert visit [] Patient/Family/Request visit [] Outpatient visit [] Follow-up visit [] Physician referral [] Code/Alert [] Routine visit [] Staff referral [] Actively dying [] Patient sleeping [] Family support [] [] Out of room [] Palliative care [] [x] Receiving care in room [] Pre-surgical visit [] Trauma [] Long length of stay [] ICU visit [] Other: Relational/Emotional Strength [] Patient feels connected with others/family/visitors/staff [] Distress [] Loneliness/isolation [] Abandonment Spirituality of Patient [] Person of Agnieszka [] Attends Cheondoism of their Agnieszka [] Believes in Prayer [] Reads Bible or Baptist materials [] There are Spiritual issues to be addressed Medical Information Specialist Interventions [] Prayer [] Active listening [] Non-anxious presence [] Spiritual/emotional support [] Crisis/trauma care [] Spiritual counseling [] Bereavement support [] Provided bereavement packet [] Provided Bible/devotional materials [] Provided toy/stuffed animal, coloring book to patient or family member [] Provided Communion [] Anointing/[place] [] Salvation [] Completed spiritual assessment [] Other: Impact on Illness or Injury [] Angry [] Fearful [] Anxious [] Often cries [] Exhaustion [] Unable to work [] Unable to attend sabianism [] Unable to walk/stand [] Unable to read [] Unable to drive [] Unable to eat/drink [] Unable to sleep [] Unable to be with family [] Patient intubated [] Other: Summary Time spent with patient
--- NOTE | 2023-05-05 10:14 | PM.DCS ---
Discharge Providers Date of Admission: 05/04/23 19:40 Date of Discharge: May 05, 2023 Attending Provider at Admission: Garrison Francois MD Attending Provider at Discharge: Ramonita Santamaria MD Primary Care Provider: BRAN Tavarez Diagnoses at Discharge Discharge Diagnosis (1) Parkinsons: Status: Acute Permanent problem details: On Sinemet (2) Altered mental status: Status: Acute (3) Dementia: Status: Acute Qualifiers: Dementia behavioral or psychological symptom: with anxiety Dementia severity: moderate Dementia type: unspecified type Qualified Code(s): F03.B4 - Unspecified dementia, moderate, with anxiety (4) Urge incontinence: Status: Chronic (5) Type 2 diabetes mellitus without complications: Status: Chronic Qualifiers: Diabetes mellitus mcfp insulin use: without mcfp use Qualified Code(s): E11.9 - Type 2 diabetes mellitus without complications Permanent problem details: non insulin requiring, on metformin, A1c-6.9 (6) Recurrent UTI: Status: Chronic (7) Hx of traumatic brain injury: Status: Chronic Permanent problem details: associated with some degree of confusion, occasional hallucinations, states she lives with mom and dad at baseline when stressed. Actually lives with her son and daughter who are with her 27/04 (8) Essential (primary) hypertension: Status: Chronic Reason for Visit Reason for Visit: [facility] Hospital Course Hospital Course 82-year-old female with history of Parkinson's, dementia, present to the hospital for metabolic encephalopathy related to UTI with possibility for pneumonia, she did not respond for about 48 hours MRI head was requested which did not show acute ischemic changes, as per the daughter she normally takes about 48 hours after she gets sick, patient started on 4 times daily carbidopa dose which made her psychotic she was not able to sleep for 72 hours, I did try to give her Seroquel 25 mg in the hospital which seem to improve her insomnia as per the daughter that medications seem to help her stay asleep, arms 05/05 patient is awake and alert able to eat my concern was related to dehydration however patient is able to eat now daughter stating that she stays with her mother at the senior care until 2:00 and then brother stays until bedtime they will make sure she eats regularly, for now I would continue 50?200 carbidopa levodopa dose 3 times daily regimen and add Seroquel to be taken on as-needed basis in case of insomnia/psychotic symptoms. She was treated for her UTI, she remained afebrile, urine culture showed Enterococcus faecalis, will discharge on levofloxacin as per culture sensitivity report Remove Wills catheter before her discharge Telemetry/pulse does get read high because of her resting tremor I do not have GFR calculation I will discontinue metformin Physical Exam Narrative: NIH 0 Able to follow commands Eating breakfast Daughter at the bedside Currently on room air Signs of dehydration present, eating her meals Wills catheter will be removed before her discharge S1, S2 Urinary Catheter Management: Wills: Cath Placed During This Visit: yes Reason for Continuing Indwelling Catheter: Other Urinary Catheter Date of Insertion: 05/03/23 Urinary Catheter Time of Insertion: 02:15 Discharge Data Studies Completed and Pending Completed Studies During Hospitalization Category Date Time Status CT angio headneck* [id number] Stat Cat Scan 05/03/23 01:[address] head thrombolytic [id number] Stat Cat Scan 05/03/23 01:31 Completed XR chest 1V portable [id number] Stat Exams 05/03/23 01:31 Completed MR head wo con* [id number] Routine MRI 05/03/23 13:07 Completed Pending at discharge Category Date Time Status Blood Culture Stat Lab 05/03/23 01:58 Results Radiology Impressions Chest X-Ray 05/03/23 01:31 IMPRESSION: Prominent bronchovascular markings bilaterally are nonspecific. Consider interstitial edema or atypical pneumonia could appear similar. Head CT 05/03/23 01:31 IMPRESSION: Negative for acute intracranial pathology. ASSESSMENT: ASPECTS ([place] Stroke Program Early CT Score) is 10. Head/Neck CTA 05/03/23 01:31 IMPRESSION: No large vessel occlusion. IMPRESSION: 1. Less than 50% artery stenosis. 2. Negative for vascular occlusion in the neck. 3. No significant change from comparison. REFERENCES: NASCET CRITERIA. The degree of stenosis in the cervical segment of the internal carotid artery is based on NASCET criteria. Normal is no stenosis. Mild is less than 50% stenosis. Moderate is 50-69% stenosis. Severe is 70% to 99% stenosis. Total occlusion is no detectable patent lumen. Head MRI 05/03/23 13:07 IMPRESSION: 1. No acute ischemia. 2. Advanced diffuse cerebral atrophy and sequela of chronic small vessel ischemic disease. 3. 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 4. 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 Laboratory Results WBC 5.8 10^3/uL (4.0-10.0) 05/05/23 04:47 RBC 5.02 10^6/uL (4.1-5.3) 05/05/23 04:47 Hgb 12.5 g/dL (11.5-15.3) 05/05/23 04:47 Hct 39.8 % (37.0-47.0) 05/05/23 04:47 MCV 79.3 fl (81-99) L 05/05/23 04:47 MCH 24.9 pg (28.0-34.0) L 05/05/23 04:47 MCHC 31.4 g/dL (30.0-36.0) 05/05/23 04:47 RDW 19.1 % (12.1-15.1) H 05/05/23 04:47 Plt Count 220 10^3/cmm (130-400) 05/05/23 04:47 MPV 9.3 fL (7.4-10.4) 05/05/23 04:47 Neut % (Auto) 57.2 % 05/05/23 04:47 Lymph % (Auto) 24.4 % 05/05/23 04:47 Green % (Auto) 11.1 % 05/05/23 04:47 Eos % (Auto) 6.1 % 05/05/23 04:47 Baso % (Auto) 0.7 % 05/05/23 04:47 Neut # (Auto) 3.30 10^3/uL (1.8-7.7) 05/05/23 04:47 Lymph # (Auto) 1.4 10^3/uL (0.8-4.8) 05/05/23 04:47 Green # (Auto) 0.6 10^3/uL (0.2-0.9) 05/05/23 04:47 Eos # (Auto) 0.4 10^3/uL (0.0-0.8) 05/05/23 04:47 Baso # (Auto) 0.0 10^3/uL (0.0-0.1) 05/05/23 04:47 Nucleated RBC % (auto) 0 % 05/05/23 04:47 Nucleated RBCs # 0.0 /100WBC 05/05/23 04:47 PT 15.20 SECONDS (12.1-14.9) H 05/03/23 01:52 INR 1.16 (0.8-1.2) 05/03/23 01:52 APTT 28.3 SECONDS (23.9-36.7) 05/03/23 01:52 Specimen Type Arterial 05/03/23 01:48 Sample Site Radial, right 05/03/23 01:48 ABG pH 7.37 (7.35-7.45) 05/03/23 01:48 ABG pCO2 34.0 mmHg (35-45) L 05/03/23 01:48 ABG pO2 71.8 mmHg (80.0-100.0) L 05/03/23 01:48 ABG HCO3 19.5 mmol/L (22-26) L 05/03/23 01:48 ABG Base Excess -5.2 mmol/L (-2.0-2.0) L 05/03/23 01:48 Celso Test Pos 05/03/23 01:48 Hematocrit 32.5 % (37-47) L 05/03/23 01:48 O2 Delivery Device None 05/03/23 01:48 FiO2 21.0 % 05/03/23 01:48 Network Security Officer ID [email or web address] 05/03/23 01:48 Sodium 146 mmol/L (136-145) H 05/05/23 04:47 Potassium 3.8 mmol/L (3.5-5.1) 05/05/23 04:47 Chloride 110 mmol/L (98-107) H 05/05/23 04:47 Carbon Dioxide 23 mmol/L (22-29) 05/05/23 04:47 Anion Gap 16.8 (5-19) 05/05/23 04:47 BUN 10 mg/dL (8-23) 05/05/23 04:47 Creatinine 0.8 mg/dL (0.5-0.9) 05/05/23 04:47 GFR Calculation Not Reportable 05/05/23 04:47 Glucose 152 mg/dL (65-115) H 05/05/23 04:47 POC Glucose 170 mg/dL (70-110) H 05/05/23 06:25 Calculated Osmolality 304 mOsm/kg (285-295) H 05/05/23 04:47 Lactic Acid 6.8 mmol/L (0.5-2.2) H* 05/03/23 01:52 Lactic Acid (Sepsis) 3.7 mmol/L (0.5-2.2) H 05/03/23 04:53 Calcium 9.4 mg/dL (8.5-10.5) 05/05/23 04:47 Total Bilirubin 0.2 mg/dL (0.15-1.2) 05/03/23 01:52 AST 10 U/L (0-32) 05/03/23 01:52 ALT < 5 U/L (0-33) 05/03/23 01:52 Alkaline Phosphatase 153 U/L (35-105) H 05/03/23 01:52 Troponin T Baseline 33 ng/L (0-10) H 05/03/23 01:52 Troponin T 120 Minute 34.64 ng/L (0-10) H 05/03/23 03:42 Delta Troponin T 1.64 ABS# (0-10) 05/03/23 03:42 Troponin T Hi Sens 6Hr 38.97 ng/L (0-10) H 05/03/23 07:48 Troponin T Hi Sens 6Hr Delta 5.97 ng/L (0-12) 05/03/23 07:48 C-Reactive Protein 3.0 mg/L (0.0-4.9) 05/03/23 03:42 Total Protein 5.4 g/dL (6.6-8.7) L 05/03/23 01:52 Albumin 3.5 g/dL (3.5-5.2) 05/03/23 01:52 Globulin 1.9 g/dL (1.3-4.6) 05/03/23 01:52 Procalcitonin 0.04 ng/mL (0-0.5) 05/03/23 03:42 Urine Color Yellow (Yellow) 05/03/23 02:05 Urine Appearance Clear (CLEAR) 05/03/23 02:05 Urine pH 6.5 (5-7) 05/03/23 02:05 Ur Specific [place] 1.005 (1.005-1.030) 05/03/23 02:05 Urine Protein Neg (Negative) 05/03/23 02:05 Urine Glucose (UA) Norm (Normal) 05/03/23 02:05 Urine Ketones Negative (Negative) 05/03/23 02:05 Urine Blood Neg (Negative) 05/03/23 02:05 Urine Nitrate Negative (Negative) 05/03/23 02:05 Urine Bilirubin Neg (Negative) 05/03/23 02:05 Urine Urobilinogen Norm mg/dL (Negative) 05/03/23 02:05 Ur Leukocyte Esterase Negative (Negative) 05/03/23 02:05 Nasal Influ A H1 2008 PCR Not detected (NOT DETECT) 05/03/23 06:34 Urine Opiates Screen Negative ng/mL (Negative) 05/03/23 02:05 Ur Barbiturates Screen Negative ng/mL (Negative) 05/03/23 02:05 Ur Phencyclidine Scrn Negative ng/mL (Negative) 05/03/23 02:05 Ur Amphetamines Screen Negative ng/mL (Negative) 05/03/23 02:05 U Benzodiazepines Scrn Negative ng/mL (Negative) 05/03/23 02:05 Urine Cocaine Screen Negative ng/mL (Negative) 05/03/23 02:05 U Marijuana (THC) Screen Negative ng/mL (Negative) 05/03/23 02:05 Adenovirus (PCR) Not detected (NOT DETECT) 05/03/23 06:34 C. pneumoniae DNA (PCR) Not detected (NOT DETECT) 05/03/23 06:34 Coronavirus 229E (PCR) Not detected (NOT DETECT) 05/03/23 06:34 Human Metapneumovir PCR Not detected (NOT DETECT) 05/03/23 06:34 Influenza A (H1) PCR Not detected (NOT DETECT) 05/03/23 06:34 Influenza A (H3) PCR Not detected (NOT DETECT) 05/03/23 06:34 Influenza Type A (PCR) Not detected (NOT DETECT) 05/03/23 06:34 Influenza Type B (PCR) Not detected (NOT DETECT) 05/03/23 06:34 M. pneumoniae (PCR) Not detected (NOT DETECT) 05/03/23 06:34 Parainfluenza 1 (PCR) Not detected (NOT DETECT) 05/03/23 06:34 Parainfluenza 2 (PCR) Not detected (NOT DETECT) 05/03/23 06:34 Parainfluenza 3 (PCR) Not detected (NOT DETECT) 05/03/23 06:34 Parainfluenza 4 (PCR) Not detected (NOT DETECT) 05/03/23 06:34 RSV Type A (PCR) Not detected (NOT DETECT) 05/03/23 06:34 RSV Type B (PCR) Not detected (NOT DETECT) 05/03/23 06:34 Entero/Rhino (PCR) Not detected (NOT DETECT) 05/03/23 06:34 SARS-CoV-2 (PCR) Not detected (NOT DETECT) 05/03/23 06:34 Vitals Last Vital Signs Temp 98.0 F 05/05/23 08:00 Pulse 117 H 05/05/23 08:00 Resp 18 05/05/23 08:00 BP 178/97 05/05/23 08:00 Pulse Ox 96 05/05/23 08:00 O2 Del Method Room Air 05/05/23 08:00 O2 Flow Rate 0.5 05/05/23 08:00 Discharge Plan Discharge Patient Disposition: Xfer SNF Condition: Stable Prescriptions: New levofloxacin 750 mg tablet 750 mg PO DAILY 5 Days Qty: 5 0RF quetiapine [Seroquel] 25 mg tablet 25 mg PO BEDTIME PRN (Reason: insomnia) Qty: 20 0RF Continued cranberry 500 mg capsule 500 mg PO DAILY@0800 multivitamin [Daily Multi-Vitamin] Tablet 1 tab PO DAILY@0800 Daily Probiotic 2.5 billion cell capsule 1 cap PO BID amantadine HCl 100 mg tablet 100 mg PO BID@0800,1700 epinephrine [EpiPen 2-Dickson] 0.3 mg/0.3 mL auto-injector 0.3 mg IM ONCE PRN (Reason: Anaphylaxis) Qty: 2 0RF amlodipine 2.5 mg tablet 5 mg PO DAILY Qty: 180 3RF atorvastatin 40 mg tablet 40 mg PO DAILY Qty: 90 3RF buspirone 5 mg tablet See Rx Instructions .ROUTE .COMPLEX Qty: 135 0RF Rx Instructions: 2.5 mg by mouth daily and 5 mg by mouth evening carbidopa-levodopa 50-200 mg tablet extended release 1 tab PO TID@08,,17 Qty: 270 3RF lisinopril 20 mg tablet 20 mg PO BID@0800,1700 Qty: 180 3RF metoprolol tartrate 25 mg tablet 25 mg PO BID Qty: 180 3RF risperidone [Risperdal] 0.5 mg tablet 1 mg PO BEDTIME Qty: 180 3RF (DME) lancets [OneTouch Delica Lancets] 33 gauge misc See Rx Instructions .ROUTE .MEDSUPPLY Qty: 100 3RF Rx Instructions: one daily for blood sugar (DME) blood-glucose meter [Accu-Chek Zhanna Plus Meter] Misc See Rx Instructions .ROUTE .MEDSUPPLY Qty: 1 0RF Rx Instructions: check blood sugar daily (DME) Accu-Chek Zhanna Plus test strp Strip See Rx Instructions .ROUTE .MEDSUPPLY Qty: 10 0RF Rx Instructions: check blood sugar 1 time daily magnesium hydroxide [Milk of Magnesia] 400 mg/5 mL Suspension 30 ml PO DAILY PRN (Reason: Constipation) bisacodyl [Dulcolax (bisacodyl)] 10 mg Suppository 10 mg [place] DAILY PRN (Reason: Constipation) Fleet Enema 19-7 gram/118 mL Enema 118 ml [place] DAILY PRN (Reason: Constipation) aspirin 81 mg tablet,delayed release (DR/EC) 81 mg PO DAILY Discontinued metformin 1,000 mg Tablet 1,000 mg PO BID Discharge Orders: Discharge Order (Routine); Ordered 05/05/23 Ordered By: Ramonita Santamaria Referrals: Rosy Montelongo, RECORDS MANAGEMENT TECHNICIAN [Primary Care Provider] - Patient Instructions: Opioid Safety Activity Restrictions/Additional Instructions: Patient TO GET 5 days of antibiotics for UTI with Levaquin In case of insomnia/psychotic symptoms she can get Seroquel 25 mg at bedtime on as-needed basis Discharge Attestations Time Spent in Discharge Care*: greater than 30 min Status at Discharge: Cognitive status at discharge: moderately impaired cognition (at baseline), Behavioral status at discharge: cooperative, Quality Metrics Clinical Quality Measures [ No reported AMI, CVA or VTE this stay] Coding Level of Care Code Acute Code for g Fwd Diagnoses Parkinsons G20 Altered mental status R41.82 Dementia F03.B4 Dementia behavioral or psychological symptom: with anxiety Dementia severity: moderate Dementia type: unspecified type Urge incontinence N39.41 Type 2 diabetes mellitus without complications E11.9 Diabetes mellitus terminal press operator insulin use: without mcfp use Recurrent UTI N39.0 Hx of traumatic brain injury Z87.820 Essential (primary) hypertension I10
[2023-05-05 11:15] LABS: Glucose Point of Care 332 mg/dL (70-110)
[2023-05-05 11:30] VITALS: BP 164/80; PULSE 72; RESP 18; TEMP 36.5; O2SAT 91
[2023-05-05] MEDS: carbidopa-levodopa ER 50-200mg Tablet 1 EACH PO (11:40)
--- NOTE | 2023-05-05 12:13 | PC.NURSE ---
Report called to Shannon SLAUGHTER at [facility] at this time.
[2023-05-05 15:25] VITALS: BP 164/80; PULSE 72; RESP 18; TEMP 36.5; O2SAT 91
== END 2023-05-05 14:00 | disposition home or self-care (01) | DRG 689 ==
LOC: ER 03:01 → MEDSURG 04:54
PROVIDERS: Admitting Provider Internal Medicine; Emergency Provider Emergency Medicine; PCP Nurse Practitioner Family; Visit Provider Internal Medicine
DX: N39.0 Urinary tract infection, site not specified (principal); G93.41 Metabolic encephalopathy; F02.B4 Dementia in other diseases classified elsewhere, moderate, with anxiety; E87.20 Acidosis, unspecified; G20 Parkinson's disease; G47.00 Insomnia, unspecified; B95.2 Enterococcus as the cause of diseases classified elsewhere; Z86.73 Personal history of transient ischemic attack (TIA), and cerebral infarction without residual deficits; E78.5 Hyperlipidemia, unspecified; E86.0 Dehydration; E11.9 Type 2 diabetes mellitus without complications; Z66 Do not resuscitate; I10 Essential (primary) hypertension; T42.8X5A Adverse effect of antiparkinsonism drugs and other central muscle-tone depressants, initial encounter; Z79.82 Long term (current) use of aspirin; Z79.85 Long-term (current) use of injectable non-insulin antidiabetic drugs; Z87.440 Personal history of urinary (tract) infections; Z87.820 Personal history of traumatic brain injury; R55 Syncope and collapse
CPT/HCPCS: 36415; 36416; 36600; 51702; 70450; 70496; 70498; 70551; 71045; 80048; 80053; 80306; 81003; 82803; 82962; 83605; 84145; 84484; 85025; 85610; 85730; 86140; 87040; 87486; 87581; 87633; 92507; 92523; 92526; 92610; 93005; 96365; 96367; 96372; 96375; 97110; 97161; 97165; 97530; 99291; G0378; J0696; J1650; J1815; J1953; J2543; J3490; J7030; Q9967

== ENCOUNTER → 2023-08-24 15:34 | Outpatient (BNVA) | payer MEDICARE, OTHER, SELFPAY | PROVIDERS: PCP Clinical Nurse Specialist Adult Health; Visit Provider Internal Medicine Cardiovascular Disease | DX: I49.8 Other specified cardiac arrhythmias (principal); E78.5 Hyperlipidemia, unspecified; I10 Essential (primary) hypertension; E11.9 Type 2 diabetes mellitus without complications; R55 Syncope and collapse | CPT/HCPCS: 99214 ==

== ENCOUNTER → 2023-09-02 13:08 | Outpatient (BNVA) | payer MEDICARE, OTHER, SELFPAY | PROVIDERS: PCP Clinical Nurse Specialist Adult Health; Visit Provider Nurse Practitioner Family | DX: L82.1 Other seborrheic keratosis (principal); D69.2 Other nonthrombocytopenic purpura; L57.8 Other skin changes due to chronic exposure to nonionizing radiation; D48.5 Neoplasm of uncertain behavior of skin; L57.0 Actinic keratosis | CPT/HCPCS: 11102; 17000; 99203 ==

== ENCOUNTER 2023-10-25 12:38 | Emergency (ER) | payer MEDICARE, OTHER, SELFPAY ==
[2023-10-25] VITALS (14 sets, daily range): BP systolic 116–131; BP diastolic 57–61; PULSE 60–77; RESP 12–22; TEMP 37.1; O2SAT 95–99; BMI 34.9
--- NOTE | 2023-10-25 12:39 | XRR_ITS ---
PROCEDURE INFORMATION: Exam: XR Chest Exam date and time: 10/25/2023 12:45 PM Age: 83 years old Clinical indication: Other: Syncope TECHNIQUE: Imaging protocol: Radiologic exam of the chest. Views: 1 view. COMPARISON: CR (CHEST, ) 05/03/2023 2:28 AM FINDINGS: Tubes, catheters and devices: Loop recorder remains in place. Lungs: Interval resolution of pulmonary vascular congestion. No acute pulmonary pathology. Pleural spaces: No pleural effusion or pneumothorax. Heart/Mediastinum: Unremarkable. Bones/joints: No significant pathology. XR/XR chest 1V portable [id number] IMPRESSION: No acute pathology.
--- NOTE | 2023-10-25 12:42 | W.ED.SYNCOPE ---
HPI - Syncope General: Chief Complaint: Syncope Stated Complaint: SYNCOPE Time Seen by Provider: 10/25/23 12:39 History of Present Illness: 83-year-old female presents to the emergency department via EMS, from [facility]. The patient is accompanied by her family member. The family member and EMS states that the patient had a syncopal episode after having a bowel movement. The family member states that she has done this several times. EMS states that the nursing staff at the [facility] were concerned about the patient's heart as it became bradycardic after the bowel movement and wanted her to be evaluated. Patient does appear to be at her baseline mental status she is awake and alert and is verbal. Family endorses that this is the patient's baseline mental status. The family states that the patient had a previous TIA-many stroke and was placed in [facility] for rehabilitation and after 1 month the patient was brought home and did not thrive and the home setting so the patient was placed back at [facility] and is now a resident there. She also has Parkinson's and dementia. The family members state that the patient seems to have syncopal episodes after having bowel movements and this has occurred at least on 4 separate occasions. The family member states that patient was seen by the primary care provider and they have obtained laboratory evaluation which has not been resulted at present. 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 Actually lives with her son and daughter who are with her 27/04 Hyponatremia chronic mild in low mid 130s at baseline Leg swelling Lumbar stenosis Memory change Near syncope Parkinsons On Sinemet Recurrent UTI Syncopal episodes Tachycardia with heart rate 100-120 beats per minute Type 2 diabetes mellitus without complications non insulin requiring, on metformin, A1c-6.9 Urge incontinence Ventricular arrhythmia Surgical History History of loop recorder -Follows with Dr. Ponce History of release of tendon (~2010) trigger finger History of tonsillectomy and adenoidectomy younger than age 10 Hx laparoscopic cholecystectomy (~1993) Hx of bilateral cataract extraction (~2007) Hx of brain surgery Epidural Hematoma; emergency Hx of breast biopsy (~2002) right Hx of colonoscopy (~2010) polyps: Hyperplastic Hx of hysterectomy (~1973) Hx of tracheostomy Family History Father , age 58 from [place] CAD (coronary artery disease) Mother , age 76 Cancer melanoma Grandmother Diabetes maternal Social History Smoking and tobacco/nicotine status: never used tobacco/nicotine Alcohol intake: never Substance/Drug Use: never Caregiver/support person: Yes Lives independently: No Household members: none Housing: House Marital status: / Number of children: 2 Number of grandchildren: 0 Current occupational status: retired Current gender identity: Female Physical Exam Narrative: EXAM NARRATIVE: Constitutional: the patient appears well nourished and of normal development. Vital signs as documented. No acute distress at present. Alert and oriented-to person, place and situation. Per the family the patient is at her baseline mental status she is able to answer questions and then goes back to sleep. She does arouse to verbal commands. Head, eyes, ears, nose, mouth, throat: Normocephalic, atraumatic. Pupils-equal, round, reactive to light. No scleral icterus. Normal-appearing external ears. Normal appearing nasal turbinates, no drainage. No obvious oral lesions, posterior oropharynx without erythema or exudates. Neck: Supple, trachea is midline, no lymphadenopathy, no jugular venous distension, thyromegaly, or carotid bruits. Carotid upstrokes are brisk bilaterally. Lungs: Decreased bilaterally in the bases, the remainder lung de la o are clear to auscultation. Symmetrical rise and fall of chest, no obvious signs of increased work of breathing at present. Cardiac: Regular rate and rhythm, positive S1, S2. No murmurs, rubs or gallops that I can appreciate Abdomen: Soft, non-tender to palpation, normal active bowel sounds to all quadrants. No palpable masses, no organomegaly and abdominal bruits. Extremities: 2+ pulses in the upper extremities that are equal bilaterally, 2+ pulses in the lower extremities that are equal bilaterally. Non-edematous. Moves all extremities well, sensation to all extremities are noted. Skin: Warm, dry, intact. Course Vital Signs: Vital signs: Vital Signs Temperature 98.7 F 10/25/23 12:42 Pulse Rate 68 10/25/23 14:25 Respiratory Rate 14 10/25/23 14:25 Blood Pressure 131/59 10/25/23 14:25 Pulse Oximetry 97 10/25/23 14:25 Oxygen Delivery Me thod Room Air 10/25/23 12:42 MDM - Syncope Medical Decision Making 83-year-old female with a history of Parkinson's, dementia and TIAs, presents secondary to vasovagal syncope after having a bowel movement. We will obtain a CBC, CMP, urinalysis as well as cardiac enzymes and EKG and chest x-ray for evaluation. Differential diagnosis includes urinary tract infection, pneumonia, benign syncope, dehydration, cardiac event, hypotension. Medical Records I reviewed the patient's medical records. Lab Data I reviewed the patient's lab results. 10/25/23 12:21 10/25/23 12:21 Radiology Impressions Chest X-Ray 10/25/23 12:39 IMPRESSION: No acute pathology. Laboratory Results WBC 9.16 10^3/uL (3.29-11.43) 10/25/23 12:21 RBC 5.40 10^6/uL (3.85-5.65) 10/25/23 12:21 Hgb 12.90 g/dL (11.27-16.99) 10/25/23 12:21 Hct 42.0 % (36-47) 10/25/23 12:21 MCV 77.8 fl (85-98) L 10/25/23 12:21 MCH 23.9 pg (27-33) L 10/25/23 12: MCHC 30.7 g/dL (30-55) 10/25/23 12:21 RDW 18.9 % (12.1-15.1) H 10/25/23 12:21 Plt Count 338 10^3/cmm (157-399) 10/25/23 12:21 MPV 10.1 fL (7.4-10.4) 10/25/23 12:21 Neut % (Auto) 49.8 % 10/25/23 12:21 Lymph % (Auto) 37.6 % 10/25/23 12:21 [place] % (Auto) 7.5 % 10/25/23 12:21 Eos % (Auto) 4.4 % 10/25/23 12:21 Baso % (Auto) 0.5 % 10/25/23 12:21 Neut # (Auto) 4.56 10^3/uL (1.8-7.7) 10/25/23 12:21 Lymph # (Auto) 3.4 10^3/uL (0.8-4.8) 10/25/23 12:21 [place] # (Auto) 0.7 10^3/uL (0.2-0.9) 10/25/23 12:21 Eos # (Auto) 0.4 10^3/uL (0.0-0.8) 10/25/23 12:21 Baso # (Auto) 0.1 10^3/uL (0.0-0.1) 10/25/23 12:21 Nucleated RBC % (auto) 0 % 10/25/23 12: Nucleated RBCs # 0.0 /100WBC 10/25/23 12:21 PT 13.90 SECONDS (12.1-14.9) 10/25/23 12:21 INR 1.04 (0.8-1.2) 10/25/23 12:21 APTT 27.2 SECONDS (23.9-36.7) 10/25/23 12:21 Sodium 139 mmol/L (136-145) 10/25/23 12:21 Potassium 4.4 mmol/L (3.5-5.1) 10/25/23 12:21 Chloride 101 mmol/L (98-107) 10/25/23 12:21 Carbon Dioxide 21 mmol/L (22-29) L 10/25/23 12:21 Anion Gap 21.4 (5-19) H 10/25/23 12:21 BUN 25 mg/dL (8-23) H 10/25/23 12:21 Creatinine 1.3 mg/dL (0.5-0.9) H 10/25/23 12:21 GFR Calculation Not Reportable 10/25/23 12:21 Glucose 127 mg/dL (65-115) H 10/25/23 12:21 POC Glucose 100 mg/dL (70-110) 10/25/23 13:09 Calculated Osmolality 294 mOsm/kg (285-295) 10/25/23 12:21 Calcium 10.0 mg/dL (8.5-10.5) 10/25/23 12:21 Total Bilirubin 0.4 mg/dL (0.15-1.2) 10/25/23 12:21 AST 11 U/L (0-32) 10/25/23 12:21 ALT < 5 U/L (0-33) 10/25/23 12:21 Alkaline Phosphatase 132 U/L (35-105) H 10/25/23 12:21 Troponin T Baseline 39 ng/L (0-10) H 10/25/23 12:21 NT-Pro-B Natriuret Pep 188 pg/mL (0-450) 10/25/23 12:21 Total Protein 7.1 g/dL (6.6-8.7) 10/25/23 12:21 Albumin 3.9 g/dL (3.5-5.2) 10/25/23 12:21 Globulin 3.2 g/dL (1.3-4.6) 10/25/23 12:21 Urine Color Straw (Yellow) 10/25/23 14:06 Urine Appearance Cloudy (CLEAR) A 10/25/23 14:06 Urine pH 5 (5-7) 10/25/23 14:06 Ur Specific [place] 1.010 (1.005-1.030) 10/25/23 14:06 Urine Protein Neg (Negative) 10/25/23 14:06 Urine Glucose (UA) 4+ (Normal) H 10/25/23 14:06 Urine Ketones Negative (Negative) 10/25/23 14:06 Urine Blood Neg (Negative) 10/25/23 14:06 Urine Nitrate Positive (Negative) H 10/25/23 14:06 Urine Bilirubin Neg (Negative) 10/25/23 14:06 Urine Urobilinogen Norm mg/dL (Negative) 10/25/23 14:06 Ur Leukocyte Esterase 2+ (Negative) H 10/25/23 14:06 Urine RBC None /hpf (0-2) 10/25/23 14:06 Urine WBC 80-100 /hpf (0-5) H 10/25/23 14:06 Ur Squamous Epith Cells 0-4 /hpf (0-5) H 10/25/23 14:06 Amorphous Sediment Not Reportable 10/25/23 14:06 Urine Bacteria 3+ /hpf (NONE) H 10/25/23 14:06 All radiology interpretation(s) finalized by discharge EKG Data EKG 1: Interpretation: Twelve-lead EKG obtained at 1251 and reviewed at 1251 demonstrates sinus rhythm with a first-degree AV block. Ventricular rate 70 bpm, AK interval 212, QRS duration 79, QT 411, QTc 431, there is no ST elevation or depression to demonstrate acute ischemia or infarction at present. Discharge Plan Discharge Patient Disposition: Home Clinical Impression: Vasovagal syncope, Dehydration, Acute UTI Condition: Stable Prescriptions: New levofloxacin 750 mg tablet 750 mg PO DAILY 7 Days Qty: 7 0RF No Action cranberry 500 mg capsule 500 mg PO DAILY@0800 multivitamin [Daily Multi-Vitamin] Tablet 1 tab PO DAILY@0800 Daily Probiotic 2.5 billion cell capsule 1 cap PO BID amantadine HCl 100 mg tablet 100 mg PO BID@0800,1700 epinephrine [EpiPen 2-Dickson] 0.3 mg/0.3 mL auto-injector 0.3 mg IM ONCE PRN (Reason: Anaphylaxis) Qty: 2 0RF amlodipine 2.5 mg tablet 5 mg PO DAILY Qty: 180 3RF atorvastatin 40 mg tablet 40 mg PO DAILY Qty: 90 3RF buspirone 5 mg tablet See Rx Instructions .ROUTE .COMPLEX Qty: 135 0RF Rx Instructions: 2.5 mg by mouth daily and 5 mg by mouth evening carbidopa-levodopa 50-200 mg tablet extended release 1 tab PO TID@08,12,17 Qty: 270 3RF lisinopril 20 mg tablet 20 mg PO BID@0800,1700 Qty: 180 3RF metoprolol tartrate 25 mg tablet 25 mg PO BID Qty: 180 3RF risperidone [Risperdal] 0.5 mg tablet 1 mg PO BEDTIME Qty: 180 3RF (DME) lancets [OneTouch Delica Lancets] 33 gauge misc See Rx Instructions .ROUTE .MEDSUPPLY Qty: 100 3RF Rx Instructions: one daily for blood sugar (DME) blood-glucose meter [Accu-Chek Zhanna Plus Meter] Misc See Rx Instructions .ROUTE .MEDSUPPLY Qty: 1 0RF Rx Instructions: check blood sugar daily (DME) Accu-Chek Zhanna Plus test strp Strip See Rx Instructions .ROUTE .MEDSUPPLY Qty: 10 0RF Rx Instructions: check blood sugar 1 time daily magnesium hydroxide [Milk of Magnesia] 400 mg/5 mL Suspension 30 ml PO DAILY PRN (Reason: Constipation) bisacodyl [Dulcolax (bisacodyl)] 10 mg Suppository 10 mg AK DAILY PRN (Reason: Constipation) Fleet Enema 19-7 gram/118 mL Enema 118 ml AK DAILY PRN (Reason: Constipation) aspirin 81 mg tablet,delayed release (DR/EC) 81 mg PO DAILY Seroquel 25 mg tablet 25 mg PO BEDTIME PRN (Reason: insomnia) Qty: 20 0RF Discharge Orders: Discharge ED (Routine); Ordered 10/25/23 Ordered By: Louis Dominguez Referrals: Polo Guzman TRUSS DRIVER HELPER [Primary Care Provider] - Discharge Diet: Advance as tolerated Discharge Activity: Resume usual activity Patient Instructions: Opioid Safety, Pain Management Activity Restrictions/Additional Instructions: Activity Restrictions/Additional Instructions: Thank you for choosing [facility] for your healthcare needs today. Please realize that you were seen in the Emergency Department and that we are providing you with an emergency medical screening exam and this may not be a complete and all inclusive of all the testing and or medical work-up that you may need to determine your ailment or severity of your illness. It is very important that you follow-up as instructed with your Primary care provider or Specialist for additional evaluation and to discuss your medical treatment plan. You may return to the Emergency Department should you have concerns or if your condition changes or worsens in any way. Coding Level of Care Code ED Filer And Sander for Robin Mccauley
--- NOTE | 2023-10-25 12:51 | ECG_ITS ---
[facility] Test Date: 2023-10-25 Pat Name: Cathi Nichols Department: Room: Gender: Female Music Cataloguer: : 1940 Requested By: Louis Dominguez Order Number: [id number] Ryan MD: Robni Blue M.D. Measurements Intervals [place] Rate: 70 P: 73 ME: 212 QRS: 11 QRSD: 79 T: 68 QT: 411 QTc: 444 Interpretive Statements SINUS RHYTHM WITH FIRST DEGREE AV BLOCK ANTEROSEPTAL MYOCARDIAL INFARCTION , OF INDETERMINATE AGE [40+ ms Q WAVE IN V1-V4] Compared to ECG 05/04/2023 12:47:55 First degree AV block now present Sinus arrhythmia no longer present Myocardial infarct finding still present Electronically Signed On 10-26-2023 9:47:31 RECYCLING OR RUBBISH COLLECTOR by Robin Blue M.D. [id number]
[2023-10-25 12:55] LABS: Basophils # 0.1 10^3/uL (0.0-0.1); Basophils % 0.5 %; Eosinophils # 0.4 10^3/uL (0.0-0.8); Eosinophils % 4.4 %; Lymphocytes # 3.4 10^3/uL (0.8-4.8); Lymphocytes % 37.6 %; Mean Corpuscular HGB Conc 30.7 g/dL (30-55); Mean Corpuscular Hemoglobin 23.9 pg (27-33); Mean Corpuscular Volume 77.8 fl (85-98); Mean Platelet Volume 10.1 fL (7.4-10.4); Monocytes # 0.7 10^3/uL (0.2-0.9); Monocytes % 7.5 %; Neutrophils # 4.56 10^3/uL (1.8-7.7); Neutrophils % 49.8 %; Nucleated Red Blood Cells % 0 %; Platelet Count 338 10^3/cmm (157-399); Red Cell Distribution Width 18.9 % (12.1-15.1); White Blood Count 9.16 10^3/uL (3.29-11.43)
[2023-10-25 13:08] LABS: INR 1.04 (0.8-1.2); Partial Thromboplastin Time 27.2 SECONDS (23.9-36.7)
[2023-10-25 13:12] LABS: Glucose Point of Care 100 mg/dL (70-110)
[2023-10-25 13:12] LABS: Troponin(5th) Baseline 39 ng/L (0-10)
[2023-10-25 13:19] LABS: Alanine Aminotransferase < 5 U/L (0-33); Albumin Level 3.9 g/dL (3.5-5.2); Alkaline Phosphatase 132 U/L (35-105); Anion Gap 21.4 (5-19); Aspartate Amino Transferase 11 U/L (0-32); Blood Urea Nitrogen 25 mg/dL (8-23); Carbon Dioxide 21 mmol/L (22-29); Chloride 101 mmol/L (98-107); Globulin 3.2 g/dL (1.3-4.6); Glucose 127 mg/dL (65-115); NT Pro B Type Natriuretic Pept 188 pg/mL (0-450); Osmolality Calculated 294 mOsm/kg (285-295); Potassium 4.4 mmol/L (3.5-5.1); Sodium 139 mmol/L (136-145); Total Bilirubin 0.4 mg/dL (0.15-1.2); Total Protein 7.1 g/dL (6.6-8.7)
[2023-10-25 14:24] LABS: Protein Urine Neg (Negative); Urine Appearance Cloudy (CLEAR); Urine Color Straw (Yellow); pH Urine 5 (5-7)
[2023-10-25 14:25] LABS: Bilirubin Urine Neg (Negative); Blood Urine Neg (Negative); Glucose Urine UA 4+ (Normal); Ketones Urine Negative (Negative); Leukocyte Esterase Urine 2+ (Negative); Nitrate Urine Positive (Negative); Urobilinogen Urine Norm (Negative)
[2023-10-25 14:26] LABS: Add Urine Culture? Yes; Add Urine Microscopic? YES; Bacteria Urine 3+ /hpf; Squamous Epithelial Cell Urine 0-4 /hpf (0-5); WBC Urine 80-100 /hpf (0-5)
--- NOTE | 2023-10-25 14:36 | ECG_ITS ---
[facility] Test Date: 2023-10-25 Pat Name: Cathi Nichols Department: Room: Gender: Female Telephoto Installer: : 1940 Requested By: Louis Dominguez Order Number: [id number] Ryan MD: Robin Blue M.D. Measurements Intervals [place] Rate: 71 P: 50 DC: 215 QRS: -8 QRSD: 73 T: 63 QT: 397 QTc: 433 Interpretive Statements SINUS RHYTHM WITH FIRST DEGREE AV BLOCK LEFT VENTRICULAR HYPERTROPHY AND ST-T CHANGE [VOLTAGE CRITERIA PLUS ST/T ABNORMALITY] POSSIBLE SEPTAL MYOCARDIAL INFARCTION , OF INDETERMINATE AGE [30 ms Q WAVE IN V1/V2] Compared to ECG 10/25/2023 12:51:29 Left ventricular hypertrophy now present ST (T wave) deviation now present Myocardial infarct finding still present Electronically Signed On 10-26-2023 10:11:34 ENVIRONMENTAL FIELD TEAM MEMBER by Robin Blue M.D. [id number]
[2023-10-25] MEDS: cefTRIAXone 1,000 MG in sodium chloride 0.9% (plus) 50 ML 100 MG IV (15:06)
== END 2023-10-25 15:50 | disposition home or self-care (01) ==
PROVIDERS: Emergency Provider Internal Medicine; PCP Clinical Nurse Specialist Adult Health
DX: R55 Syncope and collapse (principal); N39.0 Urinary tract infection, site not specified; E86.0 Dehydration; Z79.82 Long term (current) use of aspirin; Z86.73 Personal history of transient ischemic attack (TIA), and cerebral infarction without residual deficits; F03.90 Unspecified dementia, unspecified severity, without behavioral disturbance, psychotic disturbance, mood disturbance, and anxiety; E78.5 Hyperlipidemia, unspecified; I10 Essential (primary) hypertension; E11.9 Type 2 diabetes mellitus without complications
CPT/HCPCS: 36416; 71045; 80053; 81001; 82962; 83880; 84484; 85025; 85610; 85730; 87077; 87086; 87186; 93005; 96365; 99285; J0696

== ENCOUNTER → 2023-11-17 09:56 | Outpatient (BNVA) | payer MEDICARE, OTHER, SELFPAY | PROVIDERS: PCP Clinical Nurse Specialist Adult Health; Visit Provider Dermatology | DX: C44.01 Basal cell carcinoma of skin of lip (principal) | CPT/HCPCS: 17281 ==

== ENCOUNTER 2024-06-05 08:04 | Inpatient (IN) | payer MEDICARE, OTHER, SELFPAY ==
--- NOTE | 2024-06-05 08:08 | USR_ITS ---
PROCEDURE INFORMATION: Exam: US Duplex Left Lower Extremity Veins, Limited Exam date and time: 06/05/2024 9:04 AM Age: 83 years old Clinical indication: Edema, localized; Lower extremity, left; Additional info: Swelling TECHNIQUE: Imaging protocol: Real-time duplex ultrasound of the left extremity with 2-D mckeon scale, color Doppler flow and spectral waveform analysis including responses to compression and other maneuvers (when performed) with image documentation. Limited exam focused on the left lower extremity veins. COMPARISON: [place] [id number] 02/15/2021 11:34 PM FINDINGS: Left deep veins: Unremarkable. The common femoral, femoral, proximal profunda femoral and popliteal veins are patent without thrombus. Normal Doppler waveforms. Normal compressibility and/or augmentation response. Interrogated peroneal and posterior tibial veins are patent. Superficial veins: Interrogated greater saphenous vein, to include at the saphenofemoral junction, is patent without thrombus. Soft tissues: Unremarkable. US/CV venous duplex [facility] [id number] IMPRESSION: No evidence of deep vein thrombosis.
--- NOTE | 2024-06-05 08:08 | XRR_ITS ---
PROCEDURE INFORMATION: Exam: XR Chest Exam date and time: 06/05/2024 8:16 AM Age: 83 years old Clinical indication: Shortness of breath; Additional info: SOB TECHNIQUE: Imaging protocol: Radiologic exam of the chest. Views: 1 view. COMPARISON: CR XR chest 1V portable [id number] 10/25/2023 12:45 PM FINDINGS: Tubes, catheters and devices: Left chest loop recorder. Lungs: Pulmonary vascular congestion with diffusely increased interstitial markings bilaterally. Pleural spaces: Mild right pleural effusion. No pneumothorax. Heart/Mediastinum: Unremarkable. No cardiomegaly. Vasculature: Aortic atherosclerotic calcification. Bones/joints: Degenerative changes along the spine. Intraperitoneal space: Right upper abdomen surgical clips. XR/XR chest 1V portable [id number] IMPRESSION: Pulmonary vascular congestion with suspected pulmonary edema and mild right pleural effusion.
[2024-06-05 08:09] VITALS: BP 178/75; PULSE 91; RESP 18; TEMP 36.8; O2SAT 94
--- NOTE | 2024-06-05 08:09 | ED_ITS ---
HPI - General Adult 2 General: Chief complaint: Shortness of Breath/Dyspnea Stated complaint: SOB Time Seen by Provider: 06/05/24 08:06 Source: EMS Mode of arrival: EMS Limitations: altered mental status History of Present Illness: 83-year-old female with a history of sev ere dementia patient is at her baseline unable to give any history due to her dementia per EMS she has had increased leg swelling concerning for CHF states that this morning she had some hypoxia and placed on oxygen called EMS patient here is 95% on room air EMS to take her off her oxygen she just started Bumex this week has had leg swelling left greater than right Related Data Home Medications Medication Instructions Recorded Confirmed multivitamin (Daily Multi-Vitamin 1 tab PO DAILY@0800 10/11/19 05/03/23 tablet) cranberry 500 mg capsule 500 mg PO DAILY@0800 10/25/19 05/03/23 amantadine HCl 100 mg tablet 100 mg PO BID@0800,1700 10/29/20 05/03/23 Lactobacillus 1 cap PO BID 10/17/21 05/03/23 acidophilus-Bifidobac.animalis 2.5 billion cell capsule (Daily Probiotic) aspirin 81 mg tablet,delayed 81 mg PO DAILY 10/02/22 05/03/23 release bisacodyl 10 mg rectal suppository 10 mg OR DAILY PRN Constipation 10/02/22 05/03/23 (Dulcolax (bisacodyl)) magnesium hydroxide 400 mg/5 mL 30 ml PO DAILY PRN Constipation 10/02/22 05/03/23 oral suspension (Milk of Magnesia) sodium phosphates 19 gram-7 118 ml OR DAILY PRN Constipation 10/02/22 05/03/23 gram/118 mL enema (Fleet Enema) Previous Rx's Medication Instructions Recorded lancets 33 gauge (OneTouch Delica #100 ea 12/05/19 Lancets) blood sugar diagnostic (Accu-Chek #10 ea 01/10/20 Zhanna Plus test strips) blood-glucose meter (Accu-Chek #1 ea 01/10/20 Zhanna Plus Meter) amlodipine 2.5 mg tablet 5 mg (2 x 2.5 mg) PO DAILY #180 11/17/22 tabs atorvastatin 40 mg tablet 40 mg PO DAILY #90 tabs 11/17/22 buspirone 5 mg tablet See Rx Instructions .Route 11/17/22 .COMPLEX #135 tabs carbidopa ER 50 mg-levodopa 200 mg 1 tab PO TID@08,,17 #270 tabs 11/17/22 tablet,extended release epinephrine 0.3 mg/0.3 mL 0.3 mg (0.3 mL) IM ONCE PRN 11/17/22 injection, auto-injector (EpiPen Anaphylaxis #2 ea 2-Dickson) lisinopril 20 mg tablet 20 mg PO BID@0800,1700 #180 tabs 11/17/22 metoprolol tartrate 25 mg tablet 25 mg PO BID #180 tabs 11/17/22 risperidone 0.5 mg tablet 1 mg (2 x 0.5 mg) PO BEDTIME #180 11/17/22 (Risperdal) tabs quetiapine 25 mg tablet (Seroquel) 25 mg PO BEDTIME PRN insomnia #20 05/05/23 tabs Allergies Allergy/AdvReac Type Severity Reaction Status Date / Time furosemide [From Lasix] Allergy Unknown UNKNOWN Verified 02/09/23 12:30 codeine Allergy Unknown Verified 02/09/23 12:30 Sulfa (Sulfonamide Allergy Unknown Verified 02/09/23 12:30 Antibiotics) Review of Systems 2 General: Reports: ROS unobtainable due to mental status PFSH ED 2 PFSH: Medical History Near syncope Acute cerebrovascular accident (CVA) Altered mental status Dementia Diarrhea Chronic diarrhea Tachycardia with heart rate 100-120 beats per minute Encounter for loop recorder check Leg swelling Parkinsons On Sinemet Recurrent UTI Syncopal episodes 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 Actually lives with her son and daughter who are with her 27/04 Ventricular arrhythmia Essential (primary) hypertension Anxiety Dyslipidemia (high LDL; low HDL) Hyponatremia chronic mild in low mid 130s at baseline Type 2 diabetes mellitus without complications non insulin requiring, on metformin, A1c-6.9 DDD (degenerative disc disease), lumbar Lumbar stenosis Urge incontinence Memory change Surgical History History of loop recorder -Follows with Dr. Ponce History of release of tendon (~2010) trigger finger Hx of breast biopsy (~2002) right History of tonsillectomy and adenoidectomy younger than age 10 Hx of hysterectomy (~1973) Hx laparoscopic cholecystectomy (~1993) Hx of bilateral cataract extraction (~2007) Hx of brain surgery Epidural Hematoma; emergency Hx of tracheostomy Hx of colonoscopy (~2010) polyps: Hyperplastic Family History Father , age 58 from [place] CAD (coronary artery disease) Mother , age 76 Cancer melanoma Grandmother Diabetes maternal Social History Smoking and tobacco/nicotine status: never used tobacco/nicotine Alcohol intake: never Substance/Drug Use: never Caregiver/support person: Yes Lives independently: No Household members: none Housing: House Marital status: / Number of children: 2 Number of grandchildren: 0 Current occupational status: retired Current gender identity: Female Physical Exam 2 Const: COMMON NORMALS: negative for patient oriented x3 EXAM LIMITATIONS: a ltered mental status HENMT: COMMON NORMALS: normocephalic and atraumatic HEAD & SCALP: n ormocephalic and atraumatic Eye: COMMON NORMALS: Equal, round and reactive pupils present and EOMs intact bilaterally PUPIL: Yes Equal, round and reactive pupils present Neck/C-Spine: COMMON NORMALS: full ROM and supple Chest: COMMONS NORMALS: normal inspection of the chest and normal palpation of entire chest wall Resp: COMMON NORMALS: normal respiratory effort, No retractions, No use of accessory muscles and clear to auscultation bilaterally AUSCULTATION: clear to auscultation bilaterally Cardio: COMMON NORMALS: regular rate, regular rhythm and No murmurs present (Cardio) RATE: regular rate RHYTHM: regular rhythm GI: COMMON NORMALS: Normal to inspection, nondistended, normoactive bowel sounds present, Soft to palpation, non-tender and no masses PALPATION: Yes Soft to palpation Extremity: COMMON NORMALS: full ROM NARRATIVE EXTREMITY EXAM: bilateral lower edema lef greater than right distal pulses intact Neuro: COMMON NORMALS: moves all extremities and no focal motor deficits; negative for patient oriented x3 Psych: COMMON NORMALS: negative for mental status grossly normal Skin: COMMON NORMALS: no rashes or lesions noted and no wounds GENERAL SKIN EXAM: no rashes or lesions noted Course 2 Vital Signs: Vital signs: Vital Signs Temperature 98.2 F 06/05/24 08:09 Pulse Rate 91 06/05/24 08:09 Respiratory Rate 18 06/05/24 08:09 Blood Pressure 178/75 06/05/24 08:09 Pulse Oximetry 94 06/05/24 08:09 Oxygen Delivery Me thod Room Air 06/05/24 08:09 MDM - General Adult Medical Decision Making Patient presents here with pulmonary edema she also has some swelling to her extremities did give her dose of IV Bumex will admit for observation for further diuresis Medical Records I reviewed the patient's medical records. Lab Data I reviewed the patient's lab results. 06/05/24 08:18 06/05/24 08:18 Radiology Impressions Chest X-Ray 06/05/24 08:08 IMPRESSION: Pulmonary vascular congestion with suspected pulmonary edema and mild right pleural effusion. Venous Duplex 06/05/24 08:08 IMPRESSION: No evidence of deep vein thrombosis. Laboratory Results WBC 7.14 10^3/uL (3.29-11.43) 06/05/24 08:18 RBC 4.47 10^6/uL (3.85-5.65) 06/05/24 08:18 Hgb 11.00 g/dL (11.27-16.99) L 06/05/24 08:18 Hct 36.3 % (36-47) 06/05/24 08:18 MCV 81.2 fl (85-98) L 06/05/24 08:18 MCH 24.6 pg (27-33) L 06/05/24 08:18 MCHC 30.3 g/dL (30-55) 06/05/24 08:18 RDW 17.2 % (12.1-15.1) H 06/05/24 08:18 Plt Count 305 10^3/cmm (157-399) 06/05/24 08:18 MPV 9.6 fL (7.4-10.4) 06/05/24 08:18 Neut % (Auto) 64.8 % 06/05/24 08:18 Lymph % (Auto) 17.2 % 06/05/24 08:18 Noble % (Auto) 12.3 % 06/05/24 08:18 Eos % (Auto) 4.8 % 06/05/24 08:18 Baso % (Auto) 0.6 % 06/05/24 08:18 Neut # (Auto) 4.63 10^3/uL (1.8-7.7) 06/05/24 08:18 Lymph # (Auto) 1.2 10^3/uL (0.8-4.8) 06/05/24 08:18 Noble # (Auto) 0.9 10^3/uL (0.2-0.9) 06/05/24 08:18 Eos # (Auto) 0.3 10^3/uL (0.0-0.8) 06/05/24 08:18 Baso # (Auto) 0.0 10^3/uL (0.0-0.1) 06/05/24 08:18 Nucleated RBC % (auto) 0 % 06/05/24 08:18 Nucleated RBCs # 0.0 /100WBC 06/05/24 08:18 Sodium 144 mmol/L (136-145) 06/05/24 08:18 Potassium 4.0 mmol/L (3.5-5.1) 06/05/24 08:18 Chloride 107 mmol/L (98-107) 06/05/24 08:18 Carbon Dioxide 22 mmol/L (22-29) 06/05/24 08:18 Anion Gap 19.0 (5-19) 06/05/24 08:18 BUN 23 mg/dL (8-23) 06/05/24 08:18 Creatinine 1.1 mg/dL (0.5-0.9) H 06/05/24 08:18 GFR Calculation Not Reportable 06/05/24 08:18 Glucose 156 mg/dL (65-115) H 06/05/24 08:18 Calculated Osmolality 305 mOsm/kg (285-295) H 06/05/24 08:18 Calcium 9.1 mg/dL (8.5-10.5) 06/05/24 08:18 Total Bilirubin 0.3 mg/dL (0.15-1.2) 06/05/24 08:18 AST 12 U/L (0-32) 06/05/24 08:18 ALT 10 U/L (0-33) 06/05/24 08:18 Alkaline Phosphatase 187 U/L (35-105) H 06/05/24 08:18 NT-Pro-B Natriuret Pep 570 pg/mL (0-450) H 06/05/24 08:18 Total Protein 7.1 g/dL (6.6-8.7) 06/05/24 08:18 Albumin 4.0 g/dL (3.5-5.2) 06/05/24 08:18 Globulin 3.1 g/dL (1.3-4.6) 06/05/24 08:18 No radiology studies performed this visit Discharge Plan Discharge Patient Disposition: Admitted As Inpatient Clinical Impression: Pulmonary edema Condition: Stable Prescriptions: No Action cranberry 500 mg capsule 500 mg PO DAILY@0800 multivitamin [Daily Multi-Vitamin] Tablet 1 tab PO DAILY@0800 Daily Probiotic 2.5 billion cell capsule 1 cap PO BID amantadine HCl 100 mg tablet 100 mg PO BID@0800,1700 epinephrine [EpiPen 2-Dickson] 0.3 mg/0.3 mL auto-injector 0.3 mg IM ONCE PRN (Reason: Anaphylaxis) Qty: 2 0RF amlodipine 2.5 mg tablet 5 mg PO DAILY Qty: 180 3RF atorvastatin 40 mg tablet 40 mg PO DAILY Qty: 90 3RF buspirone 5 mg tablet See Rx Instructions .ROUTE .COMPLEX Qty: 135 0RF Rx Instructions: 2.5 mg by mouth daily and 5 mg by mouth evening carbidopa-levodopa 50-200 mg tablet extended release 1 tab PO TID@08,12,17 Qty: 270 3RF lisinopril 20 mg tablet 20 mg PO BID@0800,1700 Qty: 180 3RF metoprolol tartrate 25 mg tablet 25 mg PO BID Qty: 180 3RF risperidone [Risperdal] 0.5 mg tablet 1 mg PO BEDTIME Qty: 180 3RF (DME) lancets [OneTouch Delica Lancets] 33 gauge misc See Rx Instructions .ROUTE .MEDSUPPLY Qty: 100 3RF Rx Instructions: one daily for blood sugar (DME) blood-glucose meter [Accu-Chek Zhanna Plus Meter] Misc See Rx Instructions .ROUTE .MEDSUPPLY Qty: 1 0RF Rx Instructions: check blood sugar daily (DME) Accu-Chek Zhanna Plus test strp Strip See Rx Instructions .ROUTE .MEDSUPPLY Qty: 10 0RF Rx Instructions: check blood sugar 1 time daily magnesium hydroxide [Milk of Magnesia] 400 mg/5 mL Suspension 30 ml PO DAILY PRN (Reason: Constipation) bisacodyl [Dulcolax (bisacodyl)] 10 mg Suppository 10 mg OR DAILY PRN (Reason: Constipation) Fleet Enema 19-7 gram/118 mL Enema 118 ml OR DAILY PRN (Reason: Constipation) aspirin 81 mg tablet,delayed release (DR/EC) 81 mg PO DAILY Seroquel 25 mg tablet 25 mg PO BEDTIME PRN (Reason: insomnia) Qty: 20 0RF Referrals: Polo Guzman, [facility] [Primary Care Provider] - Patient Instructions: Opioid Safety, Pain Management Coding Level of Care Code ED Contracts Attorney for Robin Mccauley
[2024-06-05 08:26] LABS: Basophils % 0.6 %; Eosinophils # 0.3 10^3/uL (0.0-0.8); Eosinophils % 4.8 %; Hematocrit 36.3 % (36-47); Lymphocytes # 1.2 10^3/uL (0.8-4.8); Lymphocytes % 17.2 %; Mean Corpuscular HGB Conc 30.3 g/dL (30-55); Mean Corpuscular Hemoglobin 24.6 pg (27-33); Mean Corpuscular Volume 81.2 fl (85-98); Mean Platelet Volume 9.6 fL (7.4-10.4); Monocytes # 0.9 10^3/uL (0.2-0.9); Monocytes % 12.3 %; Neutrophils # 4.63 10^3/uL (1.8-7.7); Neutrophils % 64.8 %; Nucleated Red Blood Cells % 0 %; Platelet Count 305 10^3/cmm (157-399); Red Blood Count 4.47 10^6/uL (3.85-5.65); Red Cell Distribution Width 17.2 % (12.1-15.1); White Blood Count 7.14 10^3/uL (3.29-11.43)
[2024-06-05 08:55] LABS: Alanine Aminotransferase 10 U/L (0-33); Alkaline Phosphatase 187 U/L (35-105); Aspartate Amino Transferase 12 U/L (0-32); Blood Urea Nitrogen 23 mg/dL (8-23); Calcium 9.1 mg/dL (8.5-10.5); Carbon Dioxide 22 mmol/L (22-29); Chloride 107 mmol/L (98-107); Globulin 3.1 g/dL (1.3-4.6); Glucose 156 mg/dL (65-115); NT Pro B Type Natriuretic Pept 570 pg/mL (0-450); Osmolality Calculated 305 mOsm/kg (285-295); Sodium 144 mmol/L (136-145); Total Bilirubin 0.3 mg/dL (0.15-1.2); Total Protein 7.1 g/dL (6.6-8.7)
[2024-06-05 08:58] LABS: Creatinine Clr Calc Pharmacy 33.8508
[2024-06-05] MEDS: bumetanide 0.25 mg/mL SDV 4 mL 2 MG IVP (10:04)
[2024-06-05 11:15] VITALS: BP 191/76; PULSE 77; RESP 18; O2SAT 97
--- NOTE | 2024-06-05 11:18 | ECG_ITS ---
[facility] Test Date: 2024-06-05 Pat Name: Cathi Nichols Department: Room: 277 Gender: Female Channel Marketing Specialist: : 1940 Requested By: Ryland Mcfadden Order Number: [id number] Ryan MD: Jerry Mauricio M.D. Measurements Intervals [place] Rate: 81 P: 56 MS: 176 QRS: 8 QRSD: 84 T: 56 QT: 390 QTc: 454 Interpretive Statements SINUS RHYTHM Compared to ECG 06/05/2024 14:45:29 No significant changes Electronically Signed On 06-05-2024 15:41:16 CDT by Jerry Mauricio M.D. [id number]
--- NOTE | 2024-06-05 11:22 | CTR_ITS ---
PROCEDURE INFORMATION: Exam: CT Head Without Contrast Exam date and time: 06/05/2024 11:52 AM Age: 83 years old Clinical indication: Altered mental status/memory loss; Prior surgery; Surgery date: 6+ months; Surgery type: Brain; Additional info: AMS TECHNIQUE: Imaging protocol: Computed tomography of the head without contrast. Radiation optimization: All CT scans at this facility use at least one of these dose optimization techniques: automated exposure control; mA and/or kV adjustment per patient size (includes targeted exams where dose is matched to clinical indication); or iterative reconstruction. COMPARISON: 1. MR head wo con* [id number] 05/03/2023 3:[address] head thrombolytic [id number] 05/03/2023 1:34 AM RADIATION DOSE METRICS: Total DLP (mGy-cm): 802.08 FINDINGS: Brain: Redemonstrated diffuse cerebral atrophy. No hemorrhage. No evidence of acute territorial infarction. Diffuse bilateral cerebral white matter hypoattenuation likely on the basis of chronic microvascular ischemic change. No mass effect. Cerebral ventricles: Ventricles are in proportion to the degree of atrophy. Paranasal sinuses: Visualized sinuses are unremarkable. No fluid levels. Mastoid air cells: Visualized mastoid air cells are well aerated. Orbital cavities: Bilateral lens replacement. Bones: Prior right calvarial craniotomy changes. Soft tissues: Unremarkable. Vasculature: Bilateral ICA calcifications. CT/CT head wo con* [id number] IMPRESSION: No acute intracranial findings.
--- NOTE | 2024-06-05 11:36 | PM.HP ---
Providers/Chief Complaint Admitting Physician: Ryland Mcfadden MD Primary Care Provider: Polo Guzman Chief Complaint: SOB History of Present Illness Cathi Nichols is a 83 year old female with a past medical history of traumatic brain injury, dementia, Parkinson's disease, CHF, who at baseline needs assistance activities of daily living, can feed herself, at times she becomes nonverbal, who presents [facility] due to low oxygen saturations, and shortness of breath. Currently patient is alert to person, not to place, time does not follow commands, is nonverbal, patient's family at bedside tells me that she sometimes gets like this, with her traumatic brain injury and her Parkinson's disease, recently her condition has been worsening in the last few months. But she has had low oxygen saturations at the [place] [facility], she has been complaining of shortness of breath she has had lower extremity edema, she has been on Bumex at the [place] [facility]. Family does tell me that when she does get infections she does at times become confused. She is hypertensive, she has not received her morning blood pressure medications. Review of Systems General: Reports: ROS unobtainable due to mental status Medications/Allergies Home Medications Medication Instructions Recorded Confirmed Last Taken Type multivitamin (Daily Multi-Vitamin 1 tab PO DAILY@0800 10/11/19 05/03/23 09/21/22 History tablet) cranberry 500 mg capsule 500 mg PO DAILY@0800 10/25/19 05/03/23 09/21/22 History lancets 33 gauge (OneTouch Delica #100 ea 12/05/19 05/03/23 Unknown Rx Lancets) blood sugar diagnostic (Accu-Chek #10 ea 01/10/20 05/03/23 Unknown Rx Zhanna Plus test strips) blood-glucose meter (Accu-Chek #1 ea 01/10/20 05/03/23 Unknown Rx Zhanna Plus Meter) amantadine HCl 100 mg tablet 100 mg PO BID@0800,1700 10/29/20 05/03/23 09/21/22 History Lactobacillus 1 cap PO BID 10/17/21 05/03/23 09/21/22 History acidophilus-Bifidobac.animalis 2.5 billion cell capsule (Daily Probiotic) aspirin 81 mg tablet,delayed 81 mg PO DAILY 10/02/22 05/03/23 Unknown History release bisacodyl 10 mg rectal suppository 10 mg NM DAILY PRN Constipation 10/02/22 05/03/23 Unknown History (Dulcolax (bisacodyl)) magnesium hydroxide 400 mg/5 mL 30 ml PO DAILY PRN Constipation 10/02/22 05/03/23 Unknown History oral suspension (Milk of Magnesia) sodium phosphates 19 gram-7 118 ml NM DAILY PRN Constipation 10/02/22 05/03/23 Unknown History gram/118 mL enema (Fleet Enema) amlodipine 2.5 mg tablet 5 mg (2 x 2.5 mg) PO DAILY #180 11/17/22 05/03/23 Unknown Rx tabs atorvastatin 40 mg tablet 40 mg PO DAILY #90 tabs 11/17/22 05/03/23 Unknown Rx buspirone 5 mg tablet See Rx Instructions .Route 11/17/22 05/03/23 Unknown Rx .COMPLEX #135 tabs carbidopa ER 50 mg-levodopa 200 mg 1 tab PO TID@08,12,17 #270 tabs 11/17/22 05/03/23 Unknown Rx tablet,extended release epinephrine 0.3 mg/0.3 mL 0.3 mg (0.3 mL) IM ONCE PRN 11/17/22 05/03/23 Unknown Rx injection, auto-injector (EpiPen Anaphylaxis #2 ea 2-Dickson) lisinopril 20 mg tablet 20 mg PO BID@0800,1700 #180 tabs 11/17/22 05/03/23 Unknown Rx metoprolol tartrate 25 mg tablet 25 mg PO BID #180 tabs 11/17/22 05/03/23 Unknown Rx risperidone 0.5 mg tablet 1 mg (2 x 0.5 mg) PO BEDTIME #180 11/17/22 05/03/23 Unknown Rx (Risperdal) tabs quetiapine 25 mg tablet (Seroquel) 25 mg PO BEDTIME PRN insomnia #20 05/05/23 Unknown Rx tabs Allergies Allergy/AdvReac Type Severity Reaction Status Date / Time furosemide [From Lasix] Allergy Unknown UNKNOWN Verified 02/09/23 12:30 codeine Allergy Unknown Verified 02/09/23 12:30 Sulfa (Sulfonamide Allergy Unknown Verified 02/09/23 12:30 Antibiotics) PFSH Acute PFSH: Medical History (Updated 06/05/24 @ 11:41 by Ryland Mcfadden MD) Altered mental status Near syncope Acute cerebrovascular accident (CVA) Dementia Diarrhea Chronic diarrhea Tachycardia with heart rate 100-120 beats per minute Encounter for loop recorder check Leg swelling Parkinsons On Sinemet Recurrent UTI Syncopal episodes 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 Actually lives with her son and daughter who are with her 27/04 Ventricular arrhythmia Essential (primary) hypertension Anxiety Dyslipidemia (high LDL; low HDL) Hyponatremia chronic mild in low mid 130s at baseline Type 2 diabetes mellitus without complications non insulin requiring, on metformin, A1c-6.9 DDD (degenerative disc disease), lumbar Lumbar stenosis Urge incontinence Memory change Surgical History History of loop recorder -Follows with Dr. Ponce History of release of tendon (~2010) trigger finger Hx of breast biopsy (~2002) right History of tonsillectomy and adenoidectomy younger than age 10 Hx of hysterectomy (~1973) Hx laparoscopic cholecystectomy (~1993) Hx of bilateral cataract extraction (~2007) Hx of brain surgery Epidural Hematoma; emergency Hx of tracheostomy Hx of colonoscopy (~2010) polyps: Hyperplastic Family History Father , age 58 from [place] CAD (coronary artery disease) Mother , age 76 Cancer melanoma Grandmother Diabetes maternal Social History Smoking and tobacco/nicotine status: never used tobacco/nicotine Alcohol intake: never Substance/Drug Use: never Caregiver/support person: Yes Lives independently: No Household members: none Housing: House Marital status: / Number of children: 2 Number of grandchildren: 0 Current occupational status: retired Current gender identity: Female Vitals/I&O/Wt Last Vital Signs Temp 98.2 F 06/05/24 08:09 Pulse 77 06/05/24 11:15 Resp 18 06/05/24 11:15 BP 191/76 06/05/24 11:15 Pulse Ox 97 06/05/24 11:15 O2 Del Method Room Air 06/05/24 11:15 Weight last 48 hrs Weight 71.668 kg Physical Exam Const: COMMON NORMALS: no acute distress EXAM LIMITATIONS: altered mental status ORIENTATION/CONSCIOUSNESS: Yes awake, Yes oriented to person and Yes confused; not oriented to place and not oriented to time HENMT: COMMON NORMALS: normocephalic Eye: COMMON NORMALS: Equal, round and reactive pupils present and EOMs intact bilaterally Resp: COMMON NORMALS: normal respiratory effort, No retractions and No use of accessory muscles AUSCULTATION: crackles and wheezes Cardio: COMMON NORMALS: no JVD, regular rate, regular rhythm, S1 normal heart sound present and S2 normal heart sound present RATE: regular rate RHYTHM: regular rhythm HEART SOUNDS: S1 normal heart sound present and S2 normal heart sound present GI: COMMON NORMALS: Normal to inspection, nondistended, normoactive bowel sounds present, Soft to palpation and non-tender Extremity: NARRATIVE EXTREMITY EXAM: 1+ pitting edema Neuro: OTHER: Currently nonverbal, pupils equal round reactive to light Psych: COMMON NORMALS: mental status grossly normal Data 06/05/24 08:18 06/05/24 08:18 A&P Assessment and plan (1) Altered mental status: (2) CHF exacerbation: Plan Altered mental status -Is likely underlying dementia, traumatic brain injury, Parkinson's disease ? CT head ? UA ? Lactic acid ? CRP, Pro-Enrique ? Neurochecks, aspiration precautions, night stroke scale CHF exacerbation ? Bumex 1 mg every 12 hours Monitor urine output Monitor creatinine Type 2 diabetes mellitus, low-dose insulin sliding scale Full code Lovenox for DVT prophylaxis Attestations Medical Necessity Statement*: Patient requires hospitalization for altered mental status, CHF exacerbation, inpatient, greater than 2 midnights Diagnoses Altered mental status R41.82 CHF exacerbation I50.9
[2024-06-05 11:46] LABS: C Reactive Protein 4.7 mg/L (0.0-4.9); Lactic Sepsis W/Reflex 2.2 mmol/L (0.5-2.2)
[2024-06-05 11:53] LABS: Procalcitonin 0.11 ng/mL (0-0.5)
[2024-06-05 12:00] VITALS: BP 168/90; PULSE 85; TEMP 36.4; O2SAT 96
[2024-06-05 12:55] LABS: Troponin(5th) Baseline 39 ng/L (0-10)
[2024-06-05] MEDS: hyDRALAzine 25 mg Tablet PO ×2 (13:10→20:44)
[2024-06-05] MEDS: metoprolol tartrate 25 mg Tablet PO (13:10)
[2024-06-05] MEDS: carbidopa-levodopa ER 50-200mg Tablet 1 EACH PO ×2 (13:11→16:42)
[2024-06-05 13:20] LABS: Reflex Lactate Order REFLEX LACTIC ORDERD
[2024-06-05 13:21] LABS: Glucose Point of Care 219 mg/dL (70-110)
[2024-06-05] MEDS: insulin lispro 100 unit/1 mL SUBCUT ×2 (13:23→16:42)
[2024-06-05 14:21] LABS: Troponin 5 2HR 36.38 ng/L (0-10)
[2024-06-05 14:22] LABS: Troponin 5 2HR Delta -2.62 ABS# (0-10)
[2024-06-05 14:24] LABS: Lactic Acid level (Lactate) 1.9 mmol/L (0.5-2.2)
--- NOTE | 2024-06-05 14:45 | ECG_ITS ---
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 Measurements Intervals [place] Rate: 71 P: 47 DE: 193 QRS: 3 QRSD: 101 T: 49 QT: 405 QTc: 443 Interpretive Statements SINUS RHYTHM Compared to ECG 10/25/2023 14:36:24 First degree AV block no longer present Left ventricular hypertrophy no longer present ST (T wave) deviation no longer present Myocardial infarct finding no longer present Electronically Signed On 06-05-2024 15:41:51 CDT by Jerry Mauricio M.D. [id number]
[2024-06-05 16:09] LABS: Glucose Point of Care 171 mg/dL (70-110)
[2024-06-05 16:12] VITALS: BP 175/74; PULSE 75; RESP 15; TEMP 36.3; O2SAT 96
[2024-06-05] MEDS: lisinopril 20 mg Tablet PO (16:42)
[2024-06-05 16:59] LABS: Charge for UA Resulting for Rev
--- NOTE | 2024-06-05 17:04 | ECG_ITS ---
[facility] Test Date: 2024-06-05 Pat Name: Cathi Nichols Department: Room: 277 Gender: Female Night Monitor: : 1940 Requested By: Ryland Mcfadden Order Number: [id number] Ryan MD: Jerry Mauricio M.D. Measurements Intervals [place] Rate: 81 P: 43 TX: 190 QRS: 3 QRSD: 74 T: 53 QT: 373 QTc: 435 Interpretive Statements SINUS RHYTHM WITH OCCASIONAL VENTRICULAR PREMATURE COMPLEXES WITH OCCASIONAL SUPRAVENTRICULAR PREMATURE COMPLEXES Compared to ECG 06/05/2024 15:38:18 Ventricular premature complex(es) now present Electronically Signed On 06-06-2024 11:13:11 CDT by Jerry Mauricio M.D. [id number]
[2024-06-05 17:05] LABS: Bilirubin Urine Negative (Negative); Blood Urine Non-haemolysed trace (Negative); Glucose Urine UA Negative (Normal); Ketones Urine Negative (Negative); Leukocyte Esterase Urine 3+ (Negative); Nitrate Urine Negative (Negative); Protein Urine Trace (Negative); Specific Gravity, Urine 1.009 (1.005-1.030); Urine Appearance Turbid (CLEAR); Urine Color Yellow (Yellow); Urobilinogen Urine 0.2 mg/dL (Negative); pH Urine 8.5 (5-7)
[2024-06-05 17:08] LABS: Bacteria Urine 1+ /hpf; Hyaline Casts Urine 2.05 /lpf; RBC Urine 0-2 /hpf (0-2); Squamous Epithelial Cell Urine 0-5 /hpf (0-5); WBC Urine >100 /hpf (0-5)
[2024-06-05 17:10] LABS: Add Urine Culture? Yes
[2024-06-05] MEDS: trazodone 50 mg Tablet 25 MG PO (17:24)
[2024-06-05] MEDS: BuSPIRONE 10 mg Tablet 2.5 MG PO (17:24)
[2024-06-05 20:00] VITALS: BP 165/96; PULSE 75; RESP 18; TEMP 36.8; O2SAT 93
[2024-06-05 20:38] LABS: Glucose Point of Care 277 mg/dL (70-110)
[2024-06-05] MEDS: bumetanide 0.25 mg/mL SDV 4 mL 1 MG IVP (20:44)
[2024-06-05] MEDS: risperiDONE 1 mg Tablet PO (20:44)
[2024-06-05 22:00] VITALS: PULSE 70
[2024-06-06] VITALS (8 sets, daily range): BP systolic 111–172; BP diastolic 67–81; PULSE 64–86; RESP 15–18; TEMP 36.7–37.3; O2SAT 92–98
[2024-06-06 06:36] LABS: Glucose Point of Care 262 mg/dL (70-110)
[2024-06-06] MEDS: aspirin 81 mg EC Tablet PO (09:23)
[2024-06-06] MEDS: BuSPIRONE 10 mg Tablet 2.5 MG PO (09:23)
[2024-06-06] MEDS: metoprolol tartrate 25 mg Tablet PO ×2 (09:23→17:27)
[2024-06-06] MEDS: amlodipine 10 mg Tablet PO (09:24)
[2024-06-06] MEDS: multivitamin therapeutic Tablet 1 TAB PO (09:24)
[2024-06-06] MEDS: bumetanide 0.25 mg/mL SDV 4 mL 1 MG IVP ×2 (09:24→20:57)
[2024-06-06] MEDS: atorvastatin 40 mg Tablet PO (09:24)
[2024-06-06] MEDS: hyDRALAzine 25 mg Tablet PO ×3 (09:24→20:57)
[2024-06-06] MEDS: insulin lispro 100 unit/1 mL SUBCUT ×3 (09:25→17:28)
[2024-06-06] MEDS: carbidopa-levodopa ER 50-200mg Tablet 1 EACH PO ×3 (09:32→20:57)
[2024-06-06] MEDS: lisinopril 20 mg Tablet PO ×2 (09:32→17:27)
[2024-06-06 11:13] LABS: Glucose Point of Care 295 mg/dL (70-110)
--- NOTE | 2024-06-06 11:26 | PM.PN ---
Subjective Subjective: Patient was eating breakfast with help of family's assistance Very expressionless face Not endorsing any complaints Nonfocal Abdomen distended Had diarrhea at the group home [facility] Patient uses a wheelchair and a walker Currently on room air Vitals/I&O/Wt Last Vital Signs Temp 98.0 F 06/06/24 07:56 Pulse 86 06/06/24 07:56 Resp 18 06/06/24 07:56 BP 159/76 06/06/24 07:56 Pulse Ox 97 06/06/24 07:56 O2 Del Method Room Air 06/06/24 07:56 06/05/24 06/06/24 06/06/24 22:59 06:59 14:59 Intake Total 240 / 240 360 / 600 Output Total 1100 / 1100 900 / 2000 Balance -860 / -860 -540 / -1400 Weight last 48 hrs Weight 69.763 kg Weight 71.169 kg Weight 71.668 kg Physical Exam Narrative: Expressionless face Able to managing editor my hand bilaterally Able to answer only simple question Not endorsing any complaints S1, S2 Abdomen distended bowel sound present Lower extremity no significant edema Family is at the bedside Wills catheter in place dilute urine Urinary Catheter Management: Wills: Cath Placed During This Visit: yes Reason for Continuing Indwelling Catheter: Other Urinary Catheter Date of Insertion: 06/05/24 Urinary Catheter Time of Insertion: 14:37 Data 06/05/24 08:18 06/05/24 08:18 A&P Assessment and plan (1) Altered mental status: (2) CHF exacerbation: Plan Altered mental status -Recurrent admissions related to confusion metabolic encephalopathy This is likely related to underlying Parkinson's, currently she is getting treatment for UTI as well Diastolic CHF Rule out sleep apnea Will request overnight sleep study Continue diuresis Currently patient is not requiring any oxygen Decrease the dose of diuretics Family stating that with Lasix she gets nauseous Patient needs assisted feed, currently on level 4 dysphagia diet Full code Parkinson's: Dependent on wheelchair for ambulation Please note previously she was treated for UTI as well which showed Enterococcus faecalis Attestations Medical Necessity Statement*: Possible discharge by tomorrow Diagnoses Altered mental status R41.82 CHF exacerbation I50.9
[2024-06-06 17:00] LABS: Glucose Point of Care 242 mg/dL (70-110)
[2024-06-06] MEDS: sennosides-docusate Tablet 2 TAB PO (17:28)
[2024-06-06 20:25] LABS: Glucose Point of Care 179 mg/dL (70-110)
[2024-06-06] MEDS: trazodone 50 mg Tablet 25 MG PO (20:57)
[2024-06-06] MEDS: risperiDONE 1 mg Tablet PO (20:58)
[2024-06-07] VITALS: BP 145/69; PULSE 82; RESP 17; TEMP 37.1; O2SAT 99
[2024-06-07 04:00] VITALS: BP 157/64; PULSE 88; RESP 17; TEMP 37; O2SAT 95
[2024-06-07 04:58] LABS: Basophils % 0.3 %; Eosinophils # 0.4 10^3/uL (0.0-0.8); Eosinophils % 6.1 %; Hematocrit 33.6 % (36-47); Lymphocytes # 1.2 10^3/uL (0.8-4.8); Lymphocytes % 19.2 %; Mean Corpuscular HGB Conc 30.7 g/dL (30-55); Mean Corpuscular Hemoglobin 25.1 pg (27-33); Mean Corpuscular Volume 81.8 fl (85-98); Mean Platelet Volume 10.2 fL (7.4-10.4); Monocytes # 0.8 10^3/uL (0.2-0.9); Monocytes % 13.1 %; Neutrophils # 3.69 10^3/uL (1.8-7.7); Nucleated Red Blood Cells % 0.3 %; Platelet Count 341 10^3/cmm (157-399); Red Blood Count 4.11 10^6/uL (3.85-5.65); Red Cell Distribution Width 16.9 % (12.1-15.1); White Blood Count 6.05 10^3/uL (3.29-11.43)
[2024-06-07 05:16] LABS: Anion Gap 18.8 (5-19); Blood Urea Nitrogen 26 mg/dL (8-23); Calcium 8.7 mg/dL (8.5-10.5); Carbon Dioxide 22 mmol/L (22-29); Chloride 101 mmol/L (98-107); Creatinine Clr Calc Pharmacy 30.6176; Glucose 250 mg/dL (65-115); Osmolality Calculated 299 mOsm/kg (285-295); Potassium 3.8 mmol/L (3.5-5.1); Sodium 138 mmol/L (136-145)
[2024-06-07 05:18] VITALS: PULSE 74
[2024-06-07] MEDS: levoFLOXacin 750 mg Tablet PO (05:40)
[2024-06-07 06:38] LABS: Glucose Point of Care 247 mg/dL (70-110)
[2024-06-07 07:17] VITALS: BP 162/70; PULSE 84; RESP 17; TEMP 37.1; O2SAT 92
[2024-06-07] MEDS: atorvastatin 40 mg Tablet PO (09:03)
[2024-06-07] MEDS: lisinopril 20 mg Tablet PO (09:03)
[2024-06-07] MEDS: BuSPIRONE 10 mg Tablet 2.5 MG PO (09:03)
[2024-06-07] MEDS: amlodipine 10 mg Tablet PO (09:04)
[2024-06-07] MEDS: multivitamin therapeutic Tablet 1 TAB PO (09:04)
[2024-06-07] MEDS: insulin lispro 100 unit/1 mL SUBCUT ×2 (09:04→11:50)
[2024-06-07] MEDS: carbidopa-levodopa ER 50-200mg Tablet 1 EACH PO ×2 (09:04→11:50)
[2024-06-07] MEDS: metoprolol tartrate 25 mg Tablet PO (09:04)
[2024-06-07] MEDS: aspirin 81 mg EC Tablet PO (09:04)
[2024-06-07] MEDS: hyDRALAzine 25 mg Tablet PO (09:04)
[2024-06-07] MEDS: sennosides-docusate Tablet 2 TAB PO (09:04)
[2024-06-07] MEDS: bumetanide 0.25 mg/mL SDV 4 mL 1 MG IVP (09:05)
--- NOTE | 2024-06-07 09:43 | PM.DCS ---
Discharge Providers Date of Admission: 06/05/24 11:35 Date of Discharge: June 07, 2024 Attending Provider at Admission: Ryland Mcfadden MD Attending Provider at Discharge: Ramonita Santamaria MD Primary Care Provider: Polo Guzman Diagnoses at Discharge Discharge Diagnosis (1) Altered mental status: Status: Acute (2) CHF exacerbation: Status: Acute Reason for Visit Reason for Visit: SOB Hospital Course Hospital Course Cathi Nichols is a 83 year old female with a past medical history of traumatic brain injury, dementia, Parkinson's disease, CHF, who at baseline needs assistance activities of daily living, can feed herself, at times she becomes nonverbal, who presents [facility] due to low oxygen saturations, and shortness of breath Patient was treated for diastolic CHF exacerbation with diuretics, x-ray was consistent with vascular congestion, urine showed significant pyuria, previous urine culture showed Klebsiella and Enterococcus faecalis, during hospitalization she received Bumex 1 mg every 12 hours and antibiotics for UTI. At baseline patient is not very functional, uses a wheelchair and sometimes a walker, she only gives answers in 1 or 2 words, she is able to eat food with assistance, family was at the bedside spoon feeding her, Wills catheter will be removed before her discharge, Overnight pulse ox study did not show hypoxia however she did have significant apneic spells, she will consider high risk for diastolic CHF exacerbation in future I will keep her on Bumex 1 mg daily along potassium supplementation, I will give her 5 more days of levofloxacin. She will return to [facility]. Physical Exam Narrative: Awake and alert Signs of fluid load improving Currently on room air saturating well No audible stridor or wheezing Ate her breakfast without any difficulty Family at the bedside Patient hardly answers any question Urinary Catheter Management: Wills: Cath Placed During This Visit: yes Reason for Continuing Indwelling Catheter: Other Urinary Catheter Date of Insertion: 06/05/24 Urinary Catheter Time of Insertion: 14:37 Discharge Data Studies Completed and Pending Completed Studies During Hospitalization Category Date Time Status CT head wo con* [id number] Stat Cat Scan 06/05/24 11:22 Completed XR chest 1V portable [id number] Stat Exams 06/05/24 08:08 Completed US venous duplex lower extremity LT [CV venous duplex Ultrasound 06/05/24 08:[place] [id number]] Stat Pending at discharge Category Date Time Status Urine Culture Stat Lab 06/05/24 16:39 Results Radiology Impressions Chest X-Ray 06/05/24 08:08 IMPRESSION: Pulmonary vascular congestion with suspected pulmonary edema and mild right pleural effusion. Venous Duplex 06/05/24 08:08 IMPRESSION: No evidence of deep vein thrombosis. Head CT 06/05/24 11:22 IMPRESSION: No acute intracranial findings. Laboratory Results WBC 6.05 10^3/uL (3.29-11.43) 06/07/24 04:37 RBC 4.11 10^6/uL (3.85-5.65) 06/07/24 04:37 Hgb 10.30 g/dL (11.27-16.99) L 06/07/24 04:37 Hct 33.6 % (36-47) L 06/07/24 04:37 MCV 81.8 fl (85-98) L 06/07/24 04:37 MCH 25.1 pg (27-33) L 06/07/24 04:37 MCHC 30.7 g/dL (30-55) 06/07/24 04:37 RDW 16.9 % (12.1-15.1) H 06/07/24 04:37 Plt Count 341 10^3/cmm (157-399) 06/07/24 04:37 MPV 10.2 fL (7.4-10.4) 06/07/24 04:37 Neut % (Auto) 61.0 % 06/07/24 04:37 Lymph % (Auto) 19.2 % 06/07/24 04:37 [place] % (Auto) 13.1 % 06/07/24 04:37 Eos % (Auto) 6.1 % 06/07/24 04:37 Baso % (Auto) 0.3 % 06/07/24 04:37 Neut # (Auto) 3.69 10^3/uL (1.8-7.7) 06/07/24 04:37 Lymph # (Auto) 1.2 10^3/uL (0.8-4.8) 06/07/24 04:37 [place] # (Auto) 0.8 10^3/uL (0.2-0.9) 06/07/24 04:37 Eos # (Auto) 0.4 10^3/uL (0.0-0.8) 06/07/24 04:37 Baso # (Auto) 0.0 10^3/uL (0.0-0.1) 06/07/24 04:37 Nucleated RBC % (auto) 0.3 % 06/07/24 04:37 Nucleated RBCs # 0.0 /100WBC 06/07/24 04:37 Sodium 138 mmol/L (136-145) 06/07/24 04:37 Potassium 3.8 mmol/L (3.5-5.1) 06/07/24 04:37 Chloride 101 mmol/L (98-107) 06/07/24 04:37 Carbon Dioxide 22 mmol/L (22-29) 06/07/24 04:37 Anion Gap 18.8 (5-19) 06/07/24 04:37 BUN 26 mg/dL (8-23) H 06/07/24 04:37 Creatinine 1.2 mg/dL (0.5-0.9) H 06/07/24 04:37 GFR Calculation Not Reportable 06/07/24 04:37 Glucose 250 mg/dL (65-115) H 06/07/24 04:37 POC Glucose 247 mg/dL (70-110) H 06/07/24 06:33 Calculated Osmolality 299 mOsm/kg (285-295) H 06/07/24 04:37 Lactic Acid 2.2 mmol/L (0.5-2.2) 06/05/24 08:18 Lactic Acid (Sepsis) 1.9 mmol/L (0.5-2.2) 06/05/24 14:00 Calcium 8.7 mg/dL (8.5-10.5) 06/07/24 04:37 Total Bilirubin 0.3 mg/dL (0.15-1.2) 06/05/24 08:18 AST 12 U/L (0-32) 06/05/24 08:18 ALT 10 U/L (0-33) 06/05/24 08:18 Alkaline Phosphatase 187 U/L (35-105) H 06/05/24 08:18 Troponin T Baseline 39 ng/L (0-10) H 06/05/24 12:14 Troponin T 120 Minute 36.38 ng/L (0-10) H 06/05/24 14:00 Delta Troponin T -2.62 ABS# (0-10) L 06/05/24 14:00 Troponin T Hi Sens 6Hr 37.30 ng/L (0-10) H 06/05/24 18:20 Troponin T Hi Sens 6Hr Delta -1.70 ng/L (0-12) L 06/05/24 18:20 C-Reactive Protein 4.7 mg/L (0.0-4.9) 06/05/24 08:18 NT-Pro-B Natriuret Pep 570 pg/mL (0-450) H 06/05/24 08:18 Total Protein 7.1 g/dL (6.6-8.7) 06/05/24 08:18 Albumin 4.0 g/dL (3.5-5.2) 06/05/24 08:18 Globulin 3.1 g/dL (1.3-4.6) 06/05/24 08:18 Procalcitonin 0.11 ng/mL (0-0.5) 06/05/24 08:18 Urine Color Yellow (Yellow) 06/05/24 16:39 Urine Appearance Turbid (CLEAR) A 06/05/24 16:39 Urine pH 8.5 (5-7) A 06/05/24 16:39 Ur Specific [place] 1.009 (1.005-1.030) 06/05/24 16:39 Urine Protein Trace (Negative) A 06/05/24 16:39 Urine Glucose (UA) Negative (Normal) 06/05/24 16:39 Urine Ketones Negative (Negative) 06/05/24 16:39 Urine Blood Non-haemolysed trace (Negative) 06/05/24 16:39 Urine Nitrate Negative (Negative) 06/05/24 16:39 Urine Bilirubin Negative (Negative) 06/05/24 16:39 Urine Urobilinogen 0.2 mg/dL (Negative) 06/05/24 16:39 Ur Leukocyte Esterase 3+ (Negative) A 06/05/24 16:39 Urine RBC 0-2 /hpf (0-2) 06/05/24 16:39 Urine WBC >100 /hpf (0-5) H 06/05/24 16:39 Ur Squamous Epith Cells 0-5 /hpf (0-5) 06/05/24 16:39 Amorphous Sediment Not Reportable 06/05/24 16:39 Urine Bacteria 1+ /hpf (NONE) H 06/05/24 16:39 Hyaline Casts 2.05 /lpf 06/05/24 16:39 Vitals Last Vital Signs Temp 98.7 F 06/07/24 07:17 Pulse 84 06/07/24 07:17 Resp 17 06/07/24 07:17 BP 162/70 06/07/24 07:17 Pulse Ox 92 06/07/24 07:17 O2 Del Method Room Air 06/07/24 07:17 Discharge Plan Discharge Patient Disposition: Xfer SNF Condition: Stable Prescriptions: New levofloxacin 750 mg tablet 750 mg PO DAILY 5 Days Qty: 5 0RF Continued multivitamin [Daily Multi-Vitamin] Tablet 1 tab PO DAILY Daily Probiotic 2.5 billion cell capsule 1 cap PO BID amantadine HCl 100 mg tablet 100 mg PO BID@0800,1700 epinephrine [EpiPen 2-Dickson] 0.3 mg/0.3 mL auto-injector 0.3 mg IM ONCE PRN (Reason: Anaphylaxis) Qty: 2 0RF atorvastatin 40 mg tablet 40 mg PO DAILY Qty: 90 3RF carbidopa-levodopa 50-200 mg tablet extended release 1 tab PO TID@08,12,17 Qty: 270 3RF lisinopril 20 mg tablet 20 mg PO BID@0800,1700 Qty: 180 3RF metoprolol tartrate 25 mg tablet 25 mg PO BID Qty: 180 3RF (DME) lancets [OneTouch Delica Lancets] [facility] See Rx Instructions .ROUTE .MEDSUPPLY Qty: 100 3RF Rx Instructions: one daily for blood sugar (DME) blood-glucose meter [Accu-Chek Zhanna Plus Meter] [facility] See Rx Instructions .ROUTE .MEDSUPPLY Qty: 1 0RF Rx Instructions: check blood sugar daily (DME) Accu-Chek Zhanna Plus test strp Strip See Rx Instructions .ROUTE .MEDSUPPLY Qty: 10 0RF Rx Instructions: check blood sugar 1 time daily magnesium hydroxide [Milk of Magnesia] 400 mg/5 mL Suspension 30 ml PO DAILY PRN (Reason: Constipation) bisacodyl [Dulcolax (bisacodyl)] 10 mg Suppository 10 mg PA DAILY PRN (Reason: Constipation) Fleet Enema 19-7 gram/118 mL Enema 118 ml PA DAILY PRN (Reason: Constipation) aspirin 81 mg tablet,delayed release (DR/EC) 81 mg PO DAILY BuSpar 5 mg Tablet 2.5 mg PO 1800 potassium chloride 10 mEq Capsule, Extended Release 10 meq PO DAILY acetaminophen 325 mg Tablet 650 mg PO Q4H PRN (Reason: mild pain/fever) ipratropium-albuterol 0.5 mg-3 mg(2.5 mg base)/3 mL Solution For Nebulization 3 ml INHALATION Q6H PRN (Reason: Cough) trazodone 50 mg Tablet 25 mg PO 1900 hydralazine 25 mg Tablet 25 mg PO TID amlodipine 10 mg Tablet 10 mg PO DAILY Colace 100 mg Capsule 100 mg PO EVERY OTHER DAY Colace 100 mg Capsule 200 mg PO EVERY OTHER DAY Risperdal 1 mg Tablet 1 mg PO 1900 cranberry 450 mg Tablet 450 mg PO DAILY Rx Instructions: administer with a meal Osphena 60 mg Tablet 60 mg PO DAILY Rx Instructions: must administer with food, preferably a high-fat meal sitagliptin 100 mg Tablet 100 mg PO DAILY bumetanide 1 mg Tablet 1 mg PO DAILY Qty: 60 3RF Discontinued metformin 1,000 mg Tablet 1,000 mg PO BIDWMEAL Discharge Orders: Discharge Order (Routine); Ordered 06/07/24 Ordered By: Ramonita Santamaria Other Ambulatory Orders: DME: Oxygen (Order) Location: None Selected Ordered By: Ramonita Santamaria Referrals: Polo Guzman, GRADUATE INTERN [Primary Care Provider] - Discharge Diet: Diabetic Patient Instructions: Pain Management Discharge Attestations Time Spent in Discharge Care*: greater than 30 min Status at Discharge: Cognitive status at discharge: moderately impaired cognition (at baseline), Behavioral status at discharge: cooperative, Quality Metrics Clinical Quality Measures [ No reported AMI, CVA or VTE this stay] Coding Level of Care Code Acute Code for Chg Fwd Diagnoses Altered mental status R41.82 CHF exacerbation I50.9
[2024-06-07 10:49] LABS: Glucose Point of Care 398 mg/dL (70-110)
[2024-06-07 10:54] VITALS: BP 133/74; PULSE 81; RESP 18; TEMP 36.9; O2SAT 95
--- NOTE | 2024-06-07 11:34 | PC.NURSE ---
This nurse called report to [facility] and spoke with Nurse Howard. All questions addressed at this time. Ready transport should be here for transport around 1300.
[2024-06-07 12:30] LABS: SARS Covid-2 Antigen negative (Negative)
[2024-06-07 13:26] VITALS: BP 133/74; PULSE 81; RESP 18; TEMP 36.9; O2SAT 95
--- NOTE | 2024-06-09 15:16 | PC.NURSE ---
I received a call from patient's daughter inquiring about her Bumex dose. She asked if the dose was the same when she was d/c'd as it was in the hospital because patient is having more swelling in her legs again that she did not have in the hospital. I reviewed her d/c plan and informed her that she was on the same dose she had been taking while hospitalized. I inquired if patient was still at [facility] to which she responded yes . She states that she just wanted to make sure she was taking the right dose and had asked the nurse at the [facility] about it, but he didn't seem confident he would call and get an answer, so I called myself. She also states that patient's legs are being wrapped again and inquired if we had ordered them. I told her no, that it wasn't printed on the d/c information or orders. She states well I was just wanting to check with her physician to make sure they needed to be doing that. I explained that since [facility] in the [facility], those physicians and nurse practitioners were in charge of her care now. She replied that patient isn't supposed to see the BLOOD BANK SPECIALIST for another week . I explained that the nurses in the facility are able to answer questions/concerns and will obtain new orders from the physician/BLOOD BANK SPECIALIST if needed. She verbalizes understanding and denies further questions/concerns. I called and spoke with GIL Hill at [facility] and discussed the above information with her. She appreciated the call and states she will f/u with patient's daughter in an attempt to answer any questions.
== END 2024-06-07 13:24 | disposition skilled nursing facility (03) | DRG 291 ==
LOC: ER 10:46 → MEDSURG 11:30
PROVIDERS: Admitting Provider Family Medicine; Emergency Provider Emergency Medicine; PCP Clinical Nurse Specialist Adult Health; Visit Provider Internal Medicine
DX: I11.0 Hypertensive heart disease with heart failure (principal); I50.31 Acute diastolic (congestive) heart failure; G20.A1 Parkinson's disease without dyskinesia, without mention of fluctuations; F02.80 Dementia in other diseases classified elsewhere, unspecified severity, without behavioral disturbance, psychotic disturbance, mood disturbance, and anxiety; K52.9 Noninfective gastroenteritis and colitis, unspecified; F41.9 Anxiety disorder, unspecified; E78.5 Hyperlipidemia, unspecified; E11.9 Type 2 diabetes mellitus without complications; Z87.820 Personal history of traumatic brain injury; Z86.73 Personal history of transient ischemic attack (TIA), and cerebral infarction without residual deficits; Z86.010 Personal history of colon polyps; Z87.440 Personal history of urinary (tract) infections
CPT/HCPCS: 36415; 36416; 51702; 70450; 71045; 80048; 80053; 81003; 81015; 82962; 83605; 83880; 84145; 84484; 85025; 86140; 87086; 87186; 87426; 93005; 93971; 96372; 96374; 99285; G0378; J1815; J3490

== ENCOUNTER → 2024-08-22 12:14 | Outpatient (BNVA) | payer MEDICARE, OTHER, SELFPAY | PROVIDERS: PCP Clinical Nurse Specialist Adult Health; Visit Provider Internal Medicine Cardiovascular Disease | DX: R06.02 Shortness of breath (principal) | CPT/HCPCS: 36415; 80048; 83880; 99214 ==

== ENCOUNTER 2024-09-04 16:06 | Emergency (ER) | payer MEDICARE, OTHER, SELFPAY ==
[2024-09-04] VITALS (9 sets, daily range): BP systolic 166–195; BP diastolic 68–83; PULSE 76–106; RESP 17–18; TEMP 37.1; O2SAT 94–98
--- NOTE | 2024-09-04 16:31 | ECG_ITS ---
[facility]: 2024-09-04 Pat Name: Cathi Nichols Department: Room: Gender: Female Cytogenetic Technician: : 1940 Requested By: Benjamin Esqueda Order Number: [id number] Davis MD: Jerry Mauricio M.D. Measurements Intervals [place] Rate: 106 P: 23 PA: 144 QRS: 6 QRSD: 82 T: 65 QT: 346 QTc: 461 Interpretive Statements SINUS TACHYCARDIA LEFT VENTRICULAR HYPERTROPHY AND ST-T CHANGE [VOLTAGE CRITERIA PLUS ST/T ABNORMALITY] Compared to ECG 06/05/2024 17:04:21 Left ventricular hypertrophy now present ST (T wave) deviation now present Sinus rhythm no longer present Ventricular premature complex(es) no longer present Electronically Signed On 09-04-2024 18:46:02 VETERINARIAN EPIDEMIOLOGIST by Jerry Mauricio M.D. [email or web address]
--- NOTE | 2024-09-04 16:31 | XRR_ITS ---
PROCEDURE INFORMATION: Exam: XR Chest Exam date and time: 09/04/2024 4:38 PM Age: 83 years old Clinical indication: Shortness of breath; Prior surgery; Surgery date: 6+ months; Surgery type: Loop recorder; Patient HX: EMS states PT C/O SOB since yesterday. EMS reports extremity swelling. PT has dementia. PT looks at nurse when name is called but PT will not talk. PT is aox1. ; Additional info: SOB, chest rattle, hypoxia TECHNIQUE: Imaging protocol: Radiologic exam of the chest. Views: 1 view. COMPARISON: CR XR chest 1V portable [id number] 06/05/2024 8:16 AM FINDINGS: Tubes, catheters and devices: Loop recorder device overlies the lower left thorax similar to the prior. Lungs: Unremarkable. No consolidation. Pleural spaces: Unremarkable. No pleural effusion. No pneumothorax. Heart/Mediastinum: Unremarkable. No cardiomegaly. Vasculature: There is calcified plaque in the thoracic aorta. Bones/joints: Unremarkable. XR/XR chest 1V portable [id number] IMPRESSION: No evidence for acute cardiopulmonary disease.
[2024-09-04 16:38] LABS: Basophils % 0.3 %; Eosinophils # 0.3 10^3/uL (0.0-0.8); Eosinophils % 4.9 %; Hematocrit 37.1 % (36-47); Lymphocytes # 1.4 10^3/uL (0.8-4.8); Lymphocytes % 23.6 %; Mean Corpuscular Hemoglobin 24.8 pg (27-33); Mean Corpuscular Volume 80.1 fl (85-98); Mean Platelet Volume 10.9 fL (7.4-10.4); Monocytes # 0.8 10^3/uL (0.2-0.9); Monocytes % 12.9 %; Neutrophils # 3.53 10^3/uL (1.8-7.7); Neutrophils % 58.1 %; Nucleated Red Blood Cells % 0 %; Platelet Count 203 10^3/cmm (157-399); Red Blood Count 4.63 10^6/uL (3.85-5.65); Red Cell Distribution Width 19.4 % (12.1-15.1); White Blood Count 6.07 10^3/uL (3.29-11.43)
--- NOTE | 2024-09-04 16:40 | W.ED.SOB ---
HPI - SOB/Dyspnea General: Chief Complaint: Shortness of Breath/Dyspnea Stated Complaint: SOB Time Seen by Provider: 09/04/24 16:16 History of Present Illness: HPI Narrative: 83-year-old female who presents by EMS from [facility]. Patient has a history of traumatic brain injury, stroke, Parkinson's and vascular dementia. She cannot provide any history. Fortunately, son and daughter both arrived shortly after her. Evidently patient has been having shortness of breath and slightly elevated heart rate today. Her oxygen saturations evidently dropped down into the 80s. She felt a little bit warm to the touch. She was sent to the emergency department for evaluation of this. She does have chronic bilateral lower extremity edema which is unchanged. She is on Bumex 1 mg daily and Doug wrap's to both lower extremities for this. Per family no history of DVT or PE that they are aware of. She did recently get her trazodone increased for insomnia. Family has not heard any coughing but did see increased [facility] at the [facility]. No known history of aspiration. Son says he is hearing some rattles in her chest over the last few days. Related Data Home Medications Medication Instructions Recorded Confirmed multivitamin (Daily Multi-Vitamin 1 tab PO DAILY 10/11/19 06/05/24 tablet) amantadine HCl 100 mg tablet 100 mg PO BID@0800,1700 10/29/20 06/05/24 Lactobacillus 1 cap PO BID 10/17/21 06/05/24 acidophilus-Bifidobac.animalis 2.5 billion cell capsule (Daily Probiotic) aspirin 81 mg tablet,delayed 81 mg PO DAILY 10/02/22 06/05/24 release bisacodyl 10 mg rectal suppository 10 mg OK DAILY PRN Constipation 10/02/22 06/05/24 (Dulcolax (bisacodyl)) magnesium hydroxide 400 mg/5 mL 30 ml PO DAILY PRN Constipation 10/02/22 06/05/24 oral suspension (Milk of Magnesia) sodium phosphates 19 gram-7 118 ml OK DAILY PRN Constipation 10/02/22 06/05/24 gram/118 mL enema (Fleet Enema) acetaminophen 325 mg tablet 650 mg PO Q4H PRN mild pain/fever 06/05/24 06/05/24 amlodipine 10 mg tablet 10 mg PO DAILY 06/05/24 06/05/24 buspirone 5 mg tablet 2.5 mg PO 1800 06/05/24 06/05/24 cranberry fruit 450 mg tablet 450 mg PO DAILY 06/05/24 06/05/24 (cranberry) docusate sodium 100 mg capsule 100 mg PO EVERY OTHER DAY 06/05/24 06/05/24 (Colace) docusate sodium 100 mg capsule 200 mg PO EVERY OTHER DAY 06/05/24 06/05/24 (Colace) hydralazine 25 mg tablet 25 mg PO TID 06/05/24 06/05/24 ipratropium 0.5 mg-albuterol 3 mg 3 ml inhalation Q6H PRN Cough 06/05/24 06/05/24 (2.5 mg base)/3 mL nebulization soln ospemifene 60 mg tablet (Osphena) 60 mg PO DAILY 06/05/24 06/05/24 potassium chloride 10 mEq 10 meq PO DAILY 06/05/24 06/05/24 capsule,extended release risperidone 1 mg tablet (Risperdal) 1 mg PO 1900 06/05/24 06/05/24 sitagliptin 100 mg tablet 100 mg PO DAILY 06/05/24 06/05/24 trazodone 50 mg tablet 25 mg PO 1900 06/05/24 06/05/24 Previous Rx's Medication Instructions Recorded lancets 33 gauge (OneTouch Delica #100 ea 12/05/19 Lancets) blood sugar diagnostic (Accu-Chek #10 ea 01/10/20 Zhanna Plus test strips) blood-glucose meter (Accu-Chek #1 ea 01/10/20 Zhanna Plus Meter) atorvastatin 40 mg tablet 40 mg PO DAILY #90 tabs 11/17/22 carbidopa ER 50 mg-levodopa 200 mg 1 tab PO TID@08,12,17 #270 tabs 11/17/22 tablet,extended release epinephrine 0.3 mg/0.3 mL 0.3 mg (0.3 mL) IM ONCE PRN 11/17/22 injection, auto-injector (EpiPen Anaphylaxis #2 ea 2-Dickson) lisinopril 20 mg tablet 20 mg PO BID@0800,1700 #180 tabs 11/17/22 metoprolol tartrate 25 mg tablet 25 mg PO BID #180 tabs 11/17/22 bumetanide 1 mg tablet 1 mg PO DAILY #60 tabs 06/07/24 cephalexin 500 mg capsule 500 mg PO Q8H 7 days #21 caps 09/04/24 Allergies Allergy/AdvReac Type Severity Reaction Status Date / Time furosemide [From Lasix] Allergy Unknown UNKNOWN Verified 08/22/24 11:05 codeine Allergy Unknown Verified 08/22/24 11:05 Sulfa (Sulfonamide Allergy Unknown Verified 08/22/24 11:05 Antibiotics) Review of Systems Narrative: Patient unable to provide review of systems due to dementia and TBI. [facility] ED PFS: Medical History CHF exacerbation Essential (primary) hypertension Pulmonary edema Altered mental status Near syncope Acute cerebrovascular accident (CVA) Dementia Diarrhea Chronic diarrhea Tachycardia with heart rate 100-120 beats per minute Encounter for loop recorder check Leg swelling Parkinsons On Sinemet Recurrent UTI Syncopal episodes 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 Actually lives with her son and daughter who are with her 27/04 Ventricular arrhythmia Anxiety Dyslipidemia (high LDL; low HDL) Hyponatremia chronic mild in low mid 130s at baseline Type 2 diabetes mellitus without complications non insulin requiring, on metformin, A1c-6.9 DDD (degenerative disc disease), lumbar Lumbar stenosis Urge incontinence Memory change Surgical History History of loop recorder -Follows with Dr. Ponce History of release of tendon (~2010) trigger finger Hx of breast biopsy (~2002) right History of tonsillectomy and adenoidectomy younger than age 10 Hx of hysterectomy (~1973) Hx laparoscopic cholecystectomy (~1993) Hx of bilateral cataract extraction (~2007) Hx of brain surgery Epidural Hematoma; emergency Hx of tracheostomy Hx of colonoscopy (~2010) polyps: Hyperplastic Family History Father , age 58 from [place] CAD (coronary artery disease) Mother , age 76 Cancer melanoma Grandmother Diabetes maternal Social History Smoking and tobacco/nicotine status: never used tobacco/nicotine Alcohol intake: never Substance/Drug Use: never Caregiver/support person: Yes Lives independently: No Household members: none Housing: House Marital status: / Number of children: 2 Number of grandchildren: 0 Current occupational status: retired Current gender identity: Female Physical Exam Narrative: EXAM NARRATIVE: Alert, not speaking. Not following commands. Normal respiratory rate. Some rales noted in the right mid anterior chest. No coughing. Patient is 94% on room air. Abdomen soft and nontender. Some nonpitting edema both lower extremities. No signs of cellulitis. No JVD. She does feel slightly warm to the touch but her oral temperature is 98.1 when I checked it. Const: COMMON NORMALS: alert and well nourished HENMT: COMMON NORMALS: normocephalic, atraumatic and external ears normal HEAD & SCALP: normocephalic and atraumatic EXTERNAL EAR: Yes external ears normal MOUTH: no muffled voice Eye: COMMON NORMALS: EOMs intact bilaterally, conjunctivae normal and no scleral icterus CONJUNCTIVA: Yes conjunctivae normal Neck/C-Spine: COMMON NORMALS: no JVD GENERAL: Yes normal visual inspection and Yes trachea midline Resp: COMMON NORMALS: normal respiratory effort and No use of accessory muscles Cardio: COMMON NORMALS: no JVD and regular rhythm RHYTHM: regular rhythm GI: COMMON NORMALS: Soft to palpation and non-tender PALPATION: Yes Soft to palpation and No Guarding due to palpation present (GI) Neuro: COMMON NORMALS: no focal motor deficits SENSORIUM/ORIENTATION: Yes alert Skin: COMMON NORMALS: no rashes or lesions noted, turgor normal and no jaundice GENERAL SKIN EXAM: no rashes or lesions noted and turgor normal Course Vital Signs: Vital signs: Vital Signs Temperature 98.8 F 09/04/24 16:09 Pulse Rate 86 09/04/24 18:30 Respiratory Rate 18 09/04/24 18:30 Blood Pressure 171/73 09/04/24 18:30 Pulse Oximetry 97 09/04/24 18:30 Oxygen Delivery Me thod Room Air 09/04/24 16:09 MDM - SOB/Dyspnea Medical Decision Making Differential diagnosis includes infectious respiratory disease (viral, bacterial, other), CHF exacerbation, anemia, aspiration, pulmonary hypertension, pulmonary embolism, pleural effusion, multiple others. EKG obtained at 1611 shows sinus tachycardia, rate 106, narrow QRS, normal axis, some nonspecific ST changes. Update 1530 Patient normally takes Bumex, hydralazine, amlodipine, metoprolol, and lisinopril for blood pressure/fluid retention. She missed her evening doses. I went ahead and gave her some Bumex and labetalol initially. Her blood pressure did not come down appropriately. I added 10 mg of hydralazine IV and then added and metoprolol and hydralazine orally. It looks like she has chronic difficult to control hypertension. I do not think this is a hypertensive emergency. Chest x-ray did not show any signs of pneumonia. The oxygen saturation is 96% on room air on reevaluation. Patient found to have evidence of urinary tract infection. Colonization is also a possibility but I assume she is symptomatic with UTI given her reported change with generalized weakness, increased respiratory rate, decreased appetite. We will go ahead and treat with IV Rocephin here and then put her on cephalexin. Family think between them and [facility] staff they can keep her orally hydrated. We will plan on 60 ounces of fluid daily. Since the patient has been here for several hours not eating or drinking, going to give her 250 cc of IV fluid. I would like her to repeat her BMP in about 4 days to make sure her kidney function, electrolytes are staying in appropriate ranges. After looking at her creatinine it seems to be bumping up a little bit at a time. Our plan is to discharge to fdc with return precautions. Lab Data 09/04/24 15:56 09/04/24 15:56 Labs/Radiology: Radiology Impressions Chest X-Ray 09/04/24 16:31 IMPRESSION: No evidence for acute cardiopulmonary disease. Laboratory Results WBC 6.07 10^3/uL (3.29-11.43) 09/04/24 15:56 RBC 4.63 10^6/uL (3.85-5.65) 09/04/24 15:56 Hgb 11.50 g/dL (11.27-16.99) 09/04/24 15:56 Hct 37.1 % (36-47) 09/04/24 15:56 MCV 80.1 fl (85-98) L 09/04/24 15:56 MCH 24.8 pg (27-33) L 09/04/24 15:56 MCHC 31.0 g/dL (30-55) 09/04/24 15:56 RDW 19.4 % (12.1-15.1) H 09/04/24 15:56 Plt Count 203 10^3/cmm (157-399) 09/04/24 15:56 MPV 10.9 fL (7.4-10.4) H 09/04/24 15:56 Neut % (Auto) 58.1 % 09/04/24 15:56 Lymph % (Auto) 23.6 % 09/04/24 15:56 [place] % (Auto) 12.9 % 09/04/24 15:56 Eos % (Auto) 4.9 % 09/04/24 15:56 Baso % (Auto) 0.3 % 09/04/24 15:56 Neut # (Auto) 3.53 10^3/uL (1.8-7.7) 09/04/24 15:56 Lymph # (Auto) 1.4 10^3/uL (0.8-4.8) 09/04/24 15:56 [place] # (Auto) 0.8 10^3/uL (0.2-0.9) 09/04/24 15:56 Eos # (Auto) 0.3 10^3/uL (0.0-0.8) 09/04/24 15:56 Baso # (Auto) 0.0 10^3/uL (0.0-0.1) 09/04/24 15:56 Nucleated RBC % (auto) 0 % 09/04/24 15:56 Nucleated RBCs # 0.0 /100WBC 09/04/24 15:56 Sodium 143 mmol/L (136-145) 09/04/24 15:56 Potassium 4.4 mmol/L (3.5-5.1) 09/04/24 15:56 Chloride 107 mmol/L (98-107) 09/04/24 15:56 Carbon Dioxide 21 mmol/L (22-29) L 09/04/24 15:56 Anion Gap 19.4 (5-19) H 09/04/24 15:56 BUN 35 mg/dL (8-23) H 09/04/24 15:56 Creatinine 1.4 mg/dL (0.5-0.9) H 09/04/24 15:56 GFR Calculation Not Reportable 09/04/24 15:56 Glucose 410 mg/dL (65-115) H 09/04/24 15:56 POC Glucose 283 mg/dL (70-110) H 09/04/24 18:15 Calculated Osmolality 321 mOsm/kg (285-295) H 09/04/24 15:56 Lactic Acid 2.3 mmol/L (0.5-2.2) H 09/04/24 15:56 Lactic Acid (Sepsis) 1.9 mmol/L (0.5-2.2) 09/04/24 19:11 Calcium 9.7 mg/dL (8.5-10.5) 09/04/24 15:56 Total Bilirubin 0.2 mg/dL (0.15-1.2) 09/04/24 15:56 AST 16 U/L (0-32) 09/04/24 15:56 ALT < 5 U/L (0-33) 09/04/24 15:56 Alkaline Phosphatase 236 U/L (35-105) H 09/04/24 15:56 NT-Pro-B Natriuret Pep 510 pg/mL (0-450) H 09/04/24 15:56 Total Protein 7.0 g/dL (6.6-8.7) 09/04/24 15:56 Albumin 3.9 g/dL (3.5-5.2) 09/04/24 15:56 Globulin 3.1 g/dL (1.3-4.6) 09/04/24 15:56 Urine Color Yellow (Yellow) 09/04/24 17:50 Urine Appearance Clear (CLEAR) 09/04/24 17:50 Urine pH 5.5 (5-7) 09/04/24 17:50 Ur Specific [place] 1.020 (1.005-1.030) 09/04/24 17:50 Urine Protein Negative (Negative) 09/04/24 17:50 Urine Glucose (UA) 3+ (Normal) H 09/04/24 17:50 Urine Ketones Negative (Negative) 09/04/24 17:50 Urine Blood Negative (Negative) 09/04/24 17:50 Urine Nitrate Negative (Negative) 09/04/24 17:50 Urine Bilirubin Negative (Negative) 09/04/24 17:50 Urine Urobilinogen 0.2 mg/dL (Negative) 09/04/24 17:50 Ur Leukocyte Esterase Trace (Negative) A 09/04/24 17:50 Urine RBC 3-5 /hpf (0-2) 09/04/24 17:50 Urine WBC 11-20 /hpf (0-5) H 09/04/24 17:50 Ur Squamous Epith Cells 0-5 /hpf (0-5) 09/04/24 17:50 Amorphous Sediment Not Reportable 09/04/24 17:50 Urine Bacteria 4+ /hpf (NONE) H 09/04/24 17:50 Hyaline Casts 2.46 /lpf 09/04/24 17:50 Coronavirus (PCR) Negative (Negative) 09/04/24 17:58 Influenza A (PCR) Negative (Negative) 09/04/24 17:58 Influenza Type B (PCR) Negative (Negative) 09/04/24 17:58 RSV (PCR) Negative (Negative) 09/04/24 17:58 All radiology interpretation(s) finalized by discharge Discharge Plan Discharge Patient Disposition: Home Clinical Impression: Acute UTI, Elevated serum creatinine, Accelerated hypertension, Generalized weakness Condition: Stable Prescriptions: New cephalexin 500 mg capsule 500 mg PO Q8H 7 Days Qty: 21 0RF No Action multivitamin [Daily Multi-Vitamin] Tablet 1 tab PO DAILY Daily Probiotic 2.5 billion cell capsule 1 cap PO BID amantadine HCl 100 mg tablet 100 mg PO BID@0800,1700 epinephrine [EpiPen 2-Dickson] 0.3 mg/0.3 mL auto-injector 0.3 mg IM ONCE PRN (Reason: Anaphylaxis) Qty: 2 0RF atorvastatin 40 mg tablet 40 mg PO DAILY Qty: 90 3RF carbidopa-levodopa 50-200 mg tablet extended release 1 tab PO TID@08,,17 Qty: 270 3RF lisinopril 20 mg tablet 20 mg PO BID@0800,1700 Qty: 180 3RF metoprolol tartrate 25 mg tablet 25 mg PO BID Qty: 180 3RF (DME) lancets [OneTouch Delica Lancets] 33 gauge misc See Rx Instructions .ROUTE .MEDSUPPLY Qty: 100 3RF Rx Instructions: one daily for blood sugar (DME) blood-glucose meter [Accu-Chek Zhanna Plus Meter] [facility] See Rx Instructions .ROUTE .MEDSUPPLY Qty: 1 0RF Rx Instructions: check blood sugar daily (DME) Accu-Chek Zhanna Plus test strp Strip See Rx Instructions .ROUTE .MEDSUPPLY Qty: 10 0RF Rx Instructions: check blood sugar 1 time daily magnesium hydroxide [Milk of Magnesia] 400 mg/5 mL Suspension 30 ml PO DAILY PRN (Reason: Constipation) bisacodyl [Dulcolax (bisacodyl)] 10 mg Suppository 10 mg OK DAILY PRN (Reason: Constipation) Fleet Enema 19-7 gram/118 mL Enema 118 ml OK DAILY PRN (Reason: Constipation) aspirin 81 mg tablet,delayed release (DR/EC) 81 mg PO DAILY buspirone 5 mg Tablet 2.5 mg PO 1800 potassium chloride 10 mEq Capsule, Extended Release 10 meq PO DAILY acetaminophen 325 mg Tablet 650 mg PO Q4H PRN (Reason: mild pain/fever) ipratropium-albuterol 0.5 mg-3 mg(2.5 mg base)/3 mL Solution For Nebulization 3 ml INHALATION Q6H PRN (Reason: Cough) trazodone 50 mg Tablet 25 mg PO 1900 hydralazine 25 mg Tablet 25 mg PO TID amlodipine 10 mg Tablet 10 mg PO DAILY Colace 100 mg Capsule 100 mg PO EVERY OTHER DAY Colace 100 mg Capsule 200 mg PO EVERY OTHER DAY Risperdal 1 mg Tablet 1 mg PO 1900 cranberry 450 mg Tablet 450 mg PO DAILY Rx Instructions: administer with a meal Osphena 60 mg Tablet 60 mg PO DAILY Rx Instructions: must administer with food, preferably a high-fat meal sitagliptin 100 mg Tablet 100 mg PO DAILY bumetanide 1 mg Tablet 1 mg PO DAILY Qty: 60 3RF Discharge Orders: Discharge ED (Routine); Ordered 09/04/24 Ordered By: Benjamin Esqueda Referrals: Polo Guzman MICROBIOLOGY COORDINATOR [Primary Care Provider] - 4-7 days (Repeat BMP in 4 days) Discharge Diet: Usual diet Discharge Activity: Increase activity as tolerated Patient Instructions: Urinary Tract Infection in Older Adults (ED) Activity Restrictions/Additional Instructions: 1. There is suggestion of a UTI. Give cephalexin 500 mg 3 times a day. 2. The patient often has fluid retention in her legs and lungs but at the same time is often intravascularly dry. Please make sure that she is drinking 60 ounces of fluid daily 3. Plan on having her basic metabolic profile repeated in about 4 days to make sure that her renal function is not getting worse. 4. You may continue to give her her normal medications other than the addition of cephalexin for the UTI. Coding Level of Care Code ED [place] for Robin Mccauley
[2024-09-04 16:51] LABS: Alanine Aminotransferase < 5 U/L (0-33); Albumin Level 3.9 g/dL (3.5-5.2); Alkaline Phosphatase 236 U/L (35-105); Anion Gap 19.4 (5-19); Aspartate Amino Transferase 16 U/L (0-32); Blood Urea Nitrogen 35 mg/dL (8-23); Calcium 9.7 mg/dL (8.5-10.5); Carbon Dioxide 21 mmol/L (22-29); Chloride 107 mmol/L (98-107); Globulin 3.1 g/dL (1.3-4.6); Glucose 410 mg/dL (65-115); Osmolality Calculated 321 mOsm/kg (285-295); Potassium 4.4 mmol/L (3.5-5.1); Sodium 143 mmol/L (136-145); Total Bilirubin 0.2 mg/dL (0.15-1.2)
[2024-09-04 16:52] LABS: Lactic Sepsis W/Reflex 2.3 mmol/L (0.5-2.2)
[2024-09-04 17:14] LABS: NT Pro B Type Natriuretic Pept 510 pg/mL (0-450)
[2024-09-04 18:03] LABS: Bilirubin Urine Negative (Negative); Blood Urine Negative (Negative); Glucose Urine UA 3+ (Normal); Ketones Urine Negative (Negative); Leukocyte Esterase Urine Trace (Negative); Nitrate Urine Negative (Negative); Protein Urine Negative (Negative); Urine Appearance Clear (CLEAR); Urine Color Yellow (Yellow); Urobilinogen Urine 0.2 mg/dL (Negative); pH Urine 5.5 (5-7)
[2024-09-04] MEDS: bumetanide 0.25 mg/mL SDV 4 mL 1 MG IVP (18:03)
[2024-09-04] MEDS: labetalol 5 mg/mL SDV 20mL 20 MG IVP (18:04)
[2024-09-04 18:08] LABS: Add Urine Microscopic? YES; Bacteria Urine 4+ /hpf; Hyaline Casts Urine 2.46 /lpf; Squamous Epithelial Cell Urine 0-5 /hpf (0-5)
[2024-09-04 18:16] LABS: Glucose Point of Care 283 mg/dL (70-110)
[2024-09-04 18:22] LABS: Reflex Lactate Order REFLEX LACTIC ORDERD
[2024-09-04 18:24] LABS: UA Slide Review UA Slide Review Perf
[2024-09-04 18:25] LABS: Add Urine Culture? Yes
[2024-09-04 18:38] LABS: Covid PCR NEGATIVE (Negative); Influenza A NEGATIVE (Negative); Influenza B NEGATIVE (Negative); Respiratory Syncytial Virus Ce NEGATIVE (Negative)
[2024-09-04] MEDS: cefTRIAXone 1,000 mg SDV 1000 MG IVP (19:01)
[2024-09-04 19:32] LABS: Lactic Acid level (Lactate) 1.9 mmol/L (0.5-2.2)
[2024-09-04] MEDS: hyDRALAzine 20 mg/mL INJ 1 mL 10 MG IVP (19:45)
[2024-09-04] MEDS: sodium chloride 0.9% 250 ML IV (19:45)
[2024-09-04] MEDS: insulin lispro 100 unit/1 mL SUBCUT (19:51)
[2024-09-04] MEDS: metoprolol tartrate 25 mg Tablet PO (19:53)
[2024-09-04] MEDS: hyDRALAzine 25 mg Tablet PO (19:53)
[2024-09-04 19:55] LABS: Glucose Point of Care 260 mg/dL (70-110)
--- NOTE | 2024-09-04 20:33 | PC.NURSE ---
report called to Rosy hutchins at 2028.
== END 2024-09-04 20:33 | disposition home or self-care (01) ==
PROVIDERS: Emergency Provider Emergency Medicine; PCP Clinical Nurse Specialist Adult Health
DX: N39.0 Urinary tract infection, site not specified (principal); R53.1 Weakness; I11.0 Hypertensive heart disease with heart failure; I50.9 Heart failure, unspecified; E11.9 Type 2 diabetes mellitus without complications; Z87.820 Personal history of traumatic brain injury; E78.5 Hyperlipidemia, unspecified
CPT/HCPCS: 0241U; 36416; 51701; 71045; 80053; 81001; 82962; 83605; 83880; 85025; 87086; 93005; 96361; 96372; 96374; 96375; 99285; J0360; J0696; J1815; J3490; J7050

== ENCOUNTER 2024-10-29 17:27 | Inpatient (IN) | payer MEDICARE, OTHER, SELFPAY ==
[2024-10-29] VITALS (17 sets, daily range): BP systolic 146–238; BP diastolic 70–105; PULSE 75–100; RESP 15–20; TEMP 36.6–37; O2SAT 90–97; BMI 32.1
--- NOTE | 2024-10-29 17:49 | CTR_ITS ---
PROCEDURE INFORMATION: Exam: CT Head Without Contrast Exam date and time: 10/29/2024 6:46 PM Age: 84 years old Clinical indication: Altered mental status/memory loss; Prior surgery; Surgery date: 6+ months; Surgery type: Brain; Patient HX: EMS arrival from intermediate for unresponsiveness. Patient non verbal during exam. History of tbi and CVA. ; Additional info: AMS TECHNIQUE: Imaging protocol: Computed tomography of the head without contrast. Radiation optimization: All CT scans at this facility use at least one of these dose optimization techniques: automated exposure control; mA and/or kV adjustment per patient size (includes targeted exams where dose is matched to clinical indication); or iterative reconstruction. COMPARISON: CT head wo con* [id number] 06/05/2024 11:52 AM RADIATION DOSE METRICS: Total DLP (mGy-cm): 1019.48 FINDINGS: Brain: There is a thin extra-axial density on the right measuring 2-3 mm in thickness, not significantly changed since 06/05/2024, possibly reflecting dural thickening (image 45 of series 12 and image 19 of series 13 of the current exam and image 30 of series 9 on the prior exam).. Trace subdural hemorrhage would be difficult to exclude. Otherwise no evidence of intra-axial or extra-axial hemorrhage. No mass effect or midline shift. Focal right temporal encephalomalacia. Fry-white differentiation is otherwise maintained. Basilar cisterns are patent. Sequela of moderate chronic microvascular ischemic changes with periventricular and deep white matter hypoattenuation. Cerebral ventricles: No hydrocephalus. Paranasal sinuses: The visualized paranasal sinuses are well aerated. Mastoid air cells: The visualized mastoids and middle ears are clear. Bones: Right frontoparietal/temporal craniotomy. Calvarium is otherwise intact. No evidence of acute fracture. Soft tissues: No gross soft tissue abnormality. CT/CT head wo con* [id number] IMPRESSION: 1. Findings raising the question of dural thickening versus thin subdural hemorrhage along the right lateral convexity, similar in appearance to prior exam from June 2024. Consider correlation with MRI of the brain for further evaluation. Otherwise no evidence of acute intracranial abnormality.
--- NOTE | 2024-10-29 17:49 | XRR_ITS ---
PROCEDURE INFORMATION: Exam: XR Chest Exam date and time: 10/29/2024 6:11 PM Age: 84 years old Clinical indication: Other: Possible sepsis; Prior surgery; Surgery date: 6+ months; Surgery type: Loop recorder TECHNIQUE: Imaging protocol: Radiologic exam of the chest. Views: 1 view. COMPARISON: CR XR chest 1V portable [id number] 09/04/2024 4:38 PM FINDINGS: Lungs: No focal consolidation. Pleural spaces: No evidence of pneumothorax. No evidence of pleural effusion. Heart/Mediastinum: Cardiomediastinal silhouette is within normal limits. Monitor projects over the left hemithorax. Bones/joints: No evidence of acute osseous abnormality. XR/XR chest 1V portable [id number] IMPRESSION: 1. No acute cardiopulmonary abnormality.
--- NOTE | 2024-10-29 18:00 | ECG_ITS ---
[email or web address] eventblimp Test Date: 2024-10-29 Pat Name: Cathi Nichols Department: Room: Gender: Female Typesetters Printer: : 1940 Requested By: Glenroy Shah Order Number: [id number] Davis MD: Jerry Mauricio M.D. Measurements Intervals [place] Rate: 96 P: 49 RI: 156 QRS: 28 QRSD: 84 T: 53 QT: 356 QTc: 451 Interpretive Statements SINUS RHYTHM SEPTAL MYOCARDIAL INFARCTION , OF INDETERMINATE AGE [40+ ms Q WAVE IN V1/V2] Compared to ECG 09/04/2024 16:11:40 Myocardial infarct finding now present Sinus tachycardia no longer present Left ventricular hypertrophy no longer present ST (T wave) deviation no longer present Electronically Signed On 10-29-2024 23:20:52 BOBBIN COLLECTOR by Jerry Mauricio M.D. [email or web address]
[2024-10-29] MEDS: labetalol 5 mg/mL SDV 20mL 10 MG IVP ×3 (18:01→19:26)
[2024-10-29 18:22] LABS: Bilirubin Urine Negative (Negative); Blood Urine Negative (Negative); Glucose Urine UA 2+ (Normal); Ketones Urine Negative (Negative); Leukocyte Esterase Urine Negative (Negative); Nitrate Urine Negative (Negative); Protein Urine Negative (Negative); Specific Gravity, Urine 1.011 (1.005-1.030); Urine Appearance Clear (CLEAR); Urine Color Yellow (Yellow); Urobilinogen Urine 0.2 mg/dL (Negative)
--- NOTE | 2024-10-29 18:22 | W.ED.AMS ---
HPI - Altered Mental Status General: Chief Complaint: Altered Mental Status Stated Complaint: unresponsive Time Seen by Provider: 10/29/24 17:30 Source: family History of Present Illness: Patient is a 84-year-old female with a history of advanced Parkinson's disease who was brought into the ER by EMS due to concern for hypertension and tachycardia. The family states she has not really been very talkative the last several weeks due to her Parkinson's disease. This does frequently happen with urinary tract infections which she has a history of obtaining quite frequently. Son stated that she seems somewhat kind of flushed in the face at the [facility] and asked them to check her vitals. EMS apparently noted that she had a fever. She is nonverbal the last several weeks which is not unusual for her. She does not participate with exam due to her advanced Parkinson's disease. Related Data Home Medications Medication Instructions Recorded Confirmed multivitamin (Daily Multi-Vitamin 1 tab PO DAILY 10/11/19 06/05/24 tablet) amantadine HCl 100 mg tablet 100 mg PO BID@0800,1700 10/29/20 06/05/24 Lactobacillus 1 cap PO BID 10/17/21 06/05/24 acidophilus-Bifidobac.animalis 2.5 billion cell capsule (Daily Probiotic) aspirin 81 mg tablet,delayed 81 mg PO DAILY 10/02/22 06/05/24 release bisacodyl 10 mg rectal suppository 10 mg NM DAILY PRN Constipation 10/02/22 06/05/24 (Dulcolax (bisacodyl)) magnesium hydroxide 400 mg/5 mL 30 ml PO DAILY PRN Constipation 10/02/22 06/05/24 oral suspension (Milk of Magnesia) sodium phosphates 19 gram-7 118 ml NM DAILY PRN Constipation 10/02/22 06/05/24 gram/118 mL enema (Fleet Enema) acetaminophen 325 mg tablet 650 mg PO Q4H PRN mild pain/fever 06/05/24 06/05/24 amlodipine 10 mg tablet 10 mg PO DAILY 06/05/24 06/05/24 buspirone 5 mg tablet 2.5 mg PO 1800 06/05/24 06/05/24 cranberry fruit 450 mg tablet 450 mg PO DAILY 06/05/24 06/05/24 (cranberry) docusate sodium 100 mg capsule 100 mg PO EVERY OTHER DAY 06/05/24 06/05/24 (Colace) docusate sodium 100 mg capsule 200 mg PO EVERY OTHER DAY 06/05/24 06/05/24 (Colace) hydralazine 25 mg tablet 25 mg PO TID 06/05/24 06/05/24 ipratropium 0.5 mg-albuterol 3 mg 3 ml inhalation Q6H PRN Cough 06/05/24 06/05/24 (2.5 mg base)/3 mL nebulization soln ospemifene 60 mg tablet (Osphena) 60 mg PO DAILY 06/05/24 06/05/24 potassium chloride 10 mEq 10 meq PO DAILY 06/05/24 06/05/24 capsule,extended release risperidone 1 mg tablet (Risperdal) 1 mg PO 1900 06/05/24 06/05/24 sitagliptin 100 mg tablet 100 mg PO DAILY 06/05/24 06/05/24 trazodone 50 mg tablet 25 mg PO 1900 06/05/24 06/05/24 Previous Rx's Medication Instructions Recorded lancets 33 gauge (OneTouch Delica #100 ea 12/05/19 Lancets) blood sugar diagnostic (Accu-Chek #10 ea 01/10/20 Zhanna Plus test strips) blood-glucose meter (Accu-Chek #1 ea 01/10/20 Zhanna Plus Meter) atorvastatin 40 mg tablet 40 mg PO DAILY #90 tabs 11/17/22 carbidopa ER 50 mg-levodopa 200 mg 1 tab PO TID@08,12,17 #270 tabs 11/17/22 tablet,extended release epinephrine 0.3 mg/0.3 mL 0.3 mg (0.3 mL) IM ONCE PRN 11/17/22 injection, auto-injector (EpiPen Anaphylaxis #2 ea 2-Dickson) lisinopril 20 mg tablet 20 mg PO BID@0800,1700 #180 tabs 11/17/22 metoprolol tartrate 25 mg tablet 25 mg PO BID #180 tabs 11/17/22 bumetanide 1 mg tablet 1 mg PO DAILY #60 tabs 06/07/24 Allergies Allergy/AdvReac Type Severity Reaction Status Date / Time furosemide [From Lasix] Allergy Unknown UNKNOWN Verified 08/22/24 11:05 codeine Allergy Unknown Verified 08/22/24 11:05 Sulfa (Sulfonamide Allergy Unknown Verified 08/22/24 11:05 Antibiotics) Review of Systems General: Reports: ROS unobtainable due to mental status PFSH ED PFSH: Medical History CHF exacerbation Essential (primary) hypertension Pulmonary edema Altered mental status Near syncope Acute cerebrovascular accident (CVA) Dementia Diarrhea Chronic diarrhea Tachycardia with heart rate 100-120 beats per minute Encounter for loop recorder check Leg swelling Parkinsons On Sinemet Recurrent UTI Syncopal episodes 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 Actually lives with her son and daughter who are with her 27/04 Ventricular arrhythmia Anxiety Dyslipidemia (high LDL; low HDL) Hyponatremia chronic mild in low mid 130s at baseline Type 2 diabetes mellitus without complications non insulin requiring, on metformin, A1c-6.9 DDD (degenerative disc disease), lumbar Lumbar stenosis Urge incontinence Memory change Surgical History History of loop recorder -Follows with Dr. Ponce History of release of tendon (~2010) trigger finger Hx of breast biopsy (~2002) right History of tonsillectomy and adenoidectomy younger than age 10 Hx of hysterectomy (~1973) Hx laparoscopic cholecystectomy (~1993) Hx of bilateral cataract extraction (~2007) Hx of brain surgery Epidural Hematoma; emergency Hx of tracheostomy Hx of colonoscopy (~2010) polyps: Hyperplastic Family History Father , age 58 from [place] CAD (coronary artery disease) Mother , age 76 Cancer melanoma Grandmother Diabetes maternal Social History Smoking and tobacco/nicotine status: never used tobacco/nicotine Alcohol intake: never Substance/Drug Use: never Caregiver/support person: Yes Lives independently: No Household members: none Housing: House Marital status: / Number of children: 2 Number of grandchildren: 0 Current occupational status: retired Current gender identity: Female Physical Exam Const: OTHER: Awake, eyes are open, does not follow any commands or participate with exam. HENMT: COMMON NORMALS: normocephalic and atraumatic HEAD & SCALP: normocephalic and atraumatic Eye: COMMON NORMALS: Equal, round and reactive pupils present PUPIL: Yes Equal, round and reactive pupils present Resp: COMMON NORMALS: normal respiratory effort, No retractions, No use of accessory muscles and clear to auscultation bilaterally AUSCULTATION: clear to auscultation bilaterally Cardio: COMMON NORMALS: regular rhythm and Peripheral pulses 2+ throughout; negative for regular rate RATE: abnormal rate and tachycardic RHYTHM: regular rhythm PERIPHERAL PULSES: Peripheral pulses 2+ throughout GI: COMMON NORMALS: Soft to palpation and non-tender PALPATION: Yes Soft to palpation Extremity: COMMON NORMALS: normal to inspection NARRATIVE EXTREMITY EXAM: 2+ bilateral pedal edema bilaterally. Patient does not participate with exam. She does withdraw bilateral upper extremities to pain. Urinary Catheter Management: Wills: Cath Placed During This Visit: yes Reason for Continuing Indwelling Catheter: Accurate Measurement of Urinary Output in Critically Ill Patients Urinary Catheter Date of Insertion: 10/29/24 Urinary Catheter Time of Insertion: 18:15 Course Vital Signs: Vital signs: Vital Signs Temperature 98.6 F 10/29/24 17:29 Pulse Rate 82 10/29/24 21:15 Respiratory Rate 20 H 10/29/24 21:15 Blood Pressure 176/70 10/29/24 21:15 Pulse Oximetry 96 10/29/24 21:15 Oxygen Delivery Me thod Room Air 10/29/24 18:30 MDM - Altered Mental Status Medical Decision Making Patient is a 84-year-old female with advanced Parkinson's disease who [facility] due to tachycardia and significant hypertension with blood pressure of nearly 240/100. Family states this sometimes happens whenever she has an infection and there was some concern for possible urinary tract infection which she has frequently. She is unable to provide any history due to her advanced Parkinson's disease and is nonverbal and does not participate with neurologic exam. Patient was given labetalol x 3 for blood pressure support and has trended down to 160/80 over the course of a few hours while in the ER. Head CT shows what the radiologist feels is most likely thickened dura in the right lateral convexity which she states is similar to previous CT scan from June 2024. Family states there is no concern for recent fall or any trauma. Chest x-ray is unremarkable. Laboratory workup is unremarkable. No signs of urinary tract infection or other infectious etiology. Family is fairly adamant that her mentation is different than her baseline. I discussed the patient with the hospitalist, Dr. Andersen, and we will admit for hypertensive emergency and hypertensive encephalopathy. MRI upon admission will be considered. Lab Data 10/29/24 16:08 10/29/24 16:08 Radiology Impressions Chest X-Ray 10/29/24 17:49 IMPRESSION: 1. No acute cardiopulmonary abnormality. Head CT 10/29/24 17:49 IMPRESSION: 1. Findings raising the question of dural thickening versus thin subdural hemorrhage along the right lateral convexity, similar in appearance to prior exam from June 2024. Consider correlation with MRI of the brain for further evaluation. Otherwise no evidence of acute intracranial abnormality. ADDENDUM: 10/29/241953 The findings were verbally communicated by telephone with Dr. HEWITT at 7:[address] RECORDER on 10/29/2024. Laboratory Results WBC 5.03 10^3/uL (3.29-11.43) 10/29/24 16:08 RBC 4.97 10^6/uL (3.85-5.65) 10/29/24 16:08 Hgb 12.70 g/dL (11.27-16.99) 10/29/24 16:08 Hct 40.2 % (36-47) 10/29/24 16:08 MCV 80.9 fl (85-98) L 10/29/24 16:08 MCH 25.6 pg (27-33) L 10/29/24 16:08 MCHC 31.6 g/dL (30-55) 10/29/24 16:08 RDW 18.0 % (12.1-15.1) H 10/29/24 16:08 Plt Count 185 10^3/cmm (157-399) 10/29/24 16:08 MPV 11.8 fL (7.4-10.4) H 10/29/24 16:08 Neut % (Auto) 55.9 % 10/29/24 16:08 Lymph % (Auto) 27.0 % 10/29/24 16:08 Navarro % (Auto) 10.1 % 10/29/24 16:08 Eos % (Auto) 6.0 % 10/29/24 16:08 Baso % (Auto) 0.4 % 10/29/24 16:08 Neut # (Auto) 2.81 10^3/uL (1.8-7.7) 10/29/24 16:08 Lymph # (Auto) 1.4 10^3/uL (0.8-4.8) 10/29/24 16:08 Navarro # (Auto) 0.5 10^3/uL (0.2-0.9) 10/29/24 16:08 Eos # (Auto) 0.3 10^3/uL (0.0-0.8) 10/29/24 16:08 Baso # (Auto) 0.0 10^3/uL (0.0-0.1) 10/29/24 16:08 Nucleated RBC % (auto) 0 % 10/29/24 16:08 Nucleated RBCs # 0.0 /100WBC 10/29/24 16:08 Sodium 140 mmol/L (136-145) 10/29/24 16:08 Potassium 4.3 mmol/L (3.5-5.1) 10/29/24 16:08 Chloride 103 mmol/L (98-107) 10/29/24 16:08 Carbon Dioxide 23 mmol/L (22-29) 10/29/24 16:08 Anion Gap 18.3 (5-19) 10/29/24 16:08 BUN 27 mg/dL (8-23) H 10/29/24 16:08 Creatinine 1.4 mg/dL (0.5-0.9) H 10/29/24 16:08 GFR Calculation Not Reportable 10/29/24 16:08 Glucose 318 mg/dL (65-115) H 10/29/24 16:08 Calculated Osmolality 307 mOsm/kg (285-295) H 10/29/24 16:08 Lactic Acid 2.3 mmol/L (0.5-2.2) H 10/29/24 16:08 Lactic Acid (Sepsis) 2.6 mmol/L (0.5-2.2) H 10/29/24 20:24 Calcium 10.0 mg/dL (8.5-10.5) 10/29/24 16:08 Total Bilirubin 0.3 mg/dL (0.15-1.2) 10/29/24 16:08 AST 7 U/L (0-32) 10/29/24 16:08 ALT < 5 U/L (0-33) 10/29/24 16:08 Alkaline Phosphatase 218 U/L (35-105) H 10/29/24 16:08 Total Protein 7.2 g/dL (6.6-8.7) 10/29/24 16:08 Albumin 3.9 g/dL (3.5-5.2) 10/29/24 16:08 Globulin 3.3 g/dL (1.3-4.6) 10/29/24 16:08 Urine Color Yellow (Yellow) 10/29/24 18:04 Urine Appearance Clear (CLEAR) 10/29/24 18:04 Urine pH 7.0 (5-7) 10/29/24 18:04 Ur Specific Sheldon 1.011 (1.005-1.030) 10/29/24 18:04 Urine Protein Negative (Negative) 10/29/24 18:04 Urine Glucose (UA) 2+ (Normal) H 10/29/24 18:04 Urine Ketones Negative (Negative) 10/29/24 18:04 Urine Blood Negative (Negative) 10/29/24 18:04 Urine Nitrate Negative (Negative) 10/29/24 18:04 Urine Bilirubin Negative (Negative) 10/29/24 18:04 Urine Urobilinogen 0.2 mg/dL (Negative) 10/29/24 18:04 Ur Leukocyte Esterase Negative (Negative) 10/29/24 18:04 Urine RBC 0-2 /hpf (0-2) 10/29/24 18:04 Urine WBC 0-5 /hpf (0-5) 10/29/24 18:04 Ur Squamous Epith Cells 0-5 /hpf (0-5) 10/29/24 18:04 Amorphous Sediment Not Reportable 10/29/24 18:04 Urine Bacteria None seen /hpf (NONE) 10/29/24 18:04 Hyaline Casts 0-4 /lpf H 10/29/24 18:04 Coronavirus (PCR) Negative (Negative) 10/29/24 19:29 Influenza A (PCR) Negative (Negative) 10/29/24 19:29 Influenza Type B (PCR) Negative (Negative) 10/29/24 19:29 RSV (PCR) Negative (Negative) 10/29/24 19:29 All radiology interpretation(s) finalized by discharge Discharge Plan Discharge Patient Disposition: Admitted As Inpatient Clinical Impression: Hypertensive emergency, Encephalopathy, hypertensive Condition: Stable Prescriptions: No Action multivitamin [Daily Multi-Vitamin] Tablet 1 tab PO DAILY Daily Probiotic 2.5 billion cell capsule 1 cap PO BID amantadine HCl 100 mg tablet 100 mg PO BID@0800,1700 epinephrine [EpiPen 2-Dickson] 0.3 mg/0.3 mL auto-injector 0.3 mg IM ONCE PRN (Reason: Anaphylaxis) Qty: 2 0RF atorvastatin 40 mg tablet 40 mg PO DAILY Qty: 90 3RF carbidopa-levodopa 50-200 mg tablet extended release 1 tab PO TID@08,12,17 Qty: 270 3RF lisinopril 20 mg tablet 20 mg PO BID@0800,1700 Qty: 180 3RF metoprolol tartrate 25 mg tablet 25 mg PO BID Qty: 180 3RF (DME) lancets [OneTouch Delica Lancets] 33 gauge misc See Rx Instructions .ROUTE .MEDSUPPLY Qty: 100 3RF Rx Instructions: one daily for blood sugar (DME) blood-glucose meter [Accu-Chek Zhanna Plus Meter] Misc See Rx Instructions .ROUTE .MEDSUPPLY Qty: 1 0RF Rx Instructions: check blood sugar daily (DME) Accu-Chek Zhanna Plus test strp Strip See Rx Instructions .ROUTE .MEDSUPPLY Qty: 10 0RF Rx Instructions: check blood sugar 1 time daily magnesium hydroxide [Milk of Magnesia] 400 mg/5 mL Suspension 30 ml PO DAILY PRN (Reason: Constipation) bisacodyl [Dulcolax (bisacodyl)] 10 mg Suppository 10 mg NM DAILY PRN (Reason: Constipation) Fleet Enema 19-7 gram/118 mL Enema 118 ml NM DAILY PRN (Reason: Constipation) aspirin 81 mg tablet,delayed release (DR/EC) 81 mg PO DAILY buspirone 5 mg Tablet 2.5 mg PO 1800 potassium chloride 10 mEq Capsule, Extended Release 10 meq PO DAILY acetaminophen 325 mg Tablet 650 mg PO Q4H PRN (Reason: mild pain/fever) ipratropium-albuterol 0.5 mg-3 mg(2.5 mg base)/3 mL Solution For Nebulization 3 ml INHALATION Q6H PRN (Reason: Cough) trazodone 50 mg Tablet 25 mg PO 1900 hydralazine 25 mg Tablet 25 mg PO TID amlodipine 10 mg Tablet 10 mg PO DAILY Colace 100 mg Capsule 100 mg PO EVERY OTHER DAY Colace 100 mg Capsule 200 mg PO EVERY OTHER DAY Risperdal 1 mg Tablet 1 mg PO 1900 cranberry 450 mg Tablet 450 mg PO DAILY Rx Instructions: administer with a meal Osphena 60 mg Tablet 60 mg PO DAILY Rx Instructions: must administer with food, preferably a high-fat meal sitagliptin 100 mg Tablet 100 mg PO DAILY bumetanide 1 mg Tablet 1 mg PO DAILY Qty: 60 3RF Referrals: Polo Guzman, MANAGER PRESENTATION [Primary Care Provider] - Patient Instructions: Altered Mental Status (ED) Coding Level of Care Code 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
[2024-10-29 18:25] LABS: Basophils % 0.4 %; Eosinophils # 0.3 10^3/uL (0.0-0.8); Hematocrit 40.2 % (36-47); Lymphocytes # 1.4 10^3/uL (0.8-4.8); Mean Corpuscular HGB Conc 31.6 g/dL (30-55); Mean Corpuscular Hemoglobin 25.6 pg (27-33); Mean Corpuscular Volume 80.9 fl (85-98); Mean Platelet Volume 11.8 fL (7.4-10.4); Monocytes # 0.5 10^3/uL (0.2-0.9); Monocytes % 10.1 %; Neutrophils # 2.81 10^3/uL (1.8-7.7); Neutrophils % 55.9 %; Nucleated Red Blood Cells % 0 %; Platelet Count 185 10^3/cmm (157-399); Red Blood Count 4.97 10^6/uL (3.85-5.65); White Blood Count 5.03 10^3/uL (3.29-11.43)
[2024-10-29 18:27] LABS: Add Urine Microscopic? YES; Bacteria Urine None Seen /hpf; Hyaline Casts Urine 0-4 /lpf; RBC Urine 0-2 /hpf (0-2); Squamous Epithelial Cell Urine 0-5 /hpf (0-5); WBC Urine 0-5 /hpf (0-5)
[2024-10-29] MEDS: cefTRIAXone 2,000 mg SDV 2000 MG IVP (18:31)
--- NOTE | 2024-10-29 18:31 | PC.NURSE ---
per family pt wears NC PRN at [facility]
[2024-10-29 18:41] LABS: Lactic Sepsis W/Reflex 2.3 mmol/L (0.5-2.2)
[2024-10-29 18:42] LABS: Alanine Aminotransferase < 5 U/L (0-33); Albumin Level 3.9 g/dL (3.5-5.2); Alkaline Phosphatase 218 U/L (35-105); Blood Urea Nitrogen 27 mg/dL (8-23); Carbon Dioxide 23 mmol/L (22-29); Chloride 103 mmol/L (98-107); Globulin 3.3 g/dL (1.3-4.6); Glucose 318 mg/dL (65-115); Osmolality Calculated 307 mOsm/kg (285-295); Sodium 140 mmol/L (136-145); Total Bilirubin 0.3 mg/dL (0.15-1.2); Total Protein 7.2 g/dL (6.6-8.7)
[2024-10-29 18:46] LABS: Anion Gap 18.3 (5-19); Aspartate Amino Transferase 7 U/L (0-32); Potassium 4.3 mmol/L (3.5-5.1)
[2024-10-29 18:55] LABS: Reflex Lactate Order REFLEX LACTIC ORDERD
[2024-10-29 20:34] LABS: Covid PCR NEGATIVE (Negative); Influenza A NEGATIVE (Negative); Influenza B NEGATIVE (Negative); Respiratory Syncytial Virus Ce NEGATIVE (Negative)
[2024-10-29 20:45] LABS: Lactic Acid level (Lactate) 2.6 mmol/L (0.5-2.2)
[2024-10-29 23:29] LABS: Glucose Point of Care 191 mg/dL (70-110)
--- NOTE | 2024-10-29 23:33 | P.HP_ITS ---
Providers/Chief Complaint 2 Admitting Physician: Sabiha Sauer MD Primary Care Provider: Polo Guzman Chief Complaint: unresponsive History of Present Illness Son - Parish Nichols Daughter - Radha Nichols Cathi Nichols is a 84 year old woman w/ HTN, HLD, IDDM2, TBI in 2017, due to a fall, causing an epidural and subdural hematoma s/p surgery at [facility] in [place], Parkinson's disease, Dementia, who was brought to the ED for HTN and tachycardia. Her son was with her at the [facility] and noticed, all of a sudden, that she was very flushed. He asked her whether she was doing ok, and the patient shook her head, no. The patient's son called the [facility] staff, who checked her vital signs and noticed that her BP was 225/125mmHg w/ HR >100. Per son, the patient has had issues with elevated BP and blood glucose that has been increasing in the last weeks. The BG has been as high as 500 two to three nights ago and in the last 3 weeks, she has had 4-5 evenings where she had BG levels as high as 400. Baseline, there are times when she is more talkative and times when she is more quiet. She is less verbal in the last 3 weeks. She normally uses a walker, but has not been moving much in the last 3 weeks. She has been a fall risk since her TBI. She has a risk of choking and coughs a lot when eating or drinking, so someone needs to watch her as she feeds herself or feed her. She has intermittent days of increased motor movement. She is alert to self at baseline. In the ED, her vital signs were significant for elevated BP as high as 229/105 mmHg, and tachycardia to 100. Her labs are significant for Cr of 1.4, which has been the same since 09/04/2024. She had no leukocytosis, but she had a lactic acid of 2.3. Her CXR showed no acute abnormalities. Her CT head was was concerning for a dural thickening versus thin subdural hemorrhage in the right lateral convexity similar in appearance to prior exam done in 06/2024. An MRI for better correlation was recommended. She was given a total of 60 mg of labetalol IV push prior to admission. Review of Systems 2 General: Reports: ROS unobtainable due to mental status Medications/Allergies Home Medications Medication Instructions Recorded Confirmed Last Taken Type multivitamin (Daily Multi-Vitamin 1 tab PO DAILY 10/11/19 10/30/24 10/29/24 History tablet) lancets 33 gauge (DejaTouch Delica #100 ea 12/05/19 10/30/24 Unknown Rx Lancets) blood sugar diagnostic (Accu-Chek #10 ea 01/10/20 10/30/24 Unknown Rx Zhanna Plus test strips) blood-glucose meter (Accu-Chek #1 ea 01/10/20 10/30/24 Unknown Rx Zhanna Plus Meter) amantadine HCl 100 mg tablet 100 mg PO DAILY 10/29/20 10/30/24 10/29/24 History Lactobacillus 1 cap PO BID 10/17/21 10/30/24 10/29/24 History acidophilus-Bifidobac.animalis 2.5 billion cell capsule (Daily Probiotic) aspirin 81 mg tablet,delayed 81 mg PO DAILY 10/02/22 10/30/24 10/29/24 History release bisacodyl 10 mg rectal suppository 10 mg MI DAILY PRN Constipation 10/02/22 10/30/24 Unknown History (Dulcolax (bisacodyl)) magnesium hydroxide 400 mg/5 mL 30 ml PO DAILY PRN Constipation 10/02/22 10/30/24 Unknown History oral suspension (Milk of Magnesia) sodium phosphates 19 gram-7 118 ml MI DAILY PRN Constipation 10/02/22 10/30/24 Unknown History gram/118 mL enema (Fleet Enema) atorvastatin 40 mg tablet 40 mg PO DAILY #90 tabs 11/17/22 10/30/24 10/29/24 Rx carbidopa ER 50 mg-levodopa 200 mg 1 tab PO TID@08,12,17 #270 tabs 11/17/22 10/30/24 10/29/24 Rx tablet,extended release epinephrine 0.3 mg/0.3 mL 0.3 mg (0.3 mL) IM ONCE PRN 11/17/22 10/30/24 Unknown Rx injection, auto-injector (EpiPen Anaphylaxis #2 ea 2-Dickson) lisinopril 20 mg tablet 20 mg PO BID@0800,1700 #180 tabs 11/17/22 10/30/24 10/29/24 Rx metoprolol tartrate 25 mg tablet 25 mg PO BID #180 tabs 11/17/22 10/30/24 10/29/24 Rx acetaminophen 325 mg tablet 650 mg PO Q4H PRN mild pain/fever 06/05/24 10/30/24 05/28/24 14:00 History buspirone 5 mg tablet 2.5 mg PO 1800 06/05/24 10/30/24 10/29/24 History cranberry fruit 450 mg tablet 450 mg PO DAILY 06/05/24 10/30/24 10/29/24 History (cranberry) docusate sodium 100 mg capsule 100 mg PO EVERY OTHER DAY 06/05/24 10/30/24 10/29/24 History (Colace) docusate sodium 100 mg capsule 200 mg PO EVERY OTHER DAY 06/05/24 10/30/24 10/28/24 History (Colace) hydralazine 25 mg tablet 25 mg PO TID 06/05/24 10/30/24 10/29/24 History ospemifene 60 mg tablet (Osphena) 60 mg PO DAILY 06/05/24 10/30/24 10/29/24 History risperidone 1 mg tablet (Risperdal) 1 mg PO 189906/05/24 10/30/24 10/29/24 History sitagliptin 100 mg tablet 100 mg PO DAILY 06/05/24 10/30/24 10/29/24 History trazodone 50 mg tablet 25 mg PO 189906/05/24 10/30/24 10/28/24 History bumetanide 1 mg tablet 1 mg PO DAILY #60 tabs 06/07/24 10/30/24 10/29/24 Rx insulin degludec 100 unit/mL 72 unit SUBCUT BEDTIME 10/30/24 10/30/24 10/28/24 History subcutaneous solution (Tresiba U-100 Insulin) insulin lispro 100 unit/mL 15 unit SUBCUT AC 10/30/24 10/30/24 10/29/24 History subcutaneous pen insulin lispro 100 unit/mL See Rx Instructions .Route .COMPLEX 10/30/24 10/30/24 10/29/24 History subcutaneous pen (Humalog KwikPen (U-100) Insulin) nystatin 100,000 unit/gram topical 1 applic topical TID PRN yeast rash 10/30/24 10/30/24 Unknown History powder Allergies Allergy/AdvReac Type Severity Reaction Status Date / Time furosemide [From Lasix] Allergy Unknown UNKNOWN Verified 08/22/24 11:05 codeine Allergy Unknown Verified 08/22/24 11:05 Sulfa (Sulfonamide Allergy Unknown Verified 08/22/24 11:05 Antibiotics) PFSH Acute 2 PFSH: Medical History CHF exacerbation Essential (primary) hypertension Pulmonary edema Altered mental status Near syncope Acute cerebrovascular accident (CVA) Dementia Diarrhea Chronic diarrhea Tachycardia with heart rate 100-120 beats per minute Encounter for loop recorder check Leg swelling Parkinsons On Sinemet Recurrent UTI Syncopal episodes 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 Actually lives with her son and daughter who are with her 27/04 Ventricular arrhythmia Anxiety Dyslipidemia (high LDL; low HDL) Hyponatremia chronic mild in low mid 130s at baseline Type 2 diabetes mellitus without complications non insulin requiring, on metformin, A1c-6.9 DDD (degenerative disc disease), lumbar Lumbar stenosis Urge incontinence Memory change Surgical History History of loop recorder -Follows with Dr. Ponce History of release of tendon (~2010) trigger finger Hx of breast biopsy (~2002) right History of tonsillectomy and adenoidectomy younger than age 10 Hx of hysterectomy (~1973) Hx laparoscopic cholecystectomy (~1993) Hx of bilateral cataract extraction (~2007) Hx of brain surgery Epidural Hematoma; emergency Hx of tracheostomy Hx of colonoscopy (~2010) polyps: Hyperplastic Family History Father , age 58 from [place] CAD (coronary artery disease) Mother , age 76 Cancer melanoma Grandmother Diabetes maternal Social History Smoking and tobacco/nicotine status: never used tobacco/nicotine Alcohol intake: never Substance/Drug Use: never Caregiver/support person: Yes Lives independently: No Household members: none Housing: House Marital status: / Number of children: 2 Number of grandchildren: 0 Current occupational status: retired Current gender identity: Female Vitals/I&O/Wt Last Vital Signs Temp 97.9 F 10/29/24 22:30 Pulse 75 10/29/24 22:30 Resp 19 H 10/29/24 22:30 BP 159/76 10/29/24 22:30 Pulse Ox 94 10/29/24 22:30 O2 Del Method Room Air 10/29/24 22:30 10/29/24 10/29/24 10/30/24 14:59 22:59 06:59 Intake Total 1834 / 1834 Output Total 650 / 650 Balance 1184 / 1184 Weight last 48 hrs Weight 76.975 kg Weight 70.76 kg Physical Exam 2 Narrative: patient is bradykinesia Const: GENERAL APPEARANCE: cooperative and comfortable O RIENTATION/CONSCIOUSNESS: Yes awake HENMT: HEAD & SCALP: normocephalic and atraumatic NOSE: Normal external nose present EXTERNAL EAR: Yes external ears normal Eye: OTHER: PEERL, EOMI, purulent drainage and erythema in the b/l conjunctiva. Neck/C-Spine: GENERAL: Yes normal visual inspection and Yes trachea midline THYROID: Thyroid normal CAROTIDS: No bruit CERVICAL SPINE: Yes cervical ROM normal Lymph: OTHER: no cervical or supraclavicular LAD Resp: OTHER: CTAB w/ no w/r/r Cardio: RATE: regular rate RHYTHM: regular rhythm BRUITS: no carotid bruits PERIPHERAL PULSES: radial pulses present positive bilateral 2+ and dorsalis pedis present positive bilateral 2+ GI: OTHER: BS+, NT, ND, no guarding, no rigidity, no rebound tenderness, no hepatosplenomegaly Extremity: GENERAL: No clubbing, No cyanosis and No edema Neuro: OTHER: bradykinesia, no pill rolling tremors noted, diminished speech Psych: OTHER: unable to assess given medical condition. She does not have a flat affect. Skin: GENERAL SKIN EXAM: no rashes or lesions noted Urinary Catheter Management: Wills: Cath Placed During This Visit: yes Reason for Continuing Indwelling Catheter: Accurate Measurement of Urinary Output in Critically Ill Patients Urinary Catheter Date of Insertion: 10/29/24 Urinary Catheter Time of Insertion: 18:15 Data 10/29/24 16:08 10/29/24 16:08 Micro: Microbiology 10/29/24 16:08 Blood Culture - Preliminary Blood SPECIMEN COLLECTED 10/29/24 16:08 Blood Culture - Preliminary Blood SPECIMEN COLLECTED A&P Assessment and plan (1) Anxiety: (2) Hypertensive emergency: (3) Essential (primary) hypertension: (4) Acidosis, lactic: Plan Cathi Nichols is a 84 year old woman w/ HTN, HLD, IDDM2, TBI in 2017, due to a fall, causing an epidural and subdural hematoma s/p surgery at [facility] in [place], Parkinson's disease, Dementia, who was brought to the ED for HTN and tachycardia. In the ED, her vital signs were significant for elevated BP as high as 229/105 mmHg, and tachycardia to 100. Her labs are significant for Cr of 1.4, which has been the same since 09/04/2024. She had no leukocytosis, but she had a lactic acid of 2.3. Her UA was negative for a UTI. Her CXR showed no acute abnormalities. Her CT head was was concerning for a dural thickening versus thin subdural hemorrhage in the right lateral convexity similar in appearance to prior exam done in 06/2024. An MRI for better correlation was recommended. #HTN urgency vs Emergency & #Tachycardia - unclear cause. Consult Cardiology in the AM to interrogate the loop recorder - F/u cortisol, TSH/free T4, and MR brain w/o contrast. - THis may be due to autonomic dysfunction from her Parkinson's disease - Increase home Metoprolol tartrate to 50mg BID #Lactic acidosis: F/u repeat lactate #Parkinson's disease - Resumed Carbidopa/levodopa & . Consider Neurology consult to see whether her medications needs modification. #HLD:Resume home meds. #Chronic HFpEF -On Bumex, hydralazine and Metoprolol. Hold Lisinopril #IDDM2: Started 30units of insulin glargine subq + medium dose SSI for days and nights. #Dementia: Unclear reasons #Anxiety: Buspirone & Risperidone DVT ppx: SCDs Code status: After speaking with the patient's children at bedside extensively, the patient is full code Attestations 2 Medical Necessity Statement*: The patient will be hospitalized for greater than 2 midnights in order to explore the causes of her hypertensive urgency versus emergency and tachycardia. She she will also need an MRI to determine the cause of her hypertension and tachycardia. Time Spent in Patient Care: >70mins was spent on interview of the patient's family, patient exam, lab/image review, review of the patient's chart, formulation of the plan and coordination of care. Other Coding Information Focused coding review requested Diagnoses Anxiety F41.9 Hypertensive emergency I16.1 Essential (primary) hypertension I10 Acidosis, lactic E87.2
[2024-10-30] VITALS (9 sets, daily range): BP systolic 152–186; BP diastolic 67–88; PULSE 74–108; RESP 14–18; TEMP 36.6–37.1; O2SAT 93–97
--- NOTE | 2024-10-30 01:23 | MRR_ITS ---
PROCEDURE INFORMATION: Exam: MR Head Without Contrast Exam date and time: 10/30/2024 1:03 PM Age: 84 years old Clinical indication: Altered mental status/memory loss and speech disturbance; Confusion or disorientation; Aphasia; Patient HX: HX of tbi and CVA 2017; Additional info: Evaluate for subdural hemorrhage, evaluate findings on CT head TECHNIQUE: Imaging protocol: Magnetic resonance imaging of the head without contrast. COMPARISON: CT head wo con* [id number] 10/29/2024 6:46 PM FINDINGS: Brain: Thin focus of diffusion restriction involving the right precentral gyrus compatible with an acute-subacute infarct (for example, image 23 of series 302/303). Background of periventricular and deep white matter T2 FLAIR hyperintensities compatible with sequela of moderate chronic microvascular ischemic changes. Focal right temporal and frontal encephalomalacia. Foci of susceptibility are noted on the right, which may be postsurgical. No mass effect or midline shift. There is mild focal dural thickening along the right lateral convexity and a thin subdural hygroma measuring 2 mm corresponding to findings from recent CT (image 11 of series 901). Cerebral ventricles: No hydrocephalus. Bones: Postsurgical changes related to prior right frontoparietal/temporal craniotomy. Paranasal sinuses: The visualized paranasal sinuses are well aerated. Mastoid air cells: The mastoids and middle ears are grossly clear without evidence of effusion. Orbital cavities: The visualized orbits are unremarkable. Soft tissues: Grossly unremarkable. MR/MR head wo con* [id number] IMPRESSION: 1. Small acute-subacute right frontal lobe infarct in the perirolandic region. 2. Postsurgical changes of the calvarium on the right with mild subjacent dural thickening and thin subdural hygroma.
[2024-10-30] MEDS: hyDRALAzine 20 mg/mL INJ 1 mL 10 MG IVP ×3 (02:15→19:55)
[2024-10-30 06:28] LABS: Glucose Point of Care 180 mg/dL (70-110)
[2024-10-30] MEDS: atorvastatin 40 mg Tablet PO (09:23)
[2024-10-30] MEDS: sennosides 8.6 mg Tablet 17.2 MG PO (09:23)
[2024-10-30] MEDS: docusate sodium 100 mg Capsule 200 MG PO (09:23)
[2024-10-30] MEDS: carbidopa-levodopa ER 50-200mg Tablet 1 EACH PO ×3 (09:24→18:02)
[2024-10-30] MEDS: metoprolol tartrate 25 mg Tablet 50 MG PO ×2 (09:24→18:03)
[2024-10-30] MEDS: aspirin 81 mg EC Tablet PO (09:24)
[2024-10-30] MEDS: ciprofloxacin 0.3% Op Soln 2.5 mL Btl 2 DROP EYE-BOTH ×4 (09:24→21:32)
[2024-10-30 09:36] LABS: Cortisol Random 8.69 ug/dL (2.47-19.5)
[2024-10-30 09:39] LABS: Free T4 Free Thyroxine 1.11 ng/dL (0.82-1.77); Thyroid Stimulating Hormone 1.82 uIU/mL (0.27-4.20)
[2024-10-30] MEDS: insulin glargine 100 units/1 mL 30 UNIT SUBCUT (11:51)
[2024-10-30 12:37] LABS: Glucose Point of Care 325 mg/dL (70-110)
[2024-10-30 12:47] LABS: Basophils % 0.3 %; Eosinophils # 0.4 10^3/uL (0.0-0.8); Eosinophils % 5.3 %; Hematocrit 37.2 % (36-47); Lymphocytes # 1.3 10^3/uL (0.8-4.8); Lymphocytes % 18.3 %; Mean Corpuscular HGB Conc 31.2 g/dL (30-55); Mean Corpuscular Hemoglobin 25.3 pg (27-33); Mean Corpuscular Volume 81.2 fl (85-98); Mean Platelet Volume 11.3 fL (7.4-10.4); Monocytes # 0.7 10^3/uL (0.2-0.9); Monocytes % 9.4 %; Neutrophils # 4.62 10^3/uL (1.8-7.7); Neutrophils % 66.4 %; Nucleated Red Blood Cells % 0 %; Platelet Count 177 10^3/cmm (157-399); Red Blood Count 4.58 10^6/uL (3.85-5.65); Red Cell Distribution Width 18.2 % (12.1-15.1); White Blood Count 6.95 10^3/uL (3.29-11.43)
[2024-10-30] MEDS: insulin lispro 100 unit/1 mL SUBCUT ×3 (12:49→21:32)
[2024-10-30 12:59] LABS: Alanine Aminotransferase 9 U/L (0-33); Albumin Level 3.4 g/dL (3.5-5.2); Alkaline Phosphatase 155 U/L (35-105); Aspartate Amino Transferase 9 U/L (0-32); Blood Urea Nitrogen 20 mg/dL (8-23); Carbon Dioxide 20 mmol/L (22-29); Chloride 106 mmol/L (98-107); Glucose 216 mg/dL (65-115); Iron 53 ug/dL (37-145); Osmolality Calculated 301 mOsm/kg (285-295); Percent Saturation 21.2 % (20-50); Sodium 141 mmol/L (136-145); Total Bilirubin 0.3 mg/dL (0.15-1.2); Total Iron Binding Capacity 249 mcg/dl; Total Protein 6.4 g/dL (6.6-8.7); Unsaturated Iron Binding 196 ug/dL (112-347)
[2024-10-30 13:04] LABS: Estmated Average Glucose 232; Hemoglobin A1C 9.7 % (4.0-6.0)
[2024-10-30 13:15] LABS: Vitamin B12 367 pg/mL (232-1245)
[2024-10-30] MEDS: amlodipine 10 mg Tablet PO (13:58)
--- NOTE | 2024-10-30 14:36 | PM.PN ---
Subjective Subjective: Admitted overnight. Denies any nausea, ting, headache. Seen after MRI done today. Blood pressures have remained elevated. Remains on room air. Heart rate stable. Vitals/I&O/Wt Last Vital Signs Temp 97.8 F 10/30/24 12:00 Pulse 80 10/30/24 12:00 Resp 15 10/30/24 12:00 BP 180/82 10/30/24 12:00 Pulse Ox 94 10/30/24 12:00 O2 Del Method Room Air 10/30/24 12:00 10/29/24 10/30/24 10/30/24 22:59 06:59 14:59 Intake Total 1834 / 1834 240 / 240 Output Total 650 / 650 550 / 1200 1000 / 1000 Balance 1184 / 1184 -550 / 634 -760 / -760 Weight last 48 hrs Weight 77.201 kg Weight 76.975 kg Weight 70.76 kg Physical Exam Narrative: patient is bradykinesia Const: GENERAL APPEARANCE: cooperative and comfortable ORIENTATION/CONSCIOUSNESS: Yes awake HENMT: COMMON NORMALS: normocephalic, atraumatic, external ears normal and Normal external nose present HEAD & SCALP: normocephalic and atraumatic NOSE: Normal external nose present EXTERNAL EAR: Yes external ears normal Eye: OTHER: PEERL, EOMI, purulent drainage and erythema in the b/l conjunctiva. Neck/C-Spine: COMMON NORMALS: Thyroid normal GENERAL: Yes normal visual inspection and Yes trachea midline THYROID: Thyroid normal CAROTIDS: No bruit CERVICAL SPINE: Yes cervical ROM normal Lymph: OTHER: no cervical or supraclavicular LAD Resp: OTHER: CTAB w/ no w/r/r Cardio: COMMON NORMALS: regular rate and regular rhythm RATE: regular rate RHYTHM: regular rhythm BRUITS: no carotid bruits PERIPHERAL PULSES: radial pulses present positive bilateral 2+ and dorsalis pedis present positive bilateral 2+ GI: OTHER: BS+, NT, ND, no guarding, no rigidity, no rebound tenderness, no hepatosplenomegaly Extremity: GENERAL: No clubbing, No cyanosis and No edema Neuro: OTHER: bradykinesia, no pill rolling tremors noted, diminished speech Skin: COMMON NORMALS: no rashes or lesions noted GENERAL SKIN EXAM: no rashes or lesions noted Urinary Catheter Management: Wills: Cath Placed During This Visit: yes Reason for Continuing Indwelling Catheter: Other Urinary Catheter Date of Insertion: 10/29/24 Urinary Catheter Time of Insertion: 18:15 Data 10/30/24 08:37 10/30/24 08:37 Micro: Microbiology 10/29/24 16:08 Blood Culture - Preliminary Blood SPECIMEN COLLECTED 10/29/24 16:08 Blood Culture - Preliminary Blood SPECIMEN COLLECTED A&P Assessment and plan (1) Anxiety: (2) Hypertensive emergency: (3) Essential (primary) hypertension: (4) Acidosis, lactic: Plan Cathi Nichols is a 84 year old woman w/ HTN, HLD, IDDM2, TBI in 2017, due to a fall, causing an epidural and subdural hematoma s/p surgery at [facility] in [place], Parkinson's disease, Dementia, who was brought to the ED for HTN and tachycardia. In the ED, her vital signs were significant for elevated BP as high as 229/105 mmHg, and tachycardia to 100. Her labs are significant for Cr of 1.4, which has been the same since 09/04/2024. She had no leukocytosis, but she had a lactic acid of 2.3. Her UA was negative for a UTI. Her CXR showed no acute abnormalities. Her CT head was was concerning for a dural thickening versus thin subdural hemorrhage in the right lateral convexity similar in appearance to prior exam done in 06/2024. An MRI for better correlation was recommended. Stroke: MRI done today shows small acute to subacute right frontal lobe infarct. PT/OT/speech evaluation. Echocardiogram. Permissible hypertension for now. Will treat for a blood pressure of more than 200 mmHg. Check A1c, lipid panel. #HTN urgency vs Emergency & Tachycardia: Present on admission. Tachycardia resolved now. Appreciate cortisol, TSH results. Could be in setting of autonomic dysfunction. Continue with metoprolol 50 mg twice daily. Hold off on home dose of lisinopril and hydralazine for now. Most likely will switch lisinopril to amlodipine given questionable oral intake and advanced age. Start amlodipine 10 mg oral daily. Will start hydralazine with a goal blood pressure of less than 140/90 mmHg tomorrow. #Lactic acidosis: Unknown cause. Could be in setting of dehydration. No sign of infection for now. UA and chest x-ray negative for signs of infection. Start on normal saline 75 cc/h. Repeat lactate in AM. #Parkinson's disease - Resumed Carbidopa/levodopa. Will need to follow-up with neurology as an outpatient within 2 weeks for stroke and further evaluation of Parkinson's. #HLD:Resume home meds. #Chronic HFpEF Currently euvolemic to slightly dehydrated. Hold off on Bumex. #IDDM2: Check A1c. Started 30units of insulin glargine subq + medium dose SSI for days and nights. #Dementia: Unclear reasons #Anxiety: Buspirone & Risperidone DVT ppx: SCDs Protonix for PUD prophylaxis Heparin 5000 Q12 hourly for DVT prophylaxis. Code status: After speaking with the patient's children at bedside extensively, the patient is full code Attestations Medical Necessity Statement*: Requires further hospitalization for management of stroke, hypertensive urgency in a patient with baseline Parkinson's disease Diagnoses Anxiety F41.9 Hypertensive emergency I16.1 Essential (primary) hypertension I10 Acidosis, lactic E87.2
--- NOTE | 2024-10-30 14:46 | USCV_ITS ---
Cathi Nichols Age: 84 Gender: F : 1940 Exam Date: 10/30/2024 17:53 Ordering Phys: Nabil Delgado MD Technologist: Shiraz Caputo Exam Location: [facility] [place] Indication: stroke BP: 180 / 88 HR: 85 Rhythm: Sinus Technical Quality: Adequate MEASUREMENTS (Male / Female) Normal Values 2D ECHO LV Diastolic Diameter PLAX 4.4 cm 4.2 - 5.9 / 3.9 - 5.3 cm IVS Diastolic Thickness 1.8 cm 0.6 - 1.0 / 0.6 - 0.9 cm IVS Systolic Thickness 1.9 cm LVPW Diastolic Thickness 1.4 cm 0.6 - 1.0 / 0.6 - 0.9 cm LVPW Systolic Thickness 2.2 cm LVOT Diameter 2.0 cm LV Ejection Fraction 2D Teich 87.7 % LV Ejection Fraction MOD 4C 74.3 % LV Ejection Fraction MOD 2C 77.6 % LV Ejection Fraction 2C AL 78.8 % LA Diameter 3.2 cm RA Systolic Volume 4C AL 39.4 ml RA Systolic Volume 4C MOD 39.8 ml LA Sys Volume AL 46.6 cm cubed LA Sys Volume Index AL 25.2 cm cubed/m squared Aorta at Sinotubular Diameter 2.0 cm IVC Diameter 1.4 cm M-MODE LA Ao Ratio MM 1.6 AV Cusp Separation MM 1.3 cm DOPPLER AV Peak Velocity 162.8 cm/s LVOT Peak Velocity 103.0 cm/s AV Area Cont Eq vti 2.0 cm squared AV Area Cont Eq pk 2.1 cm squared MV Peak Velocity 217.0 cm/s MV Area PHT 6.6 cm squared Mitral E to A Ratio 0.5 TR Peak Velocity 333.0 cm/s TR Peak Gradient 44.4 mmHg TR Mean Velocity 271.0 cm/s TR Mean Gradient 31.7 mmHg TR Velocity Time Integral 85.4 cm PV Peak Velocity 107.0 cm/s RV Ejection Time 0.3 s FINDINGS Left Ventricle Left ventricle is normal in size. LV systolic function is normal with EF of 60-65%. No regional wall motion abnormalities. Moderate LVH. Grade 1 diastolic dysfunction. Right Ventricle Normal in size and function Right Atrium Normal in size Left Atrium Normal in size Mitral Valve Severe mitral annular calcification. Moderate to severe mitral stenosis with mean gradient across mitral valve of 9.1mmHg. Mild mitral regurgitation Aortic Valve Aortic valve is thickened. No significant stenosis or regurgitation Tricuspid Valve Insufficient TR jet to calculate RVSP Pulmonic Valve Not well visualized. Pericardium Normal Aorta Normal in size IVC Not well visualized CONCLUSIONS LV systolic function is normal with EF of 60-65% Moderate LVH Grade 1 diastolic dysfunction Moderate to severe mitral stenosis with mean gradient across mitral valve of 9.1mmHg. Mild mitral regurgitation Compared to prior echocardiogram from 2021, patient now has moderate to severe mitral stenosis. Jerry Mauricio MD (Electronically Signed) Final Date: 31 October 2024 20:06 S
[2024-10-30] MEDS: pantoprazole 40 mg SDV IVP (15:56)
[2024-10-30] MEDS: heparin 5,000 unit/mL INJ 1 mL 5000 UNIT SUBCUT (15:56)
[2024-10-30] MEDS: sodium chloride 0.9% 1,000 ML 75 ML IV (15:58)
[2024-10-30 17:50] LABS: Glucose Point of Care 278 mg/dL (70-110)
[2024-10-30] MEDS: risperiDONE 1 mg Tablet PO (18:03)
[2024-10-30] MEDS: trazodone 50 mg Tablet 25 MG PO (18:04)
[2024-10-30 20:46] LABS: Glucose Point of Care 209 mg/dL (70-110)
[2024-10-31] VITALS (10 sets, daily range): BP systolic 136–198; BP diastolic 64–80; PULSE 69–89; RESP 15–19; TEMP 36.3–37.6; O2SAT 92–96
[2024-10-31] MEDS: heparin 5,000 unit/mL INJ 1 mL 5000 UNIT SUBCUT ×2 (03:35→15:07)
[2024-10-31 03:56] LABS: Basophils % 0.3 %; Eosinophils # 0.4 10^3/uL (0.0-0.8); Eosinophils % 6.4 %; Hematocrit 38.4 % (36-47); Lymphocytes # 1.4 10^3/uL (0.8-4.8); Lymphocytes % 21.7 %; Mean Corpuscular HGB Conc 29.7 g/dL (30-55); Mean Corpuscular Hemoglobin 25.3 pg (27-33); Mean Corpuscular Volume 85.1 fl (85-98); Mean Platelet Volume 10.6 fL (7.4-10.4); Monocytes # 0.8 10^3/uL (0.2-0.9); Monocytes % 11.8 %; Neutrophils # 3.82 10^3/uL (1.8-7.7); Neutrophils % 59.5 %; Nucleated Red Blood Cells % 0 %; Platelet Count 176 10^3/cmm (157-399); Red Blood Count 4.51 10^6/uL (3.85-5.65); Red Cell Distribution Width 18.3 % (12.1-15.1); White Blood Count 6.42 10^3/uL (3.29-11.43)
[2024-10-31] MEDS: hyDRALAzine 20 mg/mL INJ 1 mL 10 MG IVP ×3 (04:05→23:54)
[2024-10-31 04:18] LABS: Alanine Aminotransferase < 5 U/L (0-33); Albumin Level 3.4 g/dL (3.5-5.2); Alkaline Phosphatase 154 U/L (35-105); Anion Gap 19.1 (5-19); Aspartate Amino Transferase 11 U/L (0-32); Blood Urea Nitrogen 19 mg/dL (8-23); Calcium 8.6 mg/dL (8.5-10.5); Carbon Dioxide 19 mmol/L (22-29); Chloride 101 mmol/L (98-107); Chol HDL Ratio 3.08 mg/dL (0.0-4.40); Cholesterol 117 mg/dL (0-200); Creatinine Clr Calc Pharmacy 31.6415; Globulin 2.9 g/dL (1.3-4.6); Glucose 209 mg/dL (65-115); HDL Cholesterol 38 mg/dL (60-100); LDL Cholesterol Calculated 41 mg/dL (50-129); Magnesium 1.8 mg/dL (1.7-2.3); Osmolality Calculated 288 mOsm/kg (285-295); Phosphorus 2.4 mg/dL (2.5-4.5); Potassium 4.1 mmol/L (3.5-5.1); Sodium 135 mmol/L (136-145); Total Bilirubin 0.4 mg/dL (0.15-1.2); Total Protein 6.3 g/dL (6.6-8.7); Triglycerides 189 mg/dL (0-150); VLDL Cholestrol Calculation 38 mg/dL (0-30)
[2024-10-31 06:19] LABS: Folate Level 7.9 ng/mL (4.8-37.3)
[2024-10-31 06:32] LABS: Glucose Point of Care 210 mg/dL (70-110)
[2024-10-31] MEDS: ciprofloxacin 0.3% Op Soln 2.5 mL Btl 2 DROP EYE-BOTH ×4 (10:38→21:16)
[2024-10-31] MEDS: insulin glargine 100 units/1 mL 30 UNIT SUBCUT (10:38)
[2024-10-31] MEDS: insulin lispro 100 unit/1 mL SUBCUT ×4 (10:39→21:17)
[2024-10-31] MEDS: pantoprazole 40 mg SDV IVP (10:40)
[2024-10-31] MEDS: atorvastatin 40 mg Tablet PO (10:40)
[2024-10-31] MEDS: aspirin 81 mg EC Tablet PO (10:40)
[2024-10-31] MEDS: sennosides 8.6 mg Tablet 17.2 MG PO (10:41)
[2024-10-31] MEDS: amlodipine 10 mg Tablet PO (10:41)
[2024-10-31] MEDS: metoprolol tartrate 25 mg Tablet 50 MG PO ×2 (10:41→17:24)
[2024-10-31] MEDS: sodium chloride 0.9% 1,000 ML 75 ML IV (10:44)
--- NOTE | 2024-10-31 11:00 | FL_ITS ---
WS: [id number] Exam: FL barium swallow modifd [id number] Date/Time of Exam: 10/31/2024 2:24 PM Reason For Exam: Oropharyngeal dysphagia Fluoroscopy time: 1min [id number] minutes # of spot films: Modified barium swallow test was attempted. The patient could not swallow pudding consistency barium and the exam was terminated at that time. FL/FL barium swallow modifd [id number] IMPRESSION: 1. Barium swallow test was terminated due to the patient's inability to coopera te for the exam.
[2024-10-31 11:38] LABS: Glucose Point of Care 298 mg/dL (70-110)
--- NOTE | 2024-10-31 11:45 | P.PN_ITS ---
Subjective 2 Subjective: Admitted overnight. Denies any nausea, ting, headache. Seen after MRI done today. Blood pressures have remained elevated. Remains on room air. Heart rate stable. Vitals/I&O/Wt Last Vital Signs Temp 98.1 F 10/31/24 15:04 Pulse 88 10/31/24 15:04 Resp 15 10/31/24 15:04 BP 136/69 10/31/24 15:04 Pulse Ox 92 10/31/24 15:04 O2 Del Method Room Air 10/31/24 15:04 10/31/24 10/31/24 10/31/24 06:59 14:59 22:59 Intake Total 500 / 980 980 / 980 Output Total 550 / 2000 Balance -50 / -1020 980 / 980 Weight last 48 hrs Weight 79.197 kg Weight 77.201 kg Weight 76.975 kg Weight 70.76 kg Physical Exam 2 Narrative: patient is bradykinesia Const: GENERAL APPEARANCE: cooperative and comfortable O RIENTATION/CONSCIOUSNESS: Yes awake HENMT: COMMON NORMALS: normocephalic, atraumatic, external ears normal and Normal external nose present HEAD & SCALP: normocephalic and atraumatic N OSE: Normal external nose present EXTERNAL EAR: Yes external ears normal Eye: OTHER: PEERL, EOMI, purulent drainage and erythema in the b/l conjunctiva. Neck/C-Spine: COMMON NORMALS: Thyroid normal GENERAL: Yes normal visual inspection and Yes trachea midline THYROID: Thyroid normal CAROTIDS: No bruit CERVICAL SPINE: Yes cervical ROM normal Lymph: OTHER: no cervical or supraclavicular LAD Resp: OTHER: CTAB w/ no w/r/r Cardio: COMMON NORMALS: regular rate and regular rhythm RATE: regular rate RHYTHM: regular rhythm BRUITS: no carotid bruits PERIPHERAL PULSES: r adial pulses present positive bilateral 2+ and dorsalis pedis present positive bilateral 2+ GI: OTHER: BS+, NT, ND, no guarding, no rigidity, no rebound tenderness, no hepatosplenomegaly Extremity: GENERAL: No clubbing, No cyanosis and No edema Neuro: OTHER: bradykinesia, no pill rolling tremors noted, diminished speech Skin: COMMON NORMALS: no rashes or lesions noted GENERAL SKIN EXAM: no rashes or lesions noted Urinary Catheter Management: Wills: Cath Placed During This Visit: yes Reason for Continuing Indwelling Catheter: Other Urinary Catheter Date of Insertion: 10/29/24 Urinary Catheter Time of Insertion: 18:15 Data 10/31/24 03:19 10/31/24 03:19 Micro: Microbiology 10/30/24 01:31 Urine Culture - Preliminary Urine Catheterized 10/29/24 16:08 Blood Culture - Preliminary Blood NEGATIVE TO DATE 10/29/24 16:08 Blood Culture - Preliminary Blood NEGATIVE TO DATE A&P Assessment and plan (1) Anxiety: (2) Hypertensive emergency: (3) Essential (primary) hypertension: (4) Acidosis, lactic: (5) Goals of care, counseling/discussion: Had a detailed goals of care discussion done with patient's daughter and son today.? They are the DPOA's.? Discussed with them that inpatient neurologist has suggested that unfortunately patient has end-stage Parkinson's and nothing much can be done going forward.? Neurologist for now does not suggest increasing the Parkinson's medication as she can develop hallucinations from diet.? Son did state that she had developed hallucinations from a higher dose of Parkinson's in the past.? We discussed about risk of aspiration with her fluctuation of mentation along with restricted nutrition and fluid intake because of her mentation as well.? Discussed possibility of hospice versus PEG tube requirement.? Family will discuss further before making a decision.??They would further like to discuss her care with her outpatient neurologist as well. Plan Cathi Nichols is a 84 year old woman w/ HTN, HLD, IDDM2, TBI in 2017, due to a fall, causing an epidural and subdural hematoma s/p surgery at [facility] in [place], Parkinson's disease, Dementia, who was brought to the ED for HTN and tachycardia. In the ED, her vital signs were significant for elevated BP as high as 229/105 mmHg, and tachycardia to 100. Her labs are significant for Cr of 1.4, which has been the same since 09/04/2024. She had no leukocytosis, but she had a lactic acid of 2.3. Her UA was negative for a UTI. Her CXR showed no acute abnormalities. Her CT head was was concerning for a dural thickening versus thin subdural hemorrhage in the right lateral convexity similar in appearance to prior exam done in 06/2024. An MRI for better correlation was recommended. Stroke: MRI done today shows small acute to subacute right frontal lobe infarct. Appreciate PT and speech evaluation. Requiring barium swallow. Patient tolerating diet with daughter for now. Discussed about aspiration precautions. Follow-up echocardiogram. Appreciate A1c, lipid panel. Tighter blood pressure control today. Goal less than 140/90 mmHg. #HTN urgency vs Emergency & Tachycardia: Present on admission. Tachycardia resolved now. Appreciate cortisol, TSH results. Could be in setting of autonomic dysfunction. Continue with metoprolol 50 mg twice daily. Hold off on home dose of lisinopril and hydralazine for now. Goal blood pressure less than 140/90 mmHg. Daughter states in the past with amlodipine she had developed lower limb edema for which she had required diuretics. Discussed about holding off on both lisinopril and amlodipine for now. Uptitrating hydralazine to 50 mg 3 times daily with continuation of metoprolol. Family is agreeable. #Lactic acidosis: Unknown cause. Could be in setting of dehydration. No sign of infection for now. UA and chest x-ray negative for signs of infection. Start on normal saline 75 cc/h. Follow-up lactate level. #Parkinson's disease - Resumed Carbidopa/levodopa. Discussed with inpatient neurologist about possibly increasing the dose of carbidopa levodopa. Suggested against the same because of the development of hallucinations as side effects. Patient did have hallucinations in the past with higher dose. #HLD:Resume home meds. #Chronic HFpEF Currently euvolemic to slightly dehydrated. Hold off on Bumex. #IDDM2: Check A1c. Started 30units of insulin glargine subq + medium dose SSI for days and nights. #Dementia: Unclear reasons #Anxiety: Buspirone & Risperidone DVT ppx: SCDs Protonix for PUD prophylaxis Heparin 5000 Q12 hourly for DVT prophylaxis. Code status: After speaking with the patient's children at bedside extensively, the patient is full code Attestations 2 Medical Necessity Statement*: requires further hospitalization for management of new stroke in a patient with history of traumatic brain injury, advanced Parkinson's, hypertensive urgency while antihypertensives further adjusted, diet is advanced as per speech evaluation. Other Coding Information Procedural care (documented in another note) Diagnoses Anxiety F41.9 Hypertensive emergency I16.1 Essential (primary) hypertension I10 Acidosis, lactic E87.2 Goals of care, counseling/discussion Z71.89
--- NOTE | 2024-10-31 13:03 | PC.SOCIAL ---
IMM Update pg2 of IMM Updated and reviewed w/ patient. Copy provided and copy dated, initialed and placed in chart.
[2024-10-31] MEDS: carbidopa-levodopa ER 50-200mg Tablet 1 EACH PO ×2 (13:42→17:24)
--- NOTE | 2024-10-31 14:39 | CT_ITS ---
WS: [id number] CT HEAD TECHNIQUE: Noncontrast CT of the head obtained from the skullbase to the vertex. CLINICAL INFORMATION: STROKE ALERT COMPARISON: MRI 10/30/2024. CT 10/29/2024 DLP: [address] scans at [facility] use at least one of these dose optimization techniques: automated e xposure control; mA and/or kV adjustment per patient size (includes targeted exams where dose is matc hed to clinical indication); or iterative reconstruction. FINDINGS: No evidence of intracranial hemorrhage or mass effect. Ventricular system and basal cisterns are sanchez nt. Moderate small vessel changes with moderate parenchymal volume loss. No extra-axial fluid collect ions. No evidence of mass or mass effect. Prior postoperative changes RIGHT frontal and parietal cran iotomies. Vascular calcification. Paranasal sinuses and mastoid air cells are well aerated. .Normal visualized soft tissues. CT/CT head thrombolytic 75102 IMPRESSION: 1. No evidence of intracranial hemorrhage or mass effect. 2. Moderate small vessel changes. Moderate parenchymal volume loss. 3. No acute intracranial findings. Message LEFT for aNbil Delgado MD at 10/31/2024 2:55 PM.
--- NOTE | 2024-10-31 14:42 | CT_ITS ---
WS: [id number] CTA HEAD AND NECK TECHNIQUE: Contrast enhanced CTA of the head and neck with coronal and sagittal reformatted images an d maximum intensity projection (MIP) images. NASCET criteria utilized. CLINICAL INFORMATION: FACIAL DROOPING COMPARISON: None. DLP: 375.[address] scans at [facility] use at least one of these dose optimization techniques: automated e xposure control; mA and/or kV adjustment per patient size (includes targeted exams where dose is matc hed to clinical indication); or iterative reconstruction. FINDINGS: RIGHT: RIGHT common carotid artery is patent. Moderate calcified atheromatous plaque RIGHT carotid bu lb extending into the ICA. Less than 50% RIGHT ICA stenosis. RIGHT ICA is patent to the skull base. LEFT: LEFT common carotid artery is patent. Mild atheromatous plaque LEFT carotid bulb. LEFT ICA is p atent to the skull base. No significant LEFT ICA stenosis. Codominant and patent vertebral arteries bilaterally. Proximal basilar artery is patent. Normal vascu larity to the [employer] DELIV[employer] territory bilaterally. Mild stenosis in the RIGHT P2 segment which remains patent. Both ICAs are patent at the skull base. Mild cavernous carotid calcification. Mild narrowing of the s upraclinoid ICA. Normal vascularity to the NIKI territory. Moderate stenosis LEFT supraclinoid ICA whi ch remains patent. Normal vascularity to the MCA territory bilaterally. No proximal flow-limiting tony nosis. Mild intracranial atheromatous disease. Paranasal sinuses and mastoid air cells are well aerated. Normal posterior nasopharynx. Small thyroid nodules. Aortic calcification. CT/CT angio headneck* 28750/88096 IMPRESSION: 1. Less than 50% cervical ICA stenosis. 2. Mild intracranial atheromatous disease. No proximal flow-limiting intracran ial stenosis. 3. Codominant and patent vertebral arteries bilaterally.
[2024-10-31] MEDS: iohexol 350 mg/mL 500 mL Btl (per mL) IV (14:49)
[2024-10-31 15:05] LABS: Glucose Point of Care 282 mg/dL (70-110)
[2024-10-31] MEDS: hyDRALAzine 50 mg Tablet PO (15:07)
--- NOTE | 2024-10-31 16:32 | PC.SLP ---
After completion of MBS, stroke/rapid response was called in radiology. See incident report. No bedside project superintendent evaluation completed today.
[2024-10-31 16:45] LABS: Glucose Point of Care 239 mg/dL (70-110)
--- NOTE | 2024-10-31 16:52 | PM.CCNAC ---
Critical Care Event Note Patient had a code stroke and a rapid response called while having a barium swallow. As per the nursing staff patient was not following commands and there was a concern that she was having a left facial droop hence code stroke was called. Patient was rushed for CT. On examination patient is comfortable, seems to be at her baseline mentation, following simple directions, nonverbal, no significant facial droop appreciated. Patient underwent CT head and CTA head and neck. Appreciate results. CT head showed CT/CT head thrombolytic 57271 IMPRESSION: 1. No evidence of intracranial hemorrhage or mass effect. 2. Moderate small vessel changes. Moderate parenchymal volume loss. 3. No acute intracranial findings. CTA head and neck showed IMPRESSION: 1. Less than 50% cervical ICA stenosis. 2. Mild intracranial atheromatous disease. No proximal flow-limiting intracranial stenosis. 3. Codominant and patent vertebral arteries bilaterally. Care discussed in detail with neurologist on-call. Patient was transferred back to the floor. Blood pressures appreciated. Patient's care discussed in detail with son at bedside. Patient seems to be back to her baseline mentation. Had a detailed goals of care discussions done with patient's son at bedside which has been mentioned in progress note from today. The high probability of a clinically significant, sudden or life threatening deterioration of the patient's [neurology] system(s) required my full and direct attention, intervention and personal management. The critical care time is as shown. This time is in addition to time spent performing any reported procedures but includes the following: [x] Data and vital sign review and interpretation [x] Patient assessment, examination and intervention [x] Documentation [x] Medication orders and management 60 Critical Care Time Code activated: Yes Critical Care Time (min): 60 Coding Level of Care Code Critical Care Time Spent (min) 60
[2024-10-31] MEDS: trazodone 50 mg Tablet 25 MG PO (18:30)
[2024-10-31] MEDS: risperiDONE 1 mg Tablet PO (18:30)
[2024-10-31 19:07] LABS: Lactic Sepsis W/Reflex 2.6 mmol/L (0.5-2.2)
[2024-10-31 20:29] LABS: Reflex Lactate Order REFLEX LACTIC ORDERD
[2024-10-31 20:29] LABS: Glucose Point of Care 292 mg/dL (70-110)
[2024-10-31 22:45] LABS: Lactic Acid level (Lactate) 2.5 mmol/L (0.5-2.2)
[2024-11-01] MEDS: sodium chloride 0.9% 1,000 ML 75 ML IV (03:37)
[2024-11-01] MEDS: heparin 5,000 unit/mL INJ 1 mL 5000 UNIT SUBCUT (03:37)
[2024-11-01] MEDS: hyDRALAzine 20 mg/mL INJ 1 mL 10 MG IVP (03:51)
[2024-11-01 03:54] VITALS: BP 183/69; PULSE 89; RESP 15; TEMP 36.8; O2SAT 93
[2024-11-01 05:15] LABS: Basophils % 0.2 %; Eosinophils # 0.5 10^3/uL (0.0-0.8); Eosinophils % 7.8 %; Hematocrit 36.4 % (36-47); Lymphocytes # 1.2 10^3/uL (0.8-4.8); Lymphocytes % 21.4 %; Mean Corpuscular HGB Conc 32.1 g/dL (30-55); Mean Corpuscular Hemoglobin 26.1 pg (27-33); Mean Corpuscular Volume 81.1 fl (85-98); Mean Platelet Volume 10.8 fL (7.4-10.4); Monocytes # 0.6 10^3/uL (0.2-0.9); Monocytes % 10.9 %; Neutrophils # 3.44 10^3/uL (1.8-7.7); Neutrophils % 59.2 %; Nucleated Red Blood Cells % 0 %; Platelet Count 175 10^3/cmm (157-399); Red Blood Count 4.49 10^6/uL (3.85-5.65); Red Cell Distribution Width 18.2 % (12.1-15.1)
[2024-11-01 05:32] LABS: Alanine Aminotransferase < 5 U/L (0-33); Albumin Level 3.5 g/dL (3.5-5.2); Alkaline Phosphatase 177 U/L (35-105); Anion Gap 17.7 (5-19); Aspartate Amino Transferase 11 U/L (0-32); Blood Urea Nitrogen 18 mg/dL (8-23); Calcium 8.8 mg/dL (8.5-10.5); Carbon Dioxide 19 mmol/L (22-29); Chloride 103 mmol/L (98-107); Creatinine Clr Calc Pharmacy 31.8535; Globulin 2.8 g/dL (1.3-4.6); Glucose 224 mg/dL (65-115); Magnesium 1.8 mg/dL (1.7-2.3); Osmolality Calculated 291 mOsm/kg (285-295); Phosphorus 2.8 mg/dL (2.5-4.5); Potassium 3.7 mmol/L (3.5-5.1); Sodium 136 mmol/L (136-145); Total Bilirubin 0.4 mg/dL (0.15-1.2); Total Protein 6.3 g/dL (6.6-8.7)
[2024-11-01 06:27] LABS: Glucose Point of Care 249 mg/dL (70-110)
[2024-11-01 07:10] VITALS: BP 156/56; PULSE 73; RESP 17; TEMP 36.6; O2SAT 94
[2024-11-01] MEDS: insulin lispro 100 unit/1 mL SUBCUT ×2 (08:46→12:31)
[2024-11-01] MEDS: hyDRALAzine 50 mg Tablet PO (08:47)
[2024-11-01] MEDS: aspirin 81 mg EC Tablet PO (08:47)
[2024-11-01] MEDS: ciprofloxacin 0.3% Op Soln 2.5 mL Btl 2 DROP EYE-BOTH ×2 (08:47→12:32)
[2024-11-01] MEDS: pantoprazole 40 mg SDV IVP (08:47)
[2024-11-01] MEDS: sennosides 8.6 mg Tablet 17.2 MG PO (08:47)
[2024-11-01] MEDS: atorvastatin 40 mg Tablet PO (08:47)
[2024-11-01] MEDS: metoprolol tartrate 25 mg Tablet 50 MG PO (08:47)
[2024-11-01] MEDS: docusate sodium 100 mg Capsule 200 MG PO (08:47)
[2024-11-01] MEDS: carbidopa-levodopa ER 50-200mg Tablet 1 EACH PO ×2 (08:53→12:49)
[2024-11-01] MEDS: insulin glargine 100 units/1 mL 30 UNIT SUBCUT (08:54)
[2024-11-01 11:03] VITALS: BP 147/82; PULSE 69; RESP 16; TEMP 36.6; O2SAT 96
--- NOTE | 2024-11-01 11:07 | P.DS_ITS ---
Discharge Providers Date of Admission: 10/29/24 21:27 Date of Discharge: November 01, 2024 Attending Provider at Admission: Sabiha Sauer MD Attending Provider at Discharge: Garrison Francois MD Consults: Cardiology Primary Care Provider: Ploo Guzman Diagnoses at Discharge Discharge Diagnosis (1) Anxiety: Status: Chronic (2) Hypertensive emergency: Status: Acute (3) Essential (primary) hypertension: Status: Acute (4) Acidosis, lactic: Status: Resolved (5) Goals of care, counseling/discussion: Status: Acute Reason for Visit Reason for Visit: unresponsive Hospital Course Hospital Course Cathi Nichols is a 84 year old woman w/ HTN, HLD, IDDM2, TBI in 2017, due to a fall, causing an epidural and subdural hematoma s/p surgery at [facility] in [place], Parkinson's disease, Dementia, who was brought to the ED for HTN and tachycardia, found to have hypertensive urgency. Cardiology was consulted and her device was interrogated. Her blood pressure meds or occasions were titrated. Ultimately lisinopril was discontinued due to risk associated with dehydration at the facility and JEIMY/hyperkalemia. Her hydralazine was uptitrated with improvement in blood pressure control. Hospital course was complicated by code stroke which ultimately showed no acute findings on imaging. Patient was noted to have advanced Parkinson's disease. She does follow with neurology. On day of discharge, daughter is bedside and very supportive. She does plan on having patient evaluated soon as possible by her primary neurologist as well. Patient discharged back to facility in stable condition. Medication changes as per discharge medication admission conciliation below. Physical Exam Narrative: General: Patient is awake. Parkinsonian features. Head: Masked facies. Neck: No JVD. Cardiovascular: Regular rate. Lungs: Clear to auscultation. No rales. Skin: No jaundice. No rashes. Abdomen: Bowel sounds present. Extremities: No cyanosis or clubbing. Neurological: Parkinsonian features Urinary Catheter Management: Wills: Cath Placed During This Visit: yes Reason for Continuing Indwelling Catheter: Acute Urinary Retention or Obstruction Urinary Catheter Date of Insertion: 10/29/24 Urinary Catheter Time of Insertion: 18:15 Discharge Data Studies Completed and Pending Completed Studies During Hospitalization Category Date Time Status CT angio headneck* [id number] Stat Cat Scan 10/31/24 14:[address] head thrombolytic 83289 Stat Cat Scan 10/31/24 14:[address] head wo con* [id number] Stat Cat Scan 10/29/24 17:49 Completed FL barium swallow modifd [id number] Routine Exams 10/31/24 11:00 Completed XR chest 1V portable [id number] Stat Exams 10/29/24 17:49 Completed MR head wo con* [id number] Routine MRI 10/30/24 01:23 Completed CV. echo complete* [id number] Routine Ultrasound 10/30/24 14:46 Completed Pending at discharge Category Date Time Status Blood Culture Stat Lab 10/29/24 16:08 Results Complete Blood Count w/Auto AM LABS Lab 11/02/24 04:00 Ordered Comprehensive Metabolic Panel AM LABS Lab 11/02/24 04:00 Ordered Magnesium AM LABS Lab 11/02/24 04:00 Ordered Phosphorus AM LABS Lab 11/02/24 04:00 Ordered Radiology Impressions Chest X-Ray 10/29/24 17:49 IMPRESSION: 1. No acute cardiopulmonary abnormality. Head MRI 10/30/24 01:23 IMPRESSION: 1. Small acute-subacute right frontal lobe infarct in the perirolandic region. 2. Postsurgical changes of the calvarium on the right with mild subjacent dural thickening and thin subdural hygroma. Modified Barium Swallow 10/31/24 11:00 IMPRESSION: 1. Barium swallow test was terminated due to the patient's inability to cooperate for the exam. Head CT 10/31/24 14:39 IMPRESSION: 1. No evidence of intracranial hemorrhage or mass effect. 2. Moderate small vessel changes. Moderate parenchymal volume loss. 3. No acute intracranial findings. Message LEFT for Nabil Delgado MD at 10/31/2024 2:55 PM. Head/Neck CTA 10/31/24 14:42 IMPRESSION: 1. Less than 50% cervical ICA stenosis. 2. Mild intracranial atheromatous disease. No proximal flow-limiting intracranial stenosis. 3. Codominant and patent vertebral arteries bilaterally. Laboratory Results WBC 5.80 10^3/uL (3.29-11.43) 11/01/24 05:06 RBC 4.49 10^6/uL (3.85-5.65) 11/01/24 05:06 Hgb 11.70 g/dL (11.27-16.99) 11/01/24 05:06 Hct 36.4 % (36-47) 11/01/24 05:06 MCV 81.1 fl (85-98) L 11/01/24 05:06 MCH 26.1 pg (27-33) L 11/01/24 05:06 MCHC 32.1 g/dL (30-55) D 11/01/24 05:06 RDW 18.2 % (12.1-15.1) H 11/01/24 05:06 Plt Count 175 10^3/cmm (157-399) 11/01/24 05:06 MPV 10.8 fL (7.4-10.4) H 11/01/24 05:06 Neut % (Auto) 59.2 % 11/01/24 05:06 Lymph % (Auto) 21.4 % 11/01/24 05:06 Wilkin % (Auto) 10.9 % 11/01/24 05:06 Eos % (Auto) 7.8 % 11/01/24 05:06 Baso % (Auto) 0.2 % 11/01/24 05:06 Neut # (Auto) 3.44 10^3/uL (1.8-7.7) 11/01/24 05:06 Lymph # (Auto) 1.2 10^3/uL (0.8-4.8) 11/01/24 05:06 Wilkin # (Auto) 0.6 10^3/uL (0.2-0.9) 11/01/24 05:06 Eos # (Auto) 0.5 10^3/uL (0.0-0.8) 11/01/24 05:06 Baso # (Auto) 0.0 10^3/uL (0.0-0.1) 11/01/24 05:06 Nucleated RBC % (auto) 0 % 11/01/24 05:06 Nucleated RBCs # 0.0 /100WBC 11/01/24 05:06 Sodium 136 mmol/L (136-145) 11/01/24 05:06 Potassium 3.7 mmol/L (3.5-5.1) 11/01/24 05:06 Chloride 103 mmol/L (98-107) 11/01/24 05:06 Carbon Dioxide 19 mmol/L (22-29) L 11/01/24 05:06 Anion Gap 17.7 (5-19) 11/01/24 05:06 BUN 18 mg/dL (8-23) 11/01/24 05:06 Creatinine 1.2 mg/dL (0.5-0.9) H 11/01/24 05:06 GFR Calculation Not Reportable 11/01/24 05:06 Glucose 224 mg/dL (65-115) H 11/01/24 05:06 POC Glucose 249 mg/dL (70-110) H 11/01/24 06:16 Estimat Average Glucose 232 10/30/24 08:37 Hemoglobin A1c 9.7 % (4.0-6.0) H 10/30/24 08:37 Calculated Osmolality 291 mOsm/kg (285-295) 11/01/24 05:06 Lactic Acid 2.6 mmol/L (0.5-2.2) H 10/31/24 18:39 Lactic Acid (Sepsis) 2.5 mmol/L (0.5-2.2) H 10/31/24 22:18 Lactate 3.0 mmol/L (0.5-2.2) H 10/30/24 08:37 Calcium 8.8 mg/dL (8.5-10.5) 11/01/24 05:06 Phosphorus 2.8 mg/dL (2.5-4.5) 11/01/24 05:06 Magnesium 1.8 mg/dL (1.7-2.3) 11/01/24 05:06 Iron 53 ug/dL (37-145) 10/30/24 08:37 TIBC 249 mcg/dl 10/30/24 08:37 % Saturation 21.2 % (20-50) 10/30/24 08:37 Unsat Iron Binding 196 ug/dL (112-347) 10/30/24 08:37 Total Bilirubin 0.4 mg/dL (0.15-1.2) 11/01/24 05:06 AST 11 U/L (0-32) 11/01/24 05:06 ALT < 5 U/L (0-33) 11/01/24 05:06 Alkaline Phosphatase 177 U/L (35-105) H 11/01/24 05:06 Total Protein 6.3 g/dL (6.6-8.7) L 11/01/24 05:06 Albumin 3.5 g/dL (3.5-5.2) 11/01/24 05:06 Globulin 2.8 g/dL (1.3-4.6) 11/01/24 05:06 Triglycerides 189 mg/dL (0-150) H 10/31/24 03:19 Cholesterol 117 mg/dL (0-200) 10/31/24 03:19 LDL Cholesterol, Calc 41 mg/dL (50-129) L 10/31/24 03:19 Total VLDL Cholesterol 38 mg/dL (0-30) H 10/31/24 03:19 HDL Cholesterol 38 mg/dL (60-100) L 10/31/24 03:19 Cholesterol/HDL Ratio 3.08 mg/dL (0.0-4.40) 10/31/24 03:19 Vitamin B12 367 pg/mL (232-1245) 10/30/24 08:37 Folate 7.9 ng/mL (4.8-37.3) 10/31/24 03:19 Procalcitonin 0.10 ng/mL (0-0.5) 10/30/24 08:37 TSH 1.82 uIU/mL (0.27-4.20) 10/30/24 08:37 Free T4 1.11 ng/dL (0.82-1.77) 10/30/24 08:37 Random Cortisol 8.69 ug/dL (2.47-19.5) 10/30/24 08:37 Urine Color Yellow (Yellow) 10/29/24 18:04 Urine Appearance Clear (CLEAR) 10/29/24 18:04 Urine pH 7.0 (5-7) 10/29/24 18:04 Ur Specific [place] 1.011 (1.005-1.030) 10/29/24 18:04 Urine Protein Negative (Negative) 10/29/24 18:04 Urine Glucose (UA) 2+ (Normal) H 10/29/24 18:04 Urine Ketones Negative (Negative) 10/29/24 18:04 Urine Blood Negative (Negative) 10/29/24 18:04 Urine Nitrate Negative (Negative) 10/29/24 18:04 Urine Bilirubin Negative (Negative) 10/29/24 18:04 Urine Urobilinogen 0.2 mg/dL (Negative) 10/29/24 18:04 Ur Leukocyte Esterase Negative (Negative) 10/29/24 18:04 Urine RBC 0-2 /hpf (0-2) 10/29/24 18:04 Urine WBC 0-5 /hpf (0-5) 10/29/24 18:04 Ur Squamous Epith Cells 0-5 /hpf (0-5) 10/29/24 18:04 Amorphous Sediment Not Reportable 10/29/24 18:04 Urine Bacteria None seen /hpf (NONE) 10/29/24 18:04 Hyaline Casts 0-4 /lpf H 10/29/24 18:04 Coronavirus (PCR) Negative (Negative) 10/29/24 19:29 Influenza A (PCR) Negative (Negative) 10/29/24 19:29 Influenza Type B (PCR) Negative (Negative) 10/29/24 19:29 RSV (PCR) Negative (Negative) 10/29/24 19:29 Vitals Last Vital Signs Temp 97.8 F 11/01/24 07:10 Pulse 73 11/01/24 07:10 Resp 17 11/01/24 07:10 BP 156/56 11/01/24 07:10 Pulse Ox 94 11/01/24 07:10 O2 Del Method Room Air 11/01/24 07:10 Discharge Plan Discharge Patient Disposition: Xfer SNF Condition: Stable Prescriptions: New ciprofloxacin HCl 0.3 % Drops 2 drp eye-both QID 5 Days Qty: 10 0RF hydralazine 100 mg tablet 100 mg PO TID Qty: 90 0RF Continued multivitamin [Daily Multi-Vitamin] Tablet 1 tab PO DAILY Daily Probiotic 2.5 billion cell capsule 1 cap PO BID amantadine HCl 100 mg tablet 100 mg PO DAILY epinephrine [EpiPen 2-Dickson] 0.3 mg/0.3 mL auto-injector 0.3 mg IM ONCE PRN (Reason: Anaphylaxis) Qty: 2 0RF atorvastatin 40 mg tablet 40 mg PO DAILY Qty: 90 3RF carbidopa-levodopa 50-200 mg tablet extended release 1 tab PO TID@08,12,17 Qty: 270 3RF metoprolol tartrate 25 mg tablet 25 mg PO BID Qty: 180 3RF (DME) lancets [OneTouch Delica Lancets] 33 gauge misc See Rx Instructions .ROUTE .MEDSUPPLY Qty: 100 3RF Rx Instructions: one daily for blood sugar (DME) blood-glucose meter [Accu-Chek Zhanna Plus Meter] Misc See Rx Instructions .ROUTE .MEDSUPPLY Qty: 1 0RF Rx Instructions: check blood sugar daily (DME) Accu-Chek Zhanna Plus test strp Strip See Rx Instructions .ROUTE .MEDSUPPLY Qty: 10 0RF Rx Instructions: check blood sugar 1 time daily magnesium hydroxide [Milk of Magnesia] 400 mg/5 mL Suspension 30 ml PO DAILY PRN (Reason: Constipation) bisacodyl [Dulcolax (bisacodyl)] 10 mg Suppository 10 mg OR DAILY PRN (Reason: Constipation) Fleet Enema 19-7 gram/118 mL Enema 118 ml OR DAILY PRN (Reason: Constipation) aspirin 81 mg tablet,delayed release (DR/EC) 81 mg PO DAILY nystatin 100,000 unit/gram Powder 1 applic TOPICAL TID PRN (Reason: yeast rash) insulin lispro [Humalog KwikPen Insulin] 100 unit/mL Insulin Pen See Rx Instructions .ROUTE .COMPLEX Rx Instructions: Inject as per sliding scale: 141-180 = 2 units 181-220 = 4 units 221-260 = 6 units 261-300 = 8 units 301-350 = 10 units 351-400 = 12 units Greater than 400 = 14 units Subcutaneously before meals for diabetes insulin lispro 100 unit/mL Insulin Pen 15 unit SUBCUT AC Rx Instructions: TID BEFORE MEALS insulin degludec [Tresiba U-100 Insulin] 100 unit/mL Solution 72 unit SUBCUT BEDTIME buspirone 5 mg Tablet 2.5 mg PO 1800 acetaminophen 325 mg Tablet 650 mg PO Q4H PRN (Reason: mild pain/fever) trazodone 50 mg Tablet 25 mg PO 1900 docusate sodium [Colace] 100 mg Capsule 100 mg PO EVERY OTHER DAY docusate sodium [Colace] 100 mg Capsule 200 mg PO EVERY OTHER DAY risperidone [Risperdal] 1 mg Tablet 1 mg PO 1900 cranberry 450 mg Tablet 450 mg PO DAILY Rx Instructions: administer with a meal Osphena 60 mg Tablet 60 mg PO DAILY Rx Instructions: must administer with food, preferably a high-fat meal sitagliptin 100 mg Tablet 100 mg PO DAILY bumetanide 1 mg Tablet 1 mg PO DAILY Qty: 60 3RF Discontinued lisinopril 20 mg tablet 20 mg PO BID@0800,1700 Qty: 180 3RF hydralazine 25 mg Tablet 25 mg PO TID Discharge Orders: Discharge Order (Routine); Ordered 11/01/24 Ordered By: Garrison Francois Referrals: [facility] [Outside] - 4-7 days Polo Guzman, SET AND EXHIBIT DESIGNER [Primary Care Provider] - Discharge Diet: Advance as tolerated and Usual diet Discharge Activity: Resume usual activity and Increase activity as tolerated Patient Instructions: Hydralazine (By mouth), Ciprofloxacin (Into the eye), Altered Mental Status (ED), Stroke (GEN), Opioid Safety, Stroke Stoplight Activity Restrictions/Additional Instructions: 1. Take medications as prescribed. 2. Recommend monitoring blood pressure at facility. 3. Follow-up with provider at facility within 7 days. 4. Agree with close follow-up with neurology due to advanced Parkinson symptoms. Discharge Attestations Time Spent in Discharge Care*: greater than 30 min Status at Discharge: Cognitive status at discharge: moderately impaired cognition (at baseline) , Behavioral status at discharge: cooperative , Quality Metrics Clinical Quality Measures [ No reported AMI, CVA or VTE this stay] Coding Level of Care Code Acute Code for Chg Fwd Diagnoses Anxiety F41.9 Hypertensive emergency I16.1 Essential (primary) hypertension I10 Acidosis, lactic E87.2 Goals of care, counseling/discussion Z71.89
[2024-11-01 11:38] LABS: Glucose Point of Care 230 mg/dL (70-110)
[2024-11-01 13:53] VITALS: BP 147/82; PULSE 67; RESP 16; TEMP 36.6; O2SAT 96
== END 2024-11-01 13:00 | disposition skilled nursing facility (03) | DRG 305 ==
LOC: ER 21:27 → MEDSURG 21:36
PROVIDERS: Student in an Organized Health Care Education/Training Program; Admitting Provider Internal Medicine; Emergency Provider Student in an Organized Health Care Education/Training Program; PCP Clinical Nurse Specialist Adult Health; Visit Provider Internal Medicine
DX: I16.1 Hypertensive emergency (principal); I50.32 Chronic diastolic (congestive) heart failure; E87.20 Acidosis, unspecified; F41.9 Anxiety disorder, unspecified; I11.0 Hypertensive heart disease with heart failure; E78.5 Hyperlipidemia, unspecified; E11.9 Type 2 diabetes mellitus without complications; Z87.820 Personal history of traumatic brain injury; G20.A1 Parkinson's disease without dyskinesia, without mention of fluctuations; F02.80 Dementia in other diseases classified elsewhere, unspecified severity, without behavioral disturbance, psychotic disturbance, mood disturbance, and anxiety; Z79.82 Long term (current) use of aspirin; Z79.4 Long term (current) use of insulin; R13.12 Dysphagia, oropharyngeal phase; Z87.440 Personal history of urinary (tract) infections; E86.0 Dehydration
CPT/HCPCS: 36415; 36416; 51702; 70450; 70496; 70498; 70551; 71045; 74230; 80053; 80061; 81001; 82533; 82607; 82746; 82962; 83036; 83540; 83550; 83605; 83735; 84100; 84145; 84439; 84443; 85025; 87040; 87086; 87637; 92523; 92610; 92611; 93005; 93306; 96372; 96374; 96375; 96376; 97162; 97167; 97530; 99285; J0360; J0696; J1644; J1815; J2470; J3490; J7030

== ENCOUNTER 2024-12-24 11:05 | Inpatient (IN) | payer MEDICARE, OTHER, SELFPAY ==
[2024-12-24] VITALS (7 sets, daily range): BP systolic 121–169; BP diastolic 62–83; PULSE 93–113; RESP 17–25; TEMP 37.2–38.9; O2SAT 93–99; BMI 41.5
--- NOTE | 2024-12-24 11:08 | XRR_ITS ---
PROCEDURE INFORMATION: Exam: XR Chest Exam date and time: 12/24/2024 11:25 AM Age: 84 years old Clinical indication: Other: Altered mental status; Prior surgery; Surgery date: 6+ months; Surgery type: Loop recorder; EMS states PT acts like this when she has UTI. PT is more altered, foul-smelling urine coming from PT. PT is awake but will not speak to staff. ; Additional info: AMS TECHNIQUE: Imaging protocol: Radiologic exam of the chest. Views: 1 view. COMPARISON: CR XR chest 1V portable [id number] 10/29/2024 6:11 PM FINDINGS: Lungs: The pulmonary vessels are within normal limits. The lungs are clear. Pleural spaces: No pneumothorax. Heart/Mediastinum: The cardiomediastinal silhouette is within normal limits. Vasculature: Diffuse calcifications are seen in the thoracic aorta. Bones/joints: Osseous structure is unremarkable. XR/XR chest 1V portable [id number] IMPRESSION: No acute pulmonary finding.
--- NOTE | 2024-12-24 11:08 | CTR_ITS ---
PROCEDURE INFORMATION: Exam: CT Head Without Contrast Exam date and time: 12/24/2024 11:37 AM Age: 84 years old Clinical indication: Altered mental status/memory loss; Additional info: AMS TECHNIQUE: Imaging protocol: Computed tomography of the head without contrast. Radiation optimization: All CT scans at this facility use at least one of these dose optimization techniques: automated exposure control; mA and/or kV adjustment per patient size (includes targeted exams where dose is matched to clinical indication); or iterative reconstruction. COMPARISON: CT angio headneck* [id number] 10/31/2024 2:43 PM RADIATION DOSE METRICS: Total DLP (mGy-cm): 1055.63 FINDINGS: Brain: There is no midline shift or acute intracranial hemorrhage. Periventricular hypodensities are nonspecific and likely representing severe small vessel ischemic changes. Cerebral ventricles: No ventriculomegaly. Paranasal sinuses: Visualized sinuses are unremarkable. No fluid levels. Mastoid air cells: Visualized mastoid air cells are well aerated. Bones: Right convexity craniotomy changes are seen. Soft tissues: Unremarkable. Other findings: There is cortical and central atrophy. CT/CT head wo con* [id number] IMPRESSION: 1. No acute intracranial finding. 2. Cerebral atrophy. 3. Likely severe small-vessel ischemic changes.
[2024-12-24 11:15] LABS: Glucose Point of Care 237 mg/dL (70-110)
--- NOTE | 2024-12-24 11:18 | ECG_ITS ---
[facility]: 2024[facility]24 Pat Name: Cathi Nichols Department: Room: Gender: Female Galvanizer: : 1940 Requested By: Katiana Pearson Order Number: [id number] Ryan MD: Mikayla Ponce M.D. Measurements Intervals [place] Rate: 101 P: 58 AL: 175 QRS: 0 QRSD: 86 T: 65 QT: 346 QTc: 449 Interpretive Statements SINUS TACHYCARDIA WITH OCCASIONAL SUPRAVENTRICULAR PREMATURE COMPLEXES VOLTAGE CRITERIA FOR LVH [MEETS CRITERIA IN ONE OF: R(aVL), S(V1), R(V5), R(V5/V6)+S(V1)] NONSPECIFIC ST & T-WAVE ABNORMALITY Compared to ECG 10/29/2024 17:40:23 Left ventricular hypertrophy now present T-wave abnormality now present Sinus rhythm no longer present Myocardial infarct finding no longer present Electronically Signed On 12-24-2024 14:41:55 CDT by Mikayla Ponce M.D. [id number]
--- NOTE | 2024-12-24 11:19 | W.ED.GENADLT ---
HPI - General Adult General: Chief complaint: Weakness Stated complaint: lethargy Time Seen by Provider: 12/24/24 11:05 Source: EMS Mode of arrival: EMS Limitations: altered mental status History of Present Illness: 84-year-old [place] [facility] been altered last 2 days today was very minimally responsive patient here is only responsive to painful stimuli not able to give any history per EMS patient's had UTIs in the past and had similar symptoms as this. Related Data Home Medications ?Medication ?Instructions ?Recorded ?Confirmed multivitamin (Daily Multi-Vitamin 1 tab PO DAILY 10/11/19 12/24/24 tablet) amantadine HCl 100 mg tablet 100 mg PO DAILY 10/29/20 12/24/24 Lactobacillus 1 cap PO BID 10/17/21 12/24/24 acidophilus-Bifidobac.animalis 2.5 billion cell capsule (Daily Probiotic) aspirin 81 mg tablet,delayed 81 mg PO DAILY 10/02/22 12/24/24 release bisacodyl 10 mg rectal suppository 10 mg MA DAILY PRN Constipation 10/02/22 12/24/24 (Dulcolax (bisacodyl)) magnesium hydroxide 400 mg/5 mL 30 ml PO DAILY PRN Constipation 10/02/22 12/24/24 oral suspension (Milk of Magnesia) sodium phosphates 19 gram-7 118 ml MA DAILY PRN Constipation 10/02/22 12/24/24 gram/118 mL enema (Fleet Enema) acetaminophen 325 mg tablet 650 mg PO Q4H PRN mild pain/fever 06/05/24 12/24/24 buspirone 5 mg tablet 2.5 mg PO 1800 06/05/24 12/24/24 cranberry fruit 450 mg tablet 450 mg PO DAILY 06/05/24 12/24/24 (cranberry) docusate sodium 100 mg capsule 100 mg PO BID 06/05/24 12/24/24 (Colace) docusate sodium 100 mg capsule 200 mg PO EVERY OTHER DAY 06/05/24 12/24/24 (Colace) ospemifene 60 mg tablet (Osphena) 60 mg PO DAILY 06/05/24 12/24/24 trazodone 50 mg tablet 25 mg PO 1900 06/05/24 12/24/24 insulin lispro 100 unit/mL 18 unit SUBCUT AC 10/30/24 12/24/24 subcutaneous pen (Humalog KwikPen (U-100) Insulin) insulin lispro 100 unit/mL See Rx Instructions .Route .COMPLEX 10/30/24 12/24/24 subcutaneous pen (Humalog KwikPen (U-100) Insulin) nystatin 100,000 unit/gram topical 1 applic topical TID PRN yeast rash 10/30/24 12/24/24 powder alprazolam 0.5 mg tablet 0.5 mg PO DAILY 12/24/24 12/24/24 amlodipine 5 mg tablet 5 mg PO DAILY 12/24/24 12/24/24 dulaglutide 0.75 mg/0.5 mL 0.75 mg SUBCUT Q7D 12/24/24 12/24/24 subcutaneous pen injector (Trulicity) insulin glargine 100 unit/mL (3 80 unit SUBCUT QPM 12/24/24 12/24/24 mL) subcutaneous pen (Lantus Solostar U-100 Insulin) sitagliptin phosphate 50 mg tablet 50 mg PO DAILY 12/24/24 12/24/24 (Januvia) tramadol 50 mg tablet 50 mg PO Q8H PRN Pain 12/24/24 12/24/24 Previous Rx's ?Medication ?Instructions ?Recorded atorvastatin 40 mg tablet 40 mg PO DAILY #90 tabs 11/17/22 carbidopa ER 50 mg-levodopa 200 mg 1 tab PO TID@,, #270 tabs 11/17/22 tablet,extended release epinephrine 0.3 mg/0.3 mL 0.3 mg (0.3 mL) IM ONCE PRN 11/17/22 injection, auto-injector (EpiPen Anaphylaxis #2 ea 2-Dickson) metoprolol tartrate 25 mg tablet 25 mg PO BID #180 tabs 11/17/22 bumetanide 1 mg tablet 1 mg PO DAILY #60 tabs 06/07/24 hydralazine 100 mg tablet 100 mg PO TID #90 tabs 11/01/24 Allergies Allergy/AdvReac Type Severity Reaction Status Date / Time furosemide (From Lasix) Allergy Unknown UNKNOWN Verified 08/22/24 11:05 codeine Allergy Unknown Verified 08/22/24 11:05 Sulfa (Sulfonamide Allergy Unknown Verified 08/22/24 11:05 Antibiotics) Review of Systems General: Reports: ROS unobtainable due to mental status PFSH ED PFSH: Medical History Encephalopathy, hypertensive CHF exacerbation Essential (primary) hypertension Pulmonary edema Altered mental status Near syncope Acute cerebrovascular accident (CVA) Dementia Diarrhea Chronic diarrhea Tachycardia with heart rate 100-120 beats per minute Encounter for loop recorder check Leg swelling Parkinsons On Sinemet Recurrent UTI Syncopal episodes 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 Actually lives with her son and daughter who are with her 27/04 Ventricular arrhythmia Anxiety Dyslipidemia (high LDL; low HDL) Hyponatremia chronic mild in low mid 130s at baseline Type 2 diabetes mellitus without complications non insulin requiring, on metformin, A1c-6.9 DDD (degenerative disc disease), lumbar Lumbar stenosis Urge incontinence Memory change Surgical History History of loop recorder -Follows with Dr. Ponce History of release of tendon (~2010) trigger finger Hx of breast biopsy (~2002) right History of tonsillectomy and adenoidectomy younger than age 10 Hx of hysterectomy (~1973) Hx laparoscopic cholecystectomy (~1993) Hx of bilateral cataract extraction (~2007) Hx of brain surgery Epidural Hematoma; emergency Hx of tracheostomy Hx of colonoscopy (~2010) polyps: Hyperplastic Family History Father , age 58 from [place] CAD (coronary artery disease) Mother , age 76 Cancer melanoma Grandmother Diabetes maternal Social History Smoking and tobacco/nicotine status: never used tobacco/nicotine Alcohol intake: never Substance/Drug Use: never Caregiver/support person: Yes Lives independently: No Household members: none Housing: House Marital status: / Number of children: 2 Number of grandchildren: 0 Current occupational status: retired Current gender identity: Female Physical Exam Const: COMMON NORMALS: negative for patient oriented x3 EXAM LIMITATIONS: altered mental status HENMT: COMMON NORMALS: normocephalic and atraumatic HEAD & SCALP: normocephalic and atraumatic Eye: COMMON NORMALS: Equal, round and reactive pupils present and EOMs intact bilaterally PUPIL: Yes Equal, round and reactive pupils present Neck/C-Spine: COMMON NORMALS: full ROM and supple Chest: COMMONS NORMALS: normal inspection of the chest Resp: COMMON NORMALS: normal respiratory effort, No retractions, No use of accessory muscles and clear to auscultation bilaterally AUSCULTATION: clear to auscultation bilaterally Cardio: COMMON NORMALS: regular rate, regular rhythm and No murmurs present (Cardio) RATE: regular rate RHYTHM: regular rhythm GI: COMMON NORMALS: Normal to inspection, nondistended, normoactive bowel sounds present, Soft to palpation, non-tender and no masses PALPATION: Yes Soft to palpation Extremity: COMMON NORMALS: normal to inspection and full ROM Neuro: COMMON NORMALS: negative for patient oriented x3 Psych: COMMON NORMALS: negative for mental status grossly normal Skin: COMMON NORMALS: no rashes or lesions noted and no wounds GENERAL SKIN EXAM: no rashes or lesions noted Course Vital Signs: Vital signs: Vital Signs Temperature 99.0 F 12/24/24 11:06 Pulse Rate 106 H 12/24/24 11:06 Respiratory Rate 18 12/24/24 11:06 Blood Pressure 147/71 12/24/24 11:06 Pulse Oximetry 94 12/24/24 11:06 Oxygen Delivery Me thod Room Air 12/24/24 11:06 MDM - General Adult Medical Decision Making Patient presents with altered mental status she does have a UTI likely causing her AMS. Did start her on IV antibiotics I spoke to the hospitalist will admit at this time blood pressures here been stable. Medical Records I reviewed the patient's medical records. Lab Data I reviewed the patient's lab results. 12/24/24 11:22 12/24/24 11:22 Radiology Impressions Chest X-Ray 12/24/24 11:08 IMPRESSION: No acute pulmonary finding. Head CT 12/24/24 11:08 IMPRESSION: 1. No acute intracranial finding. 2. Cerebral atrophy. 3. Likely severe small-vessel ischemic changes. Laboratory Results WBC 11.51 10^3/uL (3.29-11.43) H 12/24/24 11:22 RBC 4.92 10^6/uL (3.85-5.65) 12/24/24 11:22 Hgb 12.60 g/dL (11.27-16.99) 12/24/24 11:22 Hct 40.6 % (36-47) 12/24/24 11:22 MCV 82.5 fl (85-98) L 12/24/24 11:22 MCH 25.6 pg (27-33) L 12/24/24 11:22 MCHC 31.0 g/dL (30-55) 12/24/24 11:22 RDW 16.8 % (12.1-15.1) H 12/24/24 11:22 Plt Count 163 10^3/cmm (157-399) 12/24/24 11:22 MPV 11.1 fL (7.4-10.4) H 12/24/24 11:22 Neut % (Auto) 82.7 % 12/24/24 11:22 Lymph % (Auto) 8.5 % 12/24/24 11:22 [place] % (Auto) 7.5 % 12/24/24 11:22 Eos % (Auto) 0.1 % 12/24/24 11:22 Baso % (Auto) 0.3 % 12/24/24 11:22 Neut # (Auto) 9.53 10^3/uL (1.8-7.7) H 12/24/24 11:22 Lymph # (Auto) 1.0 10^3/uL (0.8-4.8) 12/24/24 11:22 [place] # (Auto) 0.9 10^3/uL (0.2-0.9) 12/24/24 11:22 Eos # (Auto) 0.0 10^3/uL (0.0-0.8) 12/24/24 11:22 Baso # (Auto) 0.0 10^3/uL (0.0-0.1) 12/24/24 11:22 Nucleated RBC % (auto) 0 % 12/24/24 11: Nucleated RBCs # 0.0 /100WBC 12/24/24 11:22 PT 14.80 SECONDS (12.1-14.9) 12/24/24 11:22 INR 1.08 (0.8-1.2) 12/24/24 11:22 Sodium 137 mmol/L (136-145) 12/24/24 11:22 Potassium 3.5 mmol/L (3.5-5.1) 12/24/24 11:22 Chloride 100 mmol/L (98-107) 12/24/24 11:22 Carbon Dioxide 22 mmol/L (22-29) 12/24/24 11:22 Anion Gap 18.5 (5-19) 12/24/24 11:22 BUN 49 mg/dL (8-23) H 12/24/24 11:22 Creatinine 2.8 mg/dL (0.5-0.9) H 12/24/24 11:22 GFR Calculation Not Reportable 12/24/24 11:22 Glucose 234 mg/dL (65-115) H 12/24/24 11:22 POC Glucose 237 mg/dL (70-110) H 12/24/24 11:12 Calculated Osmolality 305 mOsm/kg (285-295) H 12/24/24 11:22 Calcium 10.4 mg/dL (8.5-10.5) 12/24/24 11:22 Magnesium 1.9 mg/dL (1.7-2.3) 12/24/24 11:22 Total Bilirubin 0.4 mg/dL (0.15-1.2) 12/24/24 11:22 AST 8 U/L (0-32) 12/24/24 11:22 ALT < 5 U/L (0-33) 12/24/24 11:22 Alkaline Phosphatase 184 U/L (35-105) H 12/24/24 11:22 Total Protein 7.3 g/dL (6.6-8.7) 12/24/24 11:22 Albumin 3.4 g/dL (3.5-5.2) L 12/24/24 11:22 Globulin 3.9 g/dL (1.3-4.6) 12/24/24 11:22 Urine Color Yellow (Yellow) 12/24/24 11:10 Urine Appearance Turbid (CLEAR) A 12/24/24 11:10 Urine pH 5.5 (5-7) 12/24/24 11:10 Ur Specific Ashley 1.012 (1.005-1.030) 12/24/24 11:10 Urine Protein 2+ (Negative) A 12/24/24 11:10 Urine Glucose (UA) Trace (Normal) H 12/24/24 11:10 Urine Ketones Negative (Negative) 12/24/24 11:10 Urine Blood Negative (Negative) 12/24/24 11:10 Urine Nitrate Negative (Negative) 12/24/24 11:10 Urine Bilirubin Negative (Negative) 12/24/24 11:10 Urine Urobilinogen 0.2 mg/dL (Negative) 12/24/24 11:10 Ur Leukocyte Esterase 3+ (Negative) A 12/24/24 11:10 Urine RBC 3-5 /hpf (0-2) 12/24/24 11:10 Urine WBC >100 /hpf (0-5) H 12/24/24 11:10 Ur Squamous Epith Cells 0-5 /hpf (0-5) 12/24/24 11:10 Amorphous Sediment Not Reportable 12/24/24 11:10 Urine Bacteria 4+ /hpf (NONE) H 12/24/24 11:10 Hyaline Casts 10.44 /lpf 12/24/24 11:10 All radiology interpretation(s) finalized by discharge EKG Data EKG 1: I personally reviewed and interpreted this EKG as follows: EKG interpretation date: 12/24/24 EKG interpretation time: 11:18 Interpretation: sinus tach hr [address] elevation qrs 86 qtc 404 Computer generated interpretation: Chest X-Ray 12/24/24 11:08 IMPRESSION: No acute pulmonary finding. Head CT 12/24/24 11:08 IMPRESSION: 1. No acute intracranial finding. 2. Cerebral atrophy. 3. Likely severe small-vessel ischemic changes. Discharge Plan Discharge Patient Disposition: Admitted As Inpatient Clinical Impression: Acute cystitis, Altered mental status Condition: Stable Prescriptions: No Action multivitamin [Daily Multi-Vitamin] Tablet 1 tab PO DAILY Daily Probiotic 2.5 billion cell capsule 1 cap PO BID amantadine HCl 100 mg tablet 100 mg PO DAILY epinephrine [EpiPen 2-Dickson] 0.3 mg/0.3 mL auto-injector 0.3 mg IM ONCE PRN (Reason: Anaphylaxis) Qty: 2 0RF atorvastatin 40 mg tablet 40 mg PO DAILY Qty: 90 3RF carbidopa-levodopa 50-200 mg tablet extended release 1 tab PO TID@08,12,17 Qty: 270 3RF metoprolol tartrate 25 mg tablet 25 mg PO BID Qty: 180 3RF magnesium hydroxide [Milk of Magnesia] 400 mg/5 mL Suspension 30 ml PO DAILY PRN (Reason: Constipation) bisacodyl [Dulcolax (bisacodyl)] 10 mg Suppository 10 mg MA DAILY PRN (Reason: Constipation) Fleet Enema 19-7 gram/118 mL Enema 118 ml MA DAILY PRN (Reason: Constipation) aspirin 81 mg tablet,delayed release (DR/EC) 81 mg PO DAILY nystatin 100,000 unit/gram Powder 1 applic TOPICAL TID PRN (Reason: yeast rash) insulin lispro [Humalog KwikPen Insulin] 100 unit/mL Insulin Pen See Rx Instructions .ROUTE .COMPLEX Rx Instructions: Inject as per sliding scale: 141-180 = 2 units 181-220 = 4 units 221-260 = 6 units 261-300 = 8 units 301-350 = 10 units 351-400 = 12 units Greater than 400 = 14 units Subcutaneously before meals for diabetes insulin lispro [Humalog KwikPen Insulin] 100 unit/mL Insulin Pen 18 unit SUBCUT AC Rx Instructions: TID BEFORE MEALS hydralazine 100 mg tablet 100 mg PO TID Qty: 90 0RF buspirone 5 mg Tablet 2.5 mg PO 1800 acetaminophen 325 mg Tablet 650 mg PO Q4H PRN (Reason: mild pain/fever) trazodone 50 mg Tablet 25 mg PO 1900 docusate sodium [Colace] 100 mg Capsule 100 mg PO BID docusate sodium [Colace] 100 mg Capsule 200 mg PO EVERY OTHER DAY cranberry 450 mg Tablet 450 mg PO DAILY Rx Instructions: administer with a meal Osphena 60 mg Tablet 60 mg PO DAILY Rx Instructions: must administer with food, preferably a high-fat meal bumetanide 1 mg Tablet 1 mg PO DAILY Qty: 60 3RF amlodipine 5 mg Tablet 5 mg PO DAILY tramadol 50 mg Tablet 50 mg PO Q8H PRN (Reason: Pain) alprazolam 0.5 mg Tablet 0.5 mg PO DAILY Januvia 50 mg tablet 50 mg PO DAILY insulin glargine [Lantus Solostar U-100 Insulin] 100 unit/mL (3 mL) Insulin Pen 80 unit SUBCUT QPM Trulicity 0.75 mg/0.5 mL Pen Injector 0.75 mg SUBCUT Q7D Referrals: Polo Guzman [employer]GGER [Primary Care Provider] - Print Language: Northern Irish Coding Level of Care Code ED [employer] for Robin Mccauley
--- NOTE | 2024-12-24 11:24 | PC.PHAR ---
patient is from [facility]
[2024-12-24 11:31] LABS: Basophils % 0.3 %; Eosinophils % 0.1 %; Hematocrit 40.6 % (36-47); Lymphocytes % 8.5 %; Mean Corpuscular Hemoglobin 25.6 pg (27-33); Mean Corpuscular Volume 82.5 fl (85-98); Mean Platelet Volume 11.1 fL (7.4-10.4); Monocytes # 0.9 10^3/uL (0.2-0.9); Monocytes % 7.5 %; Neutrophils # 9.53 10^3/uL (1.8-7.7); Neutrophils % 82.7 %; Nucleated Red Blood Cells % 0 %; Platelet Count 163 10^3/cmm (157-399); Red Blood Count 4.92 10^6/uL (3.85-5.65); Red Cell Distribution Width 16.8 % (12.1-15.1); White Blood Count 11.51 10^3/uL (3.29-11.43)
[2024-12-24 11:36] LABS: Bilirubin Urine Negative (Negative); Blood Urine Negative (Negative); Glucose Urine UA Trace (Normal); Ketones Urine Negative (Negative); Leukocyte Esterase Urine 3+ (Negative); Nitrate Urine Negative (Negative); Protein Urine 2+ (Negative); Specific Gravity, Urine 1.012 (1.005-1.030); Urine Appearance Turbid (CLEAR); Urine Color Yellow (Yellow); Urobilinogen Urine 0.2 mg/dL (Negative); pH Urine 5.5 (5-7)
[2024-12-24 11:38] LABS: Add Urine Microscopic? YES; Bacteria Urine 4+ /hpf; Hyaline Casts Urine 10.44 /lpf; Squamous Epithelial Cell Urine 0-5 /hpf (0-5); WBC Urine >100 /hpf (0-5)
[2024-12-24 11:42] LABS: INR 1.08 (0.8-1.2)
[2024-12-24] MEDS: sodium chloride 0.9% 1,000 ML 999 ML IV (11:42)
[2024-12-24 11:47] LABS: Alanine Aminotransferase < 5 U/L (0-33); Albumin Level 3.4 g/dL (3.5-5.2); Alkaline Phosphatase 184 U/L (35-105); Anion Gap 18.5 (5-19); Aspartate Amino Transferase 8 U/L (0-32); Blood Urea Nitrogen 49 mg/dL (8-23); Calcium 10.4 mg/dL (8.5-10.5); Carbon Dioxide 22 mmol/L (22-29); Chloride 100 mmol/L (98-107); Creatinine Clr Calc Pharmacy 15.6178; Globulin 3.9 g/dL (1.3-4.6); Glucose 234 mg/dL (65-115); Magnesium 1.9 mg/dL (1.7-2.3); Osmolality Calculated 305 mOsm/kg (285-295); Potassium 3.5 mmol/L (3.5-5.1); Sodium 137 mmol/L (136-145); Total Bilirubin 0.4 mg/dL (0.15-1.2); Total Protein 7.3 g/dL (6.6-8.7)
[2024-12-24 11:52] LABS: UA Slide Review UA Slide Review Perf
[2024-12-24 11:53] LABS: Add Urine Culture? Yes
[2024-12-24] MEDS: cefTRIAXone 1,000 mg SDV 1000 MG IVP (12:06)
[2024-12-24 16:39] LABS: Glucose Point of Care 124 mg/dL (70-110)
--- NOTE | 2024-12-24 17:14 | PM.HP ---
Providers/Chief Complaint Admitting Physician: Leila Lambert MD Primary Care Provider: Polo Guzman Chief Complaint: lethargy History of Present Illness Cathi Nichols is a 84 year old female, long-term prison resident, history of dementia, Parkinson's, hypertension, diabetes mellitus, recurrent UTIs, who was brought to the hospital today with chief complaints of increasing lethargy over the past week. Patient has had chills. Here she is noted to be febrile to 102 Fahrenheit. Additionally has some leukocytosis. Patient is unable to contribute in history. At baseline patient can intermittently ambulate with a walker. Is able to self feed, mostly confused. Has become more nonverbal over the past few weeks per family. Today she is only able to open her eyes. Does not answer yes no or participate in any meaningful conversation. Does not follow any commands. Review of Systems General: Reports: ROS unobtainable due to medical condition and ROS unobtainable due to mental status Medications/Allergies Home Medications ?Medication ?Instructions ?Recorded ?Confirmed ?Last Taken ?Type multivitamin (Daily Multi-Vitamin 1 tab PO DAILY 10/11/19 12/24/24 10/29/24 History tablet) amantadine HCl 100 mg tablet 100 mg PO DAILY 10/29/20 12/24/24 10/29/24 History Lactobacillus 1 cap PO BID 10/17/21 12/24/24 10/29/24 History acidophilus-Bifidobac.animalis 2.5 billion cell capsule (Daily Probiotic) aspirin 81 mg tablet,delayed 81 mg PO DAILY 10/02/22 12/24/24 10/29/24 History release bisacodyl 10 mg rectal suppository 10 mg OR DAILY PRN Constipation 10/02/22 12/24/24 Unknown History (Dulcolax (bisacodyl)) magnesium hydroxide 400 mg/5 mL 30 ml PO DAILY PRN Constipation 10/02/22 12/24/24 Unknown History oral suspension (Milk of Magnesia) sodium phosphates 19 gram-7 118 ml OR DAILY PRN Constipation 10/02/22 12/24/24 Unknown History gram/118 mL enema (Fleet Enema) atorvastatin 40 mg tablet 40 mg PO DAILY #90 tabs 11/17/22 12/24/24 10/29/24 Rx carbidopa ER 50 mg-levodopa 200 mg 1 tab PO TID@08,12,17 #270 tabs 11/17/22 12/24/24 10/29/24 Rx tablet,extended release epinephrine 0.3 mg/0.3 mL 0.3 mg (0.3 mL) IM ONCE PRN 11/17/22 12/24/24 Unknown Rx injection, auto-injector (EpiPen Anaphylaxis #2 ea 2-Dickson) metoprolol tartrate 25 mg tablet 25 mg PO BID #180 tabs 11/17/22 12/24/24 10/29/24 Rx acetaminophen 325 mg tablet 650 mg PO Q4H PRN mild pain/fever 06/05/24 12/24/24 05/28/24 14:00 History buspirone 5 mg tablet 2.5 mg PO 1800 06/05/24 12/24/24 10/29/24 History cranberry fruit 450 mg tablet 450 mg PO DAILY 06/05/24 12/24/24 10/29/24 History (cranberry) docusate sodium 100 mg capsule 100 mg PO BID 06/05/24 12/24/24 10/29/24 History (Colace) docusate sodium 100 mg capsule 200 mg PO EVERY OTHER DAY 06/05/24 12/24/24 10/28/24 History (Colace) ospemifene 60 mg tablet (Osphena) 60 mg PO DAILY 06/05/24 12/24/24 10/29/24 History trazodone 50 mg tablet 25 mg PO 1900 06/05/24 12/24/24 10/28/24 History bumetanide 1 mg tablet 1 mg PO DAILY #60 tabs 06/07/24 12/24/24 10/29/24 Rx insulin lispro 100 unit/mL 18 unit SUBCUT AC 10/30/24 12/24/24 10/29/24 History subcutaneous pen (Humalog KwikPen (U-100) Insulin) insulin lispro 100 unit/mL See Rx Instructions .Route .COMPLEX 10/30/24 12/24/24 10/29/24 History subcutaneous pen (Humalog KwikPen (U-100) Insulin) nystatin 100,000 unit/gram topical 1 applic topical TID PRN yeast rash 10/30/24 12/24/24 Unknown History powder hydralazine 100 mg tablet 100 mg PO TID #90 tabs 11/01/24 12/24/24 Unknown Rx alprazolam 0.5 mg tablet 0.5 mg PO DAILY 12/24/24 12/24/24 Unknown History amlodipine 5 mg tablet 5 mg PO DAILY 12/24/24 12/24/24 Unknown History dulaglutide 0.75 mg/0.5 mL 0.75 mg SUBCUT Q7D 12/24/24 12/24/24 Unknown History subcutaneous pen injector (Trulicity) insulin glargine 100 unit/mL (3 80 unit SUBCUT QPM 12/24/24 12/24/24 Unknown History mL) subcutaneous pen (Lantus Solostar U-100 Insulin) sitagliptin phosphate 50 mg tablet 50 mg PO DAILY 12/24/24 12/24/24 Unknown History (Januvia) tramadol 50 mg tablet 50 mg PO Q8H PRN Pain 12/24/24 12/24/24 Unknown History Allergies Allergy/AdvReac Type Severity Reaction Status Date / Time furosemide (From Lasix) Allergy Unknown UNKNOWN Verified 08/22/24 11:05 codeine Allergy Unknown Verified 08/22/24 11:05 Sulfa (Sulfonamide Allergy Unknown Verified 08/22/24 11:05 Antibiotics) PFSH Acute PFSH: Medical History Encephalopathy, hypertensive CHF exacerbation Essential (primary) hypertension Pulmonary edema Altered mental status Near syncope Acute cerebrovascular accident (CVA) Dementia Diarrhea Chronic diarrhea Tachycardia with heart rate 100-120 beats per minute Encounter for loop recorder check Leg swelling Parkinsons On Sinemet Recurrent UTI Syncopal episodes 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 Actually lives with her son and daughter who are with her 27/04 Ventricular arrhythmia Anxiety Dyslipidemia (high LDL; low HDL) Hyponatremia chronic mild in low mid 130s at baseline Type 2 diabetes mellitus without complications non insulin requiring, on metformin, A1c-6.9 DDD (degenerative disc disease), lumbar Lumbar stenosis Urge incontinence Memory change Surgical History History of loop recorder -Follows with Dr. Ponce History of release of tendon (~2010) trigger finger Hx of breast biopsy (~2002) right History of tonsillectomy and adenoidectomy younger than age 10 Hx of hysterectomy (~1973) Hx laparoscopic cholecystectomy (~1993) Hx of bilateral cataract extraction (~2007) Hx of brain surgery Epidural Hematoma; emergency Hx of tracheostomy Hx of colonoscopy (~2010) polyps: Hyperplastic Family History Father , age 58 from [place] CAD (coronary artery disease) Mother , age 76 Cancer melanoma Grandmother Diabetes maternal Social History Smoking and tobacco/nicotine status: never used tobacco/nicotine Alcohol intake: never Substance/Drug Use: never Caregiver/support person: Yes Lives independently: No Household members: none Housing: House Marital status: / Number of children: 2 Number of grandchildren: 0 Current occupational status: retired Current gender identity: Female Vitals/I&O/Wt Last Vital Signs Temp 99.0 F 12/24/24 11:06 Pulse 97 12/24/24 13:51 Resp 25 H 12/24/24 12:29 BP 169/65 12/24/24 13:51 Pulse Ox 99 12/24/24 13:51 O2 Del Method Room Air 12/24/24 11:06 12/24/24 12/24/24 12/24/24 06:59 14:59 22:59 Intake Total 1000 / 1000 Balance 1000 / 1000 Weight last 48 hrs Weight 99.79 kg Physical Exam Narrative: General: No acute distress HEENT: PERRLA, pupils bilaterally equal and reactive, pallors not present Chest: Normal vesicular breath sounds, no added sounds, equal good air entry bilaterally CVS: S1-S2 regular, no murmurs, no tachycardia, no gallops, no rubs Abdomen: Soft, nontender, no organomegaly, bowel sounds present Neuro: Unable to assess, patient is nonverbal, does not follow any commands at this time. Opens her eyes to calling name. Data 12/24/24 11:22 12/24/24 11:22 Micro: Microbiology 12/24/24 11:25 Blood Culture - Preliminary Blood SPECIMEN COLLECTED 12/24/24 11:22 Blood Culture - Preliminary Blood SPECIMEN COLLECTED A&P Assessment and plan (1) Acute cystitis: 84-year-old lady [facility] with chief complaints of fever, increasing lethargy and altered mental status over the past week. On the floor she has a fever to 102F along with leukocytosis. Concern for acute cystitis. Review of prior urine culture shows patient has been diagnosed with infection with multiple Enterobacter cloacae in the past. Will choose cefepime 1 g IV every 12 hours renally dosed empirically for treatment. Blood cultures taken and pending from the emergency room Creatinine at 2.8. Assess renal ultrasound for any hydronephrosis or obstruction along the urinary tract. (2) Altered mental status: CT head without any acute intracranial events. Likely metabolic encephalopathy from acute infection (3) JEIMY (acute kidney injury): Acute kidney injury, creatinine at 2.8, previously reviewed baseline between 1.1-1.3. Check renal ultrasound for hydronephrosis Place Wills catheter for accurate output and also to bypass any potential bladder outlet obstruction. IV fluid normal saline gentle hydration at 50 cc an hour. Hold Bumex Plan DVT ppx: Heparin 5000 s/c q12h Full code per [facility] records PDMP PDMP Reviewed: Not Reviewed Attestations Medical Necessity Statement*: > 2 midnight stay is anticipated Coding Level of Care Code Acute Code for g Fwd Diagnoses Acute cystitis N30.00 Altered mental status R41.82 JEIMY (acute kidney injury) N17.9
[2024-12-24 17:35] LABS: ABG PCO2 30.6 mmHg (35-45); ABG PH Result 7.49 (7.35-7.45); Arterial Blood Gas Hematocrit 37.6 % (37-47); Base Excess ABG 0.9 mmol/L (-2.0-2.0); Blood Gas Allen Test Pos; Blood Gas LPM 1.5 %; Blood Gas Operator Identificat CAK; Blood Gas Sample Site Radial, left; Blood Gas Sample Type Arterial; HCO3 ABG 23.6 mmol/L (22-26); Oxygen Device NC; PO2 ABG 67.6 mmHg (80.0-100.0); PO2 FiO2 Ratio Arterial Blood 260
[2024-12-24] MEDS: heparin 5,000 unit/mL INJ 1 mL 5000 UNIT SUBCUT (17:51)
[2024-12-24] MEDS: cefepime 1,000 mg SDV 1000 MG IVP (17:51)
[2024-12-24] MEDS: acetaminophen 1,000 MG/100 ML PIGGYBACK 400 MG IV (17:51)
[2024-12-24] MEDS: sodium chloride 0.9% 1,000 ML 50 ML IV (17:51)
[2024-12-24 20:42] LABS: Glucose Point of Care 218 mg/dL (70-110)
[2024-12-24] MEDS: insulin lispro 100 unit/1 mL SUBCUT (21:23)
[2024-12-25] VITALS (11 sets, daily range): BP systolic 122–182; BP diastolic 58–80; PULSE 92–118; RESP 16–19; TEMP 37.3–39; O2SAT 92–97
[2024-12-25] MEDS: heparin 5,000 unit/mL INJ 1 mL 5000 UNIT SUBCUT ×2 (05:19→17:17)
[2024-12-25 05:53] LABS: Basophils % 0.4 %; Eosinophils # 0.2 10^3/uL (0.0-0.8); Eosinophils % 1.5 %; Hematocrit 36.9 % (36-47); Lymphocytes # 0.9 10^3/uL (0.8-4.8); Lymphocytes % 9.2 %; Mean Corpuscular HGB Conc 30.9 g/dL (30-55); Mean Corpuscular Hemoglobin 25.2 pg (27-33); Mean Corpuscular Volume 81.5 fl (85-98); Mean Platelet Volume 11.4 fL (7.4-10.4); Monocytes # 1.2 10^3/uL (0.2-0.9); Monocytes % 11.4 %; Neutrophils # 7.79 10^3/uL (1.8-7.7); Neutrophils % 76.5 %; Nucleated Red Blood Cells % 0 %; Platelet Count 148 10^3/cmm (157-399); Red Blood Count 4.53 10^6/uL (3.85-5.65); Red Cell Distribution Width 16.9 % (12.1-15.1); White Blood Count 10.18 10^3/uL (3.29-11.43)
[2024-12-25 06:12] LABS: Alanine Aminotransferase < 5 U/L (0-33); Albumin Level 3.2 g/dL (3.5-5.2); Alkaline Phosphatase 178 U/L (35-105); Anion Gap 18.5 (5-19); Aspartate Amino Transferase 12 U/L (0-32); Blood Urea Nitrogen 53 mg/dL (8-23); Calcium 9.5 mg/dL (8.5-10.5); Carbon Dioxide 21 mmol/L (22-29); Chloride 109 mmol/L (98-107); Creatinine Clr Calc Pharmacy 16.1963; Globulin 3.8 g/dL (1.3-4.6); Glucose 186 mg/dL (65-115); Osmolality Calculated 319 mOsm/kg (285-295); Potassium 3.5 mmol/L (3.5-5.1); Sodium 145 mmol/L (136-145); Total Bilirubin 0.3 mg/dL (0.15-1.2)
[2024-12-25 06:50] LABS: Glucose Point of Care 223 mg/dL (70-110)
[2024-12-25] MEDS: insulin lispro 100 unit/1 mL SUBCUT ×4 (08:28→22:12)
--- NOTE | 2024-12-25 09:55 | PC.NURSE ---
Pt has temp of 100.4, which was going to be treated with PO Tylenol. PO Protonix due for morning medication pass as well. This RN attempts a bedside swallow with thickened liquids prior to medication administration. Pt unable to swallow fluids, as it just runs back out of her mouth. For this reason, PO medications not given. New oxygen need noted. Dr. Lambert orders Resp Panel 2. Collected and sent to lab.
[2024-12-25 11:36] LABS: Glucose Point of Care 202 mg/dL (70-110)
[2024-12-25 11:47] LABS: Adenovirus Not Detected (NOT DETECT); Chlamydia Pneumoniae Not Detected (NOT DETECT); Coronavirus 229E,HKU1,NL63,OC4 Not Detected (NOT DETECT); Human Metapneumovirus Not Detected (NOT DETECT); Human Rhinovirus/Enterovirus Not Detected (NOT DETECT); Influenza A Not Detected (NOT DETECT); Influenza A H1 Not Detected (NOT DETECT); Influenza A H1-2009 Not Detected (NOT DETECT); Influenza A H3 Not Detected (NOT DETECT); Influenza B Not Detected (NOT DETECT); Mycoplasma Pneumoniae Not Detected (NOT DETECT); Parainfluenza Virus Type 1 Not Detected (NOT DETECT); Parainfluenza Virus Type 2 Not Detected (NOT DETECT); Parainfluenza Virus Type 3 Not Detected (NOT DETECT); Parainfluenza Virus Type 4 Not Detected (NOT DETECT); Respiratory Syncytial Virus A Not Detected (NOT DETECT); Respiratory Syncytial Virus B Not Detected (NOT DETECT); SARS-COV-2 Not Detected (NOT DETECT)
[2024-12-25] MEDS: sodium chloride 0.9% 1,000 ML 50 ML IV (12:22)
--- NOTE | 2024-12-25 12:57 | PC.NURSE ---
Patient temp elevated to 102 during afternoon rounds. RN assesses patient. She has on multiple blankets and room is hot. RN turns down thermostat from 80 to 65 and removes blankets. Cool bed bath given. Temp reassessment is 100.4.
[2024-12-25 16:45] LABS: Glucose Point of Care 177 mg/dL (70-110)
[2024-12-25] MEDS: cefepime 1,000 mg SDV 1000 MG IVP (17:16)
[2024-12-25] MEDS: acetaminophen 650 mg Supp PR (17:16)
--- NOTE | 2024-12-25 17:21 | USR_ITS ---
PROCEDURE INFORMATION: Exam: US Retroperitoneal, Complete, Kidneys and Bladder Exam date and time: 12/25/2024 8:32 AM Age: 84 years old Clinical indication: Screening exam; Other: Assess for hydronephrosis TECHNIQUE: Imaging protocol: Real-time ultrasound of the retroperitoneum with image documentation. Complete exam focused on the bilateral kidneys and urinary bladder. COMPARISON: US abdomen complete* [id number] 01/15/2018 9:31 AM FINDINGS: Right kidney: Right kidney measures 8.4 x 5.6 x 3.5 cm. 87 mL. No hydronephrosis. Left kidney: Left kidney measures 9.7 x 4.4 x 3.8 cm. 85 mL. No hydronephrosis. Urinary bladder: Evaluation of the bladder is suboptimal due to a Wills catheter. US/US renal BI* [id number] IMPRESSION: No hydronephrosis.
--- NOTE | 2024-12-25 19:49 | P.PN_ITS ---
Subjective 2 Subjective: slightly more alert today, looks to me on calling name, maintains eye contact, does not follow any commands currently. Medications: Reviewed: Yes Vitals/I&O/Wt Last Vital Signs Temp 101.2 F H 12/25/24 16:00 Pulse 118 H 12/25/24 16:00 Resp 19 H 12/25/24 16:00 BP 182/78 12/25/24 16:00 Pulse Ox 97 12/25/24 16:00 O2 Del Method Nasal Cannula 12/25/24 16:00 O2 Flow Rate 1.5 12/25/24 08:31 12/25/24 12/25/24 12/25/24 06:59 14:59 22:59 Intake Total 925.833 / 925.833 Output Total 400 / 400 750 / 750 Balance -400 / 700 925.833 / 925.833 -750 / 175.833 Weight last 48 hrs Weight 99.79 kg Weight 99.79 kg Physical Exam 2 Narrative: General: No acute distress HEENT: PERRLA, pupils bilaterally equal and reactive, pallors not present Chest: Normal vesicular breath sounds, no added sounds, equal good air entry bilaterally CVS: S1-S2 regular, no murmurs, no tachycardia, no gallops, no rubs Abdomen: Soft, nontender, no organomegaly, bowel sounds present Neuro: maintains eye contact , looks at me when calling name Urinary Catheter Management: Wills: Cath Placed During This Visit: yes Reason for Continuing Indwelling Catheter: Other Urinary Catheter Date of Insertion: 12/24/24 Urinary Catheter Time of Insertion: 21:00 Data 12/25/24 04:20 12/25/24 04:20 Micro: Microbiology 12/24/24 11:10 Urine Culture - Preliminary Urine,Clean Catch Gram Negative Rods Gram Negative Rods#2 12/24/24 11:25 Blood Culture - Preliminary Blood Escherichia coli 12/24/24 11:22 Blood Culture - Preliminary Blood Escherichia coli A&P Assessment and plan (1) Acute cystitis: 84-year-old lady admitted from the custodial with chief complaints of fever, increasing lethargy and altered mental status over the past week. On the floor she has a fever to 102F along with leukocytosis. Concern for acute cystitis. Review of prior urine culture shows patient has been diagnosed with infection with multiple Enterobacter cloacae in the past. Will choose cefepime 1 g IV every 12 hours renally dosed empirically for treatment. Blood cultures taken and pending from the emergency room Creatinine at 2.8. Assess renal ultrasound for any hydronephrosis or obstruction along the urinary tract. (2) Altered mental status: CT head without any acute intracranial events. Likely metabolic encephalopathy from acute infection (3) JEIMY (acute kidney injury): Acute kidney injury, creatinine at 2.8, previously reviewed baseline between 1.1-1.3. Check renal ultrasound for hydronephrosis Place Wills catheter for accurate output and also to bypass any potential bladder outlet obstruction. IV fluid normal saline gentle hydration at 50 cc an hour. Hold Bumex Plan DVT ppx: Heparin 5000 s/c q12h Full code per [place] records 12/27/24: cr at 2.7 today, however urine output at 1150 cc. Leukocytosis better. Blood cx + for E.coli, sensitivity awaited. Continue cefepime empirically, continue IVF, increase rate to 75 cc/ hr PDMP PDMP Reviewed: Not Reviewed Attestations 2 Medical Necessity Statement*: E.c sonya bacteremia of urinary source, await sensitivity, IVF , monitor cr Coding Level of Care Code Acute Code for Chg Fwd Diagnoses Acute cystitis N30.00 Altered mental status R41.82 JEIMY (acute kidney injury) N17.9
[2024-12-25 20:58] LABS: Glucose Point of Care 189 mg/dL (70-110)
[2024-12-26] VITALS (11 sets, daily range): BP systolic 132–208; BP diastolic 52–100; PULSE 108–130; RESP 17–24; TEMP 36.6–38.4; O2SAT 94–97; BMI 40.2
[2024-12-26] MEDS: hyDRALAzine 20 mg/mL INJ 1 mL 10 MG IVP (03:45)
[2024-12-26] MEDS: acetaminophen 650 mg Supp PR (03:46)
[2024-12-26] MEDS: heparin 5,000 unit/mL INJ 1 mL 5000 UNIT SUBCUT ×2 (04:09→16:57)
[2024-12-26] MEDS: metoprolol tartrate 1 mg/1 mL SDV 5 mL 2.5 MG IVP (04:09)
[2024-12-26] MEDS: sodium chloride 0.9% 1,000 ML 75 ML IV (04:24)
--- NOTE | 2024-12-26 04:55 | XRR_ITS ---
PROCEDURE INFORMATION: Exam: XR Chest Exam date and time: 12/26/2024 4:17 AM Age: 84 years old Clinical indication: Prior surgery; Surgery date: 6+ months; Surgery type: Loop recorder; New onset of tachypnea TECHNIQUE: Imaging protocol: Radiologic exam of the chest. Views: 1 view. COMPARISON: CR (CHEST, ) 12/24/2024 11:25 AM FINDINGS: Tubes, catheters and devices: Loop recorder again noted. Lungs: Compressive atelectasis of the left lung base. Pleural spaces: Small left pleural effusion. Heart/Mediastinum: Unremarkable. No cardiomegaly. Bones/joints: Unremarkable. XR/XR chest 1V portable [id number] IMPRESSION: Small left pleural effusion with compressive atelectasis.
[2024-12-26] MEDS: labetalol 5 mg/mL SDV 20mL 10 MG IVP (05:12)
[2024-12-26 05:31] LABS: ABG PCO2 31.2 mmHg (35-45); ABG PH Result 7.39 (7.35-7.45); Alveolar-Arterial Oxygen Gradi 3.8 mmHg (5-10); Blood Gas Allen Test Pos; Blood Gas Operator Identificat jlb; Blood Gas Sample Site Radial, right; Blood Gas Sample Type Arterial; Carboxyhemoglobin 1.1 %THgb (0.4-20.1); HGB O2 Sat 95.3 % (95-100); Ionized Calcium Level - ABG 1.2 mmol/L (1.1-1.4); Methemoglobin 1.1 % (0.4-1.5); Oxygen Device NC; Oxygen Saturation ABG 97.4; PO2 ABG 80.9 mmHg (80.0-100.0); Potassium Level - ABG 3.3 mmol/L (3.5-5.0); Total Hemoglobin 11.8 g/dL (12-16)
[2024-12-26] MEDS: FUROsemide 10 mg/mL SDV 2mL 20 MG IVP (05:52)
[2024-12-26] MEDS: lidocaine 1% 5 ML in potassium chloride premix 100 ML 26.25 ML IV (05:53)
[2024-12-26 06:01] LABS: Basophils # 0.1 10^3/uL (0.0-0.1); Basophils % 0.5 %; Eosinophils # 0.2 10^3/uL (0.0-0.8); Hematocrit 37.5 % (36-47); Lymphocytes # 1.1 10^3/uL (0.8-4.8); Lymphocytes % 11.2 %; Mean Corpuscular HGB Conc 31.2 g/dL (30-55); Mean Corpuscular Hemoglobin 25.7 pg (27-33); Mean Corpuscular Volume 82.4 fl (85-98); Mean Platelet Volume 10.8 fL (7.4-10.4); Monocytes # 1.4 10^3/uL (0.2-0.9); Monocytes % 14.5 %; Neutrophils # 7.02 10^3/uL (1.8-7.7); Neutrophils % 71.1 %; Nucleated Red Blood Cells % 0 %; Platelet Count 185 10^3/cmm (157-399); Red Blood Count 4.55 10^6/uL (3.85-5.65); Red Cell Distribution Width 17.2 % (12.1-15.1); White Blood Count 9.88 10^3/uL (3.29-11.43)
[2024-12-26 06:25] LABS: Alanine Aminotransferase 11 U/L (0-33); Albumin Level 3.2 g/dL (3.5-5.2); Alkaline Phosphatase 289 U/L (35-105); Anion Gap 20.5 (5-19); Aspartate Amino Transferase 31 U/L (0-32); Blood Urea Nitrogen 50 mg/dL (8-23); Carbon Dioxide 18 mmol/L (22-29); Chloride 118 mmol/L (98-107); Creatinine Clr Calc Pharmacy 18.2208; Globulin 4.4 g/dL (1.3-4.6); Glucose 210 mg/dL (65-115); Osmolality Calculated 336 mOsm/kg (285-295); Potassium 3.5 mmol/L (3.5-5.1); Sodium 153 mmol/L (136-145); Total Bilirubin 0.3 mg/dL (0.15-1.2); Total Protein 7.6 g/dL (6.6-8.7)
--- NOTE | 2024-12-26 06:29 | PC.NURSE ---
SHIFT UPDATE When getting vitals at 0350 this morning this nurse noticed patient was having more labored breathing with respirations at 36, manual blood pressure of 208/100, heart rate of 130 and a temperature of 100.9. This nurse administered prn hydralazine as well as prn LA Tylenol per orders and notified Dr Santamaria. Dr. Santamaria ordered a one time dose of 2.5mg Metoprolol IVP. When reassessing the patient at 0500 this nurse noticed patients respiratory status had not improved, HR was still elevated at 120, and still had a systolic BP of greater than 190. Notified Dr Santamaria again who ordered a stat ABG, Stat chest xray, and a one time order of 10 mg Labetolol. Medications given per orders and results reported back to physician.
[2024-12-26 06:48] LABS: Glucose Point of Care 225 mg/dL (70-110)
--- NOTE | 2024-12-26 08:24 | PM.PN ---
Subjective Subjective: 84-year-old female with a past medical history of Parkinson's disease, advanced dementia, recurrent urinary tract infections (UTIs), and chronic kidney disease presents with altered mental status. Patient resides in a [place] [facility] and typically speaks only a few short words. She is able to self-feed and ambulate with assistance. She was found to have blood cultures positive for E. coli in three of four bottles. Sensitivity is pending. Urine culture shows gram-negative rods, presumed to be E. coli. Patient has also developed an acute kidney injury. She has been NPO and on normal saline. Today, her sodium level increased to 153. Intravenous fluids will be changed to D5W. Patient has been empirically started on cefepime and has a Wills catheter in place. Patient appears to have good urine output but is unable to follow commands and has been nonverbal during today's assessment. Creatinine was 2.7 on admission three days ago and is now down to 2.4. Patient's baseline creatinine is around 1.3. Medications: Reviewed: Yes Vitals/I&O/Wt Last Vital Signs Temp 99.3 F 12/26/24 05:43 Pulse 126 H 12/26/24 03:55 Resp 24 H 12/26/24 03:55 BP 146/88 12/26/24 05:43 Pulse Ox 94 12/26/24 03:55 O2 Del Method Nasal Cannula 12/26/24 03:55 O2 Flow Rate 1 12/26/24 03:55 12/25/24 12/26/24 12/26/24 22:59 06:59 14:59 Intake Total 490.833 / 1416.666 466.25 / 1882.916 Output Total 750 / 750 Balance -259.167 / 666.666 466.25 / 1132.916 Weight last 48 hrs Weight 99.79 kg Weight 99.79 kg Physical Exam Narrative: On examination, General: No acute distress HEENT: PERRLA, pupils bilaterally equal and reactive, pallors not present CVS heart rate and rhythm are regular. Chest is clear to auscultation bilaterally, with slightly decreased breath sounds at the bases. Abd: Soft, NT, ND : Wills No edema was noted in the lower extremities. Urinary Catheter Management: Wills: Cath Placed During This Visit: yes Reason for Continuing Indwelling Catheter: Accurate Measurement of Urinary Output in Critically Ill Patients Urinary Catheter Date of Insertion: 12/24/24 Urinary Catheter Time of Insertion: 21:00 Data 12/26/24 04:40 12/26/24 04:40 Micro: Microbiology 12/26/24 04:40 Blood Culture - Preliminary Blood SPECIMEN COLLECTED 12/24/24 11:10 Urine Culture - Preliminary Urine,Clean Catch Gram Negative Rods Gram Negative Rods#2 12/24/24 11:25 Blood Culture - Preliminary Blood Escherichia coli 12/24/24 11:22 Blood Culture - Preliminary Blood Escherichia coli A&P Assessment and plan (1) Acute cystitis: (2) Altered mental status: (3) JEIMY (acute kidney injury): Plan Altered Mental Status - Likely multifactorial etiology including urinary tract infection, electrolyte imbalance, renal failure and underlying dementia. Differential Diagnoses: 1. Urinary tract infection with bacteremia 2. Delirium secondary to acute kidney injury and electrolyte imbalance Plan: 1. Consult speech therapy for swallowing assessment and to advance diet as tolerated. 2. Repeat basic metabolic panel. 3. Correct sodium level with D5W. 4. Continue abx as noted below 5. Plan to return Patient to the [place] [facility] once medically stable for discharge. Urinary Tract Infection with E-coli Bacteremia - Blood cultures positive for E. coli in 3/4 bottles - Urine culture showing gram-negative rods, presumed E. coli Plan: 1. Continue empiric antibiotic therapy with cefepime. 2. Await final sensitivities Acute Kidney Injury on Chronic Kidney Disease - Baseline creatinine around 1.3 - Creatinine was 2.7 on admission three days ago, now down to 2.4 - Good urine output noted - Renal US - no hydronephrosis Plan: 1. Monitor kidney function with serial creatinine measurements. 2. Continue fluid as ordered 3. Consider nephrology consultation if renal function does not improve. Hypernatremia - Sodium level increased to 153 Plan: 1. Change IV fluids from normal saline to D5W. 2. Monitor bmp Parkinson's Disease and Advanced Dementia - Baseline cognitive impairment with limited verbal communication Plan: 1. No change to management PDMP PDMP Reviewed: Not Reviewed Attestations Medical Necessity Statement*: E.c sonya bacteremia of urinary source, await sensitivity, IVF , monitor cr Coding Level of Care Code Acute Code for [facility] Fwd Diagnoses Acute cystitis N30.00 Altered mental status R41.82 JEIMY (acute kidney injury) N17.9
[2024-12-26] MEDS: dextrose 5% 1,000 ML 75 ML IV ×2 (09:49→22:57)
[2024-12-26 11:12] LABS: Glucose Point of Care 390 mg/dL (70-110)
--- NOTE | 2024-12-26 11:21 | PC.SOCIAL ---
IMM Update pg 2 of IMM updated and reviewed w/ patients daughter. Copy provided and copy dated, initialed and placed in chart.
[2024-12-26] MEDS: insulin lispro 100 unit/1 mL SUBCUT ×3 (11:23→21:05)
[2024-12-26 16:38] LABS: Glucose Point of Care 366 mg/dL (70-110)
[2024-12-26] MEDS: metoprolol tartrate 1 mg/1 mL SDV 5 mL 5 MG IVP (16:57)
[2024-12-26] MEDS: insulin glargine 100 units/1 mL 50 UNIT SUBCUT (16:58)
[2024-12-26] MEDS: cefepime 1,000 mg SDV 1000 MG IVP (17:10)
[2024-12-26 18:16] LABS: Blood Urea Nitrogen 48 mg/dL (8-23); Calcium 9.1 mg/dL (8.5-10.5); Carbon Dioxide 18 mmol/L (22-29); Chloride 116 mmol/L (98-107); Creatinine Clr Calc Pharmacy 19.3955; Glucose 352 mg/dL (65-115); Osmolality Calculated 341 mOsm/kg (285-295); Sodium 152 mmol/L (136-145)
[2024-12-26 20:44] LABS: Glucose Point of Care 296 mg/dL (70-110)
[2024-12-27] VITALS (11 sets, daily range): BP systolic 140–166; BP diastolic 67–92; PULSE 92–117; RESP 14–18; TEMP 36.7–37.9; O2SAT 92–96
[2024-12-27] MEDS: acetaminophen 650 mg Supp PR (04:41)
[2024-12-27] MEDS: heparin 5,000 unit/mL INJ 1 mL 5000 UNIT SUBCUT ×2 (04:44→17:35)
[2024-12-27 06:41] LABS: Glucose Point of Care 305 mg/dL (70-110)
[2024-12-27] MEDS: insulin lispro 100 unit/1 mL SUBCUT ×3 (09:06→17:35)
--- NOTE | 2024-12-27 09:10 | PM.PN ---
Subjective Subjective: 84-year-old female with a past medical history of Parkinson's disease, advanced dementia, recurrent urinary tract infections (UTIs), and chronic kidney disease presents with altered mental status. Patient resides in a intermediate and typically speaks only a few short words. She is able to self-feed and ambulate with assistance. She was found to have blood cultures positive for E. coli in three of four bottles. Sensitivity is pending. Urine culture shows gram-negative rods, presumed to be E. coli. Patient has also developed an acute kidney injury. She has been NPO and on normal saline. Today, her sodium level increased to 153. Intravenous fluids will be changed to D5W. Patient has been empirically started on cefepime and has a Wills catheter in place. Patient appears to have good urine output but is unable to follow commands and has been nonverbal during today's assessment. Creatinine was 2.7 on admission three days ago and is now down to 2.4. Patient's baseline creatinine is around 1.3. 12/27 No change in mental status overnight. Temp of 100.2, responded to tylenol IA, remains NPO. Was tachycardic and hypertensvie. Given lopressor IV. Medications: Reviewed: Yes Vitals/I&O/Wt Last Vital Signs Temp 98.3 F 12/27/24 07:48 Pulse 105 H 12/27/24 07:48 Resp 18 12/27/24 07:48 BP 147/92 12/27/24 07:48 Pulse Ox 96 12/27/24 07:48 O2 Del Method Nasal Cannula 12/27/24 07:48 O2 Flow Rate 2 12/27/24 07:47 12/26/24 12/27/24 12/27/24 22:59 06:59 14:59 Intake Total 977.5 / 1497.50 Output Total 950 / 950 750 / 1700 Balance 27.5 / 547.50 -750 / -202.50 Weight last 48 hrs Weight 99.79 kg Weight 99.79 kg Physical Exam Narrative: On examination, General: No acute distress HEENT: PERRLA, pupils bilaterally equal and reactive, pallors not present CVS heart rate and rhythm are regular. Chest is clear to auscultation bilaterally, with slightly decreased breath sounds at the bases. Abd: Soft, NT, ND : Wills No edema was noted in the lower extremities. Urinary Catheter Management: Wills: Cath Placed During This Visit: yes Reason for Continuing Indwelling Catheter: Other Urinary Catheter Date of Insertion: 12/24/24 Urinary Catheter Time of Insertion: 21:00 Data 12/26/24 04:40 12/26/24 17:13 Micro: Microbiology 12/26/24 04:40 Blood Culture - Preliminary Blood NEGATIVE TO DATE 12/24/24 11:10 Urine Culture - Final Urine,Clean Catch Escherichia coli Proteus mirabilis A&P Assessment and plan (1) Acute cystitis: (2) Altered mental status: (3) JEIYM (acute kidney injury): Plan Altered Mental Status - Likely multi-factorial etiology including urinary tract infection, electrolyte imbalance, renal failure and underlying advanced dementia. - Patient has not been very response. Does not take any oral intake. 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 Differential Diagnoses: 1. Urinary tract infection with bacteremia 2. Delirium secondary to acute kidney injury and electrolyte imbalance 3. Progression of Parkinson - had not been able to take any meds Plan: 1. May need to consult with neurology 2. Treating infection as noted below 3. Correct sodium level with D5W. Repeat BMP today 4. NPO until able to follow command and cleared by ST. Will discuss placement of NG initially after which her regular meds can be resumed. May be able to avoid PEG tube placement Urinary Tract Infection with E-coli Bacteremia - Blood cultures positive for E. coli in 3/4 bottles - Urine culture showing E. coli and proteus - Urine is susceptible to cefepime. Renally dosing - Continues to have fever. TMax of 101. Overnight 100.2 temp - Receiving tylenol IA Plan: 1. Continue empiric antibiotic therapy with cefepime. 2. Will repeat blood culture to ensure clearance in am Acute Kidney Injury on Chronic Kidney Disease - Baseline creatinine around 1.3 - Creatinine was 2.7 on admission three days ago, now down to 2.4 - Good urine output noted - Renal US - no hydronephrosis Plan: 1. Bmp today 2. Currently on D5w due to sodium however if improved will transition to LR 3. Wills in place - continues to have adequate urine output Hypernatremia - Sodium level increased to 153. Started on D5w. Na improving. Repeat BMP today pending Plan: 1. Continue current fluid regimen 2. Monitor bmp Parkinson's Disease and Advanced Dementia - Baseline cognitive impairment with limited verbal communication - Home meds: Sinemet TID Amantadine 100 mg daily Plan: 1. Not able to take any of her PO meds 2. May consider neurology consult Hypertensive / Tachycardia - Hr has been 110 to 130s, with elevated pressure. - Possible in response to acute illness, fevers and inablity to take her antihypertensives - Home meds: Metoprolol 25 mg BID Norvasc 5 mg daily Hydralazine 100 mg TID Plan: 1. Lopressor PRN Diabetes Mellitus with hyperglycemia - Elevated glucose due to D5- Range >300s - Currently on Lantus 50 units qpm - Sliding scale insulin Plan: 1. Will attempt to change fluids to LR today 2. Continue to titrate to reach goal of < 200 DVT prophylaxis - Heparin 5000 units q12hr PDMP PDMP Reviewed: Not Reviewed Attestations Medical Necessity Statement*: E.c sonya bacteremia of urinary source, await sensitivity, IVF , monitor cr Coding Level of Care Code Acute Code for Chg Fwd Diagnoses Acute cystitis N30.00 Altered mental status R41.82 JEIMY (acute kidney injury) N17.9
[2024-12-27 10:13] LABS: Anion Gap 15.4 (5-19); Blood Urea Nitrogen 43 mg/dL (8-23); Calcium 8.6 mg/dL (8.5-10.5); Carbon Dioxide 20 mmol/L (22-29); Chloride 114 mmol/L (98-107); Creatinine Clr Calc Pharmacy 19.3955; Glucose 360 mg/dL (65-115); Osmolality Calculated 327 mOsm/kg (285-295); Potassium 3.4 mmol/L (3.5-5.1); Sodium 146 mmol/L (136-145)
--- NOTE | 2024-12-27 12:01 | XR_ITS ---
WS: [id number] Exam: XR chest 1V portable [id number] Date/Time of Exam: 12/27/2024 12:05 PM Reason For Exam: ng tube placement Comparison 12/26/2024. An enteric tube has been placed with the tip in the region of the GE junction. The sideport of the tube is in the lower one third of the esophagus. The lungs are clear as visualized. Heart size is normal. A battery pack superimposes the LEFT heart. Bony structures are intact. XR/XR chest 1V portable [id number] IMPRESSION: 1. Enteric tube with the tip ending near the GE junction. The sideport of the t ube is in the lower one third of the esophagus. The tube should be advanced ano ther 10 to 12 cm for optimal position.
--- NOTE | 2024-12-27 13:04 | XR_ITS ---
WS: [id number] Exam: XR chest 1V portable [id number] Date/Time of Exam: 12/27/2024 1:12 PM Reason For Exam: ng tube advancement Comparison with the last exam on the same day at 11:11 a.m. NG tube is been advanced and now ends in the body of the stomach. No other changes in the overall appearance of the chest since the prior study. XR/XR chest 1V portable [id number] IMPRESSION: 1. NG tube in satisfactory position ending in the body of the stomach.
[2024-12-27] MEDS: sodium chloride 0.45% 1,000 ML 75 ML IV (13:41)
[2024-12-27] MEDS: hyDRALAzine 50 mg Tablet 100 MG PO ×2 (13:58→19:59)
[2024-12-27] MEDS: carbidopa-levodopa ER 50-200mg Tablet 1 EACH PO ×2 (13:59→17:35)
[2024-12-27 14:01] LABS: Glucose Point of Care 314 mg/dL (70-110)
[2024-12-27 16:38] LABS: Glucose Point of Care 228 mg/dL (70-110)
[2024-12-27] MEDS: cefepime 1,000 mg SDV 1000 MG IVP (17:35)
[2024-12-27] MEDS: metoprolol tartrate 25 mg Tablet PO (17:35)
[2024-12-27] MEDS: insulin glargine 100 units/1 mL 50 UNIT SUBCUT (17:36)
[2024-12-27] MEDS: acetaminophen 325 mg Tablet 650 MG PO (19:59)
[2024-12-27 20:46] LABS: Glucose Point of Care 131 mg/dL (70-110)
[2024-12-28] VITALS (9 sets, daily range): BP systolic 120–157; BP diastolic 61–75; PULSE 84–101; RESP 17–18; TEMP 36.4–37.3; O2SAT 94–96
[2024-12-28] MEDS: sodium chloride 0.45% 1,000 ML 75 ML IV ×2 (03:03→14:19)
[2024-12-28] MEDS: heparin 5,000 unit/mL INJ 1 mL 5000 UNIT SUBCUT ×2 (05:48→17:46)
[2024-12-28 07:17] LABS: Glucose Point of Care 206 mg/dL (70-110)
--- NOTE | 2024-12-28 08:09 | P.PN_ITS ---
Subjective 2 Subjective: 84-year-old female with a past medical h istory of Parkinson's disease, advanced dementia, recurrent urinary tract infections (UTIs), and chronic kidney disease presents with altered mental status. [facility] and typically speaks only a few short words. She is able to self-feed and ambulate with assistance. She was found to have blood cultures positive for E. coli in three of four bottles. Sensitivity is pending. Urine culture shows gram- negative rods, presumed to be E. coli. Patient has also developed an acute kidney injury. She has been NPO and on normal saline. Today, her sodium level increased to 153. Intravenous fluids will be changed to D5W. Patient has been empirically started on cefepime and has a Wills catheter in place. Patient appears to have good urine output but is unable to follow commands and has been nonverbal during today's assessment. Creatinine was 2.7 on admission three days ago and is now down to 2.4. Patient's baseline creatinine is around 1.3. 12/27 No change in mental status overnight. Temp of 100.2, responded to tylenol [place], remains NPO. Was tachycardic and hypertensvie. Given lopressor IV. 326 Patient was slightly more interactive today he did have NG tube placed yesterday and was restarted on her oral medications. Medications: Reviewed: Yes Vitals/I&O/Wt Last Vital Signs Temp 98.8 F 12/28/24 07:39 Pulse 96 12/28/24 07:39 Resp 17 12/28/24 07:39 BP 157/75 12/28/24 07:39 Pulse Ox 96 12/28/24 07:39 O2 Del Method Nasal Cannula 12/28/24 07:39 O2 Flow Rate 1 12/28/24 04:00 12/27/24 12/28/24 12/28/24 22:59 06:59 14:59 Intake Total 50 / 997.5 1000 / 1997.5 Output Total 750 / 750 600 / 1350 Balance -700 / 247.5 400 / 647.5 Weight last 48 hrs Weight 52.333 kg Weight 99.79 kg Physical Exam 2 Narrative: On examination, General: No acute distress - NG in place HEENT: PERRLA, pupils bilaterally equal and reactive, pallors not present CVS heart rate and rhythm are regular. Chest is clear to auscultation bilaterally, with slightly decreased breath sounds at the bases. Abd: Soft, NT, ND : Wills No edema was noted in the lower extremities. Urinary Catheter Management: Wills: Cath Placed During This Visit: yes Reason for Continuing Indwelling Catheter: Assist Healing of Perineal & Sacral Wounds- Incontinent Patients Urinary Catheter Date of Insertion: 12/24/24 Urinary Catheter Time of Insertion: 21:00 Data 12/28/24 10:13 12/28/24 10:13 Micro: Microbiology 12/24/24 11:22 Blood Culture - Final Blood Escherichia coli 12/26/24 04:40 Blood Culture - Preliminary Blood NEGATIVE TO DATE A&P Assessment and plan (1) Acute cystitis: (2) Altered mental status: (3) JEIMY (acute kidney injury): Plan Altered Mental Status - Likely multi-factorial etiology including urinary tract infection, electrolyte imbalance, renal failure and underlying advanced dementia. - Patient has not been very response. Does not take any oral intake. - Son noted prior history of traumatic brain injury after which patient was not able to tolerate oral intake and required PEG tube. - NG tube was placed and she was restarted on her parkinson meds. Son today stated she had a similar change in mental status as well in the past when she was off her parkinson meds and once resumed it had taken her a few days to return to baseline. This time however it is multifactorial given infection and renal failure Differential Diagnoses: 1. Urinary tract infection with bacteremia 2. Delirium secondary to acute kidney injury and electrolyte imbalance 3. Progression of Parkinson - had not been able to take any meds Plan: 1. May need to consult with neurology 2. Treating infection as noted below 3. Correcting lytes and renal function 4. NG in place. To remain NPO for now Urinary Tract Infection with E-coli Bacteremia - Blood cultures positive for E. coli in 3/4 bottles - Urine culture showing E. coli and proteus - Urine is susceptible to cefepime. Renally dosing - Fever curve improving with T-Max of 99 overnight - Receiving tylenol OK Plan: 1. Continue empiric antibiotic therapy with cefepime, Will need to adjust the dose based on her renal function 2. Follow up on repeat blood culture. Acute Kidney Injury on Chronic Kidney Disease - Baseline creatinine around 1.3 - Creatinine was 2.7 on admission three days ago, now down to 1.9 - Good urine output noted - Renal US - no hydronephrosis - On LR at 75 cc/hr - Wills in place Plan: 1. No change to management Hypernatremia - improved. - Sodium level increased to 153. Started on D5w. Na improved to 148. - NG tubed placed. Plan: 1. Free h20 via NG tube 2. Monitor bmp Parkinson's Disease and Advanced Dementia - Baseline cognitive impairment with limited verbal communication - Home meds: Sinemet TID - resumed on Amantadine 100 mg daily Plan: 1. Restarted on her neuro meds on after NG placement 2. May consider neurology consult Hypertensive / Tachycardia - Improved - Hr has been 110 to 130s, with elevated pressure initially now better - Possible in response to acute illness, fevers and inablity to take her antihypertensives - Home meds: Metoprolol 25 mg BID Norvasc 5 mg daily Hydralazine 100 mg TID Plan: 1. Continue her home meds as ordered Diabetes Mellitus with hyperglycemia 0 - now improved off d5 - Currently on Lantus 50 units qpm - Sliding scale insulin Plan: 1.No change to current regimen 2. Continue to titrate to reach goal of < 200 DVT prophylaxis - Heparin 5000 units q12hr PDMP PDMP Reviewed: Not Reviewed Attestations 2 Medical Necessity Statement*: E.c sonya bacteremia of urinary source, await sensitivity, IVF , monitor cr Coding Level of Care Code Acute Code for Chg Fwd Diagnoses Acute cystitis N30.00 Altered mental status R41.82 JEIMY (acute kidney injury) N17.9
[2024-12-28 08:37] LABS: Glucose Point of Care 215 mg/dL (70-110)
[2024-12-28] MEDS: hyDRALAzine 50 mg Tablet 100 MG PO (09:34)
[2024-12-28] MEDS: pantoprazole DR 40 mg Tablet PO (09:34)
[2024-12-28] MEDS: carbidopa-levodopa ER 50-200mg Tablet 1 EACH PO ×2 (09:35→11:49)
[2024-12-28] MEDS: amlodipine 5 mg Tablet PO (09:35)
[2024-12-28] MEDS: insulin lispro 100 unit/1 mL SUBCUT ×3 (09:36→21:46)
[2024-12-28] MEDS: metoprolol tartrate 25 mg Tablet PO (09:36)
[2024-12-28 10:24] LABS: Basophils % 0.5 %; Eosinophils # 0.3 10^3/uL (0.0-0.8); Eosinophils % 3.3 %; Hematocrit 34.6 % (36-47); Lymphocytes # 1.2 10^3/uL (0.8-4.8); Lymphocytes % 13.7 %; Mean Corpuscular HGB Conc 30.6 g/dL (30-55); Mean Corpuscular Hemoglobin 25.6 pg (27-33); Mean Corpuscular Volume 83.6 fl (85-98); Mean Platelet Volume 11.1 fL (7.4-10.4); Monocytes # 0.7 10^3/uL (0.2-0.9); Neutrophils # 6.14 10^3/uL (1.8-7.7); Neutrophils % 73.1 %; Nucleated Red Blood Cells % 0 %; Platelet Count 193 10^3/cmm (157-399); Red Blood Count 4.14 10^6/uL (3.85-5.65); Red Cell Distribution Width 17.8 % (12.1-15.1)
[2024-12-28 10:43] LABS: Blood Urea Nitrogen 40 mg/dL (8-23); Calcium 8.1 mg/dL (8.5-10.5); Carbon Dioxide 19 mmol/L (22-29); Chloride 116 mmol/L (98-107); Creatinine Clr Calc Pharmacy 17.1096; Glucose 214 mg/dL (65-115); Osmolality Calculated 322 mOsm/kg (285-295); Sodium 148 mmol/L (136-145)
[2024-12-28 10:47] LABS: Anion Gap 16.7 (5-19); Potassium 3.7 mmol/L (3.5-5.1)
[2024-12-28 11:00] LABS: Glucose Point of Care 216 mg/dL (70-110)
[2024-12-28 11:08] LABS: Slide Review Slide Review Perform
--- NOTE | 2024-12-28 11:43 | PC.SOCIAL ---
IMM Update pg 2 of IMM updated and reviewed w/ patient. Copy provided and copy dated, initialed and placed in chart.
--- NOTE | 2024-12-28 11:53 | PC.NURSE ---
meds given with 20 ml of water then flushed with 60 ml
[2024-12-28] MEDS: lanolin oint 7 gm 1 APPLIC TOPICAL (14:32)
[2024-12-28] MEDS: hyDRALAzine 50 mg Tablet 100 MG NG-TUBE ×2 (14:47→20:13)
--- NOTE | 2024-12-28 16:22 | PC.NURSE ---
Pt med was dissolved in 20 ml of water, and administered in NG tube. NG was flushed with 60 ml of water afterwards
[2024-12-28 17:00] LABS: Glucose Point of Care 121 mg/dL (70-110)
[2024-12-28] MEDS: cefepime 1,000 mg SDV 1000 MG IVP (17:46)
[2024-12-28] MEDS: carbidopa-levodopa 25-100mg Tablet 2 EACH NG-TUBE (17:47)
[2024-12-28] MEDS: metoprolol tartrate 25 mg Tablet NG-TUBE (17:47)
[2024-12-28] MEDS: AMANTADINE HCL 100 MG 100 EACH PO (17:48)
[2024-12-28] MEDS: insulin glargine 100 units/1 mL 50 UNIT SUBCUT (17:48)
[2024-12-28 20:12] LABS: Glucose Point of Care 153 mg/dL (70-110)
[2024-12-28] MEDS: acetaminophen 325 mg Tablet 650 MG NG-TUBE (20:13)
--- NOTE | 2024-12-28 20:51 | PC.NURSE ---
patient resting in bed with eyes closed. will open eyes to sound, will not speak. patient running a low grade fever of 99.6 axillary, 650mg of tylenol given per ng tube, also evening meds given per ng tube, meds mixed with 30ml of water and tube flushed with 50ml of water. patient tolerated well. will recheck fever in one hour
[2024-12-29] VITALS (12 sets, daily range): BP systolic 109–147; BP diastolic 57–72; PULSE 69–83; RESP 14–18; TEMP 36.7–37.5; O2SAT 94–96
[2024-12-29] MEDS: acetaminophen 650 mg Supp PR (00:57)
[2024-12-29] MEDS: sodium chloride 0.45% 1,000 ML 75 ML IV ×2 (03:48→18:27)
[2024-12-29 05:37] LABS: Basophils % 0.4 %; Eosinophils # 0.3 10^3/uL (0.0-0.8); Eosinophils % 3.4 %; Hematocrit 33.7 % (36-47); Lymphocytes # 1.4 10^3/uL (0.8-4.8); Lymphocytes % 14.4 %; Mean Corpuscular Hemoglobin 25.7 pg (27-33); Mean Corpuscular Volume 85.8 fl (85-98); Mean Platelet Volume 10.6 fL (7.4-10.4); Monocytes # 0.8 10^3/uL (0.2-0.9); Monocytes % 7.7 %; Neutrophils # 6.94 10^3/uL (1.8-7.7); Neutrophils % 71.5 %; Nucleated Red Blood Cells % 0 %; Platelet Count 204 10^3/cmm (157-399); Red Blood Count 3.93 10^6/uL (3.85-5.65); Red Cell Distribution Width 17.8 % (12.1-15.1); White Blood Count 9.71 10^3/uL (3.29-11.43)
[2024-12-29] MEDS: heparin 5,000 unit/mL INJ 1 mL 5000 UNIT SUBCUT ×2 (05:45→18:28)
[2024-12-29 05:55] LABS: Blood Urea Nitrogen 37 mg/dL (8-23); Calcium 7.5 mg/dL (8.5-10.5); Carbon Dioxide 17 mmol/L (22-29); Chloride 116 mmol/L (98-107); Creatinine Clr Calc Pharmacy 15.8506; Glucose 110 mg/dL (65-115); Osmolality Calculated 311 mOsm/kg (285-295); Sodium 146 mmol/L (136-145)
[2024-12-29 05:56] LABS: Anion Gap 16.6 (5-19); Potassium 3.6 mmol/L (3.5-5.1)
[2024-12-29 06:15] LABS: Slide Review Slide Review Perform
[2024-12-29 06:41] LABS: Glucose Point of Care 123 mg/dL (70-110)
[2024-12-29] MEDS: carbidopa-levodopa 25-100mg Tablet 2 EACH NG-TUBE ×3 (08:07→18:24)
[2024-12-29] MEDS: hyDRALAzine 50 mg Tablet 100 MG NG-TUBE ×3 (08:19→20:52)
[2024-12-29] MEDS: metoprolol tartrate 25 mg Tablet NG-TUBE ×2 (08:19→18:29)
[2024-12-29] MEDS: pantoprazole DR 40 mg Tablet PO (08:20)
[2024-12-29] MEDS: amlodipine 5 mg Tablet NG-TUBE (08:20)
[2024-12-29] MEDS: AMANTADINE HCL 100 MG 100 EACH PO (08:22)
[2024-12-29 10:46] LABS: Glucose Point of Care 135 mg/dL (70-110)
--- NOTE | 2024-12-29 13:22 | P.PN_ITS ---
Subjective 2 Subjective: 84-year-old female with a past medical h istory of Parkinson's disease, advanced dementia, recurrent urinary tract infections (UTIs), and chronic kidney disease presents with altered mental status. Patient resides in a skilled nursing and typically speaks only a few short words. She is able to self-feed and ambulate with assistance. She was found to have blood cultures positive for E. coli in three of four bottles. Sensitivity is pending. Urine culture shows gram- negative rods, presumed to be E. coli. Patient has also developed an acute kidney injury. She has been NPO and on normal saline. Today, her sodium level increased to 153. Intravenous fluids will be changed to D5W. Patient has been empirically started on cefepime and has a Wills catheter in place. Patient appears to have good urine output but is unable to follow commands and has been nonverbal during today's assessment. Creatinine was 2.7 on admission three days ago and is now down to 2.4. Patient's baseline creatinine is around 1.3. 12/27 No change in mental status overnight. Temp of 100.2, responded to tylenol [place], remains NPO. Was tachycardic and hypertensvie. Given lopressor IV. 12/28 Patient was slightly more interactive today he did have NG tube placed yesterday and was restarted on her oral medications. 12/29 Patient had NG tube in place. she Medications: Reviewed: Yes Vitals/I&O/Wt Last Vital Signs Temp 98.6 F 12/29/24 11:15 Pulse 77 12/29/24 11:15 Resp 16 12/29/24 11:15 BP 147/72 12/29/24 11:15 Pulse Ox 95 12/29/24 11:15 O2 Del Method Nasal Cannula 12/29/24 11:15 O2 Flow Rate 1 12/29/24 11:15 12/28/24 12/29/24 12/29/24 22:59 06:59 14:59 Intake Total 1090 / 1935 Output Total 700 / 700 600 / 600 Balance -700 / 145 1090 / 1235 -600 / -600 Weight last 48 hrs Weight 55.384 kg Weight 52.333 kg Physical Exam 2 Narrative: On examination, General: No acute distress - NG in place HEENT: PERRLA, pupils bilaterally equal and reactive, pallors not present CVS heart rate and rhythm are regular. Chest is clear to auscultation bilaterally, with slightly decreased breath sounds at the bases. Abd: Soft, NT, ND : Wills No edema was noted in the lower extremities. Urinary Catheter Management: Wills: Cath Placed During This Visit: yes Reason for Continuing Indwelling Catheter: Other Urinary Catheter Date of Insertion: 12/24/24 Urinary Catheter Time of Insertion: 21:00 Data 12/29/24 04:26 12/29/24 04:26 A&P Assessment and plan (1) Acute cystitis: (2) Altered mental status: (3) JEIMY (acute kidney injury): Plan Altered Mental Status - Likely multi-factorial etiology including urinary tract infection, electrolyte imbalance, renal failure and underlying advanced dementia. - Patient has not been very response. Does not take any oral intake. - Son noted prior history of traumatic brain injury after which patient was not able to tolerate oral intake and required PEG tube. - NG tube was placed and she was restarted on her parkinson meds. Son today stated she had a similar change in mental status as well in the past when she was off her parkinson meds and once resumed it had taken her a few days to return to baseline. This time however it is multifactorial given infection and renal failure Plan: 1. No change to current management - Slowly improving 2. Treating infection as noted below 3. Correcting lytes and renal function 4. NG in place. Will initiate tube feeding today Sepsis POA due to Urinary Tract Infection with E-coli Bacteremia - Blood cultures positive for E. coli in 3/4 bottles - Urine culture showing E. coli and proteus - Has been on Cefepime - Fever curve improving - Receiving tylenol FL Plan: 1. Change cefepime to Rocehin 1g daily - plan for 14 days of therapy 2. Follow up on repeat blood culture which so far have been negative Acute Kidney Injury on Chronic Kidney Disease - Baseline creatinine around 1.3 - Creatinine was 2.7 on admission three days ago, now down to 1.9 ->2.1 - Good urine output noted - Renal US - no hydronephrosis - Wills in place Plan: 1.On LR at 75 cc/hr - Decrease as increase in tube feeding Hypernatremia - improved. - Sodium level increased to 153. Started on D5w. Na improved to 146. - NG tubed placed. Plan: 1. Free h20 via NG tube 2. Monitor bmp Parkinson's Disease and Advanced Dementia - Baseline cognitive impairment with limited verbal communication - Home meds: Sinemet TID - resumed on Amantadine 100 mg daily - unable to obtain Plan: 1. Continue on her neuro meds on after NG placement 2. May consider neurology consult Hypertensive / Tachycardia - Improved - Hr has been 110 to 130s, with elevated pressure initially now better - Possible in response to acute illness, fevers and inablity to take her antihypertensives - Home meds: Metoprolol 25 mg BID Norvasc 5 mg daily Hydralazine 100 mg TID Plan: 1. Continue her home meds as ordered Diabetes Mellitus with hyperglycemia 0 - now improved off d5 - Currently on Lantus 50 units qpm - Sliding scale insulin Plan: 1.No change to current regimen 2. Continue to titrate to reach goal of < 200 DVT prophylaxis - Heparin 5000 units q12hr PDMP PDMP Reviewed: Not Reviewed Attestations 2 Medical Necessity Statement*: E.c sonya bacteremia of urinary source, await sensitivity, IVF , monitor cr Coding Level of Care Code Acute Code for Chg Fwd Diagnoses Acute cystitis N30.00 Altered mental status R41.82 JEIMY (acute kidney injury) N17.9
[2024-12-29] MEDS: cefTRIAXone 1,000 mg SDV 1000 MG IVP (15:39)
[2024-12-29 17:05] LABS: Glucose Point of Care 117 mg/dL (70-110)
[2024-12-29] MEDS: insulin glargine 100 units/1 mL 50 UNIT SUBCUT (18:28)
[2024-12-29 20:25] LABS: Glucose Point of Care 90 mg/dL (70-110)
[2024-12-30] VITALS (8 sets, daily range): BP systolic 107–131; BP diastolic 52–66; PULSE 71–92; RESP 14–18; TEMP 36.5–36.9; O2SAT 92–97
[2024-12-30 05:30] LABS: Basophils % 0.3 %; Eosinophils # 0.3 10^3/uL (0.0-0.8); Eosinophils % 2.7 %; Hematocrit 35.6 % (36-47); Lymphocytes # 1.3 10^3/uL (0.8-4.8); Lymphocytes % 11.1 %; Mean Corpuscular HGB Conc 29.5 g/dL (30-55); Mean Corpuscular Hemoglobin 25.4 pg (27-33); Mean Corpuscular Volume 86.2 fl (85-98); Mean Platelet Volume 10.5 fL (7.4-10.4); Monocytes # 0.6 10^3/uL (0.2-0.9); Neutrophils # 9.02 10^3/uL (1.8-7.7); Neutrophils % 78.6 %; Nucleated Red Blood Cells % 0 %; Platelet Count 251 10^3/cmm (157-399); Red Blood Count 4.13 10^6/uL (3.85-5.65); Red Cell Distribution Width 17.7 % (12.1-15.1); White Blood Count 11.49 10^3/uL (3.29-11.43)
[2024-12-30 05:55] LABS: Anion Gap 19.7 (5-19); Blood Urea Nitrogen 32 mg/dL (8-23); Calcium 7.4 mg/dL (8.5-10.5); Carbon Dioxide 16 mmol/L (22-29); Chloride 115 mmol/L (98-107); Creatinine Clr Calc Pharmacy 17.9204; Glucose 59 mg/dL (65-115); Osmolality Calculated 309 mOsm/kg (285-295); Potassium 3.7 mmol/L (3.5-5.1); Sodium 147 mmol/L (136-145)
[2024-12-30] MEDS: sodium chloride 0.45% 1,000 ML 75 ML IV (06:15)
--- NOTE | 2024-12-30 06:44 | PC.NURSE ---
glucose was 68 gave juice through NG tube
[2024-12-30 06:55] LABS: Glucose Point of Care 68 mg/dL (70-110)
[2024-12-30] MEDS: hyDRALAzine 50 mg Tablet 100 MG NG-TUBE (08:51)
[2024-12-30] MEDS: AMANTADINE HCL 100 MG 100 EACH PO (08:52)
[2024-12-30] MEDS: carbidopa-levodopa 25-100mg Tablet 2 EACH NG-TUBE ×3 (08:52→17:31)
[2024-12-30] MEDS: heparin 5,000 unit/mL INJ 1 mL 5000 UNIT SUBCUT ×2 (08:52→21:20)
[2024-12-30] MEDS: metoprolol tartrate 25 mg Tablet NG-TUBE ×2 (08:52→17:31)
[2024-12-30] MEDS: amlodipine 5 mg Tablet NG-TUBE (08:52)
[2024-12-30] MEDS: pantoprazole DR 40 mg Tablet PO (08:52)
[2024-12-30 09:49] LABS: Glucose Point of Care 76 mg/dL (70-110)
--- NOTE | 2024-12-30 10:13 | PC.SOCIAL ---
Addendum entered by Yumiko Dudley RN 12/30/24 10:13: IMM Updated w/ patients daughter, Radha. Copy provided and copy dated, initialed and placed in chart. Original Note: IMM Updated pg 2 of IMM updated and reviewed w/ patient. Copy provided and copy dated, initialed and placed in chart.
[2024-12-30] MEDS: dextrose 5%-sod chloride 0.45% 1,000 ML 30 ML IV (11:11)
--- NOTE | 2024-12-30 11:51 | P.PN_ITS ---
Subjective 2 Subjective: 84-year-old female with a past medical h istory of Parkinson's disease, advanced dementia, recurrent urinary tract infections (UTIs), and chronic kidney disease presents with altered mental status. Patient resides in a half-way and typically speaks only a few short words. She is able to self-feed and ambulate with assistance. She was found to have blood cultures positive for E. coli in three of four bottles. Sensitivity is pending. Urine culture shows gram- negative rods, presumed to be E. coli. Patient has also developed an acute kidney injury. She has been NPO and on normal saline. Today, her sodium level increased to 153. Intravenous fluids will be changed to D5W. Patient has been empirically started on cefepime and has a Wills catheter in place. Patient appears to have good urine output but is unable to follow commands and has been nonverbal during today's assessment. Creatinine was 2.7 on admission three days ago and is now down to 2.4. Patient's baseline creatinine is around 1.3. 12/27 No change in mental status overnight. Temp of 100.2, responded to tylenol [place], remains NPO. Was tachycardic and hypertensvie. Given lopressor IV. 12/28 Patient was slightly more interactive today he did have NG tube placed yesterday and was restarted on her oral medications. 12/29 Patient had NG tube in place 12/30 Patient overnight had become hypoglycemic at which point she was given orange juice via NG. Shortly after she did have an episode of emesis. NG was briefly hooked up to suction however this had resolved. She has been becoming slightly more responsive in the past few days. Has not had any fevers in leukocytosis to 11 today. Medications: Reviewed: Yes Vitals/I&O/Wt Last Vital Signs Temp 97.9 F 12/30/24 08:00 Pulse 74 12/30/24 08:00 Resp 16 12/30/24 08:00 BP 131/66 12/30/24 08:00 Pulse Ox 94 12/30/24 08:00 O2 Del Method Nasal Cannula 12/30/24 08:00 O2 Flow Rate 1 12/29/24 23:27 12/29/24 12/30/24 12/30/24 22:59 06:59 14:59 Intake Total 1000 / 1000 885 / 1885 Output Total 400 / 1000 400 / 1400 Balance 600 / 0 485 / 485 Weight last 48 hrs Weight 51.347 kg Weight 55.384 kg Physical Exam 2 Narrative: On examination, General: No acute distress - NG in place HEENT: PERRLA, pupils bilaterally equal and reactive, pallors not present CVS heart rate and rhythm are regular. Chest is clear to auscultation bilaterally, with slightly decreased breath sounds at the bases. Abd: Soft, NT, ND : Wills No edema was noted in the lower extremities. Urinary Catheter Management: Wills: Cath Placed During This Visit: yes Reason for Continuing Indwelling Catheter: Accurate Measurement of Urinary Output in Critically Ill Patients Urinary Catheter Date of Insertion: 12/24/24 Urinary Catheter Time of Insertion: 21:00 Data 12/30/24 04:34 12/30/24 04:34 A&P Assessment and plan (1) Acute cystitis: (2) Altered mental status: (3) JEIMY (acute kidney injury): Plan Altered Mental Status - Likely multi-factorial etiology including urinary tract infection, electrolyte imbalance, renal failure and underlying advanced dementia. - Patient has not been very response. Does not take any oral intake. - Son noted prior history of traumatic brain injury after which patient was not able to tolerate oral intake and required PEG tube. - NG tube was placed and she was restarted on her parkinson meds. Son today stated she had a similar change in mental status as well in the past when she was off her parkinson meds and once resumed it had taken her a few days to return to baseline. This time however it is multifactorial given infection and renal failure Plan: 1. No change to current management - Slowly improving 2. Treating infection as noted below 3. Correcting lytes and renal function 4. NG in place. Will initiate tube feeding today Sepsis POA due to Urinary Tract Infection with E-coli Bacteremia - Blood cultures positive for E. coli in 3/4 bottles - Urine culture showing E. coli and proteus - Has been on Cefepime - Transitioned to Rocephin on . - Afebrile - Today WBC did start to increase to 11. Plan: 1. Changed cefepime to Rocephin 1g daily on . Will need to closely monitor due increase in leukocytosis. 2. Obtain repeat culture if paitent becomes febrile. Acute Kidney Injury on Chronic Kidney Disease - Baseline creatinine around 1.3 - Creatinine was 2.7 on admission three days ago, now down to 1.9 ->1.8 - Good urine output noted - Renal US - no hydronephrosis - Wills in place Plan: 1. On D5 0.45, will decrease rate to 50. 2. Wean off today if started on tube feeding and tolerating Hypernatremia - improved. - Sodium level increased to 153. Started on D5w. Na improved to 147 - NG tubed placed. Plan: 1. Free h20 via NG tube today 2. Monitor bmp Parkinson's Disease and Advanced Dementia - Baseline cognitive impairment with limited verbal communication - Home meds: Sinemet TID - resumed on Amantadine 100 mg daily - unable to obtain Plan: 1. Continue on her neuro meds on after NG placement 2. May consider neurology consult Hypertension - Hr has been 110 to 130s, with elevated pressure initially now better - Possible in response to acute illness, fevers and inablity to take her antihypertensives - Home meds: Metoprolol 25 mg BID Norvasc 5 mg daily Hydralazine 100 mg TID Plan: 1. Continue her home meds as ordered Diabetes Mellitus now hypoglycemic - Currently on Lantus 50 units qpm - decrease dose as patient is NPO - Sliding scale insulin Plan: 1.No change to current regimen 2. Continue to titrate to reach goal of < 200 DVT prophylaxis - Heparin 5000 units q12hr PDMP PDMP Reviewed: Not Reviewed Attestations 2 Medical Necessity Statement*: E.c sonya bacteremia of urinary source, await sensitivity, IVF , monitor cr Coding Level of Care Code Acute Code for Chg Fwd Diagnoses Acute cystitis N30.00 Altered mental status R41.82 JEIMY (acute kidney injury) N17.9
--- NOTE | 2024-12-30 12:32 | PC.NUTR ---
Consult for TF recommendations received. Consider beginning Glucerna 1.5 @15mls/hr and increasing 10mls/hr Q8H (as tolerated) to goal rate of 25mls/hr with FWF 80mls Q4H or per MD discretion.
[2024-12-30 13:06] LABS: Glucose Point of Care 73 mg/dL (70-110)
[2024-12-30] MEDS: cefTRIAXone 1,000 mg SDV 1000 MG IVP (14:28)
[2024-12-30 16:47] LABS: Glucose Point of Care 79 mg/dL (70-110)
[2024-12-30 21:05] LABS: Glucose Point of Care 114 mg/dL (70-110)
[2024-12-31] VITALS (11 sets, daily range): BP systolic 109–150; BP diastolic 63–67; PULSE 77–90; RESP 15–18; TEMP 37–38.8; O2SAT 92–95
[2024-12-31 05:24] LABS: Basophils % 0.4 %; Eosinophils # 0.2 10^3/uL (0.0-0.8); Eosinophils % 2.9 %; Hematocrit 33.9 % (36-47); Lymphocytes # 0.7 10^3/uL (0.8-4.8); Lymphocytes % 9.1 %; Mean Corpuscular HGB Conc 29.2 g/dL (30-55); Mean Corpuscular Hemoglobin 25.2 pg (27-33); Mean Corpuscular Volume 86.3 fl (85-98); Mean Platelet Volume 11.1 fL (7.4-10.4); Monocytes # 0.4 10^3/uL (0.2-0.9); Monocytes % 4.9 %; Neutrophils # 6.32 10^3/uL (1.8-7.7); Neutrophils % 80.8 %; Nucleated Red Blood Cells % 0.5 %; Platelet Count 240 10^3/cmm (157-399); Red Blood Count 3.93 10^6/uL (3.85-5.65); Red Cell Distribution Width 17.6 % (12.1-15.1); White Blood Count 7.82 10^3/uL (3.29-11.43)
[2024-12-31 05:42] LABS: Anion Gap 14.5 (5-19); Blood Urea Nitrogen 33 mg/dL (8-23); Calcium 7.4 mg/dL (8.5-10.5); Carbon Dioxide 18 mmol/L (22-29); Chloride 115 mmol/L (98-107); Creatinine Clr Calc Pharmacy 19.6413; Glucose 188 mg/dL (65-115); Osmolality Calculated 310 mOsm/kg (285-295); Potassium 3.5 mmol/L (3.5-5.1); Sodium 144 mmol/L (136-145)
[2024-12-31 06:38] LABS: Glucose Point of Care 202 mg/dL (70-110)
[2024-12-31] MEDS: metoprolol tartrate 25 mg Tablet NG-TUBE ×2 (07:30→18:17)
[2024-12-31] MEDS: carbidopa-levodopa 25-100mg Tablet 2 EACH NG-TUBE ×3 (08:26→18:16)
[2024-12-31] MEDS: pantoprazole DR 40 mg Tablet PO (08:27)
[2024-12-31] MEDS: amlodipine 5 mg Tablet NG-TUBE (08:27)
[2024-12-31] MEDS: hyDRALAzine 50 mg Tablet 100 MG NG-TUBE ×3 (08:27→21:51)
[2024-12-31] MEDS: insulin lispro 100 unit/1 mL SUBCUT ×3 (08:30→21:51)
[2024-12-31] MEDS: heparin 5,000 unit/mL INJ 1 mL 5000 UNIT SUBCUT ×2 (08:30→21:51)
[2024-12-31 11:19] LABS: Glucose Point of Care 187 mg/dL (70-110)
[2024-12-31] MEDS: artificial tears Op Soln 15 mL Btl 1 DROP EYE-BOTH (12:14)
--- NOTE | 2024-12-31 13:26 | P.PN_ITS ---
Subjective 2 Subjective: 84-year-old female with a past medical h istory of Parkinson's disease, advanced dementia, recurrent urinary tract infections (UTIs), and chronic kidney disease presents with altered mental status. Patient resides in a custodial and typically speaks only a few short words. She is able to self-feed and ambulate with assistance. She was found to have blood cultures positive for E. coli in three of four bottles. Sensitivity is pending. Urine culture shows gram- negative rods, presumed to be E. coli. Patient has also developed an acute kidney injury. She has been NPO and on normal saline. Today, her sodium level increased to 153. Intravenous fluids will be changed to D5W. Patient has been empirically started on cefepime and has a Wills catheter in place. Patient appears to have good urine output but is unable to follow commands and has been nonverbal during today's assessment. Creatinine was 2.7 on admission three days ago and is now down to 2.4. Patient's baseline creatinine is around 1.3. 12/27 No change in mental status overnight. Temp of 100.2, responded to tylenol [place], remains NPO. Was tachycardic and hypertensvie. Given lopressor IV. 12/28 Patient was slightly more interactive today he did have NG tube placed yesterday and was restarted on her oral medications. 12/29 Patient had NG tube in place 12/30 Patient overnight had become hypoglycemic at which point she was given orange juice via NG. Shortly after she did have an episode of emesis. NG was briefly hooked up to suction however this had resolved. She has been becoming slightly more responsive in the past few days. Has not had any fevers in leukocytosis to 11 today. 329 Overnight patient did not have any new clinical events. She was started on tube feed yesterday which she has been tolerating. She has not had any recurrence of vomiting. She has been more responsive today to both staff and family at bedside. Continues to be afebrile. Medications: Reviewed: Yes Vitals/I&O/Wt Last Vital Signs Temp 99.0 F 12/31/24 11:12 Pulse 84 12/31/24 11:12 Resp 16 12/31/24 11:12 BP 121/64 12/31/24 11:12 Pulse Ox 95 12/31/24 11:12 O2 Del Method Room Air 12/31/24 11:12 O2 Flow Rate 1 12/30/24 13:42 12/30/24 12/31/24 12/31/24 22:59 06:59 14:59 Intake Total 0 / 530 Output Total 600 / 600 550 / 1150 Balance -600 / -70 -550 / -620 Weight last 48 hrs Weight 55.792 kg Weight 51.347 kg Physical Exam 2 Narrative: On examination, General: No acute distress - NG in place HEENT: PERRLA, pupils bilaterally equal and reactive, pallors not present CVS heart rate and rhythm are regular. Chest is clear to auscultation bilaterally, with slightly decreased breath sounds at the bases. Abd: Soft, NT, ND : Wills No edema was noted in the lower extremities. Urinary Catheter Management: Wills: Cath Placed During This Visit: yes Reason for Continuing Indwelling Catheter: Accurate Measurement of Urinary Output in Critically Ill Patients Urinary Catheter Date of Insertion: 12/24/24 Urinary Catheter Time of Insertion: 21:00 Data 12/31/24 04:57 12/31/24 04:57 Micro: Microbiology 12/26/24 04:40 Blood Culture - Final Blood NO GROWTH AFTER 5 DAYS 12/24/24 11:25 Blood Culture - Final Blood Escherichia coli A&P Assessment and plan (1) Acute cystitis: (2) Altered mental status: (3) JEIMY (acute kidney injury): Plan Altered Mental Status - Likely multi-factorial etiology including urinary tract infection, electrolyte imbalance, renal failure and underlying advanced dementia. - Patient had not been very response. Does not take any oral intake. - Son noted prior history of traumatic brain injury after which patient was not able to tolerate oral intake and required PEG tube. - NG tube was placed and she was restarted on her parkinson meds. Son today stated she had a similar change in mental status as well in the past when she was off her parkinson meds and once resumed it had taken her a few days to return to baseline. This time however it is multifactorial given infection and renal failure. -She is starting to improve as far as her mental status towards baseline. Plan: 1. Continue to monitor mental status. When she is more alert and able to follow commands will repeat speech therapy evaluation. 2. Continue management of below problems as well. Sepsis POA due to Urinary Tract Infection with E-coli Bacteremia - Blood cultures positive for E. coli in 3/4 bottles - Urine culture showing E. coli and proteus - Has been on Cefepime - Transitioned to Rocephin on . - Afebrile -leukocytosis also resolved. No longer febrile. Plan: 1. Continue IV Rocephin for now. May be able to transition to oral antibiotics if patient is able to take oral meds. Plan for 14 days of antibiotics. 2. Obtain repeat culture if paitent becomes febrile. Acute Kidney Injury on Chronic Kidney Disease - Baseline creatinine around 1.3 - Creatinine was 2.7 on admission three days ago, now down to 1.9 ->1.7 - Good urine output noted - Renal US - no hydronephrosis - Wills in place Plan: 1. DC IV fluids 2. Repeat labs in a.m. 3. Will attempt to DC Wills soon. Hypernatremia -resolved - Sodium level increased to 153. Started on D5w. Na improved to 147 - NG tubed placed. Started on free water flushes Plan: 1. Monitor bmp Parkinson's Disease and Advanced Dementia - Baseline cognitive impairment with limited verbal communication - Home meds: Sinemet TID - resumed on Amantadine 100 mg daily - unable to obtain Plan: 1. Continue on her neuro meds on after NG placement 2. May consider neurology consult Hypertension - Hr has been 110 to 130s, with elevated pressure initially now better - Possible in response to acute illness, fevers and inablity to take her antihypertensives - Home meds: Metoprolol 25 mg BID Norvasc 5 mg daily Hydralazine 100 mg TID Plan: 1. Continue her home meds as ordered Diabetes Mellitus now hypoglycemic - Currently on Lantus 50 units qpm - decrease dose as patient is NPO. This was decreased to 20 units at bedtime due to hypoglycemic episodes. - Sliding scale insulin Plan: 1. No recurrence of hypoglycemic episodes. DVT prophylaxis - Heparin 5000 units q12hr PDMP PDMP Reviewed: Not Reviewed Attestations 2 Medical Necessity Statement*: E.c sonya bacteremia of urinary source, await sensitivity, IVF , monitor cr Coding Level of Care Code Acute Code for Chg Fwd Diagnoses Acute cystitis N30.00 Altered mental status R41.82 JEIMY (acute kidney injury) N17.9
[2024-12-31] MEDS: cefTRIAXone 1,000 mg SDV 1000 MG IVP (15:00)
--- NOTE | 2024-12-31 15:54 | XRR_ITS ---
PROCEDURE INFORMATION: Exam: XR Chest Exam date and time: 12/31/2024 3:23 PM Age: 84 years old Clinical indication: Device placement; Ng tube; Prior surgery; Surgery date: 6+ months; Surgery type: Loop recorder; Additional info: Verify ng tube placement TECHNIQUE: Imaging protocol: Radiologic exam of the chest. Views: 1 view. COMPARISON: CR XR chest 1V portable [id number] 12/27/2024 12:15 PM FINDINGS: Tubes, catheters and devices: Nasogastric tube tip is in the distal body of the stomach. Loop recorder is again seen. Lungs: Left basilar/retrocardiac airspace opacity appears increased. Pleural spaces: Unremarkable. No pleural effusion. No pneumothorax. Heart/Mediastinum: Unremarkable. No cardiomegaly. Bones/joints: Unremarkable. XR/XR chest 1V portable [id number] IMPRESSION: Left basilar/retrocardiac airspace opacity appears increased.
[2024-12-31 17:28] LABS: Glucose Point of Care 140 mg/dL (70-110)
[2024-12-31] MEDS: insulin glargine 100 units/1 mL 20 UNIT SUBCUT (17:56)
[2024-12-31 21:15] LABS: Glucose Point of Care 203 mg/dL (70-110)
[2024-12-31] MEDS: trazodone 50 mg Tablet PO (21:51)
--- NOTE | 2024-12-31 22:00 | PC.NURSE ---
Pt son is at bedside, informed him of the NO for melatonin and trazodone. Pt's son refused for his mother to receive the melatonin stating that she had a bad reaction to that . Physician notified.
--- NOTE | 2024-12-31 22:20 | PC.NURSE ---
Physician discontinued melatonin at this time.
[2025-01-01] VITALS (10 sets, daily range): BP systolic 129–161; BP diastolic 64–73; PULSE 76–100; RESP 15–18; TEMP 37.2–38.6; O2SAT 92–95
[2025-01-01 06:38] LABS: Glucose Point of Care 243 mg/dL (70-110)
[2025-01-01] MEDS: insulin lispro 100 unit/1 mL SUBCUT ×4 (08:50→21:27)
[2025-01-01] MEDS: pantoprazole DR 40 mg Tablet PO (08:51)
[2025-01-01] MEDS: amlodipine 5 mg Tablet NG-TUBE (08:51)
[2025-01-01] MEDS: hyDRALAzine 50 mg Tablet 100 MG NG-TUBE ×3 (08:51→21:27)
[2025-01-01] MEDS: carbidopa-levodopa 25-100mg Tablet 2 EACH NG-TUBE ×3 (08:51→17:48)
[2025-01-01] MEDS: heparin 5,000 unit/mL INJ 1 mL 5000 UNIT SUBCUT ×2 (08:52→21:27)
[2025-01-01] MEDS: metoprolol tartrate 25 mg Tablet NG-TUBE ×2 (08:52→17:49)
--- NOTE | 2025-01-01 10:14 | XRR_ITS ---
PROCEDURE INFORMATION: Exam: XR Chest Exam date and time: 01/01/2025 4:56 PM Age: 84 years old Clinical indication: Fever; Prior surgery; Surgery date: 6+ months; Surgery type: Loop recorder; Additional info: Fever; Increased AMS TECHNIQUE: Imaging protocol: Radiologic exam of the chest. Views: 1 view. COMPARISON: CR (CHEST, ) 12/31/2024 3:23 PM FINDINGS: Tubes, catheters and devices: Stable metallic recorde/micro pacemaker r device over the anterior chest wall. Enteric tube tip is over the body of the stomach (mid stomach). Lungs: Moderate left basilar atelectasis and/or infiltrate and/or effusion. Pleural spaces: Unremarkable. No pleural effusion. No pneumothorax. Heart/Mediastinum: Unremarkable. No cardiomegaly. Vasculature: Calcification of the thoracic aorta and/or great vessels consistent with atherosclerotic vessel disease. Bones/joints: Unremarkable. XR/XR chest 1V portable [id number] IMPRESSION: 1. Enteric tube tip is over the body of the stomach (mid stomach). 2. Moderate left basilar atelectasis and/or infiltrate and/or effusion.
[2025-01-01 11:12] LABS: Glucose Point of Care 236 mg/dL (70-110)
[2025-01-01] MEDS: acetaminophen 325 mg Tablet 650 MG NG-TUBE (12:21)
--- NOTE | 2025-01-01 13:45 | P.PN_ITS ---
Subjective 2 Subjective: 84-year-old female with a past medical h istory of Parkinson's disease, advanced dementia, recurrent urinary tract infections (UTIs), and chronic kidney disease presents with altered mental status. Patient resides in a custodial and typically speaks only a few short words. She is able to self-feed and ambulate with assistance. She was found to have blood cultures positive for E. coli in three of four bottles. Sensitivity is pending. Urine culture shows gram- negative rods, presumed to be E. coli. Patient has also developed an acute kidney injury. She has been NPO and on normal saline. Today, her sodium level increased to 153. Intravenous fluids will be changed to D5W. Patient has been empirically started on cefepime and has a Wills catheter in place. Patient appears to have good urine output but is unable to follow commands and has been nonverbal during today's assessment. Creatinine was 2.7 on admission three days ago and is now down to 2.4. Patient's baseline creatinine is around 1.3. 12/27 No change in mental status overnight. Temp of 100.2, responded to tylenol NC, remains NPO. Was tachycardic and hypertensvie. Given lopressor IV. 12/28 Patient was slightly more interactive today he did have NG tube placed yesterday and was restarted on her oral medications. 12/29 Patient had NG tube in place 12/30 Patient overnight had become hypoglycemic at which point she was given orange juice via NG. Shortly after she did have an episode of emesis. NG was briefly hooked up to suction however this had resolved. She has been becoming slightly more responsive in the past few days. Has not had any fevers in leukocytosis to 11 today. 12/31 Overnight patient did not have any new clinical events. She was started on tube feed yesterday which she has been tolerating. She has not had any recurrence of vomiting. She has been more responsive today to both staff and family at bedside. Continues to be afebrile. 01/01 Yesterday patient had pulled out her NG tube. This was replaced and patient was restarted on tube feeds. Has not had any respiratory distress. This morning she did have a temperature of 101 however. Mental status had slightly declined compared to yesterday. Did not have any emesis episodes overnight. Does not have any diarrhea. Has had a Wills for some time. Discussed with family regarding care. Medications: Reviewed: Yes Vitals/I&O/Wt Last Vital Signs Temp 100.2 F H 01/01/25 11:17 Pulse 90 01/01/25 11:17 Resp 15 01/01/25 07:52 BP 137/64 01/01/25 11:17 Pulse Ox 95 01/01/25 11:17 O2 Del Method Nasal Cannula 01/01/25 11:17 O2 Flow Rate 2 01/01/25 11:17 12/31/24 01/01/25 01/01/25 22:59 06:59 14:59 Intake Total 100 / 100 421 / 521 Balance 100 / 100 421 / 521 Weight last 48 hrs Weight 52.98 kg Weight 55.792 kg Physical Exam 2 Narrative: On examination, General: No acute distress - NG in place HEENT: PERRLA, pupils bilaterally equal and reactive, pallors not present CVS heart rate and rhythm are regular. Chest is clear to auscultation bilaterally, with slightly decreased breath sounds at the bases. Abd: Soft, NT, ND : Wills No edema was noted in the lower extremities. Urinary Catheter Management: Wills: Cath Placed During This Visit: yes Reason for Continuing Indwelling Catheter: Other Urinary Catheter Date of Insertion: 01/01/25 Urinary Catheter Time of Insertion: 10:30 Data 12/31/24 04:57 12/31/24 04:57 Micro: Microbiology 01/01/25 09:19 Blood Culture - Preliminary Blood SPECIMEN COLLECTED 01/01/25 09:12 Blood Culture - Preliminary Blood SPECIMEN COLLECTED A&P Assessment and plan (1) Acute cystitis: (2) Altered mental status: (3) JEIMY (acute kidney injury): Plan Sepsis POA due to Urinary Tract Infection with E-coli Bacteremia 01/01 - Recurrence of Fever - Possibly L. Pneumonia - aspiration - 12/24 - > Blood cultures positive for E. coli in 3/4 bottles - 12/24-> Urine culture showing E. coli and proteus - Cefepime 12/24 to 12/29 - Transitioned to Rocephin on . to 01/01 -> Zosyn initiated - 01/01 Blood culture x 2 drawn, UA with reflex urine culture sent, chest xray showed increase in left sided infiltrates. ( Has emesis 2 days prior, pulled NG with tube feed running 12/31), Wills was changed. Plan: 1. Given patient's recurrence of fever and evidence of left basilar infiltrates likely to be aspiration from patient's emesis episode 2 days prior. Is likely that this is now the cause of recurrence of her fevers. Will order CBC and BMP for tomorrow morning as well as below. Discontinue Rocephin and transition to Zosyn for broader coverage. Follow-up on blood cultures drawn this morning. Urine analysis with reflex culture was also ordered. Altered Mental Status - Likely multi-factorial etiology including urinary tract infection, electrolyte imbalance, renal failure and underlying advanced dementia. - Patient had not been very response. Does not take any oral intake. - Son noted prior history of traumatic brain injury after which patient was not able to tolerate oral intake and required PEG tube. - NG tube was placed and she was restarted on her parkinson meds. Son today stated she had a similar change in mental status as well in the past when she was off her parkinson meds and once resumed it had taken her a few days to return to baseline. This time however it is multifactorial given infection and renal failure. -She is starting to improve as far as her mental status towards baseline. Plan: 1. Continue to monitor mental status. 2. Continue management of below problems as well. 3. No change in management. Acute Kidney Injury on Chronic Kidney Disease - Baseline creatinine around 1.3 - Creatinine was 2.7 on admission three days ago, now down to 1.9 ->1.7 - Good urine output noted - Renal US - no hydronephrosis - Wills in place Plan: 1. DC IV fluids 2. Repeat labs in a.m. 3. Wills changed toda. Hypernatremia -resolved - Sodium level increased to 153. Started on D5w. Na improved to 147 - NG tubed placed. Started on free water flushes Plan: 1. Monitor bmp Parkinson's Disease and Advanced Dementia - Baseline cognitive impairment with limited verbal communication - Home meds: Sinemet TID - resumed on Amantadine 100 mg daily - unable to obtain Plan: 1. Continue on her neuro meds on after NG placement 2. May consider neurology consult Hypertension - Hr has been 110 to 130s, with elevated pressure initially now better - Possible in response to acute illness, fevers and inablity to take her antihypertensives - Home meds: Metoprolol 25 mg BID Norvasc 5 mg daily Hydralazine 100 mg TID Plan: 1. Continue her home meds as ordered Diabetes Mellitus now hypoglycemic - Currently on Lantus 50 units qpm - decrease dose as patient is NPO. This was decreased to 20 units at bedtime due to hypoglycemic episodes. - Sliding scale insulin Plan: 1. No recurrence of hypoglycemic episodes. DVT prophylaxis - Heparin 5000 units q12hr PDMP PDMP Reviewed: Not Reviewed Attestations 2 Medical Necessity Statement*: E.c sonya bacteremia of urinary source, await sensitivity, IVF , monitor cr Coding Level of Care Code Acute Code for Chg Fwd Diagnoses Acute cystitis N30.00 Altered mental status R41.82 JEIMY (acute kidney injury) N17.9
[2025-01-01 14:01] LABS: Add Urine Microscopic? NO
[2025-01-01 14:07] LABS: Bacteria Urine None Seen /hpf; Hyaline Casts Urine 1.65 /lpf; WBC Urine 21-50 /hpf (0-5)
[2025-01-01 14:19] LABS: Bilirubin Urine Neg (Negative); Blood Urine 2+ (Negative); Glucose Urine UA Norm (Normal); Ketones Urine Negative (Negative); Leukocyte Esterase Urine 1+ (Negative); Nitrate Urine Negative (Negative); Protein Urine 1+ (Negative); Specific Gravity, Urine 1.015 (1.005-1.030); Urine Appearance Slightly Cloudy (CLEAR); Urine Color Yellow (Yellow); Urobilinogen Urine Norm (Negative); pH Urine 5 (5-7)
[2025-01-01 14:20] LABS: Charge for UA Resulting for Rev; UA Slide Review UA Slide Review Perf
[2025-01-01 14:21] LABS: Add Urine Culture? Yes
[2025-01-01] MEDS: piperacillin-tazobactam 3.375 GM in sodium chloride 0.9% (plus) 50 ML IV (14:37)
[2025-01-01 16:38] LABS: Glucose Point of Care 267 mg/dL (70-110)
[2025-01-01] MEDS: insulin glargine 100 units/1 mL 20 UNIT SUBCUT (17:51)
[2025-01-01 20:48] LABS: Glucose Point of Care 267 mg/dL (70-110)
[2025-01-02] VITALS (10 sets, daily range): BP systolic 128–154; BP diastolic 59–90; PULSE 80–95; RESP 14–18; TEMP 36.6–37.2; O2SAT 95–97
[2025-01-02] MEDS: piperacillin-tazobactam 3.375 GM in sodium chloride 0.9% (plus) 50 ML IV ×2 (01:49→14:00)
[2025-01-02 05:59] LABS: Basophils % 0.4 %; Eosinophils # 0.2 10^3/uL (0.0-0.8); Lymphocytes # 1.2 10^3/uL (0.8-4.8); Lymphocytes % 11.6 %; Mean Corpuscular HGB Conc 30.6 g/dL (30-55); Mean Corpuscular Hemoglobin 25.4 pg (27-33); Mean Corpuscular Volume 83.1 fl (85-98); Mean Platelet Volume 11.4 fL (7.4-10.4); Monocytes # 0.7 10^3/uL (0.2-0.9); Neutrophils # 7.82 10^3/uL (1.8-7.7); Neutrophils % 75.9 %; Nucleated Red Blood Cells % 0.4 %; Platelet Count 298 10^3/cmm (157-399); Red Blood Count 4.09 10^6/uL (3.85-5.65); Red Cell Distribution Width 17.8 % (12.1-15.1); White Blood Count 10.31 10^3/uL (3.29-11.43)
[2025-01-02 06:48] LABS: Glucose Point of Care 316 mg/dL (70-110)
[2025-01-02 06:54] LABS: Alanine Aminotransferase < 5 U/L (0-33); Alkaline Phosphatase 189 U/L (35-105); Anion Gap 14.9 (5-19); Aspartate Amino Transferase 11 U/L (0-32); Blood Urea Nitrogen 25 mg/dL (8-23); Calcium 8.7 mg/dL (8.5-10.5); Carbon Dioxide 22 mmol/L (22-29); Chloride 112 mmol/L (98-107); Creatinine Clr Calc Pharmacy 17.2649; Globulin 3.7 g/dL (1.3-4.6); Glucose 293 mg/dL (65-115); Osmolality Calculated 315 mOsm/kg (285-295); Potassium 3.9 mmol/L (3.5-5.1); Sodium 145 mmol/L (136-145); Total Bilirubin 0.2 mg/dL (0.15-1.2); Total Protein 6.7 g/dL (6.6-8.7)
[2025-01-02 06:59] LABS: Procalcitonin 0.44 ng/mL (0-0.5)
[2025-01-02] MEDS: insulin lispro 100 unit/1 mL SUBCUT ×4 (08:59→22:12)
[2025-01-02] MEDS: hyDRALAzine 50 mg Tablet 100 MG NG-TUBE ×3 (09:00→21:56)
[2025-01-02] MEDS: carbidopa-levodopa 25-100mg Tablet 2 EACH NG-TUBE ×3 (09:00→17:15)
[2025-01-02] MEDS: pantoprazole DR 40 mg Tablet PO (09:00)
[2025-01-02] MEDS: heparin 5,000 unit/mL INJ 1 mL 5000 UNIT SUBCUT ×2 (09:01→21:57)
[2025-01-02] MEDS: metoprolol tartrate 25 mg Tablet NG-TUBE ×2 (09:01→17:16)
[2025-01-02] MEDS: amlodipine 5 mg Tablet NG-TUBE (09:01)
[2025-01-02 12:04] LABS: Glucose Point of Care 261 mg/dL (70-110)
--- NOTE | 2025-01-02 12:24 | PC.SOCIAL ---
IMM updated Updated pt's daughter on IMM. No questions voiced. Provided pt a copy. Initialed, dated, & timed copy in chart.
[2025-01-02] MEDS: nystatin 100,000 unit/mL UDC 5 mL 100000 UNIT PO ×3 (12:45→21:57)
[2025-01-02] MEDS: artificial tears Op Soln 15 mL Btl 1 DROP EYE-BOTH (14:00)
[2025-01-02 16:52] LABS: Glucose Point of Care 228 mg/dL (70-110)
[2025-01-02] MEDS: insulin glargine 100 units/1 mL 20 UNIT SUBCUT (17:12)
[2025-01-02 21:37] LABS: Glucose Point of Care 205 mg/dL (70-110)
--- NOTE | 2025-01-02 22:28 | P.PN_ITS ---
Subjective 2 Subjective: 84-year-old female with a past medical h istory of Parkinson's disease, advanced dementia, recurrent urinary tract infections (UTIs), and chronic kidney disease presents with altered mental status. Patient resides in a intermediate and typically speaks only a few short words. She is able to self-feed and ambulate with assistance. She was found to have blood cultures positive for E. coli in three of four bottles. Sensitivity is pending. Urine culture shows gram- negative rods, presumed to be E. coli. Patient has also developed an acute kidney injury. She has been NPO and on normal saline. Today, her sodium level increased to 153. Intravenous fluids will be changed to D5W. Patient has been empirically started on cefepime and has a Wills catheter in place. Patient appears to have good urine output but is unable to follow commands and has been nonverbal during today's assessment. Creatinine was 2.7 on admission three days ago and is now down to 2.4. Patient's baseline creatinine is around 1.3. 12/27 No change in mental status overnight. Temp of 100.2, responded to tylenol NH, remains NPO. Was tachycardic and hypertensvie. Given lopressor IV. 12/28 Patient was slightly more interactive today he did have NG tube placed yesterday and was restarted on her oral medications. 12/29 Patient had NG tube in place 12/30 Patient overnight had become hypoglycemic at which point she was given orange juice via NG. Shortly after she did have an episode of emesis. NG was briefly hooked up to suction however this had resolved. She has been becoming slightly more responsive in the past few days. Has not had any fevers in leukocytosis to 11 today. 12/31 Overnight patient did not have any new clinical events. She was started on tube feed yesterday which she has been tolerating. She has not had any recurrence of vomiting. She has been more responsive today to both staff and family at bedside. Continues to be afebrile. 01/01 Yesterday patient had pulled out her NG tube. This was replaced and patient was restarted on tube feeds. Has not had any respiratory distress. This morning she did have a temperature of 101 however. Mental status had slightly declined compared to yesterday. Did not have any emesis episodes overnight. Does not have any diarrhea. Has had a Wills for some time. Discussed with family regarding care. 01/02 Patient's mental status has not improved significantly since yesterday. NG tube still in place and she is continuing on tube feeds. Son and [id number] are at bedside. Discussed with them regarding patient's poor recovery and the likelihood of improvement. Discussed the possibility of hospice but at this point they would like to continue current management. Medications: Reviewed: Yes Vitals/I&O/Wt Last Vital Signs Temp 98.8 F 01/02/25 20:00 Pulse 85 01/02/25 20:00 Resp 14 01/02/25 20:00 BP 142/59 01/02/25 20:00 Pulse Ox 95 01/02/25 20:00 O2 Del Method Room Air 01/02/25 20:00 O2 Flow Rate 3 01/02/25 16:00 01/02/25 01/02/25 01/02/25 06:59 14:59 22:59 Intake Total 659 / 709 50 / 50 Output Total 300 / 700 Balance 359 / 9 50 / 50 Weight last 48 hrs Weight 46.72 kg Weight 52.98 kg Physical Exam 2 Narrative: On examination, General: No acute distress - NG in place HEENT: PERRLA, pupils bilaterally equal and reactive, pallors not present CVS heart rate and rhythm are regular. Chest is clear to auscultation bilaterally, with slightly decreased breath sounds at the bases. Abd: Soft, NT, ND : Wills No edema was noted in the lower extremities. Urinary Catheter Management: Wills: Cath Placed During This Visit: yes Reason for Continuing Indwelling Catheter: Acute Urinary Retention or Obstruction Urinary Catheter Date of Insertion: 01/01/25 Urinary Catheter Time of Insertion: 10:30 Data 01/02/25 05:12 01/02/25 06:09 Micro: Microbiology 01/01/25 09:19 Blood Culture - Preliminary Blood NEGATIVE TO DATE 01/01/25 09:12 Blood Culture - Preliminary Blood NEGATIVE TO DATE 01/01/25 14:00 Urine Culture - Preliminary Urine,Clean Catch A&P Assessment and plan (1) Acute cystitis: (2) Altered mental status: (3) JEIMY (acute kidney injury): Plan Sepsis POA due to Urinary Tract Infection with E-coli Bacteremia now Aspiration PNA? - 01/01 - Recurrence of Fever - Possibly L. Pneumonia - aspiration - 12/24 - > Blood cultures positive for E. coli in 3/4 bottles - 12/24-> Urine culture showing E. coli and proteus - Cefepime 12/24 to 12/29 - Transitioned to Rocephin on . to 01/01 -> Zosyn initiated - 01/01 Blood culture x 2 drawn- NGTD - UA with reflex urine culture sent, - Chest xray showed increase in left sided infiltrates. ( Has emesis 2 days prior, pulled NG with tube feed running 12/31), Wills was changed. Plan: 1. At this time we will continue patient on Zosyn. Will continue to follow-up on blood culture drawn. Fever curve has improved. 2. High risk for recurrance of infection given patient poor overall fuctional statu Altered Mental Status - Likely multi-factorial etiology including urinary tract infection, electrolyte imbalance, renal failure and underlying advanced dementia. - Patient had not been very response. Does not take any oral intake. - Son noted prior history of traumatic brain injury after which patient was not able to tolerate oral intake and required PEG tube. - NG tube was placed and she was restarted on her parkinson meds. Son today stated she had a similar change in mental status as well in the past when she was off her parkinson meds and once resumed it had taken her a few days to return to baseline. This time however it is multifactorial given infection and renal failure. -She is starting to improve as far as her mental status towards baseline. Plan: 1. Patient's mental status had not significantly improved since admission. Briefly had some recovery when she was started back on her Parkinson's med however now has started to decline again. She is not able to swallow well without risk of aspiration given her mental status. Family requested PEG tube initially however opted for NG tube in hopes that patient's mental status recover however at this point she has not made any meaningful recovery. I discussed with them regarding her being a poor candidate for PEG tube placement as well. Hospice discussion however at this point they would like to continue current management. Acute Kidney Injury on Chronic Kidney Disease - Baseline creatinine around 1.3 - Creatinine was 2.7 on admission three days ago, now down to 1.9 ->1.7 - Good urine output noted - Renal US - no hydronephrosis - Wills in place Plan: 1. DC IV fluids 2. Repeat labs in a.m. 3. Wills changed 01/01 Hypernatremia -resolved - Sodium level increased to 153. Started on D5w. Na improved to 147 - NG tubed placed. Started on free water flushes Plan: 1. Monitor bmp Parkinson's Disease and Advanced Dementia - Baseline cognitive impairment with limited verbal communication - Home meds: Sinemet TID - resumed on Amantadine 100 mg daily - unable to obtain Plan: 1. Continue on her neuro meds on after NG placement 2. May consider neurology consult Hypertension - Hr has been 110 to 130s, with elevated pressure initially now better - Possible in response to acute illness, fevers and inablity to take her antihypertensives - Home meds: Metoprolol 25 mg BID Norvasc 5 mg daily Hydralazine 100 mg TID Plan: 1. Continue her home meds as ordered Diabetes Mellitus now hypoglycemic - Currently on Lantus 50 units qpm - decrease dose as patient is NPO. This was decreased to 20 units at bedtime due to hypoglycemic episodes. - Sliding scale insulin Plan: 1. No recurrence of hypoglycemic episodes. DVT prophylaxis - Heparin 5000 units q12hr PDMP PDMP Reviewed: Not Reviewed Attestations 2 Medical Necessity Statement*: E.c sonya bacteremia of urinary source, await sensitivity, IVF , monitor cr Coding Level of Care Code Acute Code for Chg Fwd Diagnoses Acute cystitis N30.00 Altered mental status R41.82 JEIMY (acute kidney injury) N17.9
[2025-01-03] VITALS (9 sets, daily range): BP systolic 127–161; BP diastolic 65–75; PULSE 67–93; RESP 14–18; TEMP 36.4–37.4; O2SAT 95–97; BMI 18.8
[2025-01-03] MEDS: piperacillin-tazobactam 3.375 GM in sodium chloride 0.9% (plus) 50 ML IV ×2 (02:03→14:34)
[2025-01-03 05:30] LABS: Basophils % 0.3 %; Eosinophils # 0.2 10^3/uL (0.0-0.8); Eosinophils % 2.4 %; Hematocrit 32.7 % (36-47); Lymphocytes # 1.5 10^3/uL (0.8-4.8); Mean Corpuscular Hemoglobin 25.3 pg (27-33); Mean Corpuscular Volume 84.5 fl (85-98); Monocytes # 0.7 10^3/uL (0.2-0.9); Monocytes % 6.9 %; Neutrophils # 7.22 10^3/uL (1.8-7.7); Neutrophils % 72.8 %; Nucleated Red Blood Cells # 0.1 /100WBC; Nucleated Red Blood Cells % 0.5 %; Platelet Count 330 10^3/cmm (157-399); Red Blood Count 3.87 10^6/uL (3.85-5.65); Red Cell Distribution Width 17.7 % (12.1-15.1); White Blood Count 9.92 10^3/uL (3.29-11.43)
[2025-01-03 05:58] LABS: Procalcitonin 0.38 ng/mL (0-0.5)
[2025-01-03 05:59] LABS: Alanine Aminotransferase < 5 U/L (0-33); Alkaline Phosphatase 184 U/L (35-105); Anion Gap 15.2 (5-19); Aspartate Amino Transferase 11 U/L (0-32); Blood Urea Nitrogen 30 mg/dL (8-23); Calcium 8.8 mg/dL (8.5-10.5); Carbon Dioxide 23 mmol/L (22-29); Chloride 114 mmol/L (98-107); Creatinine Clr Calc Pharmacy 17.2649; Globulin 3.5 g/dL (1.3-4.6); Glucose 243 mg/dL (65-115); Osmolality Calculated 320 mOsm/kg (285-295); Potassium 4.2 mmol/L (3.5-5.1); Sodium 148 mmol/L (136-145); Total Bilirubin 0.2 mg/dL (0.15-1.2); Total Protein 6.5 g/dL (6.6-8.7)
[2025-01-03 06:51] LABS: Glucose Point of Care 245 mg/dL (70-110)
[2025-01-03] MEDS: amlodipine 5 mg Tablet NG-TUBE (08:42)
[2025-01-03] MEDS: carbidopa-levodopa 25-100mg Tablet 2 EACH NG-TUBE ×3 (08:42→17:09)
[2025-01-03] MEDS: pantoprazole DR 40 mg Tablet PO (08:42)
[2025-01-03] MEDS: hyDRALAzine 50 mg Tablet 100 MG NG-TUBE ×3 (08:42→21:05)
[2025-01-03] MEDS: nystatin 100,000 unit/mL UDC 5 mL 100000 UNIT PO ×4 (08:43→22:14)
[2025-01-03] MEDS: insulin lispro 100 unit/1 mL SUBCUT ×4 (08:43→22:14)
[2025-01-03] MEDS: metoprolol tartrate 25 mg Tablet NG-TUBE ×2 (08:43→17:10)
[2025-01-03] MEDS: heparin 5,000 unit/mL INJ 1 mL 5000 UNIT SUBCUT ×2 (08:43→21:05)
[2025-01-03] MEDS: AMANTADINE HCL 100 MG 100 EACH PO (08:49)
[2025-01-03] MEDS: sodium chloride 0.45% 1,000 ML 50 ML IV (11:27)
[2025-01-03 12:21] LABS: Glucose Point of Care 235 mg/dL (70-110)
--- NOTE | 2025-01-03 14:10 | P.PN_ITS ---
Subjective 2 Subjective: 84-year-old female with a past medical h istory of Parkinson's disease, advanced dementia, recurrent urinary tract infections (UTIs), and chronic kidney disease presents with altered mental status. Patient resides in a assisted and typically speaks only a few short words. She is able to self-feed and ambulate with assistance. She was found to have blood cultures positive for E. coli in three of four bottles. Sensitivity is pending. Urine culture shows gram- negative rods, presumed to be E. coli. Patient has also developed an acute kidney injury. She has been NPO and on normal saline. Today, her sodium level increased to 153. Intravenous fluids will be changed to D5W. Patient has been empirically started on cefepime and has a Wills catheter in place. Patient appears to have good urine output but is unable to follow commands and has been nonverbal during today's assessment. Creatinine was 2.7 on admission three days ago and is now down to 2.4. Patient's baseline creatinine is around 1.3. 12/27 No change in mental status overnight. Temp of 100.2, responded to tylenol [place], remains NPO. Was tachycardic and hypertensvie. Given lopressor IV. 12/28 Patient was slightly more interactive today he did have NG tube placed yesterday and was restarted on her oral medications. 12/29 Patient had NG tube in place 12/30 Patient overnight had become hypoglycemic at which point she was given orange juice via NG. Shortly after she did have an episode of emesis. NG was briefly hooked up to suction however this had resolved. She has been becoming slightly more responsive in the past few days. Has not had any fevers in leukocytosis to 11 today. 12/31 Overnight patient did not have any new clinical events. She was started on tube feed yesterday which she has been tolerating. She has not had any recurrence of vomiting. She has been more responsive today to both staff and family at bedside. Continues to be afebrile. 01/01 Yesterday patient had pulled out her NG tube. This was replaced and patient was restarted on tube feeds. Has not had any respiratory distress. This morning she did have a temperature of 101 however. Mental status had slightly declined compared to yesterday. Did not have any emesis episodes overnight. Does not have any diarrhea. Has had a Wills for some time. Discussed with family regarding care. 01/02 Patient's mental status has not improved significantly since yesterday. NG tube still in place and she is continuing on tube feeds. Son and [id number] are at bedside. Discussed with them regarding patient's poor recovery and the likelihood of improvement. Discussed the possibility of hospice but at this point they would like to continue current management. Medications: Reviewed: Yes Vitals/I&O/Wt Last Vital Signs Temp 98.4 F 01/03/25 12:00 Pulse 82 01/03/25 12:00 Resp 17 01/03/25 12:00 BP 157/75 01/03/25 12:00 Pulse Ox 96 01/03/25 12:00 O2 Del Method Nasal Cannula 01/03/25 12:00 O2 Flow Rate 2 01/03/25 05:24 01/02/25 01/03/25 01/03/25 22:59 06:59 14:59 Intake Total 50 / 50 50 / 100 478 / 478 Output Total 550 / 550 800 / 800 Balance 50 / 50 -500 / -450 -322 / -322 Weight last 48 hrs Weight 46.72 kg Weight 46.72 kg Physical Exam 2 Narrative: On examination, General: No acute distress - NG in place HEENT: PERRLA, pupils bilaterally equal and reactive, pallors not present CVS heart rate and rhythm are regular. Chest is clear to auscultation bilaterally, with slightly decreased breath sounds at the bases. Abd: Soft, NT, ND : Wills No edema was noted in the lower extremities. Urinary Catheter Management: Wills: Cath Placed During This Visit: yes Reason for Continuing Indwelling Catheter: Acute Urinary Retention or Obstruction Urinary Catheter Date of Insertion: 01/01/25 Urinary Catheter Time of Insertion: 10:30 Data 01/03/25 04:42 01/03/25 04:42 Micro: Microbiology 01/01/25 14:00 Urine Culture - Final Urine,Clean Catch 01/01/25 09:19 Blood Culture - Preliminary Blood NEGATIVE TO DATE 01/01/25 09:12 Blood Culture - Preliminary Blood NEGATIVE TO DATE A&P Assessment and plan (1) E. coli bacteremia: (2) Acute cystitis: (3) Altered mental status: (4) Hypernatremia: (5) JEIMY (acute kidney injury): (6) Parkinsons: (7) Dementia: Qualifiers: Dementia behavioral or psychological symptom: with anxiety Dementia severity: moderate Dementia type: unspecified type Qualified Code(s): F03.B4 - Unspecified dementia, moderate, with anxiety (8) Hx of traumatic brain injury: (9) Essential (primary) hypertension: (10) CKD (chronic kidney disease): (11) Goals of care, counseling/discussion: Plan Sepsis POA due to Urinary Tract Infection with E-coli Bacteremia now Aspiration PNA? - 01/01 - Recurrence of Fever - Possibly L. Pneumonia - aspiration - 12/24 - > Blood cultures positive for E. coli in 3/4 bottles - 12/24-> Urine culture showing E. coli and proteus - Cefepime 12/24 to 12/29 - Transitioned to Rocephin on . to 01/01 -> Zosyn initiated - 01/01 Blood culture x 2 drawn- NGTD - UA with reflex urine culture sent, - Chest xray showed increase in left sided infiltrates. ( Has emesis 2 days prior, pulled NG with tube feed running 12/31), Wills was changed. Plan: Appreciate urine culture and sensitivities. Continue with IV Zosyn for now which will cover both for E. coli bacteremia and possible aspiration pneumonia. Plan to continue Zosyn for overall 5 days and transition back to IV ceftriaxone depending on culture sensitivities. Plan to finish 14-day course of IV antibiotics for E. coli bacteremia from negative blood culture. Altered Mental Status - Likely multi-factorial etiology including urinary tract infection, electrolyte imbalance, renal failure and underlying advanced dementia in setting of parkinsonism. - Patient had not been very response. Does not take any oral intake. - Son noted prior history of traumatic brain injury after which patient was not able to tolerate oral intake and required PEG tube. - NG tube was placed and she was restarted on her parkinson meds. -She is starting to improve as far as her mental status towards baseline. Plan: 1. Patient's mental status had not significantly improved since admission. Briefly had some recovery when she was started back on her Parkinson's med however now has started to decline again. She is not able to swallow well without risk of aspiration given her mental status. Family requested PEG tube initially however opted for NG tube in hopes that patient's mental status recover however at this point she has not made any meaningful recovery. Patient developing hypernatremia again. Discussed in detail with patient's daughter at bedside that unfortunately patient's oral intake is not safe currently because of her mentation and she is at risk of aspiration. Discussed it is difficult to say what her meaningful recovery is going to be and for how long it will take. Sometimes it can take up to 6 months. Discussed options of possible transition to hospice care versus PEG tube placement so that she she can continue her nutrition and hydration while monitoring and working with physical and speech therapy to see if she can transition to oral intake eventually. Discussed risk factors with PEG tube placement. Daughter verbalizes understanding and would like to discuss further with patient's son/her brother before making any decision. Acute Kidney Injury on Chronic Kidney Disease - Baseline creatinine around 1.3 - Creatinine was 2.7 on admission three days ago, now down to 1.9 ->1.7 - Good urine output noted - Renal US - no hydronephrosis - Wills in place Plan: Patient developing hypernatremia again. Restart half NS at 50 cc/h. Strict input output charting. DC Wills catheter in next 24-hour Hypernatremia -resolved Sodium level again increased to 148. Continue with NG tube free water flushes. Change free water flushes to 200 cc every 6 hour Half NS at 50 cc/h. Repeat BMP in AM. Parkinson's Disease and Advanced Dementia - Baseline cognitive impairment with limited verbal communication - Home meds: Sinemet TID - resumed on Amantadine 100 mg daily - unable to obtain Hypertension - Hr has been 110 to 130s, with elevated pressure initially now better - Possible in response to acute illness, fevers and inablity to take her antihypertensives - Home meds: Metoprolol 25 mg BID Norvasc 5 mg daily Hydralazine 100 mg TID Plan: Goal blood pressure less than 140/90 mmHg. Blood pressures mildly elevated. If continue to remain elevated will plan to increase home dose of amlodipine to 10 mg daily. Diabetes Mellitus now hypoglycemic - Currently on Lantus 50 units qpm - decrease dose as patient is NPO. Blood sugar mildly elevated. Increase dose of Lantus to 30 units every afternoon. Continue with insulin sliding scale. DVT prophylaxis - Heparin 5000 units q12hr Goals of care discussion: Discussed in detail with patient's daughter at bedside. Patient's daughter and son are DPOA. Discussed unfortunately patient has advanced dementia in setting of baseline traumatic brain injury and Parkinson's. Discussed that her confusion is most likely a combination of baseline dementia, worsening mentation because of E. coli bacteremia. Patient is at high risk of aspiration given poor mentation. She did have episode of aspiration pneumonia earlier in the admission as well. Discussed that it difficult to see by event patient will have any meaningful recovery of her mental status and how much recovery she will have. Unfortunately, as of now patient is not able to maintain her oral intake and continues to have episodes of hypernatremia. Discussed options of hospice versus possible PEG tube placement. Family will discuss further and get back to us in the next 24 hours. PDMP PDMP Reviewed: Not Reviewed Attestations 2 Medical Necessity Statement*: Requires further hospitalization for management of E. coli bacteremia, cystitis, altered mental status in setting of baseline dementia, Parkinson's in a patient with traumatic brain injury, CKD, hypernatremia while Paasch patient remains on NG tube feedings with free water flushes while further goals of care discussions are done Diagnoses E. coli bacteremia R78.81; B96.20 Acute cystitis N30.00 Altered mental status R41.82 Hypernatremia E87.0 JEIMY (acute kidney injury) N17.9 Parkinsons G20 Moderate dementia with anxiety, unspecified dementia type F03.B4 Dementia behavioral or psychological symptom: with anxiety Dementia severity: moderate Dementia type: unspecified type Hx of traumatic brain injury Z87.820 Essential (primary) hypertension I10 CKD (chronic kidney disease) N18.9 Goals of care, counseling/discussion Z71.89
[2025-01-03] MEDS: acetaminophen 325 mg Tablet 650 MG NG-TUBE (14:28)
[2025-01-03 16:58] LABS: Glucose Point of Care 227 mg/dL (70-110)
[2025-01-03] MEDS: insulin glargine 100 units/1 mL 30 UNIT SUBCUT (17:10)
[2025-01-03 20:39] LABS: Glucose Point of Care 190 mg/dL (70-110)
[2025-01-04] VITALS (7 sets, daily range): BP systolic 138–175; BP diastolic 64–90; PULSE 69–92; RESP 16–18; TEMP 36.7–38.1; O2SAT 92–97; BMI 18.8
[2025-01-04] MEDS: piperacillin-tazobactam 3.375 GM in sodium chloride 0.9% (plus) 50 ML IV ×2 (01:36→14:09)
[2025-01-04 05:19] LABS: Basophils % 0.3 %; Eosinophils # 0.4 10^3/uL (0.0-0.8); Eosinophils % 3.5 %; Hematocrit 32.9 % (36-47); Lymphocytes # 1.3 10^3/uL (0.8-4.8); Lymphocytes % 13.3 %; Mean Corpuscular HGB Conc 29.5 g/dL (30-55); Mean Corpuscular Hemoglobin 24.7 pg (27-33); Mean Corpuscular Volume 83.9 fl (85-98); Mean Platelet Volume 11.3 fL (7.4-10.4); Monocytes # 0.8 10^3/uL (0.2-0.9); Monocytes % 7.6 %; Neutrophils # 7.26 10^3/uL (1.8-7.7); Neutrophils % 73.5 %; Nucleated Red Blood Cells % 0.4 %; Platelet Count 312 10^3/cmm (157-399); Red Blood Count 3.92 10^6/uL (3.85-5.65); Red Cell Distribution Width 17.9 % (12.1-15.1); White Blood Count 9.88 10^3/uL (3.29-11.43)
[2025-01-04] MEDS: sodium chloride 0.45% 1,000 ML 50 ML IV (05:43)
[2025-01-04 05:52] LABS: Procalcitonin 0.29 ng/mL (0-0.5)
[2025-01-04 06:03] LABS: Alanine Aminotransferase < 5 U/L (0-33); Albumin Level 3.2 g/dL (3.5-5.2); Alkaline Phosphatase 169 U/L (35-105); Anion Gap 15.8 (5-19); Aspartate Amino Transferase 11 U/L (0-32); Blood Urea Nitrogen 29 mg/dL (8-23); Calcium 8.9 mg/dL (8.5-10.5); Carbon Dioxide 25 mmol/L (22-29); Chloride 113 mmol/L (98-107); Creatinine Clr Calc Pharmacy 17.2457; Globulin 3.6 g/dL (1.3-4.6); Glucose 124 mg/dL (65-115); Osmolality Calculated 317 mOsm/kg (285-295); Potassium 3.8 mmol/L (3.5-5.1); Sodium 150 mmol/L (136-145); Total Bilirubin 0.2 mg/dL (0.15-1.2); Total Protein 6.8 g/dL (6.6-8.7)
[2025-01-04 06:40] LABS: Glucose Point of Care 174 mg/dL (70-110)
[2025-01-04] MEDS: carbidopa-levodopa 25-100mg Tablet 2 EACH NG-TUBE (08:58)
[2025-01-04] MEDS: amlodipine 5 mg Tablet NG-TUBE (08:58)
[2025-01-04] MEDS: pantoprazole DR 40 mg Tablet PO (08:59)
[2025-01-04] MEDS: metoprolol tartrate 25 mg Tablet NG-TUBE (08:59)
[2025-01-04] MEDS: nystatin 100,000 unit/mL UDC 5 mL 100000 UNIT PO (08:59)
[2025-01-04] MEDS: hyDRALAzine 50 mg Tablet 100 MG NG-TUBE (08:59)
[2025-01-04] MEDS: AMANTADINE HCL 100 MG 100 EACH PO (09:02)
[2025-01-04] MEDS: insulin lispro 100 unit/1 mL SUBCUT (09:03)
[2025-01-04] MEDS: heparin 5,000 unit/mL INJ 1 mL 5000 UNIT SUBCUT (09:13)
[2025-01-04 11:36] LABS: Glucose Point of Care 197 mg/dL (70-110)
--- NOTE | 2025-01-04 13:44 | PC.SOCIAL ---
IMM updated Updated pt on IMM. No questions voiced. Provided pt a copy. Initialed, dated, & timed copy in chart.
[2025-01-04] MEDS: dextrose 5%-sod chloride 0.45% 1,000 ML 50 ML IV (14:09)
--- NOTE | 2025-01-04 15:22 | P.PN_ITS ---
Subjective 2 Subjective: No acute events overnight. Patient seen and family members at bedside. Patient remains comfortable. Hemodynamically stable. Medications: Reviewed: Yes Vitals/I&O/Wt Last Vital Signs Temp 98.5 F 01/04/25 11:28 Pulse 75 01/04/25 11:28 Resp 16 01/04/25 11:28 BP 138/76 01/04/25 11:28 Pulse Ox 96 01/04/25 11:28 O2 Del Method Nasal Cannula 01/04/25 11:28 O2 Flow Rate 2 01/04/25 07:42 01/04/25 01/04/25 01/04/25 06:59 14:59 22:59 Intake Total 1424.333 / 1902.333 359.167 / 359.167 Balance 1424.333 / 802.333 359.167 / 359.167 Weight last 48 hrs Weight 46.584 kg Weight 46.72 kg Physical Exam 2 Narrative: On examination, General: No acute distress - NG in place HEENT: PERRLA, pupils bilaterally equal and reactive, pallors not present CVS heart rate and rhythm are regular. Chest is clear to auscultation bilaterally, with slightly decreased breath sounds at the bases. Abd: Soft, NT, ND : Wills No edema was noted in the lower extremities. Urinary Catheter Management: Wills: Cath Placed During This Visit: yes Reason for Continuing Indwelling Catheter: Acute Urinary Retention or Obstruction Urinary Catheter Date of Insertion: 01/01/25 Urinary Catheter Time of Insertion: 10:30 Data 01/04/25 03:55 01/04/25 03:55 A&P Assessment and plan (1) E. coli bacteremia: (2) Acute cystitis: (3) Altered mental status: (4) Hypernatremia: (5) JEIMY (acute kidney injury): (6) Parkinsons: (7) Dementia: Qualifiers: Dementia behavioral or psychological symptom: with anxiety Dementia severity: moderate Dementia type: unspecified type Qualified Code(s): F03.B4 - Unspecified dementia, moderate, with anxiety (8) Hx of traumatic brain injury: (9) Essential (primary) hypertension: (10) CKD (chronic kidney disease): (11) Goals of care, counseling/discussion: Plan Sepsis POA due to Urinary Tract Infection with E-coli Bacteremia now Aspiration PNA? - 01/01 - Recurrence of Fever - Possibly L. Pneumonia - aspiration - 12/24 - > Blood cultures positive for E. coli in 3/4 bottles - 12/24-> Urine culture showing E. coli and proteus - Cefepime 12/24 to 12/29 - Transitioned to Rocephin on . to 01/01 -> Zosyn initiated - 01/01 Blood culture x 2 drawn- NGTD - UA with reflex urine culture sent, - Chest xray showed increase in left sided infiltrates. ( Has emesis 2 days prior, pulled NG with tube feed running 12/31), Wills was changed. Plan: Appreciate urine culture and sensitivities. Continue with IV Zosyn for now which will cover both for E. coli bacteremia and possible aspiration pneumonia. Plan to continue Zosyn for overall 5 days and transition back to IV ceftriaxone depending on culture sensitivities. Plan to finish 14-day course of IV antibiotics for E. coli bacteremia from negative blood culture. Altered Mental Status - Likely multi-factorial etiology including urinary tract infection, electrolyte imbalance, renal failure and underlying advanced dementia in setting of parkinsonism. - Patient had not been very response. Does not take any oral intake. - Son noted prior history of traumatic brain injury after which patient was not able to tolerate oral intake and required PEG tube. - NG tube was placed and she was restarted on her parkinson meds. -She is starting to improve as far as her mental status towards baseline. Plan: 1. Patient's mental status had not significantly improved since admission. Briefly had some recovery when she was started back on her Parkinson's med however now has started to decline again. She is not able to swallow well without risk of aspiration given her mental status. Family requested PEG tube initially however opted for NG tube in hopes that patient's mental status recover however at this point she has not made any meaningful recovery. Patient developing hypernatremia again. Discussed in detail with patient's daughter at bedside that unfortunately patient's oral intake is not safe currently because of her mentation and she is at risk of aspiration. Discussed it is difficult to say what her meaningful recovery is going to be and for how long it will take. Sometimes it can take up to 6 months. Discussed options of possible transition to hospice care versus PEG tube placement so that she she can continue her nutrition and hydration while monitoring and working with physical and speech therapy to see if she can transition to oral intake eventually. Discussed risk factors with PEG tube placement. Daughter verbalizes understanding and would like to discuss further with patient's son/her brother before making any decision. Acute Kidney Injury on Chronic Kidney Disease - Baseline creatinine around 1.3 - Creatinine was 2.7 on admission three days ago, now down to 1.9 ->1.7 - Good urine output noted - Renal US - no hydronephrosis - Wills in place Plan: Patient developing hypernatremia again. Restart half NS at 50 cc/h. Strict input output charting. DC Wills catheter in next 24-hour Hypernatremia -resolved Sodium level again increased to 148. Continue with NG tube free water flushes. Change free water flushes to 200 cc every 6 hour Half NS at 50 cc/h. Repeat BMP in AM. Parkinson's Disease and Advanced Dementia - Baseline cognitive impairment with limited verbal communication - Home meds: Sinemet TID - resumed on Amantadine 100 mg daily - unable to obtain Hypertension - Hr has been 110 to 130s, with elevated pressure initially now better - Possible in response to acute illness, fevers and inablity to take her antihypertensives - Home meds: Metoprolol 25 mg BID Norvasc 5 mg daily Hydralazine 100 mg TID Plan: Goal blood pressure less than 140/90 mmHg. Blood pressures mildly elevated. If continue to remain elevated will plan to increase home dose of amlodipine to 10 mg daily. Diabetes Mellitus now hypoglycemic - Currently on Lantus 50 units qpm - decrease dose as patient is NPO. Blood sugar mildly elevated. Increase dose of Lantus to 30 units every afternoon. Continue with insulin sliding scale. DVT prophylaxis - Heparin 5000 units q12hr Goals of care discussion: Discussed in detail with patient's daughter at bedside. Patient's daughter and son are DPOA. Discussed unfortunately patient has advanced dementia in setting of baseline traumatic brain injury and Parkinson's. Discussed that her confusion is most likely a combination of baseline dementia, worsening mentation because of E. coli bacteremia. Patient is at high risk of aspiration given poor mentation. She did have episode of aspiration pneumonia earlier in the admission as well. Discussed that it difficult to see by event patient will have any meaningful recovery of her mental status and how much recovery she will have. Unfortunately, as of now patient is not able to maintain her oral intake and continues to have episodes of hypernatremia. Discussed options of hospice versus possible PEG tube placement. Family will discuss further and get back to us in the next 24 hours. Plan for the day: Repeat goals of care discussions were done with patient's daughter and son at bedside. 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 Discussed unfortunately it is highly likely that patient's mentation would not improve following the it would take a while. It is possible that patient would not be able to increase her oral intake safely to maintain her hydration and nutrition. Discussed going forward the options would be for hospice versus PEG tube placement. Discussed there is a concern with PEG tube as he is at risk of patient pulling the PEG tube out, dislodgment of PEG tube. It will not unfortunately help with the quality of life but will help for the quantity of life. Son and daughter after discussing detail decided to go ahead with hospice care. We discussed hospice care would mean that we will continue her chronic pain medications as possible if and when patient is able to take orally. We will remove NG tube. He will not monitor any further blood work. We will start her on oral diet as per her comfort. He will have medications for her comfort. Discussed if and when she gets sick again, has a cardiac arrest or respiratory distress plan will be to keep her comfortable while nature takes its own course which could mean that she could . Family verbalized understanding and wants to go with hospice care. Case management and nursing staff at home. Remove NG tube. PDMP PDMP Reviewed: Not Reviewed Attestations 2 Medical Necessity Statement*: Requires further hospitalization while further goals of care discussions are done elderly female with advanced dementia, Parkinson's, unable to maintain oral intake, hypernatremia due to dehydration while hospice is set up Diagnoses E. coli bacteremia R78.81; B96.20 Acute cystitis N30.00 Altered mental status R41.82 Hypernatremia E87.0 JEIMY (acute kidney injury) N17.9 Parkinsons G20 Moderate dementia with anxiety, unspecified dementia type F03.B4 Dementia behavioral or psychological symptom: with anxiety Dementia severity: moderate Dementia type: unspecified type Hx of traumatic brain injury Z87.820 Essential (primary) hypertension I10 CKD (chronic kidney disease) N18.9 Goals of care, counseling/discussion Z71.89
[2025-01-04 16:39] LABS: Glucose Point of Care 243 mg/dL (70-110)
[2025-01-05 01:06] VITALS: BP 119/57; PULSE 75; RESP 16; TEMP 37.1; O2SAT 97
[2025-01-05] MEDS: piperacillin-tazobactam 3.375 GM in sodium chloride 0.9% (plus) 50 ML IV (03:15)
[2025-01-05 05:10] VITALS: BP 159/72; PULSE 83; RESP 17; TEMP 37.3; O2SAT 94
[2025-01-05 05:12] VITALS: BMI 18.6
[2025-01-05 08:00] VITALS: BP 159/76; PULSE 87; RESP 19; TEMP 36.8; TEMP 37.3; O2SAT 96
--- NOTE | 2025-01-05 09:16 | PM.DCS ---
Discharge Providers Date of Admission: 12/24/24 12:03 Date of Discharge: January 05, 2025 Attending Provider at Admission: Leila Lambert MD Attending Provider at Discharge: Nabil Delgado MD Primary Care Provider: Polo Guzman Diagnoses at Discharge Discharge Diagnosis (1) E. coli bacteremia: Status: Acute (2) Acute cystitis: Status: Acute (3) Altered mental status: Status: Acute (4) Hypernatremia: Status: Acute (5) JEIMY (acute kidney injury): Status: Acute (6) Parkinsons: Status: Acute Permanent problem details: On Sinemet (7) Dementia: Status: Acute Qualifiers: Dementia behavioral or psychological symptom: with anxiety Dementia severity: moderate Dementia type: unspecified type Qualified Code(s): F03.B4 - Unspecified dementia, moderate, with anxiety (8) Hx of traumatic brain injury: Status: Acute Permanent problem details: associated with some degree of confusion, occasional hallucinations, states she lives with mom and dad at baseline when stressed. Actually lives with her son and daughter who are with her 27/04 (9) Essential (primary) hypertension: Status: Acute (10) CKD (chronic kidney disease): Status: Chronic (11) Goals of care, counseling/discussion: Status: Acute Reason for Visit Reason for Visit: lethargy Brief History: History as per HPI: Cathi Nichols is a 84 year old female, long-term [facility] resident, history of dementia, Parkinson's, hypertension, diabetes mellitus, recurrent UTIs, who was brought to the hospital today with chief complaints of increasing lethargy over the past week. Patient has had chills. Here she is noted to be febrile to 102 Fahrenheit. Additionally has some leukocytosis. Patient is unable to contribute in history. At baseline patient can intermittently ambulate with a walker. Is able to self feed, mostly confused. Has become more nonverbal over the past few weeks per family. Today she is only able to open her eyes. Does not answer yes no or participate in any meaningful conversation. Does not follow any commands. Hospital Course Hospital Course Patient was admitted to the hospital further evaluation management of sepsis, altered mental status in setting of possible cystitis. During hospitalization, blood culture and urine culture came back positive for E. coli. She was continued on broad-spectrum antibiotics. Hospital stay was complicated by poor oral intake leading to dehydration and hypernatremia. At first oral intake and medications were maintained through NG tube. Eventually her mentation improved very gradually back to her baseline of being nonverbal, not following commands and she was started on an oral diet as per speech evaluation. Patient developed aspiration pneumonia after which she was made n.p.o. again and started on diet through NG tube. She continued to remain hypernatremic because of poor oral intake requiring multiple fluid boluses. Multiple goals of care discussions were done with patient's son and daughter who was the DPOA during the course of hospitalization. Patient has finished 11-day course of IV antibiotics. Goals of care discussions are as below. Repeat goals of care discussions were done with patient's daughter and son at bedside. 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 Discussed unfortunately it is highly likely that patient's mentation would not improve following the it would take a while. It is possible that patient would not be able to increase her oral intake safely to maintain her hydration and nutrition. Discussed going forward the options would be for hospice versus PEG tube placement. Discussed there is a concern with PEG tube as he is at risk of patient pulling the PEG tube out, dislodgment of PEG tube. It will not unfortunately help with the quality of life but will help for the quantity of life. Son and daughter after discussing detail decided to go ahead with hospice care. We discussed hospice care would mean that we will continue her chronic pain medications as possible if and when patient is able to take orally. We will remove NG tube. He will not monitor any further blood work. We will start her on oral diet as per her comfort. He will have medications for her comfort. Discussed if and when she gets sick again, has a cardiac arrest or respiratory distress plan will be to keep her comfortable while nature takes its own course which could mean that she could . Family verbalized understanding and wants to go with hospice care. She is been discharged back to [facility] with hospice care. Physical Exam Narrative: On examination, General: No acute distress HEENT: PERRLA, pupils bilaterally equal and reactive, pallors not present CVS heart rate and rhythm are regular. Chest is clear to auscultation bilaterally, with slightly decreased breath sounds at the bases. Abd: Soft, NT, ND : Wills No edema was noted in the lower extremities. Urinary Catheter Management: Wills: Cath Placed During This Visit: yes Reason for Continuing Indwelling Catheter: Hospice/Comfort/Palliative Care Urinary Catheter Date of Insertion: 01/01/25 Urinary Catheter Time of Insertion: 10:30 Discharge Data Studies Completed and Pending Completed Studies During Hospitalization Category Date Time Status CT head wo con* [id number] Stat Cat Scan 12/24/24 11:08 Completed CXRP [XR chest 1V portable [id number]] Routine Exams 01/01/25 10:14 Completed XR chest 1V portable [id number] Stat Exams 12/24/24 11:08 Completed XR chest 1V portable [id number] Stat Exams 12/26/24 04:55 Completed XR chest 1V portable [id number] Stat Exams 12/27/24 12:01 Completed XR chest 1V portable [id number] Stat Exams 12/27/24 13:04 Completed XR chest 1V portable [id number] Stat Exams 12/31/24 15:54 Completed US renal BI* [id number] Routine Ultrasound 12/25/24 17:21 Completed Pending at discharge Category Date Time Status Blood Culture Stat Lab 01/01/25 09:19 Results Radiology Impressions Head CT 12/24/24 11:08 IMPRESSION: 1. No acute intracranial finding. 2. Cerebral atrophy. 3. Likely severe small-vessel ischemic changes. Renal Ultrasound 12/25/24 17:21 IMPRESSION: No hydronephrosis. Chest X-Ray 01/01/25 10:14 IMPRESSION: 1. Enteric tube tip is over the body of the stomach (mid stomach). 2. Moderate left basilar atelectasis and/or infiltrate and/or effusion. Laboratory Results WBC 9.88 10^3/uL (3.29-11.43) 01/04/25 03:55 RBC 3.92 10^6/uL (3.85-5.65) 01/04/25 03:55 Hgb 9.70 g/dL (11.27-16.99) L 01/04/25 03:55 Hct 32.9 % (36-47) L 01/04/25 03:55 MCV 83.9 fl (85-98) L 01/04/25 03:55 MCH 24.7 pg (27-33) L 01/04/25 03:55 MCHC 29.5 g/dL (30-55) L 01/04/25 03:55 RDW 17.9 % (12.1-15.1) H 01/04/25 03:55 Plt Count 312 10^3/cmm (157-399) 01/04/25 03:55 MPV 11.3 fL (7.4-10.4) H 01/04/25 03:55 Neut % (Auto) 73.5 % 01/04/25 03:55 Lymph % (Auto) 13.3 % 01/04/25 03:55 [place] % (Auto) 7.6 % 01/04/25 03:55 Eos % (Auto) 3.5 % 01/04/25 03:55 Baso % (Auto) 0.3 % 01/04/25 03:55 Neut # (Auto) 7.26 10^3/uL (1.8-7.7) 01/04/25 03:55 Lymph # (Auto) 1.3 10^3/uL (0.8-4.8) 01/04/25 03:55 [place] # (Auto) 0.8 10^3/uL (0.2-0.9) 01/04/25 03:55 Eos # (Auto) 0.4 10^3/uL (0.0-0.8) 01/04/25 03:55 Baso # (Auto) 0.0 10^3/uL (0.0-0.1) 01/04/25 03:55 Nucleated RBC % (auto) 0.4 % 01/04/25 03:55 Nucleated RBCs # 0.0 /100WBC 01/04/25 03:55 PT 14.80 SECONDS (12.1-14.9) 12/24/24 11:22 INR 1.08 (0.8-1.2) 12/24/24 11:22 Specimen Type Arterial 12/26/24 05:23 Sample Site Radial, right 12/26/24 05:23 ABG pH 7.39 (7.35-7.45) 12/26/24 05:23 ABG pCO2 31.2 mmHg (35-45) L 12/26/24 05:23 ABG pO2 80.9 mmHg (80.0-100.0) 12/26/24 05:23 ABG PO2/FiO2 Ratio 260 12/24/24 17:24 ABG HCO3 19.0 mmol/L (22-26) L 12/26/24 05:23 ABG O2 Saturation 97.4 12/26/24 05:23 ABG Base Excess -5.0 mmol/L (-2.0-2.0) L 12/26/24 05:23 [place] Test Pos 12/26/24 05:23 A-a O2 Gradient 3.8 mmHg (5-10) L 12/26/24 05:23 Hematocrit 36.0 % (37-47) L 12/26/24 05:23 Hgb O2 Saturation 95.3 % (95-100) 12/26/24 05:23 Carboxyhemoglobin 1.1 %THgb (0.4-20.1) 12/26/24 05:23 Methemoglobin 1.1 % (0.4-1.5) 12/26/24 05:23 Total Hemoglobin 11.8 g/dL (12-16) L 12/26/24 05:23 Sodium 155.0 mmol/L (131-143) H 12/26/24 05:23 Potassium 3.3 mmol/L (3.5-5.0) L 12/26/24 05:23 Glucose 236.0 mg/dL (70-115) H 12/26/24 05:23 Ionized Calcium 1.2 mmol/L (1.1-1.4) 12/26/24 05:23 O2 Delivery Device Nc 12/26/24 05:23 O2 Liters/Min 2.0 % 12/26/24 05:23 FiO2 26.0 % 12/24/24 17:24 Reinforcing Steel Worker Wire Mesh ID [id number] 12/26/24 05:23 Sodium 150 mmol/L (136-145) H 01/04/25 03:55 Potassium 3.8 mmol/L (3.5-5.1) 01/04/25 03:55 Chloride 113 mmol/L (98-107) H 01/04/25 03:55 Carbon Dioxide 25 mmol/L (22-29) 01/04/25 03:55 Anion Gap 15.8 (5-19) 01/04/25 03:55 BUN 29 mg/dL (8-23) H 01/04/25 03:55 Creatinine 1.8 mg/dL (0.5-0.9) H 01/04/25 03:55 GFR Calculation Not Reportable 01/04/25 03:55 Glucose 124 mg/dL (65-115) H 01/04/25 03:55 POC Glucose 243 mg/dL (70-110) H 01/04/25 16:33 Calculated Osmolality 317 mOsm/kg (285-295) H 01/04/25 03:55 Calcium 8.9 mg/dL (8.5-10.5) 01/04/25 03:55 Magnesium 1.9 mg/dL (1.7-2.3) 12/24/24 11:22 Total Bilirubin 0.2 mg/dL (0.15-1.2) 01/04/25 03:55 AST 11 U/L (0-32) 01/04/25 03:55 ALT < 5 U/L (0-33) 01/04/25 03:55 Alkaline Phosphatase 169 U/L (35-105) H 01/04/25 03:55 Total Protein 6.8 g/dL (6.6-8.7) 01/04/25 03:55 Albumin 3.2 g/dL (3.5-5.2) L 01/04/25 03:55 Globulin 3.6 g/dL (1.3-4.6) 01/04/25 03:55 Procalcitonin 0.29 ng/mL (0-0.5) 01/04/25 03:55 TSH 1.80 uIU/mL (0.27-4.20) 12/24/24 11:22 Urine Color Yellow (Yellow) 01/01/25 14:00 Urine Appearance Slightly cloudy (CLEAR) 01/01/25 14:00 Urine pH 5 (5-7) 01/01/25 14:00 Ur Specific [place] 1.015 (1.005-1.030) 01/01/25 14:00 Urine Protein 1+ (Negative) H 01/01/25 14:00 Urine Glucose (UA) Norm (Normal) 01/01/25 14:00 Urine Ketones Negative (Negative) 01/01/25 14:00 Urine Blood 2+ (Negative) H 01/01/25 14:00 Urine Nitrate Negative (Negative) 01/01/25 14:00 Urine Bilirubin Neg (Negative) 01/01/25 14:00 Urine Urobilinogen Norm mg/dL (Negative) 01/01/25 14:00 Ur Leukocyte Esterase 1+ (Negative) H 01/01/25 14:00 Urine RBC 3-5 /hpf (0-2) 01/01/25 14:00 Urine WBC 21-50 /hpf (0-5) H 01/01/25 14:00 Ur Squamous Epith Cells 6-10 /hpf (0-5) 01/01/25 14:00 Amorphous Sediment Not Reportable 01/01/25 14:00 Urine Bacteria None seen /hpf (NONE) 01/01/25 14:00 Hyaline Casts 1.65 /lpf 01/01/25 14:00 Adenovirus (PCR) Not detected (NOT DETECT) 12/25/24 09:45 C. pneumoniae DNA (PCR) Not detected (NOT DETECT) 12/25/24 09:45 Coronavirus 229E (PCR) Not detected (NOT DETECT) 12/25/24 09:45 Human Metapneumovir PCR Not detected (NOT DETECT) 12/25/24 09:45 Influenza A (H1) PCR Not detected (NOT DETECT) 12/25/24 09:45 Influ A (H1/09) PCR Not detected (NOT DETECT) 12/25/24 09:45 Influenza A (H3) PCR Not detected (NOT DETECT) 12/25/24 09:45 Influenza Type A (PCR) Not detected (NOT DETECT) 12/25/24 09:45 Influenza Type B (PCR) Not detected (NOT DETECT) 12/25/24 09:45 M. pneumoniae (PCR) Not detected (NOT DETECT) 12/25/24 09:45 Parainfluenza 1 (PCR) Not detected (NOT DETECT) 12/25/24 09:45 Parainfluenza 2 (PCR) Not detected (NOT DETECT) 12/25/24 09:45 Parainfluenza 3 (PCR) Not detected (NOT DETECT) 12/25/24 09:45 Parainfluenza 4 (PCR) Not detected (NOT DETECT) 12/25/24 09:45 RSV Type A (PCR) Not detected (NOT DETECT) 12/25/24 09:45 RSV Type B (PCR) Not detected (NOT DETECT) 12/25/24 09:45 Entero/Rhino (PCR) Not detected (NOT DETECT) 12/25/24 09:45 SARS-CoV-2 (PCR) Not detected (NOT DETECT) 12/25/24 09:45 Vitals Last Vital Signs Temp 98.3 F 01/05/25 08:00 Pulse 87 01/05/25 08:00 Resp 19 H 01/05/25 08:00 BP 159/76 01/05/25 08:00 Pulse Ox 96 01/05/25 08:00 O2 Del Method Nasal Cannula 01/05/25 08:00 O2 Flow Rate 3 01/05/25 05:10 Discharge Plan Discharge Patient Disposition: Hospice - Medical Facility Condition: Stable Prescriptions: Continued multivitamin [Daily Multi-Vitamin] Tablet 1 tab PO DAILY Daily Probiotic 2.5 billion cell capsule 1 cap PO BID amantadine HCl 100 mg tablet 100 mg PO DAILY epinephrine [EpiPen 2-Dickson] 0.3 mg/0.3 mL auto-injector 0.3 mg IM ONCE PRN (Reason: Anaphylaxis) Qty: 2 0RF carbidopa-levodopa 50-200 mg tablet extended release 1 tab PO TID@08,12,17 Qty: 270 3RF metoprolol tartrate 25 mg tablet 25 mg PO BID Qty: 180 3RF magnesium hydroxide [Milk of Magnesia] 400 mg/5 mL Suspension 30 ml PO DAILY PRN (Reason: Constipation) bisacodyl [Dulcolax (bisacodyl)] 10 mg Suppository 10 mg NC DAILY PRN (Reason: Constipation) Fleet Enema 19-7 gram/118 mL Enema 118 ml NC DAILY PRN (Reason: Constipation) aspirin 81 mg tablet,delayed release (DR/EC) 81 mg PO DAILY nystatin 100,000 unit/gram Powder 1 applic TOPICAL TID PRN (Reason: yeast rash) insulin lispro [Humalog KwikPen Insulin] 100 unit/mL Insulin Pen See Rx Instructions .ROUTE .COMPLEX Rx Instructions: Inject as per sliding scale: 141-180 = 2 units 181-220 = 4 units 221-260 = 6 units 261-300 = 8 units 301-350 = 10 units 351-400 = 12 units Greater than 400 = 14 units Subcutaneously before meals for diabetes insulin lispro [Humalog KwikPen Insulin] 100 unit/mL Insulin Pen 18 unit SUBCUT AC Rx Instructions: TID BEFORE MEALS hydralazine 100 mg tablet 100 mg PO TID Qty: 90 0RF buspirone 5 mg Tablet 2.5 mg PO 1800 acetaminophen 325 mg Tablet 650 mg PO Q4H PRN (Reason: mild pain/fever) trazodone 50 mg Tablet 25 mg PO 1900 docusate sodium [Colace] 100 mg Capsule 100 mg PO BID docusate sodium [Colace] 100 mg Capsule 200 mg PO EVERY OTHER DAY cranberry 450 mg Tablet 450 mg PO DAILY Rx Instructions: administer with a meal [place] 60 mg Tablet 60 mg PO DAILY Rx Instructions: must administer with food, preferably a high-fat meal amlodipine 5 mg Tablet 5 mg PO DAILY tramadol 50 mg Tablet 50 mg PO Q8H PRN (Reason: Pain) alprazolam 0.5 mg Tablet 0.5 mg PO DAILY Januvia 50 mg tablet 50 mg PO DAILY insulin glargine [Lantus Solostar U-100 Insulin] 100 unit/mL (3 mL) Insulin Pen 80 unit SUBCUT QPM Trulicity 0.75 mg/0.5 mL Pen Injector 0.75 mg SUBCUT Q7D Discontinued atorvastatin 40 mg tablet 40 mg PO DAILY Qty: 90 3RF bumetanide 1 mg Tablet 1 mg PO DAILY Qty: 60 3RF Discharge Orders: Discharge Order (Routine); Ordered 01/05/25 Ordered By: Nabil Delgado Referrals: [facility] [Outside] [facility] [Outside] Pool Guzman AMPOULE EXAMINER [Primary Care Provider] - Patient Instructions: Hospice Care (GEN), Opioid Safety Activity Restrictions/Additional Instructions: Hospice care Discharge Attestations Time Spent in Discharge Care*: greater than 30 min Specific Discharge Activities: educating and/or supporting family/caregiver, discussing with pcp/other providers, discussing with correctional case records supervisor/social workers/dc planners, documenting/other paperwork and evaluating patient/reviewing data Status at Discharge: Cognitive status at discharge: severely impaired cognition (at baseline), Behavioral status at discharge: cooperative, Functional status at discharge: other assisted ambulation, Overall status at discharge: patient is back to baseline Quality Metrics Clinical Quality Measures [ No reported AMI, CVA or VTE this stay] Coding Level of Care Code 60564 Total time (in minutes) for Discharge: 60 Diagnoses E. coli bacteremia R78.81; B96.20 Acute cystitis N30.00 Altered mental status R41.82 Hypernatremia E87.0 JEIMY (acute kidney injury) N17.9 Parkinsons G20 Moderate dementia with anxiety, unspecified dementia type F03.B4 Dementia behavioral or psychological symptom: with anxiety Dementia severity: moderate Dementia type: unspecified type Hx of traumatic brain injury Z87.820 Essential (primary) hypertension I10 CKD (chronic kidney disease) N18.9 Goals of care, counseling/discussion Z71.89
[2025-01-05 10:23] VITALS: PULSE 90; O2SAT 95
[2025-01-05 11:45] VITALS: BP 171/73; PULSE 85; RESP 17; TEMP 36.8; O2SAT 96
[2025-01-05] MEDS: nystatin 100,000 unit/mL UDC 5 mL 100000 UNIT PO (14:13)
[2025-01-05 14:51] VITALS: BP 171/73; PULSE 85; RESP 17; TEMP 36.8; O2SAT 96
== END 2025-01-05 14:35 | disposition hospice, inpatient (51) | DRG 871 ==
LOC: ER 12:06 → MEDSURG 13:16
PROVIDERS: Hospitalist; Internal Medicine; Admitting Provider Student in an Organized Health Care Education/Training Program; Emergency Provider Emergency Medicine; PCP Clinical Nurse Specialist Adult Health; Visit Provider Student in an Organized Health Care Education/Training Program
DX: A41.51 Sepsis due to Escherichia coli [E. coli] (principal); J69.0 Pneumonitis due to inhalation of food and vomit; N30.00 Acute cystitis without hematuria; E87.0 Hyperosmolality and hypernatremia; N17.9 Acute kidney failure, unspecified; F02.B4 Dementia in other diseases classified elsewhere, moderate, with anxiety; I13.0 Hypertensive heart and chronic kidney disease with heart failure and stage 1 through stage 4 chronic kidney disease, or unspecified chronic kidney disease; G20.A1 Parkinson's disease without dyskinesia, without mention of fluctuations; E11.22 Type 2 diabetes mellitus with diabetic chronic kidney disease; E86.0 Dehydration; S06.9XAS Unspecified intracranial injury with loss of consciousness status unknown, sequela; N18.9 Chronic kidney disease, unspecified; E11.649 Type 2 diabetes mellitus with hypoglycemia without coma; Z66 Do not resuscitate; E11.65 Type 2 diabetes mellitus with hyperglycemia; I50.9 Heart failure, unspecified; E78.5 Hyperlipidemia, unspecified; Z90.710 Acquired absence of both cervix and uterus; Z90.49 Acquired absence of other specified parts of digestive tract; Z98.42 Cataract extraction status, left eye; Z98.41 Cataract extraction status, right eye; Z88.5 Allergy status to narcotic agent; Z88.2 Allergy status to sulfonamides; Z88.8 Allergy status to other drugs, medicaments and biological substances; Z79.899 Other long term (current) drug therapy; Z79.82 Long term (current) use of aspirin; Z79.4 Long term (current) use of insulin; Z79.85 Long-term (current) use of injectable non-insulin antidiabetic drugs; Z79.84 Long term (current) use of oral hypoglycemic drugs; Z51.5 Encounter for palliative care; Z86.73 Personal history of transient ischemic attack (TIA), and cerebral infarction without residual deficits; Z87.440 Personal history of urinary (tract) infections
CPT/HCPCS: 36415; 36416; 36600; 51702; 70450; 71045; 76770; 80048; 80051; 80053; 81001; 81003; 82330; 82803; 82805; 82962; 83735; 84145; 84443; 85025; 85610; 87040; 87077; 87086; 87150; 87186; 87205; 87486; 87581; 87633; 92507; 92523; 92526; 92610; 93005; 96361; 96372; 96374; 99285; J0131; J0360; J0692; J0696; J1644; J1815; J1940; J2543; J3480; J3490; J7030; J7070; J7799; J9999

== ENCOUNTER → 2025-02-20 10:48 | Outpatient (BNVA) | payer MEDICARE, OTHER, SELFPAY | PROVIDERS: PCP Clinical Nurse Specialist Adult Health; Visit Provider Nurse Practitioner Family | DX: I11.0 Hypertensive heart disease with heart failure (principal); I50.33 Acute on chronic diastolic (congestive) heart failure; F03.B4 Unspecified dementia, moderate, with anxiety; N17.9 Acute kidney failure, unspecified; E87.0 Hyperosmolality and hypernatremia; Z79.82 Long term (current) use of aspirin; Z87.820 Personal history of traumatic brain injury | CPT/HCPCS: 99213 ==